=== PATIENT | female | born 1990 | race Caucasian/White ===

== ENCOUNTER 2017-02-24 14:05 | Emergency (ER) | payer OTHER, SELFPAY ==
[2017-02-24 14:11] VITALS: BP 141/84; PULSE 107; RESP 18; TEMP 36.6; O2SAT 98; BMI 33.3
--- NOTE | 2017-02-24 14:19 | HMH.EDBACK ---
ED Disposition Clinical Impression: Chronic thoracic back pain Disposition: Home, Self-Care Condition on Discharge: Good Instructions: DI for Chronic Pain -- Adult, DI for Thoracic Back Pain Additional Instructions: Start gabapentin. Prednisone as prescribed. Call your pain management doctor today and arrange follow-up, earliest available appointment. Additional instructions for BACK PAIN: See your physician as soon as possible for further evaluation. Return immediately if back pain becomes intolerable, or if fever, numbness or weakness of your legs, loss of control of your bowels or bladder. Prescriptions: predniSONE [Prednisone 10mg Tab Dose-Pack] 10 mg PO DAILY #42 tab - Critical Care Critical Care Time: No Attestation: On , the high probability of a clinically significant, sudden or life threatening deterioration of the following system(s) required my full and direct attention, intervention and personal management. The time I documented below is in addition to time spent performing reported procedures but includes the following listed in this critical care notation. Medical Decision Making Vital Signs: 02/24/17 14:11 Temperature 97.8 F Temperature Source Oral Pulse Rate [Right Brachial] 107 H Respiratory Rate 18 Blood Pressure [Right Arm] 141/84 Blood Pressure Mean [Right Arm] 103 Blood Pressure Source [Right Arm] Automatic Cuff Blood Pressure Position [Right Arm] Sitting 02 Sat by Pulse Oximetry 98 Oxygen Delivery Method Room Air Orders (Tests/Meds): ED MEDICATIONS Discontinued Medications Generic Name Dose Route Start Last Admin Trade Name Freq PRN Reason Stop Dose Admin Dexamethasone Sodium Phosphate 8 mg 02/24/17 14:35 Decadron 4mg/Ml 1ml Vial IM 02/24/17 14:36 ONCE ONE - Juan Inquiry Pt receiving controlled substance: No Juan was queried for this patient: Yes Reference #:: [id number] Comment: 20 rxs. last rx 120 percocet on 02/22/17. Medical Decision Making Narrative: The patient states she has not had imaging in a long time and she wonders whether she needs new imaging studies. Her records here indicate she had MRI of thoracic and lumbar spine March 03, 2016. Thoracic spine showed mild degenerative changes, no interval change, no neural impingement. Lumbar MRI was read as negative. I have advised her that I do not feel emergent imaging is necessary or would be helpful. MRI would need to be obtained as an outpatient. I do not feel x-rays or CT would be helpful. She has had no recent injury or trauma. [facility] History I have reviewed the patient's past medical history: Yes - *Social History Educational Level: Completed College Smoking Status: Unknown if ever smoked Tobacco Type: cigarettes Alcohol Intake: never - Psychiatric History Expresses thoughts of harming self/others: None Suicide Plan Description: No Plan ROS Obtained: Yes All systems reviewed & no additional complaints - Musculoskeletal Musculoskeletal: Reports back pain Physical Exam - General General appearance: alert, in no apparent distress - Head Head exam: atraumatic, normocephalic, normal inspection - Eye Eye exam: Present: normal appearance, PERRL, EOMI - ENT ENT exam: Present: normal exam, normal oropharynx, mucous membranes moist, TM's normal bilaterally, normal external ear exam - Neck Neck exam: Present: normal inspection, full ROM, trachea midline. Absent: meningismus, lymphadenopathy - Chest Chest inspection: Present: normal inspection, symmetric chest wall rise. Absent: tenderness - Respiratory Respiratory exam: Present: normal lung sounds bilaterally. Absent: respiratory distress - Cardiovascular Cardiovascular exam: Present: regular rate, normal rhythm. Absent: JVD - Abdominal Exam Abdominal exam: Present: soft, normal bowel sounds. Absent: distention, tenderness, guarding - Extremities Exam Extremities exam: Present: normal inspection, ful
[2017-02-24 14:52] VITALS: BP 136/75; PULSE 75; RESP 18; TEMP 36.8
== END 2017-02-24 15:10 | disposition home or self-care (01) ==
LOC: ER 15:04
PROVIDERS: Emergency Provider Emergency Medicine; Family Provider Nurse Practitioner Family; PCP Nurse Practitioner Family
DX: M54.6 Pain in thoracic spine (principal); F41.9 Anxiety disorder, unspecified; Z79.899 Other long term (current) drug therapy
CPT/HCPCS: 96372; 99282

== ENCOUNTER → 2017-03-10 13:54 | Outpatient (REF) | payer OTHER, SELFPAY ==
[2017-03-10 19:28] LABS: Amphetamine/Metha Screen,Urine Negative ng/mL (<1000); Barbiturates Screen,Urine Negative ng/mL (<200); Benzodiazepines Screen,Urine Negative ng/mL (200); Cannabinoid Screen,Urine Negative ng/mL (<50); Cocaine Screen,Urine Negative ng/g (<300); Methadone Screen,Urine Negative ng/mL (<300); Opiate Screen,Urine Negative ng/mL (<300); Phencyclidine Screen,Urine Negative ng/mL (<25)
== END ==
LOC: LAB 13:54
PROVIDERS: Visit Provider Emergency Medicine
DX: Z79.899 Other long term (current) drug therapy (principal)
CPT/HCPCS: 80305

== ENCOUNTER → 2017-04-19 13:42 | Outpatient (CLI) | payer OTHER, SELFPAY ==
--- NOTE | 2017-04-19 13:57 | XR_ITS ---
EXAM: XR thoracic spine 3V HISTORY: ITS.REASON: THORACIS DDD COMPARISON: None FINDINGS: Normal alignment. No fracture or dislocation. No lytic or blastic change.. There is mild mid thoracic scoliosis convex right. Small endplate osteophytes are present involving the mid and lower thoracic spine. IMPRESSION: Thoracic spondylosis with minimal scoliosis, no acute finding
== END ==
PROVIDERS: PCP Emergency Medicine; Visit Provider Physical Medicine & Rehabilitation
DX: M51.34 Other intervertebral disc degeneration, thoracic region (principal)
CPT/HCPCS: 72072

== ENCOUNTER → 2017-05-26 09:06 | Outpatient (CLI) | payer OTHER, SELFPAY ==
[2017-05-26 09:45] LABS: Hemoglobin A1C 5.3 % (0.0-7.0)
[2017-05-26 10:27] LABS: Alanine Aminotransferase 32 U/L (12-78); Albumin Level 3.6 gm/dL (3.4-5.0); Albumin/Globulin Ratio 1.2 (1.1-1.8); Alkaline Phosphatase 89 U/L (46-116); Anion Gap 14.6 mEq/L (5-15); Aspartate Amino Transferase 20 U/L (15-37); Bilirubin,Total 0.1 mg/dL (0.2-1.0); Blood Urea Nitrogen 10 mg/dL (7-18); Calcium 8.6 mg/dL (8.5-10.1); Carbon Dioxide 25 mmol/L (21.0-32.0); Chloride 108 mmol/L (98-107); Creatinine,Serum 1.03 mg/dL (0.55-1.02); Estimated Glomerular Filt Rate 64 ml/min (>60); Free T4 (Free Thyroxine) 1.19 ng/dl (0.76-1.46); GFR (African American) 78 ML/MIN (>60); Globulin 2.9 gm/dl (1.3-3.2); Glucose 104 mg/dL (74-106); Potassium 4.6 mmoL/L (3.5-5.1); Sodium 143 mmol/L (136-145); Thyroid Stimulating Hormone 4.39 uIU/ml (0.358-3.740); Total Protein,Serum 6.5 gm/dL (6.4-8.2)
[2017-05-30 06:14] LABS: Insulin Level Total 51.2 uIU/mL (2.6-24.9)
[2017-05-30 06:30] LABS: Thyroglobulin Level <1.0
== END ==
PROVIDERS: Visit Provider Internal Medicine Endocrinology, Diabetes & Metabolism
DX: C73 Malignant neoplasm of thyroid gland (principal); E89.0 Postprocedural hypothyroidism; R73.09 Other abnormal glucose
CPT/HCPCS: 36415; 80053; 83036; 83525; 84439; 84443; 86800

== ENCOUNTER → 2017-06-16 15:17 | Outpatient (CLI) | payer OTHER, SELFPAY ==
[2017-06-16 15:46] LABS: Hematocrit 39.6 % (37.0-47.0); Hemoglobin 13.3 g/dL (12.2-16.2)
== END ==
PROVIDERS: Visit Provider Obstetrics & Gynecology
DX: N93.8 Other specified abnormal uterine and vaginal bleeding (principal)
CPT/HCPCS: 85014; 85018

== ENCOUNTER → 2017-06-19 16:31 | Outpatient (CLI) | payer OTHER, SELFPAY ==
--- NOTE | 2017-06-19 16:32 | US_ITS ---
US transvaginal Ordering Physician: Tomas Marquis MD Patient Age: 27 years: Female HISTORY: ITS.REASON: PELVIC PAIN explanon . No cycle for the past 8 years pain started clotting last week . Recurrent or variant cyst TECHNIQUE: Transvaginal pelvic ultrasound. COMPARISON :09/27/[address] abdomen dec 2016 FINDINGS UTERUS: Retroverted retroflexed moderate size uterus.:. 7.5 cm in length x 4.2 cm x 4.5 cm wide Thin endometrial stripe. Normal thickness 3.2 mm. . borderline to mild enlarged Right ovary 4.5 x 3 x 3.1 cm Right ovarian cyst now measuring 3.4 x 2.7 cm Left ovary 1.7 x 1.3 x 1.3 cm. Scattered small follicles. No fluid in cul-de-sac IMPRESSION: ------ 1. Retroverted retroflexed uterus. Overall normal size with endometrial stripe 2. Borderline to mildly enlarged right ovary Contains dominant right ovarian cyst now measuring 3.4 x 2.7 cm. 3. No fluid in cul-de-sac
== END ==
PROVIDERS: PCP Emergency Medicine; Visit Provider Obstetrics & Gynecology
DX: R10.2 Pelvic and perineal pain (principal)
CPT/HCPCS: 76830

== ENCOUNTER → 2017-07-26 13:02 | Outpatient (CLI) | payer OTHER, SELFPAY ==
--- NOTE | 2017-07-26 13:16 | XR_ITS ---
XR hip LT 2-3V w/pelvis HISTORY: ITS.REASON: LEFT HIP PAIN ORDERING PHYSICIAN: Nichelle Nguyen PATIENT AGE: 27 years COMPARISON: None FINDINGS: No fracture or dislocation is evident. No significant degenerative change. No lytic or blastic change. Unremarkable soft tissues. There is an offset acetabulum along the lateral aspect of the hip joint has a normal variant. IMPRESSION: No acute finding, negative left hip
--- NOTE | 2017-07-26 13:16 | XR_ITS ---
XR hip RT 2-3V w/pelvis HISTORY: ITS.REASON: RT HIP PAIN ORDERING PHYSICIAN: Nichelle Nguyen PATIENT AGE: 27 years COMPARISON: None FINDINGS: No fracture or dislocation is evident. No significant degenerative change. No lytic or blastic change. Unremarkable soft tissues. There is an os acetabulum on the right as a normal variant IMPRESSION: Negative right hip
[2017-07-26 14:44] LABS: Uric Acid 4.6 mg/dL (2.6-7.2)
[2017-07-26 15:53] LABS: Erythrocyte Sedimentation Rate 16 mm/hr (0-20)
[2017-07-28 13:33] LABS: Antinuclear Antibodies, IFA Negative (.); RA Latex Turbid. <10.0 IU/mL (0.0-13.9)
== END ==
PROVIDERS: Physical Medicine & Rehabilitation; PCP Emergency Medicine; Visit Provider Nurse Practitioner Family
DX: M25.551 Pain in right hip (principal); M25.552 Pain in left hip; M25.50 Pain in unspecified joint
CPT/HCPCS: 36415; 73502; 84550; 85651; 86038; 86431

== ENCOUNTER → 2017-08-08 16:21 | Outpatient (REF) | payer OTHER, SELFPAY ==
[2017-08-08 21:56] LABS: Free T4 (Free Thyroxine) 1.06 ng/dl (0.76-1.46); Thyroid Stimulating Hormone 6.16 uIU/ml (0.358-3.740)
== END ==
LOC: LAB 16:21
PROVIDERS: Visit Provider Emergency Medicine
DX: F41.9 Anxiety disorder, unspecified (principal); E07.9 Disorder of thyroid, unspecified
CPT/HCPCS: 84439; 84443

== ENCOUNTER 2017-09-02 07:49 | Outpatient (CLI) | payer OTHER, SELFPAY | END 2017-09-02 08:05 | disposition hospice, home (50) | PROVIDERS: Visit Provider Emergency Medicine | DX: T78.40XA Allergy, unspecified, initial encounter (principal) | CPT/HCPCS: 96372 ==

== ENCOUNTER → 2017-09-11 14:50 | Outpatient (CLI) | payer OTHER, SELFPAY ==
--- NOTE | 2017-09-11 15:12 | CT_ITS ---
CT pelvis wo con INDICATION: Bilateral hip pain ITS.REASON: Bilateral Hip Pain ORDERING PHYSICIAN: Gabriela Miles PATIENT AGE: 27 years COMPARISON: None TECHNIQUE: Axial images are obtained without contrast. Sagittal, coronal, and 3-D reformatted images are generated of both hips. All CT scans at the facility use one or more dose reduction, viz: automated exposure control, ma/kV adjustment per patient size (including targeted exams where dose is matched to indication, i.e. head), or iterative reconstruction technique. FINDINGS: No fracture or dislocation. No lytic or blastic change. There is slight decrease in the joint space superiorly on both sides suggesting mild bilateral osteoarthritis. There are bilateral os acetabuli as a normal variant. No soft tissue mass or obvious joint effusion. Incidental note made of the left ovarian cyst at 18 mm. The uterus is somewhat bulky nonspecific. The SI joints have an unremarkable appearance. IMPRESSION: 1. There is slight decrease in the hip joint space superiorly on both sides consistent with mild osteoarthritis 2. Otherwise negative CT of the hips
== END ==
PROVIDERS: PCP Nurse Practitioner Family; Visit Provider Nurse Practitioner Family
DX: M25.551 Pain in right hip (principal); M25.552 Pain in left hip
CPT/HCPCS: 72192

== ENCOUNTER → 2017-10-10 10:44 | Outpatient (CLI) | payer OTHER, SELFPAY ==
[2017-10-11 14:54] LABS: HIV Screen 4th Generation wRfx Non Reactive (Non Reactive); Rapid Plasma Reagin Ab Titer Non Reactive (NonRea<1:1)
[2017-10-11 14:55] LABS: Hepatitis C Antibody <0.1 s/co ratio (0.0-0.9)
== END ==
PROVIDERS: Family Provider Nurse Practitioner Family; PCP Emergency Medicine; Visit Provider Obstetrics & Gynecology
DX: Z11.3 Encounter for screening for infections with a predominantly sexual mode of transmission (principal)
CPT/HCPCS: 36415; 86592; 86703; 87380; G0432

== ENCOUNTER → 2017-11-28 13:35 | Outpatient (CLI) | payer OTHER, SELFPAY ==
[2017-11-28 15:14] LABS: Free T4 (Free Thyroxine) 1.08 ng/dl (0.76-1.46)
[2017-11-30 07:00] LABS: Thyroglobulin IMA CHARGE YES; Thyroglobulin Level <1.0 IU/mL (0.0-0.9)
== END ==
PROVIDERS: PCP Emergency Medicine; Visit Provider Internal Medicine Endocrinology, Diabetes & Metabolism
DX: C73 Malignant neoplasm of thyroid gland (principal)
CPT/HCPCS: 84439; 84443; 86800

== ENCOUNTER → 2017-12-06 12:59 | Outpatient (CLI) | payer OTHER, SELFPAY ==
--- NOTE | 2017-12-06 13:01 | MR_ITS ---
MR lumbar spine wo con, MR 3-d myelogram/MRCP HISTORY: Low back pain X 4-5 years. Bilateral buttock and leg pain. RT leg numbness and tingling. ITS.REASON: CHRONIC PAIN SYNDROME ORDERING PHYSICIAN: Ranulfo Tinsley PATIENT AGE: 27 years Comparison: MRI 03/03/16 TECHNIQUE: Standard multiplanar multiecho sequences are performed without contrast. 3-D MIP and myelographic images are also rendered and reviewed FINDINGS: There is normal alignment. The spinal cord ends at the L1-L2 level. No canal stenosis,, disc herniation, foraminal narrowing, or lateral recess narrowing. There is some minimal generalized facet and ligamentum flavum hypertrophic change but no evidence of lateral recess or foraminal narrowing. IMPRESSION: Minimal facet and ligamentum flavum hypertrophy otherwise negative MRI of the lumbar spine
== END ==
PROVIDERS: PCP Emergency Medicine; Visit Provider Anesthesiology
DX: G89.21 Chronic pain due to trauma (principal)
CPT/HCPCS: 72148; 76376

== ENCOUNTER → 2018-01-10 19:33 | Outpatient (CLI) | payer OTHER, SELFPAY ==
[2018-01-10 21:50] LABS: Amphetamine/Metha Screen,Urine Negative ng/mL (<1000); Barbiturates Screen,Urine Negative ng/mL (<200); Benzodiazepines Screen,Urine Negative ng/mL (<200); Cannabinoid Screen,Urine Negative ng/mL (<50); Cocaine Screen,Urine Negative ng/mL (<300); Methadone Screen,Urine Negative ng/mL (<300); Opiate Screen,Urine Positive ng/mL (<300); Phencyclidine Screen,Urine Negative ng/mL (<25)
[2018-01-15 05:06] LABS: Alprazolam Negative (Cutoff=100); Benzodiazepines Positive ng/mL (Cutoff=100); Clonazepam Negative (Cutoff=100); Flurazepam Negative (Cutoff=100); Lorazepam Positive (.); Midazolam Negative (Cutoff=100); Temazepam Negative (Cutoff=100); Triazolam Negative (Cutoff=100)
== END ==
PROVIDERS: Visit Provider Emergency Medicine
DX: Z79.899 Other long term (current) drug therapy (principal)
CPT/HCPCS: 80305; 80346

== ENCOUNTER → 2018-01-20 12:48 | Outpatient (CLI) | payer OTHER, SELFPAY ==
[2018-01-20 17:00] LABS: Free T4 (Free Thyroxine) 1.34 ng/dl (0.76-1.46); Thyroid Stimulating Hormone 0.86 uIU/ml (0.358-3.740)
== END ==
PROVIDERS: Visit Provider Internal Medicine Endocrinology, Diabetes & Metabolism
DX: C73 Malignant neoplasm of thyroid gland (principal)
CPT/HCPCS: 36415; 84439; 84443

== ENCOUNTER → 2018-01-26 10:57 | Outpatient (CLI) | payer OTHER, SELFPAY ==
[2018-01-27 18:39] LABS: HIV Screen 4th Generation wRfx Non Reactive (Non Reactive); Rapid Plasma Reagin Ab Titer Non Reactive (NonRea<1:1)
[2018-01-27 18:40] LABS: Hepatitis C Antibody 0.1 s/co ratio (0.0-0.9)
== END ==
PROVIDERS: PCP Emergency Medicine; Visit Provider Obstetrics & Gynecology
DX: Z11.3 Encounter for screening for infections with a predominantly sexual mode of transmission (principal); N94.9 Unspecified condition associated with female genital organs and menstrual cycle; Z30.9 Encounter for contraceptive management, unspecified
CPT/HCPCS: 36415; 86316; 86592; 86703; 87380; G0432

== ENCOUNTER → 2018-02-02 12:38 | Outpatient (CLI) | payer OTHER, SELFPAY ==
--- NOTE | 2018-02-02 12:53 | US_ITS ---
US transvaginal HISTORY: ITS.REASON: PELVIC PAIN ORDERING PHYSICIAN: Tomas Marquis MD PATIENT AGE: 27 years Comparison: None FINDINGS: UTERUS: The uterus measures 6.5 x 4.4 x 5 cm. Combined endometrial thickness is 3 mm. The uterus is retroflexed. No uterine mass evident. RIGHT OVARY: 4.7 x 3.5 cm. There is a 4.3 x 3 cm cyst of the right ovary. There is some minimal septation noted posteriorly Blood flow is present to the right ovary LEFT OVARY: 1.8 x 1.2 cm. Unremarkable appearance CUL-DE-SAC FLUID: No cul-de-sac fluid apparent OTHER FINDINGS: None IMPRESSION: 4 cm right ovarian cyst with thin septation posteriorly. Retroflexed uterus Otherwise negative pelvic ultrasound
== END ==
PROVIDERS: PCP Emergency Medicine; Visit Provider Obstetrics & Gynecology
DX: R10.2 Pelvic and perineal pain (principal)
CPT/HCPCS: 76830

== ENCOUNTER 2018-03-27 14:03 | Outpatient (RCR) | payer OTHER, SELFPAY | END 2018-03-27 14:05 | disposition home or self-care (01) | LOC: OT 14:03 | PROVIDERS: Visit Provider Orthopaedic Surgery | DX: S52.614D Nondisplaced fracture of right ulna styloid process, subsequent encounter for closed fracture with routine healing (principal) | CPT/HCPCS: 97763 ==

== ENCOUNTER → 2018-04-03 11:21 | Outpatient (POV) | payer OTHER, SELFPAY | PROVIDERS: Visit Provider Dermatology | DX: Z00.00 Encounter for general adult medical examination without abnormal findings (principal) ==

== ENCOUNTER → 2018-05-15 12:16 | Outpatient (CLI) | payer OTHER, SELFPAY ==
--- NOTE | 2018-05-15 12:20 | XR_ITS ---
XR abdomen min 2V COMPARISON: CT scan abdomen pelvis without IV or oral contrast 01/21/2018 HISTORY: Clinical suspicion of constipation TECHNIQUE: KUB and upright abdomen FINDINGS: There is minimal scattered gas in ascending and transverse colon and splenic flexure. There is some gas in the lower descending and sigmoid colon. There is very little if any formed stool present. There is no significant small bowel gas. There are no abnormal soft tissue shadows and there is no free air. IMPRESSION: Nondiagnostic abdomen, no findings of constipation
--- NOTE | 2018-05-15 12:20 | XR_ITS ---
XR mandible min 4V COMPARISON: None HISTORY: Kicked in left hemimandible by patient's child TECHNIQUE: Panorex view and left lateral view FINDINGS: The mandible appears grossly intact with no evidence of recent or old fracture. The mandibular condyles appear normal bilaterally. There is poor dental hygiene with many missing mandibular teeth and all alveolar teeth IMPRESSION: Minimal negative for acute fracture
== END ==
PROVIDERS: PCP Emergency Medicine; Visit Provider Emergency Medicine
DX: R19.7 Diarrhea, unspecified (principal); R68.84 Jaw pain
CPT/HCPCS: 70110; 74019

== ENCOUNTER → 2018-07-20 17:20 | Outpatient (CLI) | payer OTHER, SELFPAY ==
[2018-07-20 18:41] LABS: Thyroid Stimulating Hormone 0.46 uIU/ml (0.358-3.740)
== END ==
PROVIDERS: Visit Provider Internal Medicine Endocrinology, Diabetes & Metabolism
DX: C73 Malignant neoplasm of thyroid gland (principal)
CPT/HCPCS: 36415; 84439; 84443

== ENCOUNTER 2018-07-26 18:13 | Emergency (ER) | payer OTHER, SELFPAY ==
[2018-07-26 18:27] VITALS: BP 125/80; PULSE 79; RESP 18; TEMP 36.1; O2SAT 99; BMI 33.9
[2018-07-26 18:37] LABS: Microscopic, Urine URINE MICROSCOPIC (MICROSCOPIC)
[2018-07-26 18:39] LABS: Appearance,Urine CLEAR (Clear); Bilirubin,Urine Negative (Negative); Blood, Urine Negative (Negative); Color,Urine YELLOW (Yellow); Glucose,Urine (UA) Negative (Negative); Ketones,Urine Negative (Negative); Leukocyte Esterase,Urine Negative (Negative); Nitrate,Urine Negative (Negative); PH,Urine 5.5 (5.0-8.5); Protein,Urine Negative (Negative); Urobilinogen,Urine 0.2 EU/dl (0.2)
--- NOTE | 2018-07-26 18:41 | CT_ITS ---
CT abdomen pelvis w con CLINICAL INDICATION: Generalized abdominal pain with nausea and vomiting ITS.REASON: abd pain ORDERING PHYSICIAN: Manuel Trinidad MD PATIENT AGE: 28 years COMPARISON: 01/07/2017 TECHNIQUE: Axial images obtained with sagittal and coronal reformats. All CT scans at the facility use one or more dose reduction, viz: automated exposure control, ma/kV adjustment per patient size (including targeted exams where dose is matched to indication, i.e. head), or iterative reconstruction technique. PROCEDURE: Oral Contrast: None IV Contrast: 75 mL's Optiray 350 . FINDINGS: Lower thorax: No acute finding There is a small isodensity in the central aspect of the right hepatic lobe at 4 mm nonspecific. Liver is otherwise unremarkable. The gallbladder, spleen, adrenal glands, pancreas, and kidneys have an unremarkable appearance. No intestinal obstruction or free air is evident. There is mild mucosal thickening of the jejunum raising the suspicion of enteritis. No evidence of appendicitis or diverticulitis. There is a left ovarian cyst at 3.7 cm. There is mild prominence of the pelvic vessels and left gonadal vein which could be seen with pelvic congestion syndrome No acute bony findings. IMPRESSION: 1. Possible enteritis of the jejunum 2. 3.7 cm left ovarian cyst 3. Mild prominence of the pelvic vessels and left gonadal vein nonspecific but could be seen with pelvic congestion syndrome
[2018-07-26 18:46] LABS: Basophils % 0.2 % (0.1-2.0); Eosinophils # 0.2 K/mm3 (0.0-0.4); Eosinophils % 1.3 % (0.1-12.0); Hemoglobin 13.7 g/dL (12.2-16.2); Lymphocytes # 1.9 K/mm3 (0.7-4.5); Lymphocytes % 12.1 % (10-50); Mean Corpuscular HGB Conc 32.6 g/dL (31.8-35.4); Mean Corpuscular Hemoglobin 29.4 pg (27.0-31.2); Mean Corpuscular Volume 90.2 fl (81-99); Mean Platelet Volume 6.8 fl (7.4-10.4); Monocytes # 0.8 K/mm3 (0.1-1.0); Monocytes % 5.3 % (1.7-9.3); Neutrophils # 12.5 K/mm3 (1.8-7.8); Neutrophils % 81.1 % (37.0-80.0); Platelet Count 400 K/mm3 (142-424); Red Blood Count 4.66 M/mm3 (4.20-5.40); Red Cell Distribution Width 12.4 % (11.5-17.5); White Blood Count 15.4 K/mm3 (4.8-10.8)
[2018-07-26 18:47] LABS: MANUAL DIFFERENTIAL MANUAL DIFFERENTIAL (MANUAL DIFF)
[2018-07-26 18:58] LABS: Alanine Aminotransferase 36 U/L (12-78); Albumin Level 3.5 gm/dL (3.4-5.0); Alkaline Phosphatase 96 U/L (46-116); Amylase 21 U/L (25-115); Anion Gap 11.9 mEq/L (5-15); Aspartate Amino Transferase 19 U/L (15-37); Bilirubin,Total 0.3 mg/dL (0.2-1.0); Blood Urea Nitrogen 11 mg/dL (7-18); Calcium 8.3 mg/dL (8.5-10.1); Carbon Dioxide 27 mmol/L (21.0-32.0); Chloride 105 mmol/L (98-107); Creatinine Clearance Estimated 172 mL/min (50-200); Creatinine,Serum 0.71 mg/dL (0.55-1.02); Estimated Glomerular Filt Rate 98 ml/min (>60); GFR (African American) 119 ML/MIN (>60); Globulin 3.5 gm/dl (1.3-3.2); Glucose 86 mg/dL (74-106); Lipase 101 u/L (73-393); Potassium 3.9 mmoL/L (3.5-5.1); Sodium 140 mmol/L (136-145)
--- NOTE | 2018-07-26 19:02 | HMH.EDABDPAI ---
ED Disposition Clinical Impression: Jejunitis Disposition: Home, Self-Care Condition on Discharge: Good Instructions: DI for Peptic Ulcer Prescriptions: Sucralfate [Carafate 1gm/10mL Susp] 10 ml PO QID 14 Days #550 ml Pantoprazole Sodium [Protonix 40mg tablet] 40 mg PO HS 30 Days #30 tab Referrals: Manuel Montilla MD [Primary Care Provider] - Time of Disposition: 21:07 - Critical Care Critical Care Time: No Attestation: On 07/26/18, the high probability of a clinically significant, sudden or life threatening deterioration of the following system(s) required my full and direct attention, intervention and personal management. The time I documented below is in addition to time spent performing reported procedures but includes the following listed in this critical care notation. Medical Decision Making - Medical Records Medical records reviewed: Yes: I reviewed the patient's medical records. - Juan Inquiry Pt receiving controlled substance: No Juan was queried for this patient: No Vital Signs: 07/26/18 18:27 07/26/18 20:12 07/26/18 21:00 Temperature 97.0 F L 98.3 F Temperature Source Oral Oral Pulse Rate [Right Brachial] 79 93 H 93 H Respiratory Rate 18 18 18 Blood Pressure [Right Arm] 125/80 110/68 109/65 L Blood Pressure Mean [Right Arm] 95 82 79 Blood Pressure Source [Right Arm] Automatic Cuff Automatic Cuff Automatic Cuff Blood Pressure Position [Right Arm] Sitting Supine Supine 02 Sat by Pulse Oximetry 99 99 99 Oxygen Delivery Method Room Air Room Air Room Air - Lab Data Lab results reviewed: Yes: I reviewed the patient's lab results. Lab Results 07/26/18 18:26: Urine Color Yellow, Urine Appearance Clear, Urine pH 5.5, Ur Specific [place] 1.010, Urine Protein Negative, Urine Glucose (UA) Negative, Urine Ketones Negative, Urine Blood Negative, Urine Nitrate Negative, Urine Bilirubin Negative, Urine Urobilinogen 0.2, Ur Leukocyte Esterase Negative, Urine WBC Occasional, Ur Squamous Epith Cells Occasional, Urine Bacteria Trace 07/26/18 18:35: WBC 15.4 H, RBC 4.66, Hgb 13.7, Hct 42.0, MCV 90.2, MCH 29.4, MCHC 32.6, RDW 12.4, Plt Count 400, MPV 6.8 L, Neut % (Auto) 81.1 H, Lymph % (Auto) 12.1, [place] % (Auto) 5.3, Eos % (Auto) 1.3, Baso % (Auto) 0.2, Neut # (Auto) 12.5 H, Lymph # (Auto) 1.9, [place] # (Auto) 0.8, Eos # (Auto) 0.2, Baso # (Auto) 0.0, Total Counted 100, Neutrophils % (Manual) 79 H, Band Neutrophils % 7.0, Lymphocytes % (Manual) 11, Monocytes % (Manual) 3, Platelet Estimate Slight increase, RBC Morphology Normal 07/26/18 18:35: Sodium 140, Potassium 3.9, Chloride 105, Carbon Dioxide 27, Anion Gap 11.9, BUN 11, Creatinine 0.71, Estimated Creat Clear 172, Estimated GFR 98, Est GFR ( Amer) 119, Glucose 86, Calcium 8.3 L, Total Bilirubin 0.3, AST 19, ALT 36, Alkaline Phosphatase 96, Total Protein 7.0, Albumin 3.5, Globulin 3.5 H, Albumin/Globulin Ratio 1.0 L, Amylase 21 L, Lipase 101 07/26/18 18:35: Serum HCG, Qual Negative 07/26/18 19:09: Lactate 1.0 Result diagrams: 07/26/18 18:35 07/26/18 18:35 Orders (Tests/Meds): ED MEDICATIONS Generic Name Dose Route Start Last Admin Trade Name Freq PRN Reason Stop Dose Admin Sodium Chloride 1,000 mls @ 999 mls/hr 07/26/18 18:45 07/26/18 18:44 Sod Chlor 0.9% 1000ml Bag IV 07/26/18 19:45 999 mls/hr .Q1H1M LUZMARIA Administration Sodium Chloride 1,000 mls @ 999 mls/hr 07/26/18 19:30 07/26/18 20:18 Sod Chlor 0.9% 1000ml Bag IV 07/26/18 20:30 999 mls/hr .Q1H1M LUZMARIA Administration Discontinued Medications Generic Name Dose Route Start Last Admin Trade Name Freq PRN Reason Stop Dose Admin Belladonna Alkaloids 60 ml 07/26/18 18:43 07/26/18 18:44 Gi Cocktail 60ml Udc PO 07/26/18 18:44 60 ml ONCE ONE Administration Ioversol 75 ml 07/26/18 19:43 07/26/18 19:45 Rad-Optiray 350 100ml Vial IV 07/26/18 19:44 75 ml ONCE ONE Administration Protocol Morphine Sulfate 2 mg 07/26/18 19:22 07/26/18
--- NOTE | 2018-07-26 19:06 | ED_ITS ---
ED Disposition Clinical Impression: Jejunitis Disposition: Home, Self-Care Condition on Discharge: Good Instructions: DI for Peptic Ulcer Prescriptions: Sucralfate [Carafate 1gm/10mL Susp] 10 ml PO QID 14 Days #550 ml Pantoprazole Sodium [Protonix 40mg tablet] 40 mg PO HS 30 Days #30 tab Referrals: Manuel Montilla MD [Primary Care Provider] - Time of Disposition: 21:07 - Critical Care Critical Care Time: No Attestation: On 07/26/18, the high probability of a clinically significant, sudden or life threatening deterioration of the following system(s) required my full and direct attention, intervention and personal management. The time I documented below is in addition to time spent performing reported procedures but includes the following listed in this critical care notation. Medical Decision Making - Medical Records Medical records reviewed: Yes: I reviewed the patient's medical records. - Juan Inquiry Pt receiving controlled substance: No Juan was queried for this patient: No Vital Signs: 07/26/18 18:27 07/26/18 20:12 07/26/18 21:00 Temperature 97.0 F L 98.3 F Temperature Source Oral Oral Pulse Rate [Right Brachial] 79 93 H 93 H Respiratory Rate 18 18 18 Blood Pressure [Right Arm] 125/80 110/68 109/65 L Blood Pressure Mean [Right Arm] 95 82 79 Blood Pressure Source [Right Arm] Automatic Cuff Automatic Cuff Automatic Cuff Blood Pressure Position [Right Arm] Sitting Supine Supine 02 Sat by Pulse Oximetry 99 99 99 Oxygen Delivery Method Room Air Room Air Room Air - Lab Data Lab results reviewed: Yes: I reviewed the patient's lab results. Lab Results 07/26/18 18:26: Urine Color Yellow, Urine Appearance Clear, Urine pH 5.5, Ur Specific [place] 1.010, Urine Protein Negative, Urine Glucose (UA) Negative, Urine Ketones Negative, Urine Blood Negative, Urine Nitrate Negative, Urine Bilirubin Negative, Urine Urobilinogen 0.2, Ur Leukocyte Esterase Negative, Urine WBC Occasional, Ur Squamous Epith Cells Occasional, Urine Bacteria Trace 07/26/18 18:35: WBC 15.4 H, RBC 4.66, Hgb 13.7, Hct 42.0, MCV 90.2, MCH 29.4, MCHC 32.6, RDW 12.4, Plt Count 400, MPV 6.8 L, Neut % (Auto) 81.1 H, Lymph % (Auto) 12.1, [place] % (Auto) 5.3, Eos % (Auto) 1.3, Baso % (Auto) 0.2, Neut # (Auto) 12.5 H, Lymph # (Auto) 1.9, [place] # (Auto) 0.8, Eos # (Auto) 0.2, Baso # (Auto) 0.0, Total Counted 100, Neutrophils % (Manual) 79 H, Band Neutrophils % 7.0, Lymphocytes % (Manual) 11, Monocytes % (Manual) 3, Platelet Estimate Slight increase, RBC Morphology Normal 07/26/18 18:35: Sodium 140, Potassium 3.9, Chloride 105, Carbon Dioxide 27, Anion Gap 11.9, BUN 11, Creatinine 0.71, Estimated Creat Clear 172, Estimated GFR 98, Est GFR ( Amer) 119, Glucose 86, Calcium 8.3 L, Total Bilirubin 0.3, AST 19, ALT 36, Alkaline Phosphatase 96, Total Protein 7.0, Albumin 3.5, Globulin 3.5 H, Albumin/Globulin Ratio 1.0 L, Amylase 21 L, Lipase 101 07/26/18 18:35: Serum HCG, Qual Negative 07/26/18 19:09: Lactate 1.0 Result diagrams: 07/26/18 18:35 07/26/18 18:35 Orders (Tests/Meds): ED MEDICATIONS Generic Name Dose Route Start Last Admin Trade Name Freq PRN Reason Stop Dose Admin Sodium Chloride 1,000 mls @ 999 mls/hr 07/26/18 18:45 07/26/18 18:44 Sod Chlor 0.9% 1000ml Bag IV 07/26/18 19:45 999 mls/hr
[2018-07-26 19:07] LABS: HCG Qualitative, Serum Negative (Negative)
[2018-07-26 19:13] LABS: Lymphocytes % 11 % (10-50); Monocytes % 3 % (2-9); Neutrophils % 79 % (42-76); Platelet Estimate Slight Increase; RBC Morphology Normal; Total Cells Counted 100
[2018-07-26 19:15] LABS: Bacteria,Urine Trace /lpf; Squamous Epithelial Cell,Urine Occasional #/hpf (0-5); WBC,Urine Occasional #/hpf (0-3)
[2018-07-26 20:12] VITALS: BP 110/68; PULSE 93; RESP 18; TEMP 36.8; O2SAT 99
[2018-07-26 21:00] VITALS: BP 109/65; PULSE 93; RESP 18; O2SAT 99
[2018-07-26 21:34] VITALS: BP 109/65; PULSE 93; RESP 14; TEMP 36.8; O2SAT 99
== END 2018-07-26 21:38 | disposition home or self-care (01) ==
PROVIDERS: Emergency Provider Emergency Medicine; PCP Emergency Medicine
DX: K52.9 Noninfective gastroenteritis and colitis, unspecified (principal); F41.8 Other specified anxiety disorders; E03.9 Hypothyroidism, unspecified; F17.210 Nicotine dependence, cigarettes, uncomplicated; Z88.2 Allergy status to sulfonamides
CPT/HCPCS: 74177; 80053; 81001; 82150; 83605; 83690; 84703; 85007; 85025; 87040; 96365; 96366; 96367; 96375; 99284; J2405; Q9967

== ENCOUNTER → 2018-10-16 15:39 | Outpatient (CLI) | payer OTHER, SELFPAY ==
--- NOTE | 2018-10-16 15:42 | US_ITS ---
PROCEDURE: US TRANSVAGINAL CLINICAL INDICATION: US T/V- llqp w/ low grade fever COMPARISON: TRANVAG US transvaginal from 02/02/2018 TECHNIQUE: FINDINGS: The uterus is retroverted and measures 6 x 4 x 4.4 cm with a combined endometrial thickness of 2 mm. No uterine mass evident. The left ovary is 2.6 x 2 cm. The right ovary is 4 x 4 cm and contains a 4 cm cyst. There is bilateral ovarian blood flow. No cul-de-sac fluid evident. IMPRESSION: Retroverted uterus. Four cm right ovarian cyst Dictated by: Woodrow Orozco MD 10/16/2018 16:59 Signed by: <Electronically signed by Woodrow Orozco MD in [place]> 10/16/2018 16:59
== END ==
PROVIDERS: PCP Emergency Medicine; Visit Provider Nurse Practitioner Obstetrics & Gynecology
DX: R10.32 Left lower quadrant pain (principal)
CPT/HCPCS: 76830

== ENCOUNTER → 2018-10-23 17:05 | Outpatient (CLI) | payer OTHER, SELFPAY ==
[2018-10-23 19:31] LABS: Amphetamine/Metha Screen,Urine Negative ng/mL (<1000); Barbiturates Screen,Urine Negative ng/mL (<200); Benzodiazepines Screen,Urine Negative ng/mL (<200); Cannabinoid Screen,Urine Negative ng/mL (<50); Cocaine Screen,Urine Negative ng/mL (<300); Methadone Screen,Urine Negative ng/mL (<300); Opiate Screen,Urine Positive ng/mL (<300); Phencyclidine Screen,Urine Negative ng/mL (<25)
== END ==
PROVIDERS: Visit Provider Emergency Medicine
DX: G89.29 Other chronic pain (principal); M54.6 Pain in thoracic spine
CPT/HCPCS: 80305

== ENCOUNTER → 2018-11-13 11:47 | Outpatient (POV) | payer OTHER, SELFPAY ==
--- NOTE | 2018-11-13 11:58 | HMH.PAINSOAP ---
[facility] Pain Management SOAP Note Subjective:: Patient is a pleasant 28-year-old white female who presents today for follow-up. Patient was seen back in 2016 in the office. Since then she has been seen by Dr. Kiera Tinsley where she received multiple trigger points along with thoracic facet joint injection/RFA. Patient has had some relief with this however she is now beginning to have the pain return. She is also got palpable trigger points thoracic paraspinous. Patient would like to transfer care here so that she can continue getting her injections because they do make her much more functional. She rates her pain today 3 out of 10 ROS General: no recent weight change, no fever, no sleep disturbances Respiratory: no cough, no shortness of air, no recurring pulmonary infections Cardiovascular/Peripheral Vascular: No chest pain, No palpitations, no edema, no shortness of breath. Gastrointestinal: no incontinence, normal bowel movements reported Genitourinary: no incontinence Musculoskeletal: Back pain, myofascial pain Psychiatric: normal mood/ affect Neurological: [denies weakness in extremities], [denies balance issues] Objective:: Physical Exam General: Alert and oriented x3, no acute distress, pleasant and cooperative, [on room air] Lungs: Resps E/U, Symmetrical chest expansion, Eyes: PERRL Musculoskeletal: Flexion and extension of thoracic spine somewhat guarded secondary to pain, deep tendon reflexes normal, strength in upper and lower extremities [5/5], normal gait noted, positive facet loading thoracic spine bilaterally Neurological: speech clear, delivery tech equal, no gross sensory deficits Assessment:: Degenerative disc disease thoracic spine, thoracic spondylosis, myofascial pain syndrome Plan:: We will start with doing some trigger point injections to the thoracic paraspinous bilaterally to see if this is beneficial. 2 weeks later we will follow-up with a bilateral medial branch block/facet joint injection at T5-T6 T6-T7 and T7-T8 bilaterally. I will follow-up with the patient after this reassess her symptoms at that time she is not on any anticoagulation therapy she is continuing a home stretching program. She is failed other therapies including medication management. I will follow-up with her after injection reassess her symptoms that that time she is been instructed to call the office if she has any issues prior to her next appointment. Dr. Alas has reviewed this note and agrees with this plan of care. This note was dictated using voice recognition software and may contain errors or omissions [facility] History I have reviewed the patient's past medical history: Yes Medical History: Reports:: Anxiety, Cancer, Congenital Heart Disease, Depression, MRSA, Valvular Heart Disease Denies:: Diabetes Mellitus Type 1, Diabetes Mellitus Type 2 *Have you ever received a pneumonia vaccine?: Yes *Have you received a flu vaccine this season?: Yes Other Medical History: Reports: Hypothyroidism, Other Laterality Cases: Other Surgeries: Yes: Cancer Surgery, Thyroidectomy, Other Amputation: No Fractures: No - *Social History Smoking Status: Current every day smoker Tobacco Type: cigarettes # Packs/Day (cigarettes): 1 Alcohol Intake: never Substance Use Type: denies use *Occupational Status:: employed Housing: house Household Members: family *Travel in the last 8 weeks: None - Psychiatric History Pschychiatric History:: Reports:: Anxiety, Depression Family Hx:: Coronary Artery Disease, Heart Attack, Cancer
--- NOTE | 2018-11-13 12:04 | P.CONS_ITS ---
[facility] Pain Management SOAP Note Subjective:: Patient is a pleasant 28-year-old white female who presents today for follow-up. Patient was seen back in 2016 in the office. Since then she has been seen by Dr. Kiera Tinsley where she received multiple trigger points along with thoracic facet joint injection/RFA. Patient has had some relief with this however she is now beginning to have the pain return. She is also got palpable trigger points thoracic paraspinous. Patient would like to transfer care here so that she can continue getting her injections because they do make her much more functional. She rates her pain today 3 out of 10 ROS General: no recent weight change, no fever, no sleep disturbances Respiratory: no cough, no shortness of air, no recurring pulmonary infections Cardiovascular/Peripheral Vascular: No chest pain, No palpitations, no edema, no shortness of breath. Gastrointestinal: no incontinence, normal bowel movements reported Genitourinary: no incontinence Musculoskeletal: Back pain, myofascial pain Psychiatric: normal mood/ affect Neurological: [denies weakness in extremities], [denies balance issues] Objective:: Physical Exam General: Alert and oriented x3, no acute distress, pleasant and cooperative, [on room air] Lungs: Resps E/U, Symmetrical chest expansion, Eyes: PERRL Musculoskeletal: Flexion and extension of thoracic spine somewhat guarded secondary to pain, deep tendon reflexes normal, strength in upper and lower extremities [5/5], normal gait noted, positive facet loading thoracic spine bilaterally Neurological: speech clear, service advocate contact equal, no gross sensory deficits Assessment:: Degenerative disc disease thoracic spine, thoracic spondylosis, myofascial pain syndrome Plan:: We will start with doing some trigger point injections to the thoracic paraspinous bilaterally to see if this is beneficial. 2 weeks later we will follow-up with a bilateral medial branch block/facet joint injection at T5-T6 T6-T7 and T7-T8 bilaterally. I will follow-up with the patient after this reassess her symptoms at that time she is not on any anticoagulation therapy she is continuing a home stretching program. She is failed other therapies including medication management. I will follow-up with her after injection reassess her symptoms that that time she is been instructed to call the office if she has any issues prior to her next appointment. Dr. Alas has reviewed this note and agrees with this plan of care. This note was dictated using voice recognition software and may contain errors or omissions [facility] History I have reviewed the patient's past medical history: Yes Medical History: Reports:: Anxiety, Cancer, Congenital Heart Disease, Depression, MRSA, Valvular Heart Disease Denies:: Diabetes Mellitus Type 1, Diabetes Mellitus Type 2 *Have you ever received a pneumonia vaccine?: Yes *Have you received a flu vaccine this season?: Yes Other Medical History: Reports: Hypothyroidism, Other Laterality Cases: Other Surgeries: Yes: Cancer Surgery, Thyroidectomy, Other Amputation: No Fractures: No - *Social History Smoking Status: Current every day smoker Tobacco Type: cigarettes # Packs/Day (cigarettes): 1 Alcohol Intake: never Substance Use Type: denies use *Occupational Status:: employed Housing: house Household Members: family *Travel in the last 8 weeks: None - Psychiatric History Pschychiatric History:: Reports:: Anxiety, Depression Family Hx:: Coronary Artery Disease, Heart Attack, Cancer
[2018-11-13 12:14] VITALS: BP 134/76; PULSE 83; RESP 18; O2SAT 98; BMI 33.9
== END ==
PROVIDERS: PCP Emergency Medicine; Visit Provider Clinical Nurse Specialist Family Health
DX: M51.34 Other intervertebral disc degeneration, thoracic region (principal); M47.814 Spondylosis without myelopathy or radiculopathy, thoracic region; M79.18 Myalgia, other site
CPT/HCPCS: 99212

== ENCOUNTER → 2018-12-18 16:21 | Outpatient (CLI) | payer OTHER, SELFPAY ==
--- NOTE | 2018-12-18 16:29 | MR_ITS ---
PROCEDURE: MR HEAD/BRAIN WO/W CON CLINICAL INDICATION: Dizziness Dizziness for 6 days, bilateral arm weakness COMPARISON: CT HEAD/BRAIN WO CON from 12/16/2018 TECHNIQUE: Routine multiplanar multi echo sequences are performed without and with gadolinium enhancement. FINDINGS: No midline shift, mass effect, intracranial hemorrhage, hydrocephalus, or acute infarction is evident. Cerebellopontine angles, cerebellum, and brainstem are unremarkable. There is normal carrera-white matter differentiation with no abnormal white matter signal intensity apparent. No enhancing lesions are evident. The pituitary, optic chiasm, corpus callosum, and craniocervical junction have an unremarkable appearance. No sinus air-fluid level. There is minimal amount of fluid in the right mastoid sinus. IMPRESSION: 1. No acute intracranial findings. Negative MRI of the brain without and with contrast. 2. Minimal amount of fluid in the right mastoid sinus. Dictated by: Woodrow Orozco MD 12/18/2018 17:55 Electronically signed by Woodrow Orozco MD in [place] 12/18/2018 17:55
[2018-12-18 17:24] LABS: MANUAL DIFFERENTIAL MANUAL DIFFERENTIAL (MANUAL DIFF)
[2018-12-18 18:02] LABS: Basophils # 0.1 K/mm3 (0-0.2); Basophils % 0.4 % (0.1-2.0); Eosinophils # 0.1 K/mm3 (0.0-0.4); Eosinophils % 0.6 % (0.1-12.0); Hematocrit 48.5 % (37.0-47.0); Hemoglobin 15.7 g/dL (12.2-16.2); Lymphocytes # 3.8 K/mm3 (0.7-4.5); Lymphocytes % 26.1 % (10-50); Mean Corpuscular HGB Conc 32.3 g/dL (31.8-35.4); Mean Corpuscular Hemoglobin 30.9 pg (27.0-31.2); Mean Corpuscular Volume 95.6 fl (81-99); Monocytes # 0.6 K/mm3 (0.1-1.0); Monocytes % 3.8 % (1.7-9.3); Neutrophils # 10.1 K/mm3 (1.8-7.8); Platelet Count 467 K/mm3 (142-424); Red Blood Count 5.07 M/mm3 (4.20-5.40); Red Cell Distribution Width 12.4 % (11.5-17.5); White Blood Count 14.6 K/mm3 (4.8-10.8)
[2018-12-18 18:41] LABS: Lymphocytes % 30 % (10-50); Monocytes % 1 % (2-9); Neutrophils % 68 % (42-76); Platelet Estimate Normal; RBC Morphology Normal; Total Cells Counted 100
[2018-12-18 19:23] LABS: Erythrocyte Sedimentation Rate 23 mm/hr (0-20)
[2018-12-18 19:33] LABS: Amphetamine/Metha Screen,Urine Negative ng/mL (<1000); Barbiturates Screen,Urine Negative ng/mL (<200); Benzodiazepines Screen,Urine Negative ng/mL (<200); Cannabinoid Screen,Urine Negative ng/mL (<50); Cocaine Screen,Urine Negative ng/mL (<300); Methadone Screen,Urine Negative ng/mL (<300); Opiate Screen,Urine Positive ng/mL (<300); Phencyclidine Screen,Urine Negative ng/mL (<25)
[2018-12-18 21:29] LABS: C-Reactive Protein < 0.2 mg/dL (0.0-0.9)
== END ==
PROVIDERS: PCP Emergency Medicine; Visit Provider Emergency Medicine
DX: R42 Dizziness and giddiness (principal); Z79.899 Other long term (current) drug therapy
CPT/HCPCS: 36415; 70553; 80305; 85007; 85014; 85018; 85048; 85049; 85651; 86140; A9576

== ENCOUNTER → 2019-01-25 12:03 | Outpatient (CLI) | payer OTHER, SELFPAY ==
[2019-01-25 12:48] LABS: Free T4 (Free Thyroxine) 1.21 ng/dl (0.76-1.46); Thyroid Stimulating Hormone 1.09 uIU/ml (0.358-3.740)
[2019-01-29 16:43] LABS: Thyroglobulin IMA CHARGE YES; Thyroglobulin Level <1.0 IU/mL (0.0-0.9)
== END ==
PROVIDERS: Visit Provider Internal Medicine Endocrinology, Diabetes & Metabolism
DX: E89.0 Postprocedural hypothyroidism (principal)
CPT/HCPCS: 36415; 84439; 84443; 86800

== ENCOUNTER → 2019-02-18 14:39 | Outpatient (CLI) | payer OTHER, SELFPAY ==
[2019-02-18 17:41] LABS: Amphetamine/Metha Screen,Urine Negative ng/mL (<1000); Barbiturates Screen,Urine Negative ng/mL (<200); Benzodiazepines Screen,Urine Negative ng/mL (<200); Cannabinoid Screen,Urine Negative ng/mL (<50); Cocaine Screen,Urine Negative ng/mL (<300); Methadone Screen,Urine Negative ng/mL (<300); Opiate Screen,Urine Positive ng/mL (<300); Phencyclidine Screen,Urine Negative ng/mL (<25)
== END ==
PROVIDERS: Visit Provider Emergency Medicine
DX: Z79.899 Other long term (current) drug therapy (principal)
CPT/HCPCS: 80305

== ENCOUNTER → 2019-02-25 13:31 | Outpatient (POV) | payer OTHER, SELFPAY ==
[2019-02-25 14:01] VITALS: BP 147/65; PULSE 82; RESP 18; O2SAT 98; BMI 34.1
--- NOTE | 2019-02-25 14:18 | P.CONS_ITS ---
[facility] Pain Management SOAP Note Subjective:: Patient is a pleasant 28-year-old white female who presents today for follow-up after her medial branch block. Patient has had thoracic medial branch blocks in the future. Patient gets up to 80% relief with it. Patient's relief lasted for several weeks. Patient is interested in repeating an RFA. I do believe that would be beneficial for her. Patient's left side of her thoracic spine is worse than her right we will start with this and then we will do the right side. Patient is continuing a home stretching program. Patient rates her pain today a 6 out of 10. Patient has tried and failed anti-inflammatories and medications. ROS General: no recent weight change, no fever, no sleep disturbances Respiratory: no cough, no shortness of air, no recurring pulmonary infections Cardiovascular/Peripheral Vascular: No chest pain, No palpitations, no edema, no shortness of breath. Gastrointestinal: no new onset incontinence, normal bowel movements reported Genitourinary: no new onset incontinence Musculoskeletal: Back pain Psychiatric: normal mood/ affect Neurological: [denies new onset weakness in extremities], [denies new onset balance issues] Objective:: Physical Exam General: Alert and oriented x3, no acute distress, pleasant and cooperative, [on room air] Lungs: Resps E/U, Symmetrical chest expansion, Eyes: PERRL Musculoskeletal: Flexion and extension of thoracic spine somewhat guarded secondary to pain, deep tendon reflexes normal, strength in upper and lower extremities [5/5], normal gait noted, positive Kemps test thoracic spine positive thoracic facet loading Neurological: speech clear, child welfare social worker equal, no gross sensory deficits Assessment:: Degenerative disc disease of the thoracic spine with thoracic facet arthropathy Plan:: We will schedule a T5-T6 T6-T7 T7-T8 RFA. We will start with the left side and then 2 weeks later do the right side. Patient is not on any anticoagulation therapy. I will follow-up with her after this reassess her symptoms at that time she is been instructed to call the office if she has any issues prior to her next appointment. Dr. Alas has reviewed this note and agrees with this plan of care. This note was dictated using voice recognition software and may contain errors or omissions [facility] History I have reviewed the patient's past medical history: Yes Medical History: Reports:: Anxiety, Cancer, Congenital Heart Disease, Depression, MRSA, Valvular Heart Disease Denies:: Diabetes Mellitus Type 1, Diabetes Mellitus Type 2, Seizures *Have you ever received a pneumonia vaccine?: Yes *Have you received a flu vaccine this season?: Yes Other Medical History: Reports: Hypothyroidism, Other Laterality Cases: Bilateral: Tonsillectomy Other Surgeries: Yes: Cancer Surgery, Thyroidectomy, Other Amputation: No Fractures: No - *Social History Smoking Status: Current every day smoker Tobacco Type: cigarettes # Packs/Day (cigarettes): 1 Alcohol Intake: never Substance Use Type: denies use *Occupational Status:: other Housing: house Household Members: family *Travel in the last 8 weeks: None - Psychiatric History Pschychiatric History:: Reports:: Anxiety, Depression Family Hx:: Coronary Artery Disease, Heart Attack, Cancer
== END ==
PROVIDERS: PCP Emergency Medicine; Visit Provider Clinical Nurse Specialist Family Health
DX: M51.34 Other intervertebral disc degeneration, thoracic region (principal); M54.04 Panniculitis affecting regions of neck and back, thoracic region; F41.9 Anxiety disorder, unspecified; C80.1 Malignant (primary) neoplasm, unspecified; F32.9 Major depressive disorder, single episode, unspecified; Q24.9 Congenital malformation of heart, unspecified; E03.9 Hypothyroidism, unspecified; Z86.14 Personal history of Methicillin resistant Staphylococcus aureus infection; Z72.0 Tobacco use
CPT/HCPCS: 99212

== ENCOUNTER → 2019-04-03 09:02 | Outpatient (CLI) | payer OTHER, SELFPAY ==
[2019-04-05 23:43] LABS: Neisseria gonorrhoeae, NAA Negative (Negative)
== END ==
PROVIDERS: Visit Provider Nurse Practitioner Obstetrics & Gynecology
DX: Z72.51 High risk heterosexual behavior (principal)
CPT/HCPCS: 87491; 87591

== ENCOUNTER → 2019-04-08 17:08 | Outpatient (CLI) | payer OTHER, SELFPAY ==
[2019-04-08 20:25] LABS: Amphetamine/Metha Screen,Urine Negative ng/ml (<1000)
[2019-04-08 20:26] LABS: Barbiturates Screen,Urine Negative ng/ml (<200)
[2019-04-08 20:27] LABS: Benzodiazepines Screen,Urine Negative ng/ml (<200)
[2019-04-08 20:28] LABS: Cocaine Screen,Urine Negative ng/ml (<300); Methadone Screen,Urine Negative ng/ml (<300)
[2019-04-08 20:29] LABS: Opiate Screen,Urine Positive ng/ml (<300)
[2019-04-08 20:30] LABS: Phencyclidine Screen,Urine Negative ng/ml (<25)
[2019-04-08 20:38] LABS: Cannabinoid Screen,Urine Negative ng/ml (<50)
== END ==
PROVIDERS: Visit Provider Emergency Medicine
DX: Z79.899 Other long term (current) drug therapy (principal)
CPT/HCPCS: 80305

== ENCOUNTER 2019-06-08 20:25 | Emergency (ER) | payer OTHER, SELFPAY ==
[2019-06-08 20:35] VITALS: BP 137/97; PULSE 104; RESP 18; TEMP 37.2; O2SAT 99; BMI 33.3
--- NOTE | 2019-06-08 20:42 | CT_ITS ---
PROCEDURE: CT ABDOMEN PELVIS W CON CLINICAL INDICATION: ruq abd Right upper quadrant pain with vomiting COMPARISON: CT ABDOMEN PELVIS W CON from 03/19/2019 TECHNIQUE: IV Contrast: 75ML OPTIRAY 350 Oral Contrast none Axial images obtained with sagittal and coronal reformats. All CT scans at the facility use one or more dose reduction, viz: automated exposure control, ma/kV adjustment per patient size (including targeted exams where dose is matched to indication, i.e. head), or iterative reconstruction technique. FINDINGS: LOWER THORAX: There is a small 5 mm hypodensity in the central aspect of right hepatic lobe nonspecific and not significantly changed. The liver is otherwise unremarkable. A small hypodensity projects off the anterior aspect of the spleen medially and may represent a small cyst at 9 mm. The adrenal glands, pancreas, and kidneys and gallbladder have an unremarkable appearance. No intestinal obstruction or free air. No evidence of appendicitis, diverticulitis, or abnormal fluid collection or focal inflammatory change. The uterus is retroflexed. Cystic areas present in the left ovary at 2 cm. No acute bony anomalies. There is a small umbilical hernia which contains fat IMPRESSION: No acute abdominal or pelvic findings. Nonacute findings as described above Dictated by: Woodrow Orozco MD 06/09/2019 09:03 Electronically signed by Woodrow Orozco MD in [place] 06/09/2019 09:03
[2019-06-08 20:53] LABS: Basophils % 0.4 % (0.1-2.0); Eosinophils # 0.2 K/mm3 (0.0-0.4); Eosinophils % 1.8 % (0.1-12.0); Hematocrit 34.3 % (37.0-47.0); Hemoglobin 11.5 g/dL (12.2-16.2); Lymphocytes % 42.2 % (10-50); Mean Corpuscular HGB Conc 33.5 g/dL (31.8-35.4); Mean Corpuscular Hemoglobin 31.7 pg (27.0-31.2); Mean Corpuscular Volume 94.6 fl (81-99); Monocytes # 0.4 K/mm3 (0.1-1.0); Monocytes % 4.3 % (1.7-9.3); Neutrophils # 4.8 K/mm3 (1.8-7.8); Neutrophils % 51.4 % (37.0-80.0); Platelet Count 293 K/mm3 (142-424); Red Blood Count 3.62 M/mm3 (4.20-5.40); Red Cell Distribution Width 12.4 % (11.5-17.5); White Blood Count 9.4 K/mm3 (4.8-10.8)
[2019-06-08 21:01] LABS: Chloride 102 mmol/L (98-107); Sodium 140 mmol/L (136-145)
[2019-06-08 21:04] LABS: Alanine Aminotransferase 20 U/L (12-78); Alkaline Phosphatase 69 U/L (38-126); Amylase 43 U/L (30-110); Aspartate Amino Transferase 25 U/L (14-36); Blood Urea Nitrogen 7 mg/dl (7-17); Calcium 9.6 mg/dl (8.4-10.2); Carbon Dioxide 29 mmol/L (22.0-30.0); Creatinine Clearance Estimated 198 mL/min (50-200); Estimated Glomerular Filt Rate 118 ml/min (>60); GFR (African American) 143 ML/MIN (>60); Glucose 85 mg/dl (74-100); Lipase 52 U/L (23-300)
[2019-06-08 21:05] LABS: Albumin Level 4.5 g/dl (3.5-5.0); Albumin/Globulin Ratio 1.6 (1.1-1.8); Bilirubin,Total 0.1 mg/dl (0.2-1.3); Globulin 2.8 g/dL (1.3-3.2); Total Protein,Serum 7.3 g/dl (6.3-8.2)
[2019-06-08 21:06] LABS: HCG Qualitative, Serum Negative (Negative)
[2019-06-08 21:57] LABS: Microscopic, Urine URINE MICROSCOPIC (MICROSCOPIC)
[2019-06-08 22:01] LABS: Appearance,Urine CLEAR (Clear); Bilirubin,Urine Negative (Negative); Blood, Urine Negative (Negative); Color,Urine YELLOW (Yellow); Glucose,Urine (UA) Negative (Negative); Ketones,Urine Negative (Negative); Leukocyte Esterase,Urine Negative (Negative); Nitrate,Urine Negative (Negative); PH,Urine 6.5 (5.0-8.5); Protein,Urine Negative (Negative); Specific Gravity, Urine <= 1.005 (1.005-1.030); Urobilinogen,Urine 0.2 EU/dl (0.2)
--- NOTE | 2019-06-08 22:12 | HMH.EDNVD ---
ED Disposition Clinical Impression: Abdominal pain Qualifiers: Abdominal location: right upper quadrant Qualified Code(s): R10.11 - Right upper quadrant pain Disposition: Home, Self-Care Condition on Discharge: Good Instructions: DI for Acute Abdomen Additional Instructions: use meds and see pcp on monday Referrals: Manuel Montilla MD [Primary Care Provider] - - Critical Care Critical Care Time: No Attestation: On 06/08/19, the high probability of a clinically significant, sudden or life threatening deterioration of the following system(s) required my full and direct attention, intervention and personal management. The time I documented below is in addition to time spent performing reported procedures but includes the following listed in this critical care notation. Medical Decision Making - Medical Records Medical records reviewed: Yes: I reviewed the patient's medical records. - Juan Inquiry Pt receiving controlled substance: No Vital Signs: 06/08/19 20:35 06/08/19 22:26 Temperature 99 F Temperature Source Oral Pulse Rate [Right Brachial] 104 H 91 H Respiratory Rate 18 Blood Pressure [Right Arm] 137/97 H 126/74 Blood Pressure Mean [Right Arm] 110 91 Blood Pressure Source [Right Arm] Automatic Cuff Blood Pressure Position [Right Arm] Sitting 02 Sat by Pulse Oximetry 99 100 Oxygen Delivery Method Room Air - Lab Data Lab results reviewed: Yes: I reviewed the patient's lab results. Lab Results 06/08/19 20:47: WBC 9.4, RBC 3.62 L, Hgb 11.5 L, Hct 34.3 L, MCV 94.6, MCH 31.7 H, MCHC 33.5, RDW 12.4, Plt Count 293, MPV 8.0, Neut % (Auto) 51.4, Lymph % (Auto) 42.2, [place] % (Auto) 4.3, Eos % (Auto) 1.8, Baso % (Auto) 0.4, Neut # (Auto) 4.8, Lymph # (Auto) 4.0, [place] # (Auto) 0.4, Eos # (Auto) 0.2, Baso # (Auto) 0.0 06/08/19 20:47: Sodium 140, Potassium 4.0, Chloride 102, Carbon Dioxide 29, Anion Gap 13.0, BUN 7, Creatinine 0.60, Estimated Creat Clear 198, Estimated GFR 118, Est GFR ( Amer) 143, Glucose 85, Calcium 9.6, Total Bilirubin 0.1 L, AST 25, ALT 20, Alkaline Phosphatase 69, Total Protein 7.3, Albumin 4.5, Globulin 2.8, Albumin/Globulin Ratio 1.6, Amylase 43, Lipase 52 06/08/19 20:47: Serum HCG, Qual Negative 06/08/19 20:47: ESR 16 06/08/19 20:47: C-Reactive Protein 2.9 06/08/19 21:53: Urine Color Yellow, Urine Appearance Clear, Urine pH 6.5, Ur Specific [place] <= 1.005, Urine Protein Negative, Urine Glucose (UA) Negative, Urine Ketones Negative, Urine Blood Negative, Urine Nitrate Negative, Urine Bilirubin Negative, Urine Urobilinogen 0.2, Ur Leukocyte Esterase Negative, Ur Squamous Epith Cells 10-20 Result diagrams: 06/08/19 20:47 06/08/19 20:47 Orders (Tests/Meds): ED MEDICATIONS Generic Name Dose Route Start Last Admin Trade Name Freq PRN Reason Stop Dose Admin Sodium Chloride 1,000 mls @ 999 mls/hr 06/08/19 20:45 06/08/19 20:45 Sod Chlor 0.9% 1000ml Bag IV 06/08/19 21:45 999 mls/hr .Q1H1M LUZMARIA Administration Lactated Ringer's 1,000 mls @ 999 mls/hr 06/08/19 22:15 06/08/19 22:05 Lactated Ringer's 1000 Ml Bag IV 06/08/19 23:15 999 mls/hr .Q1H1M LUZMARIA Administration Sodium Chloride 8 ml 06/08/19 22:03 Sodium Chloride 0.9% 10ml Vial IV 07/08/19 22:02 NEEDED PRN dilute pepcid Discontinued Medications Generic Name Dose Route Start Last Admin Trade Name Freq PRN Reason Stop Dose Admin Famotidine 20 mg 06/08/19 22:03 06/08/19 22:05 Pepcid 20mg/2ml Vial IV 06/08/19 22:04 20 mg ONCE ONE Administration Hydromorphone HCl 1 mg 06/08/19 22:03 06/08/19 22:05 Dilaudid 2mg/Ml Syringe IV 06/08/19 22:04 1 mg ONCE ONE Administration Ioversol 75 ml 06/08/19 22:10 Rad-Optiray 350 100ml Vial IV 06/08/19 22:11 ONCE ONE Protocol Metoclopramide HCl 10 mg 06/08/19 22:03 06/08/19 22:05 Reglan 10mg/2ml Vial IVP 06/08/19 22:04 10 mg ONCE ONE Administration Morphine Sulfate 2 mg 06/08/19 20:44
[2019-06-08 22:26] VITALS: BP 126/74; PULSE 91; O2SAT 100
[2019-06-08 22:42] LABS: C-Reactive Protein 2.9 mg/L (0-4)
[2019-06-08 22:49] LABS: Erythrocyte Sedimentation Rate 16 mm/hr (0-20)
[2019-06-08 23:05] VITALS: BP 120/68; PULSE 92; RESP 18; TEMP 36.7; O2SAT 100
== END 2019-06-08 23:11 | disposition home or self-care (01) ==
PROVIDERS: Emergency Provider Emergency Medicine; PCP Emergency Medicine
DX: R10.11 Right upper quadrant pain (principal); F41.8 Other specified anxiety disorders; E03.9 Hypothyroidism, unspecified; Z90.09 Acquired absence of other part of head and neck; F17.210 Nicotine dependence, cigarettes, uncomplicated
CPT/HCPCS: 74177; 80053; 81001; 82150; 83690; 84703; 85025; 85651; 86140; 96365; 96366; 96375; 99283; J2405

== ENCOUNTER → 2019-06-11 09:33 | Outpatient (CLI) | payer OTHER, SELFPAY ==
--- NOTE | 2019-06-11 09:49 | US_ITS ---
PROCEDURE: US GALLBLADDER CLINICAL INDICATION: ruq pain Right upper quadrant pain nausea and vomiting COMPARISON: CT ABDOMEN PELVIS W CON from 06/08/2019 FINDINGS: Pancreas: Pancreas is not well delineated. Liver: There is a small hypoechoic area in the mid aspect of the liver at 5 mm and could be due to small cyst. Liver is otherwise unremarkable.. There is appropriate direction of blood flow within a non dilated portal vein. Right kidney: Unremarkable appearing. No hydronephrosis. Gallbladder: No stones are evident. There is no gallbladder wall thickening. Common duct is normal in diameter. IMPRESSION: Negative gallbladder ultrasound. No stones evident. Possible small hepatic cyst Dictated by: Woodrow Orozco MD 06/11/2019 14:57 Electronically signed by Woodrow Orozco MD in [place] 06/11/2019 14:57
== END ==
PROVIDERS: PCP Emergency Medicine; Visit Provider Emergency Medicine
DX: R10.11 Right upper quadrant pain (principal); R10.9 Unspecified abdominal pain
CPT/HCPCS: 76705

== ENCOUNTER → 2019-06-25 10:08 | Outpatient (CLI) | payer OTHER, SELFPAY ==
--- NOTE | 2019-06-25 10:08 | NM_ITS ---
PROCEDURE: NM HEPATOBILIARY W PHARM CLINICAL INDICATION: abd pain Right upper quadrant pain with nausea and vomiting COMPARISON: US GALLBLADDER from 06/11/2019 TECHNIQUE: 8.25 mCi technetium Choletec and 1.8 mcg of CCK. The patient did complain of pain with CCK infusion FINDINGS: Homogeneous activity is present within the hepatic parenchyma. Gallbladder and small bowel activity are present by 5 minutes. Gallbladder ejection fraction is calculated to be 66 percent. There was pain reported with CCK infusion. IMPRESSION: No evidence of common or cystic duct obstruction. Normal ejection fraction of 66 percent. Pain was reported with CCK infusion Dictated by: Woodrow Orozco MD 06/25/2019 17:01 Electronically signed by Woodrow Orozco MD in [place] 06/25/2019 17:01
--- NOTE | 2019-06-25 10:33 | HMH.ITSHM ---
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 []SYNTHROID LORAZEPAM OXYCODONE
== END ==
PROVIDERS: PCP Emergency Medicine; Visit Provider Emergency Medicine
DX: R10.9 Unspecified abdominal pain (principal)
CPT/HCPCS: 78227; A9537; J2805

== ENCOUNTER → 2019-07-24 10:30 | Outpatient (CLI) | payer OTHER, SELFPAY ==
--- NOTE | 2019-07-24 10:30 | MR_ITS ---
PROCEDURE: MR KNEE LT WO CON CLINICAL INDICATION: knee pain Pain below the patella common the instability COMPARISON: No exams were available for comparison TECHNIQUE: Routine multiplanar multi echo sequences are performed without gadolinium enhancement. FINDINGS: The cruciate ligaments, collateral ligaments, patellar tendon, and quadriceps tendon appear intact. No evidence of meniscal tear. There is some minimal thinning of the patellar cartilage but no alteration of signal of the patella. There is a small amount of fluid in the knee joint. No bone bruise evident. No osteoarthritic change. No abnormal bone marrow signal intensity. Unremarkable adjacent soft tissues of the knee. IMPRESSION: 1. No evidence of internal derangement. 2. Trace knee joint effusion. 3. There is some minimal thinning of the patellar cartilage without signal alteration. This is of questionable clinical significance. Mild or early chondromalacia patella is a consideration and correlation with clinical findings are needed. Dictated by: Woodrow Orozco MD 07/25/2019 18:23 Electronically signed by Woodrow Orozco MD in [place] 07/25/2019 18:23
[2019-07-24 13:14] LABS: Coronavirus 19 IgG Antibody Negative (Negative); Coronavirus 19 IgM Antibody Negative (Negative)
== END ==
PROVIDERS: PCP Emergency Medicine; Visit Provider Emergency Medicine
DX: Z01.818 Encounter for other preprocedural examination (principal); M25.562 Pain in left knee
CPT/HCPCS: 36415; 73721; 86328

== ENCOUNTER 2019-07-26 08:16 | Day surgery (SDC) | payer OTHER, SELFPAY ==
[2019-07-23 14:12] VITALS: BMI 32.5
[2019-07-26] VITALS (7 sets, daily range): BP systolic 94–130; BP diastolic 67–95; PULSE 71–108; RESP 18; TEMP 36.4–37.1; O2SAT 96–99
[2019-07-26 09:04] LABS: Urine Pregnancy, HCG Qual. Negative (Negative)
--- NOTE | 2019-07-26 10:00 | HMH.PROC ---
[facility] Procedure Note Procedure Note:: Upper Endoscopy Procedure Report: Esophagogastroduodenoscopy with cold biopsies and TTS balloon dilation Endoscopost: Kailash Syed II, MD Referring Physician: Manuel Montilla MD/Keon Omalley MD Date of Procedure: July 26, 2019 Equipment: Olympus GIF 180 standard upper endoscope Sedation: MAC sedation Indications: Mrs. Brady is a 29-year-old female with dyspepsia. She reports 2 separate pains 1 in the mid epigastric region and the other in the right upper quadrant. The epigastric pain is often postprandially. She does have moderate bloating, belching, early satiety and persistent nausea. She reports more significant heartburn/pyrosis and reflux and globus sensation. She does have constipation for which she takes a stool softener. The patient did have a CT scan of the abdomen and pelvis on June 08, 2019 and had a small cyst in the right hepatic lobe, small cyst in the spleen and a 2 cm left ovarian cyst. The patient had an ultrasound of the gallbladder on June 11, 2019 and she had no gallstones, gallbladder wall thickening or pericholecystic fluid. There was the small hepatic cyst. A subsequent HIDA scan was normal. The patient did have blood work showing anemia (hemoglobin 11.5 and hematocrit 34.3). The patient reportedly has had an elevated alkaline phosphatase. She has taken pantoprazole, sucralfate and famotidine. The patient also reports a right upper quadrant abdominal pain. She does state this is associated with stress. She has lost 10 pounds in the last 2 months. Recently, she has had some hematemesis of red clots. Her mother has had digestive difficulties with H. pylori and IBS. This is her first upper endoscopy. She has seen Dr. Keon Omalley for possible cholecystectomy. Procedure: Prior to the procedure, a history and physical exam was performed, and patient's medications and allergies were reviewed. The risks, benefits and alternatives of the sedation and procedure were discussed with the patient. All questions were answered and informed consent was obtained. The patient was brought to the procedure room. Patient identification and proposed procedure were verified by the physician and the nurse. The patient was placed in a left lateral decubitus position and the scope was passed under direct vision. Throughout the procedure, the patient's blood pressure, pulse, and oxygen saturations were monitored continuously. The upper GI endoscopy was accomplished without difficulty. The patient tolerated the procedure well. Findings: The scope was passed directly into the upper esophagus and advanced to the third portion of the duodenum. The post bulbar duodenum and duodenal bulb were normal with normal mucosa and conniventes. Cold biopsies were taken from the post bulbar duodenum to rule out celiac disease. The scope was withdrawn through a normal duodenal bulb and pylorus into the stomach. There was bile reflux with moderate linear reactive gastropathy of the antrum and body of the stomach. The remainder of the antrum, body and fundus of the stomach were grossly normal. Upon retroflexion there was no hiatal hernia. 2 biopsies were taken in the antrum and along the lesser curvature for histology to rule out gastritis and/or H pylori. The scope was then withdrawn into the esophagus. There was a serrated Z line and evidence of nonerosive GERD. Biopsies were taken at the GE junction. There was no evidence of reflux esophagitis or Schatzki's ring. There were tertiary contractions and evidence of moderate esophageal dysmotility. The entire esophagus was dilated to 60 Khmer/20 mm with a TTS hydrostatic balloon. There was increased resistance at the cricopharyngeus/cricopharyngeal spasm. The remainder of the esophageal mucosa was normal. Impression: 1. Cricopharyngeal spasm status post dilation to 20 mm 2. Nonerosive GERD with moderate esophageal dysmotility 3. Bile reflux with linear robert
== END 2019-07-26 11:10 | disposition home or self-care (01) ==
LOC: OUTP 08:17
PROVIDERS: PCP Emergency Medicine; Visit Provider Internal Medicine Gastroenterology
PROC: 0DJ08ZZ Inspection of Upper Intestinal Tract, Via Natural or Artificial Opening Endoscopic (ICD-10-PCS; CPT 43235; principal; 2019-07-26 09:30)
DX: J39.2 Other diseases of pharynx (principal); K22.2 Esophageal obstruction; K31.9 Disease of stomach and duodenum, unspecified; Z83.79 Family history of other diseases of the digestive system; F41.9 Anxiety disorder, unspecified; F32.9 Major depressive disorder, single episode, unspecified; K21.9 Gastro-esophageal reflux disease without esophagitis; Z85.850 Personal history of malignant neoplasm of thyroid; Z83.3 Family history of diabetes mellitus; Z82.49 Family history of ischemic heart disease and other diseases of the circulatory system; Z88.1 Allergy status to other antibiotic agents; Z79.899 Other long term (current) drug therapy
CPT/HCPCS: 43239; 43249; 81025; C1726

== ENCOUNTER → 2019-08-09 08:43 | Outpatient (CLI) | payer OTHER, SELFPAY ==
--- NOTE | 2019-08-09 08:56 | XR_ITS ---
PROCEDURE: XR KNEE LT 4V CLINICAL INDICATION: left knee pain COMPARISON: [id number] XR knee RT 4V from 03/26/2018 FINDINGS: No fracture or dislocation. No lytic or blastic change. There is normal mineralization. The joint spaces are well-preserved. No significant degenerative/arthritic changes. No erosive changes evident. Other findings:None. IMPRESSION: No acute findings. Dictated by: Eric Barker 08/09/2019 09:22 Electronically signed by Eric Barker in [facility] 08/09/2019 09:22
--- NOTE | 2019-08-09 08:56 | XR_ITS ---
PROCEDURE: XR KNEE RT 4V CLINICAL INDICATION: knee pain COMPARISON: [id number] XR knee RT 4V from 03/26/2018 FINDINGS: No fracture or dislocation. There is a probable 9.5 millimeter bone island within the distal superior medial femoral condyle. There is normal mineralization. The joint spaces are well-preserved. No significant degenerative/arthritic changes. No erosive changes evident. Other findings:None. IMPRESSION: No acute findings. Dictated by: Eric Barker 08/09/2019 09:23 Electronically signed by Eric Barker in [facility] 08/09/2019 09:23
== END ==
PROVIDERS: PCP Emergency Medicine; Visit Provider Orthopaedic Surgery
DX: M25.562 Pain in left knee (principal); M25.561 Pain in right knee
CPT/HCPCS: 73564

== ENCOUNTER 2019-10-29 09:47 | Emergency (ER) | payer OTHER, SELFPAY ==
--- NOTE | 2019-10-29 09:57 | HMH.EDGENADL ---
ED Disposition Clinical Impression: Gastroenteritis Pneumonia Qualifiers: Pneumonia type: due to unspecified organism Laterality: left Lung location: lower lobe of lung Qualified Code(s): J18.9 - Pneumonia, unspecified organism Disposition: Home, Self-Care Condition on Discharge: Fair Instructions: DI for Pneumonia -- Adult, DI for Viral Gastroenteritis -- Adult Additional Instructions: Zofran or Phenergan for nausea and vomiting. Stop Zithromax and start Levaquin. See Dr. Montilla in the office tomorrow morning. Prescriptions: Promethazine HCl [Phenergan 25mg tab] 25 mg PO Q6HP PRN #10 tab PRN Reason: Nausea And Vomiting Transmission Status: Received by [facility] # [id number] levoFLOXacin [Levaquin 750mg tablet] 750 mg PO DAILY #4 tab Transmission Status: Received by [facility] # [id number] Referrals: Manuel Montilla MD [Primary Care Provider] - - Critical Care Critical Care Time: No Attestation: On 10/29/19, the high probability of a clinically significant, sudden or life threatening deterioration of the following system(s) required my full and direct attention, intervention and personal management. The time I documented below is in addition to time spent performing reported procedures but includes the following listed in this critical care notation. Medical Decision Making - Medical Records Medical records reviewed: Yes: I reviewed the patient's medical records. - Juan Inquiry Pt receiving controlled substance: Yes Juan was queried for this patient: Yes Reference #:: [id number] Risks and benefits of using a controlled substance: were not discussed with pt by me Comment: 23 rxs. last rx 120 percocet 10mg 10/08/19 Vital Signs: 10/29/19 10:12 10/29/19 13:41 Temperature 98.6 F 98.6 F Temperature Source Oral Oral Pulse Rate 85 Pulse Rate [Right Radial] 110 H Respiratory Rate 19 15 Blood Pressure 138/74 Blood Pressure [Right Arm] 149/76 H Blood Pressure Mean [Right Arm] 100 02 Sat by Pulse Oximetry 99 Oxygen Delivery Method Room Air Room Air - Lab Data Lab results reviewed: Yes: I reviewed the patient's lab results. Lab Results 10/29/19 10:00: WBC 11.6 H, RBC 4.78, Hgb 15.3, Hct 45.1, MCV 94.3, MCH 32.1 H, MCHC 34.0, RDW 12.6, Plt Count 429 H, MPV 7.0 L, Neut % (Auto) 72.0, Lymph % (Auto) 22.1, [place] % (Auto) 5.0, Eos % (Auto) 0.7, Baso % (Auto) 0.3, Neut # (Auto) 8.3 H, Lymph # (Auto) 2.6, [place] # (Auto) 0.6, Eos # (Auto) 0.1, Baso # (Auto) 0.0 10/29/19 10:00: PT 9.7, INR 0.97, APTT 24.7 10/29/19 10:00: Sodium 143, Potassium 3.9, Chloride 108 H, Carbon Dioxide 25, Anion Gap 13.9, BUN 6 L, Creatinine 0.60, Estimated Creat Clear 181, Estimated GFR 118, Est GFR ( Amer) 143, Glucose 116 H, Calcium 9.7, Total Bilirubin 0.5, AST 33, ALT 21, Alkaline Phosphatase 86, Total Protein 7.5, Albumin 4.5, Globulin 3.0, Albumin/Globulin Ratio 1.5, Lipase 86 10/29/19 10:00: SARS-CoV-2 IgG Ab (Rapid) Negative, SARS-CoV-2 IgM Ab (Rapid) Negative 10/29/19 10:00: Urine Color Yellow, Urine Appearance Clear, Urine pH 7.5, Ur Specific [place] 1.010, Urine Protein Negative, Urine Glucose (UA) Negative, Urine Ketones Negative, Urine Blood Negative, Urine Nitrate Negative, Urine Bilirubin Negative, Urine Urobilinogen 0.2, Ur Leukocyte Esterase Negative, Urine WBC 3-5, Ur Squamous Epith Cells 3-5 10/29/19 10:00: Urine HCG, Qual Negative 10/29/19 10:00: TSH < 0.02 L 10/29/19 11:08: Lactate 0.9 Result diagrams: 10/29/19 10:00 10/29/19 10:00 Orders (Tests/Meds): ED MEDICATIONS Discontinued Medications Generic Name Dose Route Start Last Admin Trade Name Freq PRN Reason Stop Dose Admin Ceftriaxone Sodium 1 gm/ 50 mls @ 100 mls/hr 10/29/19 12:00 10/29/19 12:06 Sodium Chloride IV 11/12/19 11:59 100 mls/hr Q24H LUZMARIA Administration Protocol Azithromycin 500 mg/ Sodium 250 mls @ 250 mls/hr 10/29/19 12:00 10/29/19 12:16 Chloride IV 11/12/19 11:59 Not Given Q24H LUZMARIA Protocol
[2019-10-29 10:12] VITALS: BP 149/76; PULSE 110; RESP 19; TEMP 37; O2SAT 99; BMI 30.4
[2019-10-29 10:14] LABS: Microscopic, Urine URINE MICROSCOPIC (MICROSCOPIC)
--- NOTE | 2019-10-29 10:14 | XR_ITS ---
PROCEDURE: XR CHEST 2V CLINICAL HISTORY: pneumonia COMPARISON: CR CXR CHEST(2 VIEWS-NOT PORTABLE) from 01/21/2013 CR CXR CHEST(2 VIEWS-NOT PORTABLE) from 08/07/2014 CR CXR2 XR chest AP from 03/26/2018 FINDINGS: The cardiomediastinal silhouette and pulmonary vascularity are within normal limits. There is patchy increased density in the retrocardiac region on the left suggesting an area of infiltrate. The remaining lungs are clear. No acute bony abnormalities. IMPRESSION: Patchy infiltrate in the left lung base. Dictated by: Woodrow Orozco MD 10/29/2019 10:46 Woodrow Orozco MD in [place] 10/29/2019 10:46
[2019-10-29 10:16] LABS: Appearance,Urine CLEAR (Clear); Bilirubin,Urine Negative (Negative); Blood, Urine Negative (Negative); Color,Urine YELLOW (Yellow); Glucose,Urine (UA) Negative (Negative); Ketones,Urine Negative (Negative); Leukocyte Esterase,Urine Negative (Negative); Nitrate,Urine Negative (Negative); PH,Urine 7.5 (5.0-8.5); Protein,Urine Negative (Negative); Urobilinogen,Urine 0.2 EU/dl (0.2)
[2019-10-29 10:23] LABS: Basophils % 0.3 % (0.1-2.0); Eosinophils # 0.1 K/mm3 (0.0-0.4); Eosinophils % 0.7 % (0.1-12.0); Hematocrit 45.1 % (37.0-47.0); Hemoglobin 15.3 g/dL (12.2-16.2); Lymphocytes # 2.6 K/mm3 (0.7-4.5); Lymphocytes % 22.1 % (10-50); Mean Corpuscular Hemoglobin 32.1 pg (27.0-31.2); Mean Corpuscular Volume 94.3 fl (81-99); Monocytes # 0.6 K/mm3 (0.1-1.0); Neutrophils # 8.3 K/mm3 (1.8-7.8); Platelet Count 429 K/mm3 (142-424); Red Blood Count 4.78 M/mm3 (4.20-5.40); Red Cell Distribution Width 12.6 % (11.5-17.5); White Blood Count 11.6 K/mm3 (4.8-10.8)
[2019-10-29 10:25] LABS: Chloride 108 mmol/L (98-107); Sodium 143 mmol/L (136-145)
--- NOTE | 2019-10-29 10:25 | PC.NURSE ---
pt to xray
[2019-10-29 10:26] LABS: Potassium 3.9 mmoL/L (3.5-5.1)
[2019-10-29 10:28] LABS: Alanine Aminotransferase 21 U/L (12-78); Albumin Level 4.5 g/dl (3.5-5.0); Albumin/Globulin Ratio 1.5 (1.1-1.8); Alkaline Phosphatase 86 U/L (38-126); Anion Gap 13.9 mEq/L (5-15); Aspartate Amino Transferase 33 U/L (14-36); Bilirubin,Total 0.5 mg/dl (0.2-1.3); Blood Urea Nitrogen 6 mg/dl (7-17); Calcium 9.7 mg/dl (8.4-10.2); Carbon Dioxide 25 mmol/L (22.0-30.0); Creatinine Clearance Estimated 181 mL/min (50-200); Estimated Glomerular Filt Rate 118 ml/min (>60); GFR (African American) 143 ML/MIN (>60); Glucose 116 mg/dl (74-100); Lipase 86 U/L (23-300); Total Protein,Serum 7.5 g/dl (6.3-8.2)
[2019-10-29 10:50] LABS: Coronavirus 19 IgG Antibody Negative (Negative); Coronavirus 19 IgM Antibody Negative (Negative)
[2019-10-29 11:32] LABS: Lactic Acid 0.9 mmol/L (0.7-2.1)
[2019-10-29 11:50] LABS: Thyroid Stimulating Hormone < 0.02 uIU/mL (0.465-4.68)
[2019-10-29 12:10] LABS: Urine Pregnancy, HCG Qual. Negative (Negative)
--- NOTE | 2019-10-29 12:11 | PC.NURSE ---
RAMÍREZ BRYANT speaking with Dr. Montilla
[2019-10-29 12:56] LABS: Activated Partial Thrombo Time 24.7 seconds (23.6-34.0); INR 0.97 (0.9-1.1); Prothrombin Time 9.7 seconds (9.4-11.8)
[2019-10-29 13:41] VITALS: BP 138/74; PULSE 85; RESP 15; TEMP 37; O2SAT 98
[2019-10-30 15:26] LABS: Covid-19 Nasal PCR Sendout Lex Not Detected
== END 2019-10-29 13:42 | disposition home or self-care (01) ==
PROVIDERS: Emergency Provider Emergency Medicine; PCP Emergency Medicine
DX: K52.9 Noninfective gastroenteritis and colitis, unspecified (principal); J18.9 Pneumonia, unspecified organism; K21.9 Gastro-esophageal reflux disease without esophagitis; F41.8 Other specified anxiety disorders; E03.9 Hypothyroidism, unspecified; Z20.828 Contact with and (suspected) exposure to other viral communicable diseases; F17.210 Nicotine dependence, cigarettes, uncomplicated; Z79.899 Other long term (current) drug therapy
CPT/HCPCS: 71046; 80053; 81001; 81025; 83605; 83690; 84443; 85025; 85610; 85730; 86328; 87040; 96365; 96367; 96375; 99284; J0456; J1956; J2405; U0004

== ENCOUNTER → 2019-11-01 15:39 | Outpatient (CLI) | payer OTHER, SELFPAY ==
[2019-11-04 17:37] LABS: Hemoglobin A1C 5.4 % (4.0-6.0)
== END ==
PROVIDERS: Visit Provider Emergency Medicine
DX: R73.9 Hyperglycemia, unspecified (principal)
CPT/HCPCS: 83036

== ENCOUNTER → 2019-12-05 08:54 | Outpatient (CLI) | payer OTHER, SELFPAY ==
--- NOTE | 2019-12-05 08:54 | MR_ITS ---
PROCEDURE: MR LUMBAR SPINE WO CON CLINICAL INDICATION: back pain Chronic low back pain with tingling and numbness down both legs right worse than left COMPARISON: MR SPLUMBWO MR lumbar spine wo con from 12/06/2017 MR MR KNEE LT WO CON from 07/24/2019 TECHNIQUE: Standard multiplanar multiecho sequences are performed without contrast. 3-D MIP and myelographic images are also rendered and reviewed FINDINGS: There is normal alignment. The spinal cord ends at the L2 level. T12-L1 L1-L2 L2-L3 and L3-L4 have an unremarkable appearance. L4-5: Mild facet hypertrophic change. L5-S1: Minimal bulging disc with mild facet hypertrophy. The disc is very slightly eccentric toward the left and abuts the anterior aspect of the left S1 nerve root without displacement. No canal stenosis or disc herniation. There is a small T2 hyperintensity in the right lobe of the liver measuring 7 mm. IMPRESSION: 1. Minimal bulging disc at L5-S1 slightly eccentric toward the left abutting the anterior aspect of the left S1 nerve root without displacement. 2. No disc herniation canal stenosis. 3. Nonspecific T2 hyperintensity right lobe of the liver at 7 mm. Dictated by: Woodrow Orozco MD 12/05/2019 13:17 Woodrow Orozco MD in [place] 12/05/2019 13:17
--- NOTE | 2019-12-05 08:54 | MR_ITS ---
PROCEDURE: MR THORACIC SPINE WO CON CLINICAL INDICATION: upper back pain Left-sided upper back pain at the T9 area, chronic back pain COMPARISON: MR TSW/O MRI-T-SPINE W/O from 11/06/2015 MR TSW/O MRI-T-SPINE W/O from 03/03/2016 TECHNIQUE: Routine multiplanar multi echo sequences are performed without gadolinium enhancement. FINDINGS: There is normal alignment. There is mild multilevel thoracic spondylosis with decrease in the disc space, disc desiccation, and some endplate irregularity with anterior osteophytes. There are small Schmorl's nodes at T7-T8 and along the inferior endplate of T9. No disc herniation or canal stenosis. No acute fracture or dislocation. No bony destructive process. There are some mild facet hypertrophic changes at T10-T11. The spinal cord has an unremarkable appearance. Incidental note is made of a small T2 hyperintensity at the T7 vertebral body on the left measuring approximately 5 mm. This is nonspecific and probably not significantly changed. IMPRESSION: Mild multilevel thoracic spondylosis as detailed above overall not significantly changed. Dictated by: Woodrow Orozco MD 12/05/2019 13:26 Woodrow Orozco MD in [place] 12/05/2019 13:26
== END ==
PROVIDERS: PCP Emergency Medicine; Visit Provider Emergency Medicine
DX: M54.9 Dorsalgia, unspecified (principal); M47.814 Spondylosis without myelopathy or radiculopathy, thoracic region
CPT/HCPCS: 72146; 72148; 76376

== ENCOUNTER 2020-01-31 16:51 | Emergency (ER) | payer OTHER, SELFPAY ==
[2020-01-31 16:57] VITALS: BP 125/73; PULSE 71; RESP 18; TEMP 36.7; O2SAT 97; BMI 31.9
[2020-01-31 17:09] VITALS: BP 137/85; PULSE 78; O2SAT 97
[2020-01-31 17:18] LABS: Appearance,Urine SL CLOUDY (Clear); Bilirubin,Urine Negative (Negative); Blood, Urine 2+ (Negative); Color,Urine YELLOW (Yellow); Glucose,Urine (UA) Negative (Negative); Ketones,Urine Negative (Negative); Leukocyte Esterase,Urine TRACE (Negative); Microscopic, Urine URINE MICROSCOPIC (MICROSCOPIC); Nitrate,Urine Negative (Negative); PH,Urine 6.5 (5.0-8.5); Protein,Urine Negative (Negative); Urobilinogen,Urine 0.2 EU/dl (0.2)
[2020-01-31 17:19] LABS: Basophils # 0.1 K/mm3 (0-0.2); Basophils % 0.6 % (0.1-2.0); Eosinophils # 0.1 K/mm3 (0.0-0.4); Hematocrit 43.6 % (37.0-47.0); Hemoglobin 14.7 g/dL (12.2-16.2); Lymphocytes # 3.3 K/mm3 (0.7-4.5); Lymphocytes % 30.9 % (10-50); Mean Corpuscular HGB Conc 33.7 g/dL (31.8-35.4); Mean Corpuscular Volume 94.9 fl (81-99); Mean Platelet Volume 7.5 fl (7.4-10.4); Monocytes # 0.4 K/mm3 (0.1-1.0); Neutrophils # 6.7 K/mm3 (1.8-7.8); Neutrophils % 63.4 % (37.0-80.0); Platelet Count 348 K/mm3 (142-424); White Blood Count 10.6 K/mm3 (4.8-10.8)
[2020-01-31 17:22] LABS: Chloride 103 mmol/L (98-107); Potassium 3.8 mmoL/L (3.5-5.1); Sodium 137 mmol/L (136-145)
[2020-01-31 17:23] LABS: Urine Pregnancy, HCG Qual. Negative (Negative)
[2020-01-31 17:24] LABS: Amylase 33 U/L (30-110)
[2020-01-31 17:25] LABS: Alanine Aminotransferase 15 U/L (12-78); Albumin Level 4.4 g/dl (3.5-5.0); Albumin/Globulin Ratio 1.6 (1.1-1.8); Alkaline Phosphatase 75 U/L (38-126); Anion Gap 8.8 mEq/L (5-15); Aspartate Amino Transferase 22 U/L (14-36); Bilirubin,Total 0.3 mg/dl (0.2-1.3); Blood Urea Nitrogen 9 mg/dl (7-17); Calcium 9.2 mg/dl (8.4-10.2); Carbon Dioxide 29 mmol/L (22.0-30.0); Creatinine Clearance Estimated 156 mL/min (50-200); Estimated Glomerular Filt Rate 85 ml/min (>60); GFR (African American) 103 ML/MIN (>60); Globulin 2.7 g/dL (1.3-3.2); Glucose 104 mg/dl (74-100); Lipase 47 U/L (23-300); Total Protein,Serum 7.1 g/dl (6.3-8.2)
[2020-01-31 17:26] LABS: Acetaminophen < 10 ug/ml (10-30)
[2020-01-31 17:26] LABS: Amorphous Sediment,Urine 2+ /lpf
--- NOTE | 2020-01-31 17:39 | PC.NURSE ---
Spoke with Mari with poison control she states patient should be fine and no further care would be needed.
[2020-01-31 17:46] VITALS: BP 122/84; PULSE 71; O2SAT 97
--- NOTE | 2020-01-31 17:59 | HMH.EDNVD ---
ED Disposition Clinical Impression: Accidental drug ingestion Qualifiers: Encounter type: initial encounter Qualified Code(s): T50.901A - Poisoning by unspecified drugs, medicaments and biological substances, accidental (unintentional), initial encounter Disposition: Home, Self-Care Condition on Discharge: Good Instructions: DI for Taking Pain Medication Additional Instructions: see pcp for follow up Prescriptions: ondansetron HCL [Zofran 4mg Tab] 4 mg PO TID #30 tab Transmission Status: Pending to [place] [id number] Referrals: Manuel Montilla MD [Primary Care Provider] - - Critical Care Critical Care Time: No Attestation: On 01/31/20, the high probability of a clinically significant, sudden or life threatening deterioration of the following system(s) required my full and direct attention, intervention and personal management. The time I documented below is in addition to time spent performing reported procedures but includes the following listed in this critical care notation. Medical Decision Making - Medical Records Medical records reviewed: Yes: I reviewed the patient's medical records. - Juan Inquiry Pt receiving controlled substance: No Vital Signs: 01/31/20 16:57 01/31/20 17:09 01/31/20 17:46 Temperature 98.1 F Temperature Source Oral Pulse Rate [Radial] 71 78 71 Respiratory Rate 18 Blood Pressure [Right Arm] 125/73 137/85 122/84 Blood Pressure Mean [Right Arm] 90 102 96 Blood Pressure Source [Right Arm] Automatic Cuff Automatic Cuff Blood Pressure Position [Right Arm] Sitting Sitting 02 Sat by Pulse Oximetry 97 97 97 Oxygen Delivery Method Room Air Room Air Room Air - Lab Data Lab results reviewed: Yes: I reviewed the patient's lab results. Lab Results 01/31/20 17:09: WBC 10.6, RBC 4.60, Hgb 14.7, Hct 43.6, MCV 94.9, MCH 32.0 H, MCHC 33.7, RDW 13.0, Plt Count 348, MPV 7.5, Neut % (Auto) 63.4, Lymph % (Auto) 30.9, [place] % (Auto) 4.0, Eos % (Auto) 1.0, Baso % (Auto) 0.6, Neut # (Auto) 6.7, Lymph # (Auto) 3.3, [place] # (Auto) 0.4, Eos # (Auto) 0.1, Baso # (Auto) 0.1 01/31/20 17:09: Sodium 137, Potassium 3.8, Chloride 103, Carbon Dioxide 29, Anion Gap 8.8, BUN 9, Creatinine 0.80, Estimated Creat Clear 156, Estimated GFR 85, Est GFR ( Amer) 103, Glucose 104 H, Calcium 9.2, Total Bilirubin 0.3, AST 22, ALT 15, Alkaline Phosphatase 75, Total Protein 7.1, Albumin 4.4, Globulin 2.7, Albumin/Globulin Ratio 1.6, Amylase 33, Lipase 47, Acetaminophen < 10 L 01/31/20 17:10: Urine Color Yellow, Urine Appearance Sl cloudy, Urine pH 6.5, Ur Specific [place] 1.020, Urine Protein Negative, Urine Glucose (UA) Negative, Urine Ketones Negative, Urine Blood 2+, Urine Nitrate Negative, Urine Bilirubin Negative, Urine Urobilinogen 0.2, Ur Leukocyte Esterase Trace, Urine RBC None, Urine WBC 3-5, Ur Squamous Epith Cells 10-20, Amorphous Sediment 2+, Urine Bacteria None 01/31/20 17:10: Urine HCG, Qual Negative Result diagrams: 01/31/20 17:09 01/31/20 17:09 Nausea/Vomiting/Diarrhea HPI - General Chief complaint: Overdose Stated complaint: vomiting, Time Seen by Provider: 01/31/20 17:00 Mode of Arrival: Ambulatory Source of Information: Patient, Medical Record Limitations: No Limitations Description of Symptoms (Recalled from ER Triage Doc. by RN): Patient states that she didn't realize the dosage on the Tylenol that she had been taking. When patient realized she was taking too much at one time. States that she has been taking approx 1300mg four times a day. has been vomiting for a couple days. - History of Present Illness HPI Narrative: pt with concern about possible tyenol poisioning - nausea MD complaint: nausea Onset (ago): hour(s) Associated Abdominal Pain: No Associated symptoms: denies other symptoms - Related Data Home Medications Medication Instructions Recorded Confirmed polyethylene glycoL 3350 17 g PO DAILY 12/11/18 01/28/20 [Polyethylene Glycol 3350] Fluticasone
[2020-01-31 18:02] VITALS: BP 143/91; PULSE 81; O2SAT 96
[2020-01-31 18:09] VITALS: BP 143/91; PULSE 79; RESP 18; TEMP 36.6; O2SAT 99
== END 2020-01-31 18:10 | disposition home or self-care (01) ==
PROVIDERS: Emergency Provider Emergency Medicine; PCP Emergency Medicine
DX: T39.1X1A Poisoning by 4-Aminophenol derivatives, accidental (unintentional), initial encounter (principal); R11.2 Nausea with vomiting, unspecified; F41.8 Other specified anxiety disorders; E03.9 Hypothyroidism, unspecified; F17.210 Nicotine dependence, cigarettes, uncomplicated; Z79.899 Other long term (current) drug therapy
CPT/HCPCS: 80053; 80329; 81001; 81025; 82150; 83690; 85025; 99283

== ENCOUNTER 2020-02-23 15:32 | Emergency (ER) | payer OTHER, SELFPAY ==
[2020-02-23 15:32] VITALS: BP 151/100; PULSE 100; RESP 20; TEMP 36.9; O2SAT 100; BMI 29.9
--- NOTE | 2020-02-23 16:14 | ECG_ITS ---
APPROVED REPORT Exam: Resting ECG HR:80 bpm ECG Measurements Heart Rate 80 AXES AR 114 P 46 QRSd 106 QRS 68 QT 348 T 62 QTc 401 Conclusion Normal sinus rhythm Incomplete right bundle branch block Late r wave progression - no changes from 2019 Abnormal ECG Electronically signed by : Zev Mcallister, 02/24/2020 06:36:54
[2020-02-23 16:18] VITALS: BP 132/90; PULSE 94; RESP 18; O2SAT 99
--- NOTE | 2020-02-23 16:19 | XR_ITS ---
PROCEDURE: XR CHEST 2V CLINICAL HISTORY: pain COMPARISON: CR CXR CHEST(2 VIEWS-NOT PORTABLE) from 08/07/2014 CR CXR2 XR chest AP from 03/26/2018 CR XR CHEST 2V from 10/29/2019 FINDINGS: The cardiomediastinal silhouette and pulmonary vascularity are within normal limits. The lungs are clear without infiltrates, suspicious nodules, or pleural effusions. There are slightly prominent bronchovascular markings in the right suprahilar region but this has been seen previously likely reflects postinflammatory scarring. No acute bony abnormalities. There are mild multilevel degenerate changes midthoracic spine. IMPRESSION: No acute findings. Dictated by: Dr. Henry Valentin MD 02/23/2020 18:48 Dr. Henry Valentin MD in [place] 02/23/2020 18:48
--- NOTE | 2020-02-23 16:20 | CT_ITS ---
PROCEDURE: CT ABDOMEN PELVIS W CON CLINICAL INDICATION: Right upper quadrant pain COMPARISON: US PTV US PELVIS-TRANSVAGINAL ONLY from 09/27/[address] ABDOMEN PELVIS W CON from 06/08/2019 TECHNIQUE: IV Contrast: 75ML OPTIRAY 350 Oral Contrast none given Axial images obtained with sagittal and coronal reformats. All CT scans at the facility use one or more dose reduction, viz: automated exposure control, ma/kV adjustment per patient size (including targeted exams where dose is matched to indication, i.e. head), or iterative reconstruction technique. FINDINGS: Lower thorax: No acute finding ABDOMEN: Liver: The liver is normal in size. Again noted is a small hypodense lesion with peripheral enhancement right lobe of the liver and this likely is a small hemangioma and stable and unchanged from the previous exam. Gallbladder: Nondistended. No radio opaque stones. Pancreas: No masses or peripancreatic fluid collections. Spleen: unremarkable Adrenals: unremarkable Kidneys/ureters: The kidneys are normal size and show symmetrical function both appearing normal. ABDOMEN & PELVIS: Stomach bowel: The stomach and duodenal sweep appear normal. There are mildly dilated proximal small bowel loops with mild bowel wall thickening. The distal small bowel is normal in caliber.. There are no findings to suggest appendicitis. The cecum is position lobe right side of the pelvis a normal variation. There is a moderate amount stool in the cecum and ascending colon with scattered stool and gas seen through the remainder of the colon. Peritoneum: There is a tiny umbilical hernia containing fat only. Lymph nodes: No enlarged lymph nodes apparent. Vasculature: No evidence of abdominal aortic aneurysm. No retroperitoneal hemorrhage evident. Bones: No acute fracture PELVIS: Reproductive: The uterus is normal in size and retroverted. Bladder: The urinary bladder is partially decompressed, there is no free fluid in the pelvis. There are couple of phleboliths in the pelvis. Appendix: The appendix is not definitely visualized but no pericecal inflammatory changes. IMPRESSION: Mildly dilated proximal small bowel loops mild bowel wall thickening and mild enteritis is a possibility, no other significant abdominal or pelvic pathology noted Dictated by: Dr. Henry Valentin MD 02/23/2020 18:59 Dr. Henry Valentin MD in [place] 02/23/2020 18:59
--- NOTE | 2020-02-23 16:21 | HMH.EDGENADL ---
ED Disposition Clinical Impression: Multifocal pneumonia, Tachycardia Chest pain Qualifiers: Chest pain type: unspecified Qualified Code(s): R07.9 - Chest pain, unspecified Vomiting Qualifiers: Vomiting type: unspecified Vomiting Intractability: non-intractable Nausea presence: with nausea Qualified Code(s): R11.2 - Nausea with vomiting, unspecified Abdominal pain Qualifiers: Abdominal location: unspecified location Qualified Code(s): R10.9 - Unspecified abdominal pain Disposition: Still a Patient Condition on Discharge: Good Additional Instructions: Call back to the emergency department in 3 hrs to obtain your COVID-19 test result. Quarantine yourself until you obtain your result. Return to the emergency department if worsening shortness of breath, chest pain, intractable vomiting, severe weakness. Dr. Montilla will follow up test results with you. Referrals: Manuel Montilla MD [Primary Care Provider] - - Critical Care Critical Care Time: No Attestation: On 02/23/20, the high probability of a clinically significant, sudden or life threatening deterioration of the following system(s) required my full and direct attention, intervention and personal management. The time I documented below is in addition to time spent performing reported procedures but includes the following listed in this critical care notation. Medical Decision Making - Medical Records Medical records reviewed: Yes: I reviewed the patient's medical records. MR Comment: Reviewed most recent abdominal imaging studies done over the past 12 months, see below. Holter monitor 01/21/2018 showed no arrhythmias to correlate with symptoms. Chest x-ray on 10/29/2019 showed left basilar infiltrate. Covid antibodies and PCR were both negative on that date. Additionally, Covid antibodies were negative on 07/24/2019. - Juan Inquiry Pt receiving controlled substance: No Vital Signs: 02/23/20 15:32 02/23/20 16:18 02/23/20 17:00 Temperature 98.4 F Temperature Source Oral Pulse Rate [Left Radial] 100 H 94 H 92 H Respiratory Rate 20 18 18 Blood Pressure [Right Arm] 151/100 H 132/90 135/94 H Blood Pressure Mean [Right Arm] 117 104 107 Blood Pressure Source [Right Arm] Automatic Cuff Blood Pressure Position [Right Arm] Sitting 02 Sat by Pulse Oximetry 100 99 97 Oxygen Delivery Method Room Air 02/23/20 18:22 Temperature Temperature Source Pulse Rate [Left Radial] 74 Respiratory Rate 18 Blood Pressure [Right Arm] 133/80 Blood Pressure Mean [Right Arm] 97 Blood Pressure Source [Right Arm] Blood Pressure Position [Right Arm] 02 Sat by Pulse Oximetry 100 Oxygen Delivery Method - Lab Data Lab results reviewed: Yes: I reviewed the patient's lab results. Lab Results 02/23/20 14:56: Urine Color Yellow, Urine Appearance Clear, Urine pH 6.5, Ur Specific [place] 1.010, Urine Protein Negative, Urine Glucose (UA) Negative, Urine Ketones Negative, Urine Blood Negative, Urine Nitrate Negative, Urine Bilirubin Negative, Urine Urobilinogen 0.2, Ur Leukocyte Esterase Negative, Urine RBC None, Urine WBC None, Ur Squamous Epith Cells 10-20, Amorphous Sediment 1+, Urine Bacteria None 02/23/20 14:56: Urine HCG, Qual Negative 02/23/20 15:40: WBC 13.4 H, RBC 4.43, Hgb 14.3, Hct 43.5, MCV 98.3, MCH 32.3 H, MCHC 32.9, RDW 12.8, Plt Count 373, MPV 7.8, Neut % (Auto) 67.2, Lymph % (Auto) 27.5, [place] % (Auto) 4.5, Eos % (Auto) 0.4, Baso % (Auto) 0.4, Neut # (Auto) 9.0 H, Lymph # (Auto) 3.7, [place] # (Auto) 0.6, Eos # (Auto) 0.1, Baso # (Auto) 0.1 02/23/20 15:40: Sodium 138, Potassium 4.1, Chloride 107, Carbon Dioxide 27, Anion Gap 8.1, BUN 7, Creatinine 0.70, Estimated Creat Clear 153, Estimated GFR 99, Est GFR ( Amer) 120, Glucose 88, Calcium 9.0, Total Bilirubin 0.4, AST 20, ALT 14, Alkaline Phosphatase 63, Troponin I < 0.01, Total Protein 6.6, Albumin 4.0, Globulin 2.6, Albumin/Globulin Ratio 1.5, Amylase < 30 L, Lipase 36 02/23/20 15:40: D-Dimer 0.58 H 0
[2020-02-23 16:28] LABS: Microscopic, Urine URINE MICROSCOPIC (MICROSCOPIC)
[2020-02-23 16:30] LABS: Appearance,Urine CLEAR (Clear); Bilirubin,Urine Negative (Negative); Blood, Urine Negative (Negative); Color,Urine YELLOW (Yellow); Glucose,Urine (UA) Negative (Negative); Ketones,Urine Negative (Negative); Leukocyte Esterase,Urine Negative (Negative); Nitrate,Urine Negative (Negative); PH,Urine 6.5 (5.0-8.5); Protein,Urine Negative (Negative); Urobilinogen,Urine 0.2 EU/dl (0.2)
[2020-02-23 16:30] LABS: Basophils # 0.1 K/mm3 (0-0.2); Basophils % 0.4 % (0.1-2.0); Eosinophils # 0.1 K/mm3 (0.0-0.4); Eosinophils % 0.4 % (0.1-12.0); Hematocrit 43.5 % (37.0-47.0); Hemoglobin 14.3 g/dL (12.2-16.2); Lymphocytes # 3.7 K/mm3 (0.7-4.5); Lymphocytes % 27.5 % (10-50); Mean Corpuscular HGB Conc 32.9 g/dL (31.8-35.4); Mean Corpuscular Hemoglobin 32.3 pg (27.0-31.2); Mean Corpuscular Volume 98.3 fl (81-99); Mean Platelet Volume 7.8 fl (7.4-10.4); Monocytes # 0.6 K/mm3 (0.1-1.0); Monocytes % 4.5 % (1.7-9.3); Neutrophils % 67.2 % (37.0-80.0); Platelet Count 373 K/mm3 (142-424); Red Blood Count 4.43 M/mm3 (4.20-5.40); Red Cell Distribution Width 12.8 % (11.5-17.5); White Blood Count 13.4 K/mm3 (4.8-10.8)
[2020-02-23 16:35] LABS: Alanine Aminotransferase 14 U/L (12-78); Albumin/Globulin Ratio 1.5 (1.1-1.8); Alkaline Phosphatase 63 U/L (38-126); Anion Gap 8.1 mEq/L (5-15); Aspartate Amino Transferase 20 U/L (14-36); Bilirubin,Total 0.4 mg/dl (0.2-1.3); Blood Urea Nitrogen 7 mg/dl (7-17); Carbon Dioxide 27 mmol/L (22.0-30.0); Chloride 107 mmol/L (98-107); Creatinine Clearance Estimated 153 mL/min (50-200); Estimated Glomerular Filt Rate 99 ml/min (>60); GFR (African American) 120 ML/MIN (>60); Globulin 2.6 g/dL (1.3-3.2); Glucose 88 mg/dl (74-100); Lipase 36 U/L (23-300); Potassium 4.1 mmoL/L (3.5-5.1); Sodium 138 mmol/L (136-145); Total Protein,Serum 6.6 g/dl (6.3-8.2)
[2020-02-23 16:37] LABS: Amylase < 30 U/L (30-110)
[2020-02-23 16:37] LABS: Amorphous Sediment,Urine 1+ /lpf
[2020-02-23 16:40] LABS: Urine Pregnancy, HCG Qual. Negative (Negative)
[2020-02-23 16:54] LABS: Troponin I < 0.01 ng/ml (0.00-0.034)
[2020-02-23 17:00] VITALS: BP 135/94; PULSE 92; RESP 18; O2SAT 97
[2020-02-23 17:10] LABS: D-Dimer 0.58 ug/mL (0.0-0.5)
--- NOTE | 2020-02-23 17:19 | CT_ITS ---
PROCEDURE: CT ANGIO CHEST CLINCIAL INDICATION: soa, high d-dimer COMPARISON: No exams were available for comparison TECHNIQUE: IV Contrast: 70ML Isovue 370 Axial images obtained with sagittal and coronal reformats. All CT scans at the facility use one or more dose reduction, viz: automated exposure control, ma/kV adjustment per patient size (including targeted exams where dose is matched to indication, i.e. head), or iterative reconstruction technique. FINDINGS: HEART AND MEDIASTINAL STRUCTURES: Unremarkable, there is no pericardial effusion. There is excellent vascular opacification and and there is no CT evidence of pulmonary emboli. There is no aortic dissection. Lungs there are diffuse ill-defined areas of ground-glass opacity involving both lungs most prominent in the left upper lobe and basilar segments of both lower lobes. There is no pleural fluid. There is no dense consolidation or air bronchograms identified. BONY STRUCTURES: Mild to moderate multilevel degenerate changes of the thoracic spine UPPER ABDOMEN: Unremarkable. ADDITIONAL FINDINGS: No other significant abnormalities. IMPRESSION: No evidence of pulmonary emboli, diffuse bilateral areas of ground-glass opacity worrisome for early pneumonia compatible with Covid19 Dictated by: Dr. Henry Valentin MD 02/23/2020 19:10 Dr. Henry Valentin MD in [facility] 02/23/2020 19:10
--- NOTE | 2020-02-23 17:35 | PC.NURSE ---
Pt returned from rad.
[2020-02-23 18:22] VITALS: BP 133/80; PULSE 74; RESP 18; O2SAT 100
[2020-02-23 19:01] LABS: Coronavirus 19 IgG Antibody Negative (Negative); Coronavirus 19 IgM Antibody Negative (Negative)
[2020-02-23 19:27] LABS: Procalcitonin 0.034 ng/mL (0.0-2.0)
[2020-02-23 20:00] LABS: Troponin I < 0.01 ng/ml (0.00-0.034)
[2020-02-23 20:12] VITALS: BP 135/94; PULSE 71; RESP 18; TEMP 36.7; O2SAT 100
== END 2020-02-23 20:15 | disposition home or self-care (01) ==
PROVIDERS: Emergency Provider Emergency Medicine; PCP Emergency Medicine
DX: J12.82 Pneumonia due to coronavirus disease 2019 (principal); Z01.84 Encounter for antibody response examination; F41.8 Other specified anxiety disorders; E03.9 Hypothyroidism, unspecified; F17.210 Nicotine dependence, cigarettes, uncomplicated; Z88.1 Allergy status to other antibiotic agents; Z88.2 Allergy status to sulfonamides; Z79.899 Other long term (current) drug therapy
CPT/HCPCS: 36415; 71046; 71275; 74177; 80053; 81001; 81025; 82150; 83690; 84145; 84484; 85025; 85378; 86328; 93005; 96365; 99284; Q9967; U0003

== ENCOUNTER → 2020-02-24 10:29 | Outpatient (CLI) | payer OTHER, SELFPAY | PROVIDERS: PCP Emergency Medicine; Visit Provider Emergency Medicine | DX: Z11.52 Encounter for screening for COVID-19 (principal) | CPT/HCPCS: U0003 ==

== ENCOUNTER 2020-04-07 01:51 | Emergency (ER) | payer OTHER, SELFPAY ==
[2020-04-07 01:52] VITALS: BP 131/85; PULSE 85; RESP 16; TEMP 36.8; O2SAT 98; BMI 29.9
--- NOTE | 2020-04-07 02:18 | XR_ITS ---
PROCEDURE: XR CHEST 2V CLINICAL HISTORY: covid Cough and dizziness and weakness COMPARISON: CR CXR2 XR chest AP from 03/26/2018 CR XR CHEST 2V from 10/29/[address] ANGIO CHEST from 02/23/2020 CR XR CHEST 2V from 02/23/2020 FINDINGS: The cardiomediastinal silhouette and pulmonary vascularity are within normal limits. The lungs are clear without infiltrates, suspicious nodules, or pleural effusions. There is hair artifact over the upper chest both sides. There are degenerative changes in the thoracic spine with multilevel degenerative disc disease and small osteophytes. IMPRESSION: No acute findings. Dictated by: Woodrow Orozco MD 04/07/2020 06:09 Woodrow Orozco MD in [facility] 04/07/2020 06:09
--- NOTE | 2020-04-07 02:18 | CT_ITS ---
PROCEDURE: CT HEAD/BRAIN WO CON CLINICAL INDICATION: dizzy COMPARISON: CT CT HEAD/BRAIN WO CON from 12/16/2018 TECHNIQUE: Axial images obtained. All CT scans at the facility use one or more dose reduction, viz: automated exposure control, ma/kV adjustment per patient size (including targeted exams where dose is matched to indication, i.e. head), or iterative reconstruction technique. FINDINGS: No midline shift, mass effect, intracranial hemorrhage, hydrocephalus, or extra-axial fluid collection is evident. The calvarium has an unremarkable appearance. No mastoid effusion. No sinus air-fluid level. IMPRESSION: No acute intracranial finding Dictated by: Woodrow Orozco MD 04/07/2020 06:06 Woodrow Orozco MD in [facility] 04/07/2020 06:06
[2020-04-07 02:24] LABS: Microscopic, Urine URINE MICROSCOPIC (MICROSCOPIC)
[2020-04-07 02:26] LABS: Appearance,Urine CLEAR (Clear); Bilirubin,Urine Negative (Negative); Blood, Urine Negative (Negative); Color,Urine YELLOW (Yellow); Glucose,Urine (UA) Negative (Negative); Ketones,Urine Negative (Negative); Leukocyte Esterase,Urine Negative (Negative); Nitrate,Urine Negative (Negative); Protein,Urine Negative (Negative); Specific Gravity, Urine 1.025 (1.005-1.030); Urobilinogen,Urine 0.2 EU/dl (0.2)
--- NOTE | 2020-04-07 02:26 | ECG_ITS ---
APPROVED REPORT Exam: Resting ECG HR:74 bpm ECG Measurements Heart Rate 74 AXES NM 116 P -1 QRSd 104 QRS 54 QT 352 T 51 QTc 390 Conclusion Normal sinus rhythm Normal ECG Electronically signed by : Zev Mcallister, 04/07/2020 08:46:05
[2020-04-07 02:28] LABS: Urine Pregnancy, HCG Qual. Negative (Negative)
[2020-04-07 02:55] LABS: Basophils # 0.1 K/mm3 (0-0.2); Basophils % 0.4 % (0.1-2.0); Eosinophils # 0.1 K/mm3 (0.0-0.4); Eosinophils % 1.2 % (0.1-12.0); Hemoglobin 13.4 g/dL (12.2-16.2); Lymphocytes # 2.9 K/mm3 (0.7-4.5); Lymphocytes % 25.2 % (10-50); Mean Corpuscular Hemoglobin 31.9 pg (27.0-31.2); Mean Corpuscular Volume 99.9 fl (81-99); Monocytes # 0.7 K/mm3 (0.1-1.0); Monocytes % 5.6 % (1.7-9.3); Neutrophils # 7.8 K/mm3 (1.8-7.8); Neutrophils % 67.6 % (37.0-80.0); Platelet Count 398 K/mm3 (142-424); Red Blood Count 4.21 M/mm3 (4.20-5.40); Red Cell Distribution Width 13.7 % (11.5-17.5); White Blood Count 11.6 K/mm3 (4.8-10.8)
[2020-04-07 02:55] LABS: Bacteria,Urine 1+ /lpf
[2020-04-07 02:57] LABS: Chloride 104 mmol/L (98-107); Potassium 3.9 mmoL/L (3.5-5.1); Sodium 139 mmol/L (136-145)
[2020-04-07 02:59] LABS: Blood Urea Nitrogen 7 mg/dl (7-17); Creatinine Clearance Estimated 153 mL/min (50-200); Estimated Glomerular Filt Rate 99 ml/min (>60); GFR (African American) 120 ML/MIN (>60)
[2020-04-07 03:00] LABS: Alanine Aminotransferase 14 U/L (12-78); Albumin Level 4.6 g/dl (3.5-5.0); Albumin/Globulin Ratio 1.4 (1.1-1.8); Alkaline Phosphatase 64 U/L (38-126); Anion Gap 8.9 mEq/L (5-15); Aspartate Amino Transferase 25 U/L (14-36); Bilirubin,Total 0.3 mg/dl (0.2-1.3); Calcium 9.6 mg/dl (8.4-10.2); Carbon Dioxide 30 mmol/L (22.0-30.0); Globulin 3.2 g/dL (1.3-3.2); Glucose 106 mg/dl (74-100); Total Protein,Serum 7.8 g/dl (6.3-8.2)
[2020-04-07 03:03] LABS: Amphetamine/Metha Screen,Urine Negative ng/ml (<1000)
[2020-04-07 03:04] LABS: Barbiturates Screen,Urine Negative ng/ml (<200)
[2020-04-07 03:05] LABS: Benzodiazepines Screen,Urine Negative ng/ml (<200); Cannabinoid Screen,Urine Negative ng/ml (<50)
[2020-04-07 03:06] LABS: Cocaine Screen,Urine Negative ng/ml (<300); Methadone Screen,Urine Negative ng/ml (<300)
[2020-04-07 03:07] LABS: Opiate Screen,Urine Positive ng/ml (<300)
[2020-04-07 03:08] LABS: Phencyclidine Screen,Urine Negative ng/ml (<25)
[2020-04-07 03:09] LABS: C-Reactive Protein 8.1 mg/L (0-4)
[2020-04-07 03:23] LABS: Procalcitonin 0.106 ng/mL (0.0-2.0)
[2020-04-07 03:38] LABS: Coronavirus 19 IgG Antibody Negative (Negative); Coronavirus 19 IgM Antibody Negative (Negative)
--- NOTE | 2020-04-07 03:38 | HMH.EDDIZZ ---
ED Disposition Clinical Impression: Confusion Disposition: Home, Self-Care Condition on Discharge: Good Instructions: Delirium Additional Instructions: see pcp and neuro for follow up Referrals: Sugey Stone [Primary Care Provider] - - Critical Care Critical Care Time: No Attestation: On 04/07/20, the high probability of a clinically significant, sudden or life threatening deterioration of the following system(s) required my full and direct attention, intervention and personal management. The time I documented below is in addition to time spent performing reported procedures but includes the following listed in this critical care notation. Medical Decision Making - Medical Records Medical records reviewed: Yes: I reviewed the patient's medical records. - Juan Inquiry Pt receiving controlled substance: No Vital Signs: 04/07/20 01:52 Temperature 98.3 F Temperature Source Oral Pulse Rate [Left Radial] 85 Respiratory Rate 16 Blood Pressure [Right Arm] 131/85 Blood Pressure Mean [Right Arm] 100 Blood Pressure Source [Right Arm] Automatic Cuff Blood Pressure Position [Right Arm] Sitting 02 Sat by Pulse Oximetry 98 Oxygen Delivery Method Room Air - Lab Data Lab results reviewed: Yes: I reviewed the patient's lab results. Lab Results 04/07/20 02:08: Urine Color Yellow, Urine Appearance Clear, Urine pH 6.0, Ur Specific [place] 1.025, Urine Protein Negative, Urine Glucose (UA) Negative, Urine Ketones Negative, Urine Blood Negative, Urine Nitrate Negative, Urine Bilirubin Negative, Urine Urobilinogen 0.2, Ur Leukocyte Esterase Negative, Urine WBC 3-5, Ur Squamous Epith Cells 3-5, Urine Bacteria 1+ 04/07/20 02:08: Urine HCG, Qual Negative 04/07/20 02:08: Urine Opiates Screen Positive H, Urine Methadone Screen Negative, Ur Barbituates Screen Negative, Ur Phencyclidine Scrn Negative, Ur Amphetamines Screen Negative, U Benzodiazepines Scrn Negative, Urine Cocaine Screen Negative, U Marijuana (THC) Screen Negative 04/07/20 02:35: WBC 11.6 H, RBC 4.21, Hgb 13.4, Hct 42.0, MCV 99.9 H, MCH 31.9 H, MCHC 32.0, RDW 13.7, Plt Count 398, MPV 7.0 L, Neut % (Auto) 67.6, Lymph % (Auto) 25.2, [place] % (Auto) 5.6, Eos % (Auto) 1.2, Baso % (Auto) 0.4, Neut # (Auto) 7.8, Lymph # (Auto) 2.9, [place] # (Auto) 0.7, Eos # (Auto) 0.1, Baso # (Auto) 0.1 04/07/20 02:35: Sodium 139, Potassium 3.9, Chloride 104, Carbon Dioxide 30, Anion Gap 8.9, BUN 7, Creatinine 0.70, Estimated Creat Clear 153, Estimated GFR 99, Est GFR ( Amer) 120, Glucose 106 H, Calcium 9.6, Total Bilirubin 0.3, AST 25, ALT 14, Alkaline Phosphatase 64, C-Reactive Protein 8.1 H, Total Protein 7.8, Albumin 4.6, Globulin 3.2, Albumin/Globulin Ratio 1.4 04/07/20 02:35: Procalcitonin 0.106 04/07/20 02:35: SARS-CoV-2 IgG Ab (Rapid) Negative, SARS-CoV-2 IgM Ab (Rapid) Negative Result diagrams: 04/07/20 02:35 04/07/20 02:35 Orders (Tests/Meds): ED MEDICATIONS Generic Name Dose Route Start Last Admin Trade Name Freq PRN Reason Stop Dose Admin Sodium Chloride 1,000 mls @ 999 mls/hr 04/07/20 02:30 04/07/20 02:40 Sod Chlor 0.9% 1000ml Bag IV 04/07/20 03:30 999 mls/hr .Q1H1M LUZMARIA Administration Discontinued Medications Generic Name Dose Route Start Last Admin Trade Name Freq PRN Reason Stop Dose Admin Meclizine HCl 25 mg 04/07/20 02:38 04/07/20 02:40 Meclizine 25mg Tablet PO 04/07/20 02:39 25 mg ONCE ONE Administration Ondansetron HCl 4 mg 04/07/20 02:20 04/07/20 02:39 Ondansetron 4mg/2ml Vial IV 04/07/20 02:21 4 mg ONCE ONE Administration ORDERS Category Date Time Status CT head/brain wo con Stat Cat Scan 04/07/20 02:18 Taken XR chest 2V Stat Exams 04/07/20 02:18 Taken Complete Blood Count Auto Diff Stat Lab 04/07/20 02:35 Results Covid-19 Nasal PCR ([facility]) Routine Lab 04/07/20 02:00 Received Erythrocyte Sedimentation Rate Stat Lab 04/07/20 02:35 Results - Radiology Data #1 Image(s): Chest
[2020-04-07 03:52] VITALS: BP 134/78; PULSE 72; RESP 14; TEMP 36.8; O2SAT 98
[2020-04-07 03:54] LABS: Erythrocyte Sedimentation Rate 60 mm/hr (0-20)
== END 2020-04-07 03:55 | disposition home or self-care (01) ==
PROVIDERS: Emergency Provider Emergency Medicine; PCP Family Medicine
DX: R41.0 Disorientation, unspecified (principal); F11.10 Opioid abuse, uncomplicated; F41.8 Other specified anxiety disorders; E03.9 Hypothyroidism, unspecified; Z88.1 Allergy status to other antibiotic agents; Z79.899 Other long term (current) drug therapy
CPT/HCPCS: 70450; 71046; 80053; 80305; 81001; 81025; 84145; 85025; 85651; 86140; 86328; 93005; 96365; 96375; 99283; J2405; U0003

== ENCOUNTER 2020-04-27 21:41 | Emergency (ER) | payer OTHER, SELFPAY ==
[2020-04-27 22:42] VITALS: BP 127/82; PULSE 90; RESP 20; TEMP 36.8; O2SAT 99; BMI 28.0
--- NOTE | 2020-04-27 23:40 | HMH.EDNVD ---
ED Disposition Clinical Impression: Elevated procalcitonin Abdominal pain Qualifiers: Abdominal location: epigastric Qualified Code(s): R10.13 - Epigastric pain Disposition: Home, Self-Care Condition on Discharge: Good Instructions: DI for Acute Abdominal Pain Additional Instructions: fluids and see pcp this week Prescriptions: Metoclopramide HCl [Reglan 10mg Tab] 10 mg PO TID #10 tab Prescription Printed Referrals: Sugey Stone [Primary Care Provider] - - Critical Care Critical Care Time: No Attestation: On 04/27/20, the high probability of a clinically significant, sudden or life threatening deterioration of the following system(s) required my full and direct attention, intervention and personal management. The time I documented below is in addition to time spent performing reported procedures but includes the following listed in this critical care notation. Medical Decision Making - Medical Records Medical records reviewed: Yes: I reviewed the patient's medical records. - Juan Inquiry Pt receiving controlled substance: No Vital Signs: 04/27/20 22:42 04/28/20 01:02 04/28/20 03:24 Temperature 98.3 F Temperature Source Oral Pulse Rate 82 Pulse Rate [Right Brachial] 90 Respiratory Rate 20 Blood Pressure 113/70 113/77 Blood Pressure [Right Arm] 127/82 Blood Pressure Mean 95 87 Blood Pressure Mean [Right Arm] 97 Blood Pressure Source [Right Arm] Automatic Cuff 02 Sat by Pulse Oximetry 99 97 100 Oxygen Delivery Method Room Air 04/28/20 03:30 04/28/20 03:45 04/28/20 04:00 Temperature Temperature Source Pulse Rate Pulse Rate [Right Brachial] Respiratory Rate Blood Pressure 119/77 115/71 Blood Pressure [Right Arm] Blood Pressure Mean 87 80 Blood Pressure Mean [Right Arm] Blood Pressure Source [Right Arm] 02 Sat by Pulse Oximetry 100 100 100 Oxygen Delivery Method 04/28/20 04:15 04/28/20 04:30 04/28/20 05:00 Temperature Temperature Source Pulse Rate 68 Pulse Rate [Right Brachial] Respiratory Rate Blood Pressure 111/69 113/71 Blood Pressure [Right Arm] Blood Pressure Mean 87 88 Blood Pressure Mean [Right Arm] Blood Pressure Source [Right Arm] 02 Sat by Pulse Oximetry 99 100 99 Oxygen Delivery Method 04/28/20 05:30 04/28/20 05:31 04/28/20 06:00 Temperature Temperature Source Pulse Rate Pulse Rate [Right Brachial] Respiratory Rate Blood Pressure 121/66 101/65 L Blood Pressure [Right Arm] Blood Pressure Mean 86 80 Blood Pressure Mean [Right Arm] Blood Pressure Source [Right Arm] 02 Sat by Pulse Oximetry 98 97 Oxygen Delivery Method 04/28/20 06:30 04/28/20 06:45 04/28/20 07:00 Temperature Temperature Source Pulse Rate Pulse Rate [Right Brachial] Respiratory Rate Blood Pressure 107/69 L 105/68 L Blood Pressure [Right Arm] Blood Pressure Mean 80 78 Blood Pressure Mean [Right Arm] Blood Pressure Source [Right Arm] 02 Sat by Pulse Oximetry 98 96 99 Oxygen Delivery Method - Lab Data Lab results reviewed: Yes: I reviewed the patient's lab results. Lab Results 04/27/20 23:10: WBC 10.7, RBC 4.41, Hgb 14.2, Hct 43.9, MCV 99.6 H, MCH 32.2 H, MCHC 32.4, RDW 13.4, Plt Count 367, MPV 7.5, Neut % (Auto) 56.1, Lymph % (Auto) 38.8, [place] % (Auto) 3.5, Eos % (Auto) 0.9, Baso % (Auto) 0.7, Neut # (Auto) 6.0, Lymph # (Auto) 4.1, [place] # (Auto) 0.4, Eos # (Auto) 0.1, Baso # (Auto) 0.1, ESR 17 04/27/20 23:10: Sodium 141, Potassium 3.9, Chloride 105, Carbon Dioxide 29, Anion Gap 10.9, BUN 8, Creatinine 0.70, Estimated Creat Clear 146, Estimated GFR 98, Est GFR ( Amer) 119, Glucose 92, Calcium 9.6, Total Bilirubin 0.4, Direct Bilirubin 0.1, Conjugated Bilirubin 0.0, Indirect Bilirubin 0.3, Unconjugated Bilirubin 0.3, AST 25, ALT 14, Alkaline Phosphatase 84, C-Reactive Protein 1.6, Total Protein 7.7, Albumin 4.7, Globulin 3.0, Albumin
[2020-04-27 23:49] LABS: Basophils # 0.1 K/mm3 (0-0.2); Basophils % 0.7 % (0.1-2.0); Eosinophils # 0.1 K/mm3 (0.0-0.4); Eosinophils % 0.9 % (0.1-12.0); Hematocrit 43.9 % (37.0-47.0); Hemoglobin 14.2 g/dL (12.2-16.2); Lymphocytes # 4.1 K/mm3 (0.7-4.5); Lymphocytes % 38.8 % (10-50); Mean Corpuscular HGB Conc 32.4 g/dL (31.8-35.4); Mean Corpuscular Hemoglobin 32.2 pg (27.0-31.2); Mean Corpuscular Volume 99.6 fl (81-99); Mean Platelet Volume 7.5 fl (7.4-10.4); Monocytes # 0.4 K/mm3 (0.1-1.0); Monocytes % 3.5 % (1.7-9.3); Neutrophils % 56.1 % (37.0-80.0); Platelet Count 367 K/mm3 (142-424); Red Blood Count 4.41 M/mm3 (4.20-5.40); Red Cell Distribution Width 13.4 % (11.5-17.5); White Blood Count 10.7 K/mm3 (4.8-10.8)
[2020-04-27 23:50] LABS: Chloride 105 mmol/L (98-107); Potassium 3.9 mmoL/L (3.5-5.1); Sodium 141 mmol/L (136-145)
[2020-04-27 23:53] LABS: Alanine Aminotransferase 14 U/L (12-78); Alkaline Phosphatase 84 U/L (38-126); Amylase 38 U/L (30-110); Anion Gap 10.9 mEq/L (5-15); Aspartate Amino Transferase 25 U/L (14-36); Bilirubin,Direct 0.1 mg/dl (0.0-0.4); Bilirubin,Indirect 0.3 mg/dL (0.0-0.9); Bilirubin,Total 0.4 mg/dl (0.2-1.3); Bilirubin,Unconjugated 0.3 mg/dL (0.0-1.1); Blood Urea Nitrogen 8 mg/dl (7-17); Calcium 9.6 mg/dl (8.4-10.2); Carbon Dioxide 29 mmol/L (22.0-30.0); Creatinine Clearance Estimated 146 mL/min (50-200); Estimated Glomerular Filt Rate 98 ml/min (>60); GFR (African American) 119 ML/MIN (>60); Glucose 92 mg/dl (74-100)
[2020-04-27 23:54] LABS: Albumin Level 4.7 g/dl (3.5-5.0); Albumin/Globulin Ratio 1.6 (1.1-1.8); Lipase 30 U/L (23-300); Total Protein,Serum 7.7 g/dl (6.3-8.2)
[2020-04-27 23:55] LABS: HCG Qualitative, Serum Negative (Negative)
[2020-04-27 23:59] LABS: C-Reactive Protein 1.6 mg/L (0-4)
[2020-04-28] VITALS (15 sets, daily range): BP systolic 101–121; BP diastolic 65–77; PULSE 68–82; RESP 16; TEMP 36.8; O2SAT 96–100
[2020-04-28 00:22] LABS: Erythrocyte Sedimentation Rate 17 mm/hr (0-20); Procalcitonin 10.8 ng/mL (0.0-2.0)
--- NOTE | 2020-04-28 00:39 | CT_ITS ---
PROCEDURE: CT ABDOMEN PELVIS W CON CLINICAL INDICATION: uPPER abd PAIN WITH n/v Epigastric pain with nausea and vomiting COMPARISON: CT CT ABDOMEN PELVIS W CON from 02/23/2020 TECHNIQUE: IV Contrast: 75ML Isovue 370 Oral Contrast None Axial images obtained with sagittal and coronal reformats. All CT scans at the facility use one or more dose reduction, viz: automated exposure control, ma/kV adjustment per patient size (including targeted exams where dose is matched to indication, i.e. head), or iterative reconstruction technique. FINDINGS: LOWER THORAX: Small nodular opacity noted in the right middle lobe may even be due to vessel overlap incompletely imaged. This area measures 4 mm. Patchy ground-glass densities in the lung bases on both sides. ABDOMEN & PELVIS: Hypodensity noted in the right hepatic lobe segment 8 with peripheral nodular enhancement measuring 1.8 cm suggestive of a hemangioma. Additional small density within the right hepatic lobe too small to categorize stable. Ill-defined decreased attenuation inferior aspect right hepatic lobe probably unchanged. The spleen, adrenal glands, pancreas, gallbladder, and kidneys have an unremarkable appearance. No renal or ureteral calculi. No evidence of appendicitis or diverticulitis. No intestinal obstruction or free air. Scattered hyperdensities noted within the small bowel in the right lower quadrant consistent with ingested material. There is a 2.4 cm left ovarian cyst and a 1 cm right ovarian cyst. Mildly prominent left ovarian vessels. Tiny umbilical hernia containing fat. Mild amount of retained colonic feces. Retroflexed uterus. IMPRESSION: 1. Ground-glass attenuation in the lung bases may be due to areas of atelectasis or patchy areas of infiltrate. 2. No acute abdominal or pelvic findings. Please see above detail for multiple incidental nonacute findings. Dictated by: Woodrow Orozco MD 04/28/2020 06:17 Woodrow Orozco MD in [facility] 04/28/2020 06:17
[2020-04-28 01:27] LABS: Microscopic, Urine URINE MICROSCOPIC (MICROSCOPIC)
[2020-04-28 01:30] LABS: Appearance,Urine SL CLOUDY (Clear); Bilirubin,Urine Negative (Negative); Blood, Urine Negative (Negative); Color,Urine DK YELLOW (Yellow); Glucose,Urine (UA) Negative (Negative); Ketones,Urine Negative (Negative); Leukocyte Esterase,Urine Negative (Negative); Nitrate,Urine Negative (Negative); PH,Urine 5.5 (5.0-8.5); Protein,Urine Negative (Negative); Specific Gravity, Urine >= 1.030 (1.005-1.030); Urobilinogen,Urine 0.2 EU/dl (0.2)
[2020-04-28 01:47] LABS: Bacteria,Urine 1+ /lpf; Mucus,Urine 1+ /lpf; WBC,Urine Occasional #/hpf (0-3)
[2020-04-28 04:07] LABS: Procalcitonin 8.03 ng/mL (0.0-2.0)
[2020-04-28 07:09] LABS: Procalcitonin 7.56 ng/mL (0.0-2.0)
--- NOTE | 2020-04-28 07:40 | PC.NURSE ---
MD at bedside discussing plan for discharge.
--- NOTE | 2020-04-28 08:35 | PC.NURSE ---
Pt asked about admission due to her unable to keep anything po down. Pt states that she has already told her dad that she is leaving and he is on his way so she can not stay. Pt states if she gets some reglan she will be fine. Pt educated that if she feels later that she has not improved she can return to the ER.
[2020-04-28 08:49] LABS: Lactic Acid 1.3 mmol/L (0.7-2.1)
[2020-05-01 12:59] LABS: Arsenic, Blood 4 ug/L (2-23); Lead, Blood <1 ug/dL (0-4); Mercury, Blood <1.0 ug/L (0.0-14.9)
== END 2020-04-28 08:57 | disposition home or self-care (01) ==
PROVIDERS: Emergency Provider Emergency Medicine; PCP Family Medicine
DX: R10.33 Periumbilical pain (principal); R79.89 Other specified abnormal findings of blood chemistry; F41.8 Other specified anxiety disorders; E03.9 Hypothyroidism, unspecified; F17.210 Nicotine dependence, cigarettes, uncomplicated; Z79.899 Other long term (current) drug therapy
CPT/HCPCS: 74177; 80053; 80076; 81001; 82150; 82175; 83605; 83655; 83690; 83825; 84120; 84145; 84703; 85025; 85651; 86140; 87086; 96365; 96375; 99283; J2405; Q9967

== ENCOUNTER 2020-09-14 13:37 | Emergency (ER) | payer OTHER, SELFPAY ==
[2020-09-14 13:38] VITALS: BP 135/82; PULSE 84; RESP 18; TEMP 37; O2SAT 97; BMI 27.9
--- NOTE | 2020-09-14 14:12 | HMH.EDGENADL ---
ED Disposition Clinical Impression: Nephrolithiasis Disposition: Home, Self-Care Condition on Discharge: Good Instructions: DI for Acute Abdominal Pain Additional Instructions: Please take medication as prescribed Please drink plenty of fluids Please take Tylenol as needed for pain relief If symptoms persist or worsen, return to the ED for further evaluation Prescriptions: Tamsulosin HCl 0.4 mg PO DAILY #3 cap Prescription Printed Referrals: Sugey Stone [Primary Care Provider] - - Critical Care Critical Care Time: No Attestation: On 09/14/20, the high probability of a clinically significant, sudden or life threatening deterioration of the following system(s) required my full and direct attention, intervention and personal management. The time I documented below is in addition to time spent performing reported procedures but includes the following listed in this critical care notation. Medical Decision Making - Medical Records Medical records reviewed: Yes: I reviewed the patient's medical records. - Juan Inquiry Pt receiving controlled substance: No Vital Signs: 09/14/20 13:38 Temperature 98.6 F Temperature Source Oral Pulse Rate [Right] 84 Respiratory Rate 18 Blood Pressure [Right Arm] 135/82 Blood Pressure Mean [Right Arm] 99 02 Sat by Pulse Oximetry 97 Oxygen Delivery Method Room Air - Lab Data Lab results reviewed: Yes: I reviewed the patient's lab results. Lab Results 09/14/20 13:55: WBC 9.7, RBC 4.62, Hgb 14.5, Hct 45.4, MCV 98.4, MCH 31.5 H, MCHC 32.0, RDW 13.8, Plt Count 376, MPV 7.4, Neut % (Auto) 68.3, Lymph % (Auto) 28.1, [place] % (Auto) 2.4, Eos % (Auto) 0.6, Baso % (Auto) 0.6, Neut # (Auto) 6.6, Lymph # (Auto) 2.7, [place] # (Auto) 0.2, Eos # (Auto) 0.1, Baso # (Auto) 0.1 09/14/20 13:55: Sodium 141, Potassium 4.0, Chloride 106, Carbon Dioxide 27, Anion Gap 12.0, BUN 7, Creatinine 0.60, Estimated Creat Clear 165, Estimated GFR 117, Est GFR ( Amer) 142, Glucose 95, Calcium 9.6, Total Bilirubin 0.4, AST 28, ALT 13, Alkaline Phosphatase 93, Total Protein 8.2, Albumin 5.0, Globulin 3.2, Albumin/Globulin Ratio 1.6, Lipase 56 09/14/20 13:55: Serum HCG, Qual Negative 09/14/20 14:00: Urine Color Yellow, Urine Appearance Clear, Urine pH 6.5, Ur Specific [place] 1.015, Urine Protein Negative, Urine Glucose (UA) Negative, Urine Ketones Negative, Urine Blood 2+, Urine Nitrate Negative, Urine Bilirubin Negative, Urine Urobilinogen 0.2, Ur Leukocyte Esterase Negative, Urine RBC 5-10, Urine WBC Occasional, Ur Squamous Epith Cells 3-5, Urine Bacteria Trace 09/14/20 14:41: Lactate 0.6 L Result diagrams: 09/14/20 13:55 09/14/20 13:55 Orders (Tests/Meds): ED MEDICATIONS Discontinued Medications Generic Name Dose Route Start Last Admin Trade Name Freq PRN Reason Stop Dose Admin Belladonna Alkaloids 60 ml 09/14/20 17:08 09/14/20 17:12 Gi Cocktail 60ml Udc PO 09/14/20 17:09 60 ml ONCE ONE Administration Sodium Chloride 1,000 mls @ 999 mls/hr 09/14/20 14:30 09/14/20 14:17 Sod Chlor 0.9% 1000ml Bag IV 09/14/20 15:30 999 mls/hr .Q1H1M LUZMARIA Administration Iopamidol 75 ml 09/14/20 15:42 09/14/20 15:47 Iopamidol-370 (76%);100ml Bottle IV 09/14/20 15:43 75 ml ONCE ONE Administration Ondansetron HCl 4 mg 09/14/20 14:16 09/14/20 14:17 Ondansetron 4mg/2ml Vial IV 09/14/20 14:17 4 mg ONCE ONE Administration Promethazine HCl 12.5 mg 09/14/20 14:52 09/14/20 14:57 Promethazine Hcl 25mg/Ml 1ml Vial IV 09/14/20 14:53 12.5 mg ONCE ONE Administration Sodium Chloride 25 ml 09/14/20 14:52 09/14/20 15:02 Sodium Chloride 0.9% 25ml Bag IV 09/14/20 14:53 25 ml ONCE ONE Administration Sodium Chloride 10 ml 09/14/20 15:42 09/14/20 15:47 Sodium Chloride 0.9% 10ml Syr (Rad Only) IV 09/14/20 15:43 10 ml ONCE ONE Administration Medical Decision Narrative: Upon presentation, patient is hemodynamically stable and nontoxic-a
--- NOTE | 2020-09-14 14:16 | CT_ITS ---
PROCEDURE: CT ABDOMEN PELVIS W CON CLINICAL INDICATION: epigastric pain, vomiting COMPARISON: CT CT ANGIO CHEST from 02/23/[address] ABDOMEN PELVIS W CON from 02/23/[address] ABDOMEN PELVIS W CON from 04/28/2020 TECHNIQUE: IV Contrast: 75ML Isovue 370 Oral Contrast None Axial images obtained with sagittal and coronal reformats. All CT scans at the facility use one or more dose reduction, viz: automated exposure control, ma/kV adjustment per patient size (including targeted exams where dose is matched to indication, i.e. head), or iterative reconstruction technique. FINDINGS: LOWER THORAX: No acute finding ABDOMEN & PELVIS: In hepatic dome there is a 15 mm peripherally enhancing lesion and may represent a hemangioma. In the right hepatic lobe there is a 5 mm hypodensity possibly due to a cyst. In the right hepatic lobe inferiorly there is a 8 mm hypodense nodule possibly due to cyst. Nonemergent MRI of the liver may further evaluate. The spleen, adrenal glands, pancreas, and kidneys have an unremarkable appearance. No radiopaque gallstones. There is mild thickening of the gastric fundus and antrum but may be related to nondistention. No evidence of appendicitis or diverticulitis. There is a 3.3 x 2.2 cm right ovarian cyst. No intestinal obstruction or free air. No acute bony anomalies. IMPRESSION: 1. No acute finding. 2. At least 3 hepatic lesions which could be due to hemangiomas and cysts. Nonemergent MRI may confirm without and with contrast 3. Other incidental findings as described above. Dictated by: Woodrow Orozco MD 09/14/2020 16:21 Woodrow Orozco MD in [facility] 09/14/2020 16:21
[2020-09-14 14:28] LABS: Basophils # 0.1 K/mm3 (0-0.2); Basophils % 0.6 % (0.1-2.0); Eosinophils # 0.1 K/mm3 (0.0-0.4); Eosinophils % 0.6 % (0.1-12.0); Hematocrit 45.4 % (37.0-47.0); Hemoglobin 14.5 g/dL (12.2-16.2); Lymphocytes # 2.7 K/mm3 (0.7-4.5); Lymphocytes % 28.1 % (10-50); Mean Corpuscular Hemoglobin 31.5 pg (27.0-31.2); Mean Corpuscular Volume 98.4 fl (81-99); Mean Platelet Volume 7.4 fl (7.4-10.4); Monocytes # 0.2 K/mm3 (0.1-1.0); Monocytes % 2.4 % (1.7-9.3); Neutrophils # 6.6 K/mm3 (1.8-7.8); Neutrophils % 68.3 % (37.0-80.0); Platelet Count 376 K/mm3 (142-424); Red Blood Count 4.62 M/mm3 (4.20-5.40); Red Cell Distribution Width 13.8 % (11.5-17.5); White Blood Count 9.7 K/mm3 (4.8-10.8)
[2020-09-14 14:29] LABS: Chloride 106 mmol/L (98-107); Sodium 141 mmol/L (136-145)
[2020-09-14 14:32] LABS: Alanine Aminotransferase 13 U/L (12-78); Albumin/Globulin Ratio 1.6 (1.1-1.8); Alkaline Phosphatase 93 U/L (38-126); Aspartate Amino Transferase 28 U/L (14-36); Bilirubin,Total 0.4 mg/dl (0.2-1.3); Blood Urea Nitrogen 7 mg/dl (7-17); Calcium 9.6 mg/dl (8.4-10.2); Carbon Dioxide 27 mmol/L (22.0-30.0); Creatinine Clearance Estimated 165 mL/min (50-200); Estimated Glomerular Filt Rate 117 ml/min (>60); GFR (African American) 142 ML/MIN (>60); Globulin 3.2 g/dL (1.3-3.2); Glucose 95 mg/dl (74-100); Lipase 56 U/L (23-300); Total Protein,Serum 8.2 g/dl (6.3-8.2)
[2020-09-14 14:33] LABS: HCG Qualitative, Serum Negative (Negative)
[2020-09-14 15:04] LABS: Lactic Acid 0.6 mmol/L (0.7-2.1)
[2020-09-14 15:48] LABS: Microscopic, Urine URINE MICROSCOPIC (MICROSCOPIC)
[2020-09-14 15:49] LABS: Appearance,Urine CLEAR (Clear); Bilirubin,Urine Negative (Negative); Blood, Urine 2+ (Negative); Color,Urine YELLOW (Yellow); Glucose,Urine (UA) Negative (Negative); Ketones,Urine Negative (Negative); Leukocyte Esterase,Urine Negative (Negative); Nitrate,Urine Negative (Negative); PH,Urine 6.5 (5.0-8.5); Protein,Urine Negative (Negative); Specific Gravity, Urine 1.015 (1.005-1.030); Urobilinogen,Urine 0.2 EU/dl (0.2)
[2020-09-14 16:11] LABS: Bacteria,Urine Trace /lpf; WBC,Urine Occasional #/hpf (0-3)
[2020-09-14 18:00] VITALS: BP 134/71; PULSE 65; RESP 17; TEMP 36.7; O2SAT 97
== END 2020-09-14 18:14 | disposition home or self-care (01) ==
PROVIDERS: Emergency Provider Emergency Medicine; PCP Family Medicine
DX: N20.0 Calculus of kidney (principal); E03.9 Hypothyroidism, unspecified; F41.8 Other specified anxiety disorders; F17.210 Nicotine dependence, cigarettes, uncomplicated
CPT/HCPCS: 74177; 80053; 81001; 83605; 83690; 84703; 85025; 96365; 99283; J2405; Q9967

== ENCOUNTER 2020-10-04 10:12 | Emergency (ER) | payer OTHER, SELFPAY ==
[2020-10-04 10:13] VITALS: BP 135/101; PULSE 129; RESP 18; TEMP 36.9; O2SAT 98; BMI 27.1
--- NOTE | 2020-10-04 10:30 | CT_ITS ---
PROCEDURE INFORMATION: Exam: CT Lumbar Spine Without Contrast Exam date and time: 10/04/2020 10:30 AM Age: 30 years old Clinical indication: Low back pain; Patient HX: Lower back pain after PT felt a pop while she turned over in bed , PT going into groins , worse on right side TECHNIQUE: Imaging protocol: Computed tomography images of the lumbar spine without contrast. Radiation optimization: All CT scans at this facility use at least one of these dose optimization techniques: automated exposure control; mA and/or kV adjustment per patient size (includes targeted exams where dose is matched to clinical indication); or iterative reconstruction. COMPARISON: MR LUMBAR SPINE WO CON 12/05/2019 8:59 AM FINDINGS: Vertebrae: No acute lumbar spine fracture or traumatic malalignment. Discs/Spinal canal/Neural foramina: No significant disc protrusion. No severe spinal canal stenosis. No significant neural foraminal narrowing. Soft tissues: Unremarkable. IMPRESSION: No acute lumbar spine fracture or traumatic malalignment. No advanced degenerative change.
[2020-10-04 10:37] VITALS: BP 134/89; PULSE 96; O2SAT 97
--- NOTE | 2020-10-04 10:57 | HMH.EDBACK ---
ED Disposition Clinical Impression: Strain of lumbar region Qualifiers: Encounter type: initial encounter Qualified Code(s): S39.012A - Strain of muscle, fascia and tendon of lower back, initial encounter Disposition: Home, Self-Care Condition on Discharge: Good Instructions: DI for Low Back Pain Referrals: Sugey Stone [Primary Care Provider] - - Critical Care Critical Care Time: No Attestation: On 10/04/20, the high probability of a clinically significant, sudden or life threatening deterioration of the following system(s) required my full and direct attention, intervention and personal management. The time I documented below is in addition to time spent performing reported procedures but includes the following listed in this critical care notation. Medical Decision Making - Medical Records Medical records reviewed: Yes: I reviewed the patient's medical records. - Juan Inquiry Pt receiving controlled substance: Yes Juan was queried for this patient: Yes Reference #:: [id number] Risks and benefits of using a controlled substance: were discussed with pt by me Vital Signs: 10/04/20 10:13 10/04/20 10:37 10/04/20 12:30 Temperature 98.5 F Temperature Source Oral Pulse Rate 96 H 103 H Pulse Rate [Left Radial] 129 H Respiratory Rate 18 Blood Pressure 134/89 133/83 Blood Pressure [Right Arm] 135/101 H Blood Pressure Mean [Right Arm] 112 Blood Pressure Source [Right Arm] Automatic Cuff Blood Pressure Position [Right Arm] Sitting 02 Sat by Pulse Oximetry 98 97 95 Oxygen Delivery Method Room Air - Lab Data Lab Results 10/04/20 11:05: Urine Color Yellow, Urine Appearance Clear, Urine pH 8.0, Ur Specific [place] 1.015, Urine Protein Negative, Urine Glucose (UA) Negative, Urine Ketones Negative, Urine Blood Negative, Urine Nitrate Negative, Urine Bilirubin Negative, Urine Urobilinogen 0.2, Ur Leukocyte Esterase Trace, Urine RBC None, Urine WBC 3-5, Ur Squamous Epith Cells 5-10, Urine Bacteria None 10/04/20 11:05: Urine HCG, Qual Negative Orders (Tests/Meds): ED MEDICATIONS Discontinued Medications Generic Name Dose Route Start Last Admin Trade Name Freq PRN Reason Stop Dose Admin Ketorolac Tromethamine 30 mg 10/04/20 10:29 10/04/20 10:53 Ketorolac 30mg/Ml Vial IM 10/04/20 10:30 30 mg ONCE ONE Administration Morphine Sulfate 4 mg 10/04/20 12:32 Morphine 2mg/Ml Syringe IM 10/04/20 12:33 ONCE ONE - CT Data CT Scan: L-Spine Time Received: 12:[address] Reviewed: Yes: I have reviewed the patient's CT results, I have viewed the radiologist's interpretation Findings Narrative: IMPRESSION: No acute lumbar spine fracture or traumatic malalignment. No advanced degenerative change. - Reevaluation(s) Time: 12:43 Reevaluation #1: On reevaluation, patient's pain is improved. CT scan is unremarkable. Repeat neurologic exam is normal. There is no saddle anesthesia. No evidence of abscess or spinal cord compression. Patient does receive Percocet 10 per Juan patient will continue this medication as well as her muscle relaxers. Patient was given strict return precautions. Needs a follow-up with PCP in 48 hours. Verbalized understanding. Medical Decision Narrative: 30-year-old female presenting with some lower lumbar back pain. Occurred after twisting injury. Concern for possible herniated disc versus lumbar strain. Patient provided analgesics. Work-up initiated. Normal neurologic exam. Back Pain HPI - General Chief Complaint: Back Pain/Injury Stated Complaint: back pain Time Seen by Provider: 10/04/20 10:15 Mode of Arrival: Ambulatory Limitations: No Limitations Description of Symptoms (Recalled from ER Triage Doc. by RN): c/o lower back pain after changing positions in bed and then hearing a pop sound - History of Present Illness HPI Narrative: 30-year-old female presented to the emergency department with some lower back
[2020-10-04 11:10] LABS: Microscopic, Urine URINE MICROSCOPIC (MICROSCOPIC)
[2020-10-04 11:13] LABS: Appearance,Urine CLEAR (Clear); Bilirubin,Urine Negative (Negative); Blood, Urine Negative (Negative); Color,Urine YELLOW (Yellow); Glucose,Urine (UA) Negative (Negative); Ketones,Urine Negative (Negative); Leukocyte Esterase,Urine TRACE (Negative); Nitrate,Urine Negative (Negative); Protein,Urine Negative (Negative); Specific Gravity, Urine 1.015 (1.005-1.030); Urobilinogen,Urine 0.2 EU/dl (0.2)
[2020-10-04 11:14] LABS: Urine Pregnancy, HCG Qual. Negative (Negative)
[2020-10-04 12:30] VITALS: BP 133/83; PULSE 103; O2SAT 95
[2020-10-04 13:11] VITALS: BP 125/73; PULSE 103; RESP 19; TEMP 36.9; O2SAT 98
[2020-10-04 13:39] LABS: Coronavirus 19, PCR Not Detected (NotDetected); Influenza A, PCR Not Detected (NotDetected); Influenza B, PCR Not Detected (NotDetected)
== END 2020-10-04 13:14 | disposition home or self-care (01) ==
PROVIDERS: Emergency Provider Emergency Medicine; PCP Family Medicine
DX: S39.012A Strain of muscle, fascia and tendon of lower back, initial encounter (principal); X50.0XXA Overexertion from strenuous movement or load, initial encounter; Y92.019 Unspecified place in single-family (private) house as the place of occurrence of the external cause; F41.8 Other specified anxiety disorders; E03.9 Hypothyroidism, unspecified; F17.210 Nicotine dependence, cigarettes, uncomplicated
CPT/HCPCS: 72131; 81001; 81025; 96372; 99282; U0003

== ENCOUNTER 2021-04-17 08:38 | Emergency (ER) | payer OTHER, SELFPAY ==
[2021-04-17 08:46] VITALS: BP 150/92; PULSE 78; RESP 16; TEMP 37.1; O2SAT 99; BMI 29.9
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
[2021-04-17 09:21] LABS: Urine Pregnancy, HCG Qual. Negative (Negative)
[2021-04-17 10:53] VITALS: BP 147/80; PULSE 74; RESP 17; TEMP 37.1; O2SAT 99
== END 2021-04-17 10:54 | disposition home or self-care (01) ==
PROVIDERS: Emergency Provider Emergency Medicine; PCP Family Medicine
DX: S06.0X0A Concussion without loss of consciousness, initial encounter (principal); S13.4XXA Sprain of ligaments of cervical spine, initial encounter; S43.402A Unspecified sprain of left shoulder joint, initial encounter; N39.0 Urinary tract infection, site not specified; A41.9 Sepsis, unspecified organism; I50.9 Heart failure, unspecified; I49.9 Cardiac arrhythmia, unspecified; E28.2 Polycystic ovarian syndrome; F32.A Depression, unspecified; F41.9 Anxiety disorder, unspecified; F17.210 Nicotine dependence, cigarettes, uncomplicated; Z85.850 Personal history of malignant neoplasm of thyroid; Z82.49 Family history of ischemic heart disease and other diseases of the circulatory system; Z80.9 Family history of malignant neoplasm, unspecified
CPT/HCPCS: 70450; 70486; 72125; 73030; 73610; 81025; 99285

== ENCOUNTER 2023-02-27 17:48 | Emergency (ER) | payer MEDICAID, SELFPAY ==
--- NOTE | 2023-02-27 17:58 | XR_ITS ---
PROCEDURE INFORMATION: Exam: XR Left Hand Exam date and time: 02/27/2023 6:12 PM Age: 32 years old Clinical indication: Pain; Hand; Left TECHNIQUE: Imaging protocol: Radiologic exam of the left hand. Views: 3 or more views. COMPARISON: No relevant prior studies available. FINDINGS: Bones/joints: Normal. Soft tissues: Normal. IMPRESSION: No acute findings.
[2023-02-27 18:00] VITALS: BP 142/80; PULSE 98; RESP 20; TEMP 36.8; O2SAT 96; BMI 37.4
--- NOTE | 2023-02-27 18:20 | ED_ITS ---
Discharge Plan Disposition Patient Disposition: Home, Self-Care Condition: Good Prescriptions Prescriptions: No Action levothyroxine 150 mcg tablet 150 mcg PO DAILY etonogestrel 68 mg implant 68 mg SUBDERMAL ONCE Qty: 1 0RF methocarbamol 750 mg tablet 750 mg PO TID PRN cetirizine [Zyrtec] 10 mg tablet 10 mg PO DAILY PRN fluticasone propionate 9.9 ML spray,suspension 2 spray NS DAILY Rx Instructions: administer into each nostril promethazine 25 MG tablet 25 mg PO Q6HP PRN (Reason: Nausea) albuterol sulfate 8.5 GM HFA aerosol inhaler See Rx Instructions .Route .COMPLEX Rx Instructions: TAKE TWO PUFFS THREE TIMES DAILY NEEDED ibuprofen 800 MG tablet 800 mg PO TIDP PRN (Reason: Moderate Pain) Qty: 20 0RF Referrals Follow up/Referrals: Sugey Giordano MD [Primary Care Provider] - See instructions Activity Restrictions/Add. Instructions Additional Instructions/Restrictions: Continue to apply Mupirocin to area as directed Follow up with your Family Doctor if pain continues for further evaluation Straight to ER if any life threatening symptoms Clinical Impressions Clinical Impression: Abrasion of finger Qualifiers: Encounter type: initial encounter Qualified Code(s): S60.419A - Abrasion of unspecified finger, initial encounter Instructions Patient Instructions: DI for Abrasion Discharge ED Provider: Rasheeda Pedersen [facility] General Stated complaint: left index finger pain Mode of Arrival: Ambulatory Source of Information: Patient Limitations: No Limitations Time Seen by Provider: 02/27/23 18:20 Description of Symptoms (Recalled from Triage Doc. by RN): PATIENT STATES SHE SCRATCHED HER LEFT INDEX FINGER APPROX 2 WEEKS AGO, AND 2-3 DAYS LATER SHE STARTED HAVING PAIN AND SWELLING THAT HAS GOTTEN WORSE HEENT Symptoms (Recalled from RN notes): No Resp Symptoms (Recalled from RN notes): No Skin Symptoms (Recalled from RN notes): No MS Symptoms (Recalled from RN notes): Yes Functional Status (Recalled from RN notes): WNL History of Present Illness Provider Complaint: Patient states that she scratched her knuckle on her left index finger about two weeks ago States that the scratch is healing but it has been having pain and swelling in her finger and feels like a grinding sensation when she bends it so today when she was still having pain with movement she came in Related Data Home Medications Medication Instructions Recorded Confirmed fluticasone propionate 50 2 spray intranasal DAILY Supplement 12/28/18 08/04/21 mcg/actuation nasal spray,suspension levothyroxine 150 mcg tablet 150 mcg PO DAILY thyroid 01/08/20 08/04/21 albuterol sulfate 90 mcg/actuation See Rx Instructions .Route 04/28/20 08/04/21 aerosol inhaler .COMPLEX Asthma promethazine 25 mg tablet 25 mg PO Q6HP PRN Nausea 04/28/20 08/04/21 cetirizine 10 mg tablet (Zyrtec) 10 mg PO DAILY PRN 08/04/21 08/04/21 methocarbamol 750 mg tablet 750 mg PO TID PRN 08/04/21 08/04/21 Previous Rx's Medication Instructions Recorded ibuprofen 800 mg tablet 800 mg PO TIDP PRN Moderate Pain 04/17/21 #20 tabs Allergies Allergy/AdvReac Type Severity Reaction Status Date / Time vancomycin [VANCOMYCIN] Allergy Intermediate I-HIVES Verified 08/04/21 14:55 sulfamethoxazole Allergy Mild angioedma Verified 08/04/21 14:55 [From Bactrim] trimethoprim [From Bactrim] Allergy Mild angioedma Verified 08/04/21 14:55 nickel [NICKEL] Allergy Unknown RASH/BLISTE Verified 08/04/21 14:55 RS droperidol Allergy Verified 02/27/23 18:20 Worker's Comp Is this a Worker's Comp case?: No [facility] Disclaimer: The information contained in this section may have been updated after the patient was seen, as this information can be updated by other users. 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 current occupational exposures/hazards: Yes caffeine: Yes ROS Obtained: Yes All systems reviewed & no additional complaints except as documented and Yes Systems reviewed as appropriate & no additional complaints except as documented Constitutional Constitutional: Reports system reviewed and no additional complaints, except as documented and Reports as per HPI ENT Ears, Nose, Mouth, and Throat: Reports system reviewed and no additional complaints, except as documented and Reports as per HPI Respiratory Respiratory: Reports system reviewed and no additional complaints, except as documented and Reports as per HPI Gastrointestinal Gastrointestingal: Reports system reviewed and no additional complaints, except as documented and as per HPI Musculoskeletal Musculoskeletal: Reports system reviewed and no additional complaints, except as documented, Reports as per HPI and Reports other Comments: Pain in left index finger after scratching it two weeks ago and feeling a grinding sensation when she moves it Physical Exam General General appearance: alert and in no apparent distress Respiratory Respiratory exam: Present normal lung sounds bilaterally; Absent respiratory distress or wheezes Cardiovascular Cardiovascular exam: Present regular rate, normal rhythm and normal heart sounds Expanded Upper Extremity Exam Left: Hand L/R back image: 1. small healing abrasion noted, no redness, no swelling no discoloration and no warmth reports grinding sensation with movement Neurological Exam Neurological exam: Present alert, oriented X3 and normal gait Medical Decision Making Juan Inquiry Pt receiving controlled substance: No Juan was queried for this patient: No Vital Signs: 02/27/23 18:00 Temperature 98.2 F Temperature Source Oral Pulse Rate [Right Brachial] 98 H Respiratory Rate 20 Blood Pressure [Right Arm] 142/80 H Blood Pressure Mean [Right Arm] 100 Blood Pressure Source [Right Arm] Automatic Cuff Blood Pressure Position [Right Arm] Sitting 02 Sat by Pulse Oximetry 96 Oxygen Delivery Method Room Air Orders (Tests/Meds): ORDERS Category Date Time Status Hand XR left minimum 3 views [XR hand LT min 3V] Stat Exams 02/27/23 17:58 Ordered Radiology Data #1: Image(s): Hand Image Reviewed: Yes I have reviewed radiologist's interpretation FINDINGS: Bones/joints: Normal. Soft tissues: Normal.
[2023-02-27 18:40] VITALS: BP 142/80; PULSE 98; RESP 20; TEMP 36.8; O2SAT 96
== END 2023-02-27 18:47 | disposition home or self-care (01) ==
PROVIDERS: Emergency Provider Nurse Practitioner; PCP Family Medicine
DX: S60.411A Abrasion of left index finger, initial encounter (principal); R22.32 Localized swelling, mass and lump, left upper limb; F17.210 Nicotine dependence, cigarettes, uncomplicated; W26.8XXA Contact with other sharp object(s), not elsewhere classified, initial encounter
CPT/HCPCS: 73130; 99203; 99212; G0463

== ENCOUNTER 2023-03-19 23:02 | Emergency (ER) | payer MEDICAID, SELFPAY ==
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
[2023-03-19 23:04] VITALS: BP 138/96; PULSE 124; RESP 16; TEMP 36.9; O2SAT 98
--- NOTE | 2023-03-19 23:04 | PC.NURSE ---
in room with patient at this time.
[2023-03-19 23:10] VITALS: BMI 36.3
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
[2023-03-19 23:11] VITALS: BP 144/89; PULSE 99; RESP 16; O2SAT 99
--- NOTE | 2023-03-19 23:19 | PC.NURSE ---
calling [facility] MDs at this time.
[2023-03-19] MEDS: ACETAMINOPHEN 500MG TAB 1000 MG PO (23:20)
[2023-03-19] MEDS: ONDANSETRON 4MG/2ML VIAL 4 MG IV (23:20)
[2023-03-19 23:22] LABS: Basophils # 0.1 K/mm3 (0-0.2); Basophils % 0.4 % (0.1-2.0); Eosinophils # 0.3 K/mm3 (0.0-0.4); Eosinophils % 1.7 % (0.1-12.0); Hematocrit 41.6 % (37.0-47.0); Hemoglobin 13.5 g/dL (12.2-16.2); Lymphocytes # 4.4 K/mm3 (0.7-4.5); Mean Corpuscular HGB Conc 32.5 g/dL (31.8-35.4); Mean Corpuscular Hemoglobin 30.2 pg (27.0-31.2); Mean Corpuscular Volume 92.8 fl (81-99); Mean Platelet Volume 7.4 fl (7.4-10.4); Monocytes # 0.6 K/mm3 (0.1-1.0); Monocytes % 3.6 % (1.7-9.3); Neutrophils # 12.1 K/mm3 (1.8-7.8); Neutrophils % 69.4 % (37.0-80.0); Platelet Count 374 K/mm3 (142-424); Red Blood Count 4.48 M/mm3 (4.20-5.40); Red Cell Distribution Width 13.2 % (11.5-17.5); White Blood Count 17.5 K/mm3 (4.8-10.8)
--- NOTE | 2023-03-19 23:22 | PC.NURSE ---
awaiting call back from [facility] at this time.
[2023-03-19 23:23] LABS: Chloride 104 mmol/L (98-107); MANUAL DIFFERENTIAL MANUAL DIFFERENTIAL (MANUAL DIFF)
[2023-03-19 23:24] LABS: Potassium 3.7 mmoL/L (3.5-5.1); Sodium 137 mmol/L (136-145)
[2023-03-19 23:26] LABS: Alanine Aminotransferase 31 U/L (12-78); Alkaline Phosphatase 93 U/L (38-126); Aspartate Amino Transferase 35 U/L (14-36); Bilirubin,Total 0.4 mg/dl (0.2-1.3); Blood Urea Nitrogen 10 mg/dl (7-17); Creatinine Clearance Estimated 186 mL/min (50-200); Estimated Glomerular Filt Rate 97 ml/min (>60); GFR (African American) 117 ML/MIN (>60)
[2023-03-19 23:27] LABS: Albumin Level 4.2 g/dl (3.5-5.0); Albumin/Globulin Ratio 1.4 (1.1-1.8); Anion Gap 8.7 mEq/L (5-15); Calcium 9.1 mg/dl (8.4-10.2); Carbon Dioxide 28 mmol/L (22.0-30.0); Globulin 2.9 g/dL (1.3-3.2); Glucose 80 mg/dl (74-100); Total Protein,Serum 7.1 g/dl (6.3-8.2)
[2023-03-19 23:28] LABS: HCG Qualitative, Serum Negative (Negative)
--- NOTE | 2023-03-19 23:29 | PC.NURSE ---
on phone with dr hernandez @ [facility]
[2023-03-19 23:31] VITALS: BP 141/90; PULSE 112; RESP 18; O2SAT 98
[2023-03-19 23:35] LABS: Lymphocytes % 25 % (10-50); Monocytes % 3 % (2-9); Neutrophils % 72 % (42-76); Platelet Estimate Normal; RBC Morphology Normal; Total Cells Counted 100
[2023-03-19 23:42] VITALS: BP 160/91; PULSE 117; RESP 20; O2SAT 99
--- NOTE | 2023-03-19 23:44 | HMH.EDGENADL ---
Discharge Plan Disposition Patient Disposition: Xfer Other Prescriptions Prescriptions: No Action levothyroxine 150 mcg tablet 150 mcg PO DAILY etonogestrel 68 mg implant 68 mg SUBDERMAL ONCE Qty: 1 0RF methocarbamol 750 mg tablet 750 mg PO TID PRN cetirizine [Zyrtec] 10 mg tablet 10 mg PO DAILY PRN fluticasone propionate 9.9 ML spray,suspension 2 spray NS DAILY Rx Instructions: administer into each nostril promethazine 25 MG tablet 25 mg PO Q6HP PRN (Reason: Nausea) albuterol sulfate 8.5 GM HFA aerosol inhaler See Rx Instructions .Route .COMPLEX Rx Instructions: TAKE TWO PUFFS THREE TIMES DAILY NEEDED ibuprofen 800 MG tablet 800 mg PO TIDP PRN (Reason: Moderate Pain) Qty: 20 0RF Referrals Follow up/Referrals: Provider,Referral, MD [Primary Care Provider] - See instructions Clinical Impressions Clinical Impression: Acute pain of right lower extremity Closed fracture of left distal radius Qualifiers: Encounter type: initial encounter Fracture morphology: other intra-articular Qualified Code(s): S52.572A - Other intraarticular fracture of lower end of left radius, initial encounter for closed fracture Injury of median nerve Qualifiers: Encounter type: initial encounter Location of peripheral nerve injury: wrist Laterality: left Qualified Code(s): S64.12XA - Injury of median nerve at wrist and hand level of left arm, initial encounter Abdominal wall hematoma Qualifiers: Encounter type: initial encounter Qualified Code(s): S30.1XXA - Contusion of abdominal wall, initial encounter Stand Alone Forms Stand Alone Forms: Transfer Record - ED Discharge ED Provider: Oneil Huang General Adult HPI General Stated complaint: trauma alert Time Seen by Provider: 03/19/23 23:10 Mode of Arrival: EMS Limitations: Physical Limitations Description of Symptoms (Recalled from ER Triage Doc. by RN): Pt fell 5-6 feet from ladder. Pt is A&O*4 and has complaints of L wrist and shoulder pain, R abd bruising, R knee pain that radiates to foot. Pt refused a C Collar however has complaints of neck pain. 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 She was on a ladder approximately 5 feet up when she felt the ladder go out from under her. She reports that her neck hurts but denies striking her head. She landed primarily on her right side and braced with her left wrist. She reports that she had sudden onset of left wrist pain and numbness in her first second and third left digits. She also reports severe pain in her right knee tib-fib. She has marked bruising to the right lower abdomen. She reports chronic back pain that is not significantly different than normal. Patient refused c-collar. Related Data Home Medications Medication Instructions Recorded Confirmed fluticasone propionate 50 2 spray intranasal DAILY Supplement 12/28/18 08/04/21 mcg/actuation nasal spray,suspension levothyroxine 150 mcg tablet 150 mcg PO DAILY thyroid 01/08/20 08/04/21 albuterol sulfate 90 mcg/actuation See Rx Instructions .Route 04/28/20 08/04/21 aerosol inhaler .COMPLEX Asthma promethazine 25 mg tablet 25 mg PO Q6HP PRN Nausea 04/28/20 08/04/21 cetirizine 10 mg tablet (Zyrtec) 10 mg PO DAILY PRN 08/04/21 08/04/21 methocarbamol 750 mg tablet 750 mg PO TID PRN 08/04/21 08/04/21 Previous Rx's Medication Instructions Recorded ibuprofen 800 mg tablet 800 mg PO TIDP PRN Moderate Pain 04/17/21 #20 tabs Allergies Allergy/AdvReac Type Severity Reaction Status Date / Time vancomycin [VANCOMYCIN] Allergy Intermediate I-HIVES Verified 08/04/21 14:55 sulfamethoxazole Allergy Mild angioedma Verified 08/04/21 14:55 [From Bactrim] trimethoprim [From Bactrim] Allergy Mild angioedma Verified 08/04/21 14:55 nickel [NICKEL] Allergy Unknown RASH/BLISTE Verified 08/04/21 14:55 RS droperidol Allergy Verified 02/27/23 18:20 [facility] Disclaimer: The information contained in this section may have been updated after the patient was seen, as this information can be updated by other users. 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 current occupational exposures/hazards: Yes caffeine: Yes ROS Obtained: Yes All systems reviewed & no additional complaints except as documented Physical Exam General General appearance: alert and anxious Head Head exam: atraumatic and normocephalic Eye Eye exam: Present normal appearance, PERRL and EOMI ENT ENT exam: Present normal oropharynx and normal external ear exam Neck Neck exam: Present normal inspection, full ROM and tenderness (midline) Chest Chest inspection: Present normal inspection and symmetric chest wall rise; Absent tenderness Respiratory Respiratory exam: Present normal lung sounds bilaterally; Absent respiratory distress Cardiovascular Cardiovascular exam: Present normal rhythm and tachycardia Abdominal Exam Abdominal exam: Present soft and tenderness (Right lower quadrant); Absent distention or guarding Comment: Bruising and developing abdominal wall hematoma in the right lower quadrant Extremities Exam Extremities exam: Present other (Deformity of the left wrist with severe pain on palpation. Closed injury. Patient has apparent median nerve injury with numbness over the palmar surface of the left first second third digits. Decreased motor function. Normal pulses and capillary refill. Right lower extremity is tender primarily) Back Exam Back exam: Present normal inspection and tenderness (Mild, diffuse) Neurological Exam Neurological exam: Present alert, oriented X3 and motor sensory deficit (Concern for left hand median nerve injury) Psychiatric Psychiatric exam: Present normal affect and anxious Skin Skin exam: Present warm, dry and normal color Lymphatic Lymphatic Findings: no adenopathy Medical Decision Making Medical Records Medical records reviewed: Yes I reviewed the patient's medical records. Juan Inquiry Pt receiving controlled substance: No Juan was queried for this patient: No Vital Signs: 03/19/23 23:04 03/19/23 23:11 03/19/23 23:31 Temperature 98.4 F Temperature Source Oral Pulse Rate 99 H 112 H Pulse Rate [Left] 124 H Respiratory Rate 16 16 18 Blood Pressure 144/89 H 141/90 H Blood Pressure [Right Arm] 138/96 H Blood Pressure Mean 98 107 Blood Pressure Mean [Right Arm] 110 Blood Pressure Source [Right Arm] Manual Cuff/ Auscultation Blood Pressure Position [Right Arm] Sitting 02 Sat by Pulse Oximetry 98 99 98 Oxygen Delivery Method Room Air Room Air Room Air 03/19/23 23:42 Temperature Temperature Source Pulse Rate 117 H Pulse Rate [Left] Respiratory Rate 20 Blood Pressure 160/91 H Blood Pressure [Right Arm] Blood Pressure Mean 114 Blood Pressure Mean [Right Arm] Blood Pressure Source [Right Arm] Blood Pressure Position [Right Arm] 02 Sat by Pulse Oximetry 99 Oxygen Delivery Method Room Air Lab Data Lab results reviewed: Yes I reviewed the patient's lab results. Lab Results 03/19/23 23:09: WBC 17.5 H, RBC 4.48, Hgb 13.5, Hct 41.6, MCV 92.8, MCH 30.2, MCHC 32.5, RDW 13.2, Plt Count 374, MPV 7.4, Neut % (Auto) 69.4, Lymph % (Auto) 25.0, [place] % (Auto) 3.6, Eos % (Auto) 1.7, Baso % (Auto) 0.4, Neut # (Auto) 12.1 H, Lymph # (Auto) 4.4, [place] # (Auto) 0.6, Eos # (Auto) 0.3, Baso # (Auto) 0.1, Total Counted 100, Neutrophils % (Manual) 72, Lymphocytes % (Manual) 25, Monocytes % (Manual) 3, Platelet Estimate Normal, RBC Morphology Normal, Sodium 137, Potassium 3.7, Chloride 104, Carbon Dioxide 28, Anion Gap 8.7, BUN 10, Creatinine 0.70, Estimated Creat Clear 186, Estimated GFR 97, Est GFR ( Amer) 117, Glucose 80, Calcium 9.1, Total Bilirubin 0.4, AST 35, ALT 31, Alkaline Phosphatase 93, Total Protein 7.1, Albumin 4.2, Globulin 2.9, Albumin/Globulin Ratio 1.4, Serum HCG, Qual Negative 03/19/23 23:45: Urine Color Yellow, Urine Appearance Clear, Urine pH 6.0, Ur Specific [place] >= 1.030, Urine Protein Negative, Urine Glucose (UA) Negative, Urine Ketones Trace, Urine Blood Negative, Urine Nitrate Negative, Urine Bilirubin 1+ A, Urine Urobilinogen 0.2, Ur Leukocyte Esterase Negative, Urine RBC None, Urine WBC None, Ur Squamous Epith Cells None, Urine Bacteria None 03/19/23 23:09 03/19/23 23:09 Orders (Tests/Meds): ED MEDICATIONS Discontinued Medications Generic Name Dose Route Start Last Admin Trade Name Freq PRN Reason Stop Dose Admin Acetaminophen 1,000 mg 03/19/23 23:12 03/19/23 23:20 Acetaminophen 500mg Tab PO 03/19/23 23:13 1,000 mg ONCE ONE Administration Ketamine HCl 30 mg 03/19/23 23:30 Ketamine 50mg/1ml Syringe IV 03/19/23 23:31 ONCE ONE Ketamine HCl 30 mg 03/19/23 23:19 03/19/23 23:21 Ketamine 500mg/10ml Vial IV 03/19/23 23:20 30 mg ONCE ONE Administration Ondansetron HCl 4 mg 03/19/23 23:12 03/19/23 23:20 Ondansetron 4mg/2ml Vial IV 03/19/23 23:13 4 mg ONCE ONE Administration ORDERS Category Date Time Status Ankle XR -Right minimum 3 Views [XR ankle RT min 3V] Exams 03/19/23 23:10 Completed Stat Foot XR right minimum 3 views [XR foot RT min 3V] Stat Exams 03/19/23 23:10 Completed Forearm XR left 2 views [XR forearm LT 2V] Stat Exams 03/19/23 23:10 Completed Hand XR left minimum 3 views [XR hand LT min 3V] Stat Exams 03/19/23 23:10 Completed Knee XR right 3 views [XR knee RT 3V] Stat Exams 03/19/23 23:10 Completed POCUS Point of Care (ER Only) Stat Exams 03/19/23 22:45 Completed Tibia/fibula XR right 2 views [XR tibia fibula RT 2V] Exams 03/19/23 23:10 Completed Stat XR chest portable Routine Exams 03/19/23 Completed XR pelvis 1-2V Routine Exams 03/19/23 Completed XR wrist LT min 3V Stat Exams 03/19/23 23:10 Completed CBC w/Auto Diff [Complete Blood Count Auto Diff] Stat Lab 03/19/23 23:09 Completed CMP [Comprehensive Metabolic Panel] Stat Lab 03/19/23 23:09 Completed HCG Qualitative, Serum Stat Lab 03/19/23 23:09 Completed UA [Urinalysis and Microscopic] Stat Lab 03/19/23 23:45 Completed Medical Decision Narrative: 32-year-old female with history of brain mass, lung disease, chronic Suboxone use presents with trauma, fell from 5 feet high off of the ladder.. History was obtained via conversation with patient, EMS. On arrival, patient is afebrile, tachycardic, normotensive, satting appropriately on room air, alert and oriented GCS 15, moving all extremities spontaneously. Full physical exam performed and significant for left wrist deformity and motor dysfunction concerning for median nerve injury, right lower quadrant bruising/abdominal wall hematoma, right lower extremity tenderness from the knee down. Patient was trauma alerted on arrival. Differential includes but is not limited to intracranial trauma intra-abdominal trauma intrathoracic trauma spine trauma extremity trauma. Patient was given p.o. Tylenol, IV Zofran for symptomatic management and correction of underlying abnormalities. Workup initiated including radiographs of the chest pelvis and affected extremities. Bedside ultrasound performed by me, my interpretation the FAST exam is negative. Aspect of labs ordered On re-evaluation, patient remains tachycardic and normotensive. Laboratory workup independently interpreted by me and significant for leukocytosis, normal chemistry, negative test.. Imaging independently interpreted by me and significant for intra-articular distal radius fracture on the left, no pneumothorax or pelvic fracture on chest and pelvis films, no obvious fracture of the right lower extremity. See radiology read for full review of final results. Patient was given 30 mg of ketamine, pain dose, for immobilization of left distal radius fracture. after procedure patient remains numb but reports that it feels improved. Full CT scans was considered, but deemed inappropriate as patient will be best served by emergent transfer to the [facility] for trauma evaluation. Given patient history, exam and workup, patient's presentation most likely represents fall with multisystem trauma including left distal radius fracture with median nerve injury, right abdominal wall bruising, right lower extremity pain. Interact discussion was had with the [facility] and Dr. Fajardo who accepted the patient on behalf of the trauma surgery team. Procedures Risk/Benefits of Procedure(s) Were Explained: Yes Orthopedic Splinting/Casting Injury #1: Side: left Upper Extremity Injury Location: forearm (distal radius) Upper Extremity Immobilizer: sugar tong splint, Antoni wrap and sling Additional Comments: Performed by me at bedside using pain dose ketamine. Post Cast/Splinting Neuro Status: no change Post Cast/Splinting Vasc Status: no change FAST Exam FAST Exam 1: Fluid in Morison's pouch: No Fluid in Splenorenal Junction: No Fluid around bladder, Transverse view: No Fluid in Pericardial Sac: No Gross Wall Motion Abnormality: No Study normal for this patient: Yes Images saved for further review: Yes Additional Comments: FAST exam was performed by me at bedside. Images were saved to the patient's permanent record. They were of diagnostic quality. Critical Care Critical Care Time Critical Care Time: Yes Attestation: On 03/19/23, the high probability of a clinically significant, sudden or life threatening deterioration of the following system(s) required my full and direct attention, intervention and personal management. The time I documented below is in addition to time spent performing reported procedures but includes the following listed in this critical care notation. Total Time Total Critical Care Time: 40
--- NOTE | 2023-03-19 23:45 | PC.NURSE ---
Accepted to [facility]ulkad[facility] ELMORE at this time.
[2023-03-19 23:51] LABS: Microscopic, Urine URINE MICROSCOPIC (MICROSCOPIC)
[2023-03-19 23:53] LABS: Appearance,Urine CLEAR (Clear); Blood, Urine Negative (Negative); Color,Urine YELLOW (Yellow); Glucose,Urine (UA) Negative (Negative); Ketones,Urine TRACE (Negative); Leukocyte Esterase,Urine Negative (Negative); Nitrate,Urine Negative (Negative); Protein,Urine Negative (Negative); Specific Gravity, Urine >= 1.030 (1.005-1.030); Urobilinogen,Urine 0.2 EU/dl (0.2)
[2023-03-19 23:54] LABS: Bilirubin,Urine 1+ (Negative)
--- NOTE | 2023-03-19 23:54 | PC.NURSE ---
notified [facility] that pt is ready for transport to er
[2023-03-20] MEDS: LACTATED RINGERS 1000ML 1,000 ML 999 ML IV (00:34)
[2023-03-20 00:44] VITALS: BP 126/85; PULSE 105; RESP 15; TEMP 36.8; O2SAT 97
--- NOTE | 2023-03-25 05:40 | PC.NURSE ---
chart accessed for ortho paperwork
== END 2023-03-20 00:47 | disposition other institution (70) ==
PROVIDERS: Emergency Provider Emergency Medicine
DX: S52.572A Other intraarticular fracture of lower end of left radius, initial encounter for closed fracture (principal); S64.12XA Injury of median nerve at wrist and hand level of left arm, initial encounter; S30.1XXA Contusion of abdominal wall, initial encounter; M79.661 Pain in right lower leg; F17.210 Nicotine dependence, cigarettes, uncomplicated; W11.XXXA Fall on and from ladder, initial encounter
CPT/HCPCS: 29125; 71045; 72170; 73090; 73110; 73130; 73562; 73590; 73610; 73630; 80053; 81001; 84703; 85007; 85025; 96361; 96374; 96375; 99285; J2405

== ENCOUNTER 2023-03-21 18:46 | Emergency (ER) | payer MEDICAID, SELFPAY ==
[2023-03-21 18:47] VITALS: BP 140/91; PULSE 109; RESP 18; TEMP 36.9; O2SAT 100; BMI 37.4
[2023-03-21 19:00] VITALS: BP 128/81; PULSE 104; RESP 20; O2SAT 99
--- NOTE | 2023-03-21 19:11 | CT_ITS ---
PROCEDURE INFORMATION: Exam: CTA Abdomen and Pelvis With Contrast Exam date and time: 03/21/2023 8:20 PM Age: 32 years old Clinical indication: Abdominal pain; Additional info: Lower abdominal pain TECHNIQUE: Imaging protocol: Computed tomographic angiography of the abdomen and pelvis with contrast. Exam focused on the arteries. 3D rendering (Not supervised by radiologist): MIP and/or 3D reconstructed images were created by the technologist. Radiation optimization: All CT scans at this facility use at least one of these dose optimization techniques: automated exposure control; mA and/or kV adjustment per patient size (includes targeted exams where dose is matched to clinical indication); or iterative reconstruction. Contrast material: ISOVUE; Contrast volume: 100 ml; Contrast route: INTRAVENOUS (IV); COMPARISON: CT ABDOMEN PELVIS W CON 09/14/2020 3:36 PM FINDINGS: Lungs: Dependent bilateral lung base opacities favor atelectasis. Diaphragm: A small sliding hiatal hernia is present. Aorta: No aortic aneurysm. No aortic dissection. Celiac trunk and mesenteric arteries: No occlusion or significant stenosis. Renal arteries: No occlusion or significant stenosis. Right iliac arteries: No occlusion or significant stenosis. Left iliac arteries: No occlusion or significant stenosis. Liver: No mass. Gallbladder and bile ducts: Hyperattenuating material dependently layering within the gallbladder fossa compatible with biliary sludge. Pancreas: Unremarkable. No mass. No ductal dilation. Spleen: Unremarkable. No splenomegaly. Adrenal glands: Unremarkable. No mass. Kidneys and ureters: Unremarkable. No solid mass. No hydronephrosis. Stomach and bowel: Unremarkable. No obstruction. No mucosal thickening. Appendix: No evidence of appendicitis. Intraperitoneal space: Unremarkable. No free air. No significant fluid collection. Lymph nodes: Unremarkable. No enlarged lymph nodes. Urinary bladder: Unremarkable. No mass. Reproductive: Right ovarian cystic mass measuring 4.7 x 3.9 x 3.8 cm, which could be related to lower abdominal pain. Bones/joints: No acute fracture. Soft tissues: Right ventral subcutaneous fat hyperattenuating collection measuring 10.7 x 2.4 x 5.0 cm without peripheral enhancement suggesting hematoma versus seroma. IMPRESSION: 1. Right ovarian cystic mass measuring 4.7 x 3.9 x 3.8 cm, which could be related to lower abdominal pain. Recommend further evaluation with pelvic ultrasound. 2. Right ventral subcutaneous fat hyperattenuating collection measuring 10.7 x 2.4 x 5.0 cm without peripheral enhancement suggesting hematoma versus seroma.
--- NOTE | 2023-03-21 19:12 | XR_ITS ---
PROCEDURE INFORMATION: Exam: XR Left Wrist Exam date and time: 03/21/2023 8:21 PM Age: 32 years old Clinical indication: Pain; Wrist; Left; Additional info: Fall, pain TECHNIQUE: Imaging protocol: Radiologic exam of the left wrist. Views: 3 or more views. COMPARISON: CR XR WRIST LT MIN 3V 03/19/2023 11:10 PM FINDINGS: Tubes, catheters and devices: As before, distal radius fracture with overlying immobilization material. Bones/joints: Distal radius fracture. Soft tissues: Normal. IMPRESSION: As before, distal radius fracture with overlying immobilization material.
--- NOTE | 2023-03-21 19:12 | XR_ITS ---
PROCEDURE INFORMATION: Exam: XR Right Knee Exam date and time: 03/21/2023 8:21 PM Age: 32 years old Clinical indication: Pain; Knee; Right; Additional info: Fall, pain TECHNIQUE: Imaging protocol: Radiologic exam of the right knee. Views: 3 views. COMPARISON: CR XR KNEE RT 3V 03/19/2023 11:14 PM FINDINGS: Bones/joints: Normal. Soft tissues: Normal. IMPRESSION: No acute findings.
--- NOTE | 2023-03-21 19:14 | HMH.EDGENADL ---
Discharge Plan Disposition Patient Disposition: Home, Self-Care Condition: Good Prescriptions Prescriptions: New oxycodone 10 mg tablet 10 mg PO Q8H PRN (Reason: pain) Qty: 12 0RF ketorolac 10 mg tablet 10 mg PO Q8H PRN (Reason: pain) Qty: 20 0RF ondansetron 4 mg tablet,disintegrating 4 mg PO Q8H PRN (Reason: nausea and vomiting) 4 Days Qty: 12 0RF No Action levothyroxine 150 mcg tablet 150 mcg PO DAILY etonogestrel 68 mg implant 68 mg SUBDERMAL ONCE Qty: 1 0RF methocarbamol 750 mg tablet 750 mg PO TID PRN cetirizine [Zyrtec] 10 mg tablet 10 mg PO DAILY PRN fluticasone propionate 9.9 ML spray,suspension 2 spray NS DAILY Rx Instructions: administer into each nostril promethazine 25 MG tablet 25 mg PO Q6HP PRN (Reason: Nausea) albuterol sulfate 8.5 GM HFA aerosol inhaler See Rx Instructions .Route .COMPLEX Rx Instructions: TAKE TWO PUFFS THREE TIMES DAILY NEEDED ibuprofen 800 MG tablet 800 mg PO TIDP PRN (Reason: Moderate Pain) Qty: 20 0RF Referrals Follow up/Referrals: Vladimir Dickens MD [Staff Physician] - See instructions Sugey Giordano MD [Primary Care Provider] - See instructions Activity Restrictions/Add. Instructions Additional Instructions/Restrictions: You were evaluated in the emergency department today. upholstery repairer your prescription for pain medications at the pharmacy and take as needed for severe pain. You may also take Tylenol. upholstery repairer your prescription for Zofran and take as needed for nausea and vomiting. Follow-up with YOKER MACHINE OPERATOR for evaluation of your ovarian cyst. Keep your splint on. Keep your arm elevated. Apply ice to help reduce swelling. Follow-up with orthopedics as scheduled. Return to the emergency department for new or worsening symptoms. Clinical Impressions Clinical Impression: Abdominal wall hematoma, Distal radius fracture, left, Cyst of right ovary Instructions Patient Instructions: DI for Ovarian Cyst, DI for Acute Abdominal Pain, How to Take Care of Your Splint Discharge ED Provider: Chanel More General Adult HPI General Chief complaint: Abdominal Pain Stated complaint: pain in stomach, dizzy, chills Time Seen by Provider: 03/21/23 18:49 Mode of Arrival: Wheelchair Source of Information: Patient Limitations: No Limitations Description of Symptoms (Recalled from ER Triage Doc. by RN): patient aleorted to ED via wheelchair. she reports that she fell off of ladder on monday, and small hematoma present to abdominal area at time of incident. At present, large hematoma present to lower right and left quadrants. c/o generalized abdominal pain, and dizziness. 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 Patient had a fall from a ladder on 03/19 and was evaluated here in the emergency department. She was transferred to [facility] with concerns for multisystem trauma given a very large abdominal wall bruise and a left distal radius fracture. Her fracture was reduced here, and then she was transferred to [facility] where it was again reduced and splint was applied. She underwent full trauma scans on medical record review from and was found to have a large abdominal wall hematoma with some subcutaneous air. She does have a wound to her right lower quadrant. She also was found to have an osseous island of her right knee without obvious acute fracture. She states that since going home, her left wrist pain has been more severe as it feels like the splint is pushing on her wrist. She also states that she had a median nerve issue but it had resolved after reduction, however now it seems to have returned. She complains that her abdominal pain is much worse as well and her bruising has expanded significantly. No other concerns noted at this time. She is taking Tylenol and ibuprofen at home without good improvement Related Data Home Medications Medication Instructions Recorded Confirmed fluticasone propionate 50 2 spray intranasal DAILY Supplement 12/28/18 08/04/21 mcg/actuation nasal spray,suspension levothyroxine 150 mcg tablet 150 mcg PO DAILY thyroid 01/08/20 08/04/21 albuterol sulfate 90 mcg/actuation See Rx Instructions .Route 04/28/20 08/04/21 aerosol inhaler .COMPLEX Asthma promethazine 25 mg tablet 25 mg PO Q6HP PRN Nausea 04/28/20 08/04/21 cetirizine 10 mg tablet (Zyrtec) 10 mg PO DAILY PRN 08/04/21 08/04/21 methocarbamol 750 mg tablet 750 mg PO TID PRN 08/04/21 08/04/21 Previous Rx's Medication Instructions Recorded ibuprofen 800 mg tablet 800 mg PO TIDP PRN Moderate Pain 04/17/21 #20 tabs ketorolac 10 mg tablet 10 mg PO Q8H PRN pain #20 tabs 03/21/23 ondansetron 4 mg disintegrating 4 mg PO Q8H PRN nausea and 03/21/23 tablet vomiting 4 days #12 tabs oxycodone 10 mg tablet 10 mg PO Q8H PRN pain #12 tabs 03/21/23 Allergies Allergy/AdvReac Type Severity Reaction Status Date / Time vancomycin [VANCOMYCIN] Allergy Intermediate I-HIVES Verified 08/04/21 14:55 sulfamethoxazole Allergy Mild angioedma Verified 08/04/21 14:55 [From Bactrim] trimethoprim [From Bactrim] Allergy Mild angioedma Verified 08/04/21 14:55 nickel [NICKEL] Allergy Unknown RASH/BLISTE Verified 08/04/21 14:55 RS droperidol Allergy Verified 02/27/23 18:20 PFSH PFSH Disclaimer: The information contained in this section may have been updated after the patient was seen, as this information can be updated by other users. 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 current occupational exposures/hazards: Yes caffeine: Yes ROS Obtained: Yes All systems reviewed & no additional complaints except as documented Physical Exam General General appearance: alert and in no apparent distress Head Head exam: atraumatic and normocephalic Eye Eye exam: Present normal appearance, PERRL and EOMI ENT ENT exam: Present normal exam, normal oropharynx, mucous membranes moist and normal external ear exam Neck Neck exam: Present normal inspection, full ROM and trachea midline; Absent tenderness Chest Chest inspection: Present normal inspection and symmetric chest wall rise; Absent tenderness Respiratory Respiratory exam: Present normal lung sounds bilaterally; Absent respiratory distress, wheezes, stridor or accessory muscle use Cardiovascular Cardiovascular exam: Present regular rate and normal rhythm Abdominal Exam Abdominal exam: Present soft, tenderness and other (Very large abdominal wall hematoma to the lower abdomen with significant tenderness to palpation. Wound to the right lower quadrant that is intact and hemostatic); Absent distention or guarding Extremities Exam Extremities exam: Present full ROM, tenderness (Tenderness to palpation of the right knee joint. ), normal capillary refill and other (Patient has a splint on the left upper extremity given her left distal radius fracture. She has good capillary refill distally. She complains that she is not able to move her thumb and index finger and has limited sensation there, which she did have initially after the injury. ); Absent edema Back Exam Back exam: Present normal inspection and full ROM; Absent tenderness Neurological Exam Neurological exam: Present alert, oriented X3, CN II-XII intact, normal gait and motor sensory deficit (sensory deficit L thumb/index finger) Psychiatric Psychiatric exam: Present normal affect and normal mood Skin Skin exam: Present warm and dry Medical Decision Making Medical Records Medical records reviewed: Yes I reviewed the patient's medical records. Juan Inquiry Pt receiving controlled substance: No Vital Signs: 03/21/23 18:47 03/21/23 19:00 03/21/23 19:40 Temperature 98.5 F Temperature Source Oral Pulse Rate 104 H 96 H Pulse Rate [Left] 109 H Respiratory Rate 18 20 18 Blood Pressure 128/81 132/93 H Blood Pressure [Right Arm] 140/91 H Blood Pressure Mean 100 103 Blood Pressure Mean [Right Arm] 107 Blood Pressure Source Blood Pressure Position 02 Sat by Pulse Oximetry 100 99 98 Oxygen Delivery Method Room Air Room Air Room Air 03/21/23 22:06 03/21/23 20:01 03/21/23 21:00 Temperature 98.1 F Temperature Source Oral Pulse Rate 94 H 100 H 102 H Pulse Rate [Left] Respiratory Rate 18 18 20 Blood Pressure 125/83 118/76 125/83 Blood Pressure [Right Arm] Blood Pressure Mean 90 97 Blood Pressure Mean [Right Arm] Blood Pressure Source Automatic Cuff Blood Pressure Position Sitting 02 Sat by Pulse Oximetry 97 100 Oxygen Delivery Method Room Air Room Air Room Air Lab Data Lab results reviewed: Yes I reviewed the patient's lab results. Lab Results 03/21/23 19:20: WBC 12.6 H D, RBC 4.19 L, Hgb 13.2, Hct 39.6, MCV 94.4, MCH 31.4 H, MCHC 33.3, RDW 13.3, Plt Count 384, MPV 7.5, Neut % (Auto) 71.9, Lymph % (Auto) 23.0, [place] % (Auto) 3.7, Eos % (Auto) 1.0, Baso % (Auto) 0.5, Neut # (Auto) 9.0 H, Lymph # (Auto) 2.9, [place] # (Auto) 0.5, Eos # (Auto) 0.1, Baso # (Auto) 0.1, Sodium 140, Potassium 4.0, Chloride 107, Carbon Dioxide 28, Anion Gap 9.0, BUN 8, Creatinine 0.60, Estimated Creat Clear 217, Estimated GFR 116, Est GFR ( Amer) 140, Glucose 87, Calcium 9.0, Total Bilirubin 0.4, AST 31, ALT 30, Alkaline Phosphatase 75, Total Protein 7.2, Albumin 4.3, Globulin 2.9, Albumin/Globulin Ratio 1.5, Lipase 43, Urine Color Yellow, Urine Appearance Clear, Urine pH 7.5, Ur Specific [place] 1.015, Urine Protein Negative, Urine Glucose (UA) Negative, Urine Ketones Negative, Urine Blood Negative, Urine Nitrate Negative, Urine Bilirubin Negative, Urine Urobilinogen 0.2, Ur Leukocyte Esterase Negative, Urine RBC None, Urine WBC Occasional, Ur Squamous Epith Cells Occasional, Urine Bacteria None 03/21/23 19:20 03/21/23 19:20 Orders (Tests/Meds): ED MEDICATIONS Discontinued Medications Generic Name Dose Route Start Last Admin Trade Name Kanuq PRN Reason Stop Dose Admin Gabapentin 300 mg 03/21/23 19:11 03/21/23 19:35 Gabapentin 300mg Capsule PO 03/21/23 19:12 Not Given ONCE ONE Iopamidol 100 ml 03/21/23 20:27 03/21/23 20:28 Iopamidol-370 (76%);100ml Bottle IV 03/21/23 20:28 100 ml ONCE ONE Administration Ketorolac Tromethamine 15 mg 03/21/23 19:11 03/21/23 19:33 Ketorolac 30mg/Ml Vial IV 03/21/23 19:12 15 mg ONCE ONE Administration Morphine Sulfate 4 mg 03/21/23 19:11 03/21/23 19:34 Morphine 4mg/Ml Syringe IV 03/21/23 19:12 4 mg ONCE ONE Administration Ondansetron HCl 4 mg 03/21/23 19:26 03/21/23 19:34 Ondansetron 4mg/2ml Vial IV 03/21/23 19:27 4 mg ONCE ONE Administration Oxycodone HCl 10 mg 03/21/23 21:34 03/21/23 21:43 Oxycodone 5mg Immediate Release Tablet PO 03/21/23 21:35 10 mg ONCE ONE Administration Sodium Chloride 10 ml 03/21/23 20:27 03/21/23 20:28 Sodium Chloride 0.9% 10ml Syr (Rad Only) IV 03/21/23 20:28 10 ml ONCE ONE Administration ORDERS Category Date Time Status CT angio abdomen pelvis Stat Cat Scan 03/21/23 19:11 Completed XR knee RT 3V Stat Exams 03/21/23 19:12 Completed XR wrist LT min 3V Stat Exams 03/21/23 19:12 Completed Complete Blood Count Auto Diff Stat Lab 03/21/23 19:20 Completed Comprehensive Metabolic Panel Stat Lab 03/21/23 19:20 Completed Lipase Stat Lab 03/21/23 19:20 Completed Urinalysis and Microscopic Stat Lab 03/21/23 19:20 Completed Medical Decision Narrative: In summary, this patient is a 32-year-old female presenting to the Emergency Department for evaluation of send left wrist pain, return of left thumb and index finger numbness and weakness, and worsened abdominal pain after a fall from a ladder. Differential diagnoses considered include but are not limited to abdominal wall extravasation, intra-abdominal injury, bowel injury, median nerve neuropraxia, compartment syndrome. Ruling out the most morbid conditions drove assessment. On exam, the patient is well-appearing. Her splint is not too tight, as her capillary fill is intact and she does not have any tight compartments. She does have worsened median nerve neuropraxia, which was initially present, had improved after splinting, and then has progressively gotten worse. Abdominal wall hematoma is larger than when she was evaluated previously. Workup included CBC, CMP, lipase, CTA abdomen and pelvis, x-rays of the left wrist, and x-rays of the right knee. She was given oral gabapentin, IV Toradol, and IV morphine for symptomatic improvement I independently interpreted CT scan and x-rays prior to the radiologist read and noted right ovarian cyst, which is unchanged from scan yesterday at [facility], and no acute fracture of the right knee. Patient's left wrist fracture appears to be stable.. Please see their read for final interpretation. Labs were obtained that demonstrated mild leukocytosis, nonspecific in the setting of trauma, and no other acute concerns.. Patient was given IV Toradol, morphine, and Zofran for symptomatic improvement On reassessment, patient had good improvement after administration of as above. We had her elevate her arm in her splint, and she noted that she did have improvement in her sensation and motor skills. She is able to move her thumb and index finger without issues at this time. I advised her that she should keep her arm elevated, keep her splint on, and keep her splint clean and dry. I advised her that very close follow-up with orthopedics is important. She does not have any significant pain intra-abdominally that would suggest that her cyst is causing an issue at this time, I do feel that close follow-up with YOKER MACHINE OPERATOR would be beneficial. I instructed her of this. She seems to be mostly tender over her abdominal wall hematoma, which does not show any active extravasation. Given reassuring workup and exam, I feel that she is appropriate for discharge with close outpatient follow-up as already scheduled. I gave her prescription for oxycodone, she states she was not given pain medicine at [facility] last night. She was given instructions for close YOKER MACHINE OPERATOR follow-up, strict return precautions, and she was discharged in stable condition after all questions were answered. Critical Care Critical Care Time Critical Care Time: No
[2023-03-21] MEDS: KETOROLAC 30MG/ML VIAL 15 MG IV (19:33)
[2023-03-21] MEDS: ONDANSETRON 4MG/2ML VIAL 4 MG IV (19:34)
[2023-03-21] MEDS: MORPHINE 4MG/ML SYRINGE 4 MG IV (19:34)
[2023-03-21 19:40] VITALS: BP 132/93; PULSE 96; RESP 18; O2SAT 98
[2023-03-21 19:43] LABS: Microscopic, Urine URINE MICROSCOPIC (MICROSCOPIC)
[2023-03-21 19:46] LABS: Basophils # 0.1 K/mm3 (0-0.2); Basophils % 0.5 % (0.1-2.0); Eosinophils # 0.1 K/mm3 (0.0-0.4); Hematocrit 39.6 % (37.0-47.0); Hemoglobin 13.2 g/dL (12.2-16.2); Lymphocytes # 2.9 K/mm3 (0.7-4.5); Mean Corpuscular HGB Conc 33.3 g/dL (31.8-35.4); Mean Corpuscular Hemoglobin 31.4 pg (27.0-31.2); Mean Corpuscular Volume 94.4 fl (81-99); Mean Platelet Volume 7.5 fl (7.4-10.4); Monocytes # 0.5 K/mm3 (0.1-1.0); Monocytes % 3.7 % (1.7-9.3); Neutrophils % 71.9 % (37.0-80.0); Platelet Count 384 K/mm3 (142-424); Red Blood Count 4.19 M/mm3 (4.20-5.40); Red Cell Distribution Width 13.3 % (11.5-17.5); White Blood Count 12.6 K/mm3 (4.8-10.8)
[2023-03-21 19:54] LABS: Chloride 107 mmol/L (98-107); Sodium 140 mmol/L (136-145)
[2023-03-21 19:57] LABS: Alanine Aminotransferase 30 U/L (12-78); Alkaline Phosphatase 75 U/L (38-126); Aspartate Amino Transferase 31 U/L (14-36); Bilirubin,Total 0.4 mg/dl (0.2-1.3); Blood Urea Nitrogen 8 mg/dl (7-17); Carbon Dioxide 28 mmol/L (22.0-30.0); Creatinine Clearance Estimated 217 mL/min (50-200); Estimated Glomerular Filt Rate 116 ml/min (>60); GFR (African American) 140 ML/MIN (>60); Glucose 87 mg/dl (74-100); Lipase 43 U/L (23-300)
[2023-03-21 19:58] LABS: Albumin Level 4.3 g/dl (3.5-5.0); Albumin/Globulin Ratio 1.5 (1.1-1.8); Globulin 2.9 g/dL (1.3-3.2); Total Protein,Serum 7.2 g/dl (6.3-8.2)
[2023-03-21 20:01] VITALS: BP 118/76; PULSE 100; RESP 18; O2SAT 97
[2023-03-21] MEDS: SODIUM CHLORIDE 0.9% 10ML SYR (RAD ONLY) 10 ML IV (20:28)
[2023-03-21] MEDS: IOPAMIDOL-370 (76%);100ML BOTTLE 100 ML IV (20:28)
[2023-03-21 20:36] LABS: Appearance,Urine CLEAR (Clear); Bilirubin,Urine Negative (Negative); Blood, Urine Negative (Negative); Color,Urine YELLOW (Yellow); Glucose,Urine (UA) Negative (Negative); Ketones,Urine Negative (Negative); Leukocyte Esterase,Urine Negative (Negative); Nitrate,Urine Negative (Negative); PH,Urine 7.5 (5.0-8.5); Protein,Urine Negative (Negative); Specific Gravity, Urine 1.015 (1.005-1.030); Urobilinogen,Urine 0.2 EU/dl (0.2)
[2023-03-21 20:43] LABS: Squamous Epithelial Cell,Urine Occasional #/hpf (0-5); WBC,Urine Occasional #/hpf (0-3)
[2023-03-21 21:00] VITALS: BP 125/83; PULSE 102; RESP 20; O2SAT 100
[2023-03-21] MEDS: OXYCODONE 5MG IMMEDIATE RELEASE TABLET 10 MG PO (21:43)
[2023-03-21 22:06] VITALS: BP 125/83; PULSE 94; RESP 18; TEMP 36.7; O2SAT 99
== END 2023-03-21 22:07 | disposition home or self-care (01) ==
PROVIDERS: Emergency Provider Emergency Medicine; PCP Family Medicine
DX: S52.502A Unspecified fracture of the lower end of left radius, initial encounter for closed fracture (principal); S30.1XXA Contusion of abdominal wall, initial encounter; N83.201 Unspecified ovarian cyst, right side; R42 Dizziness and giddiness; F17.210 Nicotine dependence, cigarettes, uncomplicated; W11.XXXA Fall on and from ladder, initial encounter; M25.561 Pain in right knee; S31.103A Unspecified open wound of abdominal wall, right lower quadrant without penetration into peritoneal cavity, initial encounter
CPT/HCPCS: 73110; 73562; 74174; 80053; 81001; 83690; 85025; 96374; 96375; 99285; J2405; Q9967

== ENCOUNTER 2023-09-01 13:00 | Outpatient (CLI) | payer MEDICAID, SELFPAY ==
--- NOTE | 2023-09-01 13:01 | CA_ITS ---
APPROVED REPORT Exam: Exercise Treadmill Technologist: Christine Tracy, Ht: 5 ft 6 in Wt: 239 lbs BSA: 2.16 m2 HR: 82 bpm BP: 145/84 mmHg Rhythm: NSR Medical History Medications: Levothyroxine,,,,, Albuterol,,,,, ZYRTEC,,,,, Famotidine,,,,, Ibuprofen,,,,, KETOROLAC,,,,, ONdansetron,,,,, Cardiac Risk Factors: Smoking Stress Test Details Test: Jewel HR Resting HR: 95 bpm Max Heart Rate (APMHR): 187 bpm Max HR Achieved: 163 bpm Target HR (85% APMHR): 159 bpm % of APMHR: 87 Recovery HR: 134 bpm HR response to stress: Normal HR response to stress BP Resting BP: 142.0/88.0 mmHg Max BP: 202.0/92.0 mmHg Recovery BP: 202.0/92.0 mmHg BP response to stress: Abnormal hypertensive response to stress. ECG Resting ECG: NSR Stress ECG: < 0.[address] depression Arrhythmia: None Recovery ECG: Return to baseline within 3 minutes of recovery Recovery Arrhythmia: None Clinical Exercise duration: 06:26 min Highest Stage Achieved: Exercise capacity: 7.0 METs Overall Exercise Capacity for Age: Fair Stress ECG Conclusion The patient was able to exercise for a total of 6 minutes, 26 seconds. She achieved a total of 7.0 METS. She has fair exercise capacity compared to age and sex matched peers. She has normal HR, but exaggerated hypertensive BP, response to exercise. No CP noted. No arrhythmias noted. Normal ST reponse to exercise. Conclusion: Fair exercise capacity. No evidence of ischemia on ECG at peak stress. Hypertensive response to exercise. GXT only (no imaging). In the setting of hypertensive BP response to exercise, BP control is recommended. Test Summary REST . . . . . . . Sitting REST . . . . . . . Standing REST 04:02 0.0 0.0 95 . 142/ 88 . . Stage 1 01:00 10.0 1.7 117 . . . . Stage 1 02:00 10.0 1.7 123 . . . . Stage 1 03:00 10.0 1.7 133 . 180/ 80 . . Stage 2 01:00 12.0 2.5 134 . . . . Stage 2 02:00 12.0 2.5 140 . . . . Stage 2 03:00 12.0 2.5 149 . . . . Stage 3 00:26 14.0 3.4 162 . . . Stop exercise at 06:26 RECOVERY 01:00 0.0 0.0 132 . . . . RECOVERY 02:00 0.0 0.0 106 . 202/ 92 . . RECOVERY 03:00 0.0 0.0 112 . 202/ 92 . . RECOVERY 04:00 0.0 0.0 104 . 158/ 94 . . RECOVERY 05:00 0.0 0.0 104 . 159/ 81 . . RECOVERY 05:27 0.0 0.0 94 . 159/ 81 . . Electronically signed by : Yumiko Otto MD 09/03/2023 22:45:59
--- NOTE | 2023-09-01 13:01 | CA_ITS ---
APPROVED REPORT EXAM: Comprehensive 2D, Doppler, and color-flow Echocardiogram District Court Administrator: Kathleen Montano RVT Ht: 5 ft 5 in Wt: 239lbs BSA: 2.13 BP: 162/78 mmHg Indications: CP,ABN EKG,DYPENA,SMOKER,EDEMA,HTN,HLD,HX SVT,HX MVP,ASTHMA 2D Dimensions LA Volume 56.60 mL LA Volume Index 26.45 mL/m2 (M/F) 16-34 M-Mode Dimensions RVDd 2.51 cm (0.9-2.6) LA Diam 3.58 cm (1.9-4.0) LVDd 4.68 cm (3.5-5.7) LVDs 3.19 cm (3.5-5.7) IVSd 0.61 cm (0.6-1.1) PWd 0.57 cm (0.6-1.1) EF (Teich) 59.90% FS 31.80% EDV (Teich) 101.30 mL TAPSE 1.86 (<1.7) ESV (Teich) 40.60 mL LV Diastology E Decel Time 150 (160-240 msec) E/A Ratio 2.5 Aortic Valve NEVA Index 1.94 cm2/m2 AoV Peak Héctor. 120.0 (50-130 cm/s) AO Peak GR. 5.70 mmHg AO Mean GR. 3.10 (<5 mmHg) AO VTI 23.7 (18-25 cm) NEVA (VTI) 4.24 (2.5-4.5 cm2) Mitral Valve MV E Max Héctor. 106.0 (40-130 cm/s) MV A Velocity 43.0 (40-130 cm/s) E/A Ratio 2.45 MV PHT 44.0 ms Pulmonary Valve PV Peak Velocity 82.0 (50-150 cm/s) Tricuspid Valve TR P. Velocity 198.00 cm/s RAP Estimate 10.00 mmHg RVSP 25.70 mmHg Left Ventricle The left ventricle is normal size. The left ventricular systolic function is normal. The left ventricular ejection fraction is within the normal range. There is normal left ventricular wall thickness. There is normal LV segmental wall motion. The left ventricular diastolic function is normal. LVEF is 55%. Right Ventricle The right ventricle is normal size. The right ventricular systolic function is normal. Atria The left atrium size is normal. The right atrium size is normal. There is no Doppler evidence of interatrial shunt. Aortic Valve The aortic valve opens well. There is no aortic valvular stenosis. No aortic regurgitation is present. Mitral Valve Borderline prolapse of the posterior mitral valve leaflet. No evidence of mitral annular disjunction. No evidence of mitral valve stenosis. Trace mitral regurgitation. Tricuspid Valve The tricuspid valve leaflets are thin and pliable. Trace tricuspid regurgitation. There is insufficient TR jet to estimate RVSP. Pulmonic Valve The pulmonary valve is normal in structure. Trace pulmonic regurgitation. Great Vessels The aortic root is normal in size. The ascending aorta is normal in size. IVC is normal in size and collapses >50% with inspiration. Pericardium There is no pericardial effusion. Other Information Study Quality: Fair Conclusion Normal biventricular systolic function. Borderline prolapse of the posterior MV leaflet. No evidence of mitral annular disjunction. Trace MR. Electronically signed by : Yumiko Otto MD 09/04/2023 14:35:30
== END 2023-09-01 23:59 | disposition home or self-care (01) ==
LOC: RT 13:01
PROVIDERS: PCP Nurse Practitioner; Visit Provider Physician Assistant
DX: R07.89 Other chest pain (principal); R06.09 Other forms of dyspnea; R60.1 Generalized edema; R94.31 Abnormal electrocardiogram [ECG] [EKG]; I10 Essential (primary) hypertension; J84.9 Interstitial pulmonary disease, unspecified; F17.210 Nicotine dependence, cigarettes, uncomplicated
CPT/HCPCS: 93017; 93018; 93306

== ENCOUNTER 2023-09-20 14:35 | Outpatient (CLI) | payer MEDICAID, SELFPAY ==
[2023-09-20 15:47] LABS: Alanine Aminotransferase 33 U/L (12-78); Albumin Level 3.8 g/dl (3.5-5.0); Alkaline Phosphatase 85 U/L (38-126); Anion Gap 9.2 mEq/L (5-15); Aspartate Amino Transferase 31 U/L (14-36); Bilirubin,Indirect 0.4 mg/dL (0.0-0.9); Bilirubin,Total 0.4 mg/dl (0.2-1.3); Bilirubin,Unconjugated 0.4 mg/dL (0.0-1.1); Blood Urea Nitrogen 13 mg/dl (7-17); Calcium 8.9 mg/dl (8.4-10.2); Carbon Dioxide 25 mmol/L (22.0-30.0); Chloride 108 mmol/L (98-107); Chol/HDL Ratio 6.3 (1-3.5); Cholesterol 239 mg/dl (140-200); Estimated Glomerular Filt Rate 96 ml/min (>60); GFR (African American) 117 ML/MIN (>60); Glucose 116 mg/dl (74-100); HDL Cholesterol 38 mg/dl (40-60); Potassium 4.2 mmoL/L (3.5-5.1); Sodium 138 mmol/L (136-145); Total Protein,Serum 6.5 g/dl (6.3-8.2); Triglycerides 284 mg/dl (30-150); VLDL Cholesterol 57 mg/dL (0-40)
== END 2023-09-20 23:59 | disposition home or self-care (01) ==
LOC: LAB 14:36
PROVIDERS: PCP Nurse Practitioner; Visit Provider Physician Assistant
DX: I11.9 Hypertensive heart disease without heart failure (principal); R07.89 Other chest pain; R06.09 Other forms of dyspnea; J84.9 Interstitial pulmonary disease, unspecified; R60.1 Generalized edema; R94.31 Abnormal electrocardiogram [ECG] [EKG]; F17.210 Nicotine dependence, cigarettes, uncomplicated
CPT/HCPCS: 36415; 80048; 80061; 80076

== ENCOUNTER 2023-10-31 03:27 | Emergency (ER) | payer MEDICAID, SELFPAY ==
[2023-10-31 03:42] VITALS: BP 139/91; PULSE 90; RESP 20; TEMP 36.9; O2SAT 97; BMI 35.5
--- NOTE | 2023-10-31 03:43 | ED_ITS ---
Discharge Plan Disposition Patient Disposition: Home, Self-Care Prescriptions Prescriptions: No Action levothyroxine 150 mcg tablet 150 mcg PO DAILY famotidine 20 mg tablet 20 mg PO DAILY spironolactone [Aldactone] 25 mg tablet 25 mg PO DAILY Qty: 30 2RF nicotine 21 mg/24 hr patch 24 hour 1 patch transdermal DAILY Qty: 14 2RF metoprolol succinate [Toprol XL] 25 mg tablet extended release 24 hr 25 mg PO DAILY Qty: 30 5RF etonogestrel 68 mg implant 68 mg SUBDERMAL ONCE Qty: 1 0RF cetirizine [Zyrtec] 10 mg tablet 10 mg PO DAILY PRN fluticasone propionate 9.9 ML spray,suspension 2 spray NS DAILY Rx Instructions: administer into each nostril ketorolac 10 mg tablet 10 mg PO Q8H PRN (Reason: pain) Qty: 20 0RF ondansetron 4 mg tablet,disintegrating 4 mg PO Q8H PRN (Reason: nausea and vomiting) 4 Days Qty: 12 0RF albuterol sulfate 8.5 GM HFA aerosol inhaler See Rx Instructions .Route .COMPLEX Rx Instructions: TAKE TWO PUFFS THREE TIMES DAILY NEEDED ibuprofen 800 MG tablet 800 mg PO TIDP PRN (Reason: Moderate Pain) Qty: 20 0RF Referrals Follow up/Referrals: Maye Rascon APRN [Primary Care Provider] - See instructions Activity Restrictions/Add. Instructions Additional Instructions/Restrictions: Recommend following up with your PCP for ultrasound of the abnormality noted on the CT scan. Clinical Impressions Clinical Impression: Abnormal CT scan, neck Print Language Print Language: Marshallese Discharge ED Provider: Oneil Huang General Adult HPI General Chief complaint: PAIN Stated complaint: trouble breathing, pressure on throat Time Seen by Provider: 10/31/23 03:43 History of Present Illness HPI narrative: 33-year-old female with recent esophageal dilation 1 week ago presents for persistent/worsening symptoms in her throat. She reports that she feels like there is some pressure on the right side of her throat pressing on her airway. She reports when she lays down she feels like her throat will close and she will jolt awake gasping. She reports that she has been having decreased oral intake since her surgery. She had a CT scan a few days ago as well as an esophagram which showed that the stricture remains. It did not show any esophageal perforation at that time, did show some edema in the larynx. She is status post thyroidectomy. Related Data Home Medications ?Medication ?Instructions ?Recorded ?Confirmed fluticasone propionate 50 2 spray intranasal DAILY Supplement 12/28/18 09/20/23 mcg/actuation nasal spray,suspension levothyroxine 150 mcg tablet 150 mcg PO DAILY thyroid 01/08/20 09/20/23 albuterol sulfate 90 mcg/actuation See Rx Instructions .Route 04/28/20 09/20/23 aerosol inhaler .COMPLEX Asthma cetirizine 10 mg tablet (Zyrtec) 10 mg PO DAILY PRN 08/04/21 09/20/23 famotidine 20 mg tablet 20 mg PO DAILY 08/16/23 09/20/23 Previous Rx's ?Medication ?Instructions ?Recorded ibuprofen 800 mg tablet 800 mg PO TIDP PRN Moderate Pain 04/17/21 #20 tabs ketorolac 10 mg tablet 10 mg PO Q8H PRN pain #20 tabs 03/21/23 ondansetron 4 mg disintegrating 4 mg PO Q8H PRN nausea and 03/21/23 tablet vomiting 4 days #12 tabs nicotine 21 mg/24 hr daily 1 patch transdermal DAILY #14 ea 08/16/23 transdermal patch spironolactone 25 mg tablet 25 mg PO DAILY #30 tabs 08/16/23 (Aldactone) metoprolol succinate 25 mg 25 mg PO DAILY #30 tabs 09/20/23 tablet,extended release 24 hr (Toprol XL) Allergies Allergy/AdvReac Type Severity Reaction Status Date / Time vancomycin [VANCOMYCIN] Allergy Intermediate I-HIVES Verified 09/20/23 13:42 sulfamethoxazole Allergy Mild angioedma Verified 09/20/23 13:42 [From Bactrim] trimethoprim [From Bactrim] Allergy Mild angioedma Verified 09/20/23 13:42 nickel [NICKEL] Allergy Unknown RASH/BLISTE Verified 09/20/23 13:42 RS droperidol Allergy Verified 09/20/23 13:42 [facility] Disclaimer: The information contained in this section may have been updated after the patient was seen, as this information can be updated by other users. 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 current occupational exposures/hazards: Yes caffeine: Yes ROS Obtained: Yes All systems reviewed & no additional complaints except as documented Physical Exam General General appearance: alert and in no apparent distress Head Head exam: atraumatic and normocephalic Eye Eye exam: Present normal appearance, PERRL and EOMI ENT ENT exam: Present normal oropharynx and normal external ear exam Neck Neck exam: Present normal inspection, full ROM, trachea midline and tenderness (Right anterior mid neck) Chest Chest inspection: Present normal inspection and symmetric chest wall rise; Absent tenderness Respiratory Respiratory exam: Present normal lung sounds bilaterally; Absent respiratory distress Cardiovascular Cardiovascular exam: Present regular rate and normal rhythm Abdominal Exam Abdominal exam: Present soft; Absent distention, tenderness or guarding Extremities Exam Extremities exam: Present normal inspection; Absent edema or joint swelling Back Exam Back exam: Present normal inspection; Absent tenderness Neurological Exam Neurological exam: Present alert and oriented X3; Absent motor sensory deficit Psychiatric Psychiatric exam: Present normal affect and normal mood Skin Skin exam: Present warm, dry and normal color Lymphatic Lymphatic Findings: no adenopathy Medical Decision Making Medical Records Medical records reviewed: Yes I reviewed the patient's medical records. Juan Inquiry Pt receiving controlled substance: No Juan was queried for this patient: No Vital Signs: 10/31/23 03:42 10/31/23 05:40 Temperature 98.4 F 98.4 F Temperature Source Oral Oral Pulse Rate 84 Pulse Rate [Left Radial] 90 Respiratory Rate 20 18 Blood Pressure 127/98 H Blood Pressure [Right Arm] 139/91 H Blood Pressure Mean [Right Arm] 107 Blood Pressure Source Automatic Cuff Blood Pressure Position Sitting 02 Sat by Pulse Oximetry 97 Oxygen Delivery Method Room Air Room Air Lab Data Lab results reviewed: Yes I reviewed the patient's lab results. Lab Results 10/31/23 04:00: WBC 13.7 H, RBC 4.52, Hgb 14.0, Hct 44.1, MCV 97.6, MCH 30.9, M CHC 31.7 L, RDW 13.5, Plt Count 401, MPV 7.6, Neut % (Auto) 69.0, Lymph % (Auto) 25.2, [place] % (Auto) 4.1, Eos % (Auto) 0.9, Baso % (Auto) 0.8, Neut # (Auto) 9.5 H, Lymph # (Auto) 3.5, [place] # (Auto) 0.6, Eos # (Auto) 0.1, Baso # (Auto) 0.1, Sodium 138, Potassium 3.8, Chloride 104, Carbon Dioxide 30, Anion Gap 7.8, BUN 11, Creatinine 0.80, Estimated Creat Clear 158, Estimated GFR 83, Est GFR ( Amer) 100, Glucose 96, Calcium 9.3, Total Bilirubin 0.5, AST 31, ALT 35, Alkaline Phosphatase 80, Total Protein 7.6, Albumin 4.6, Globulin 3.0, Albumin/Globulin Ratio 1.5 10/31/23 04:00 10/31/23 04:00 Orders (Tests/Meds): ED MEDICATIONS Discontinued Medications Generic Name Dose Route Start Last Admin Trade Name Freq PRN Reason Stop Dose Admin Iopamidol 75 ml 10/31/23 04:15 10/31/23 04:16 Iopamidol-370 (76%);100ml Bottle IV 10/31/23 04:16 75 ml ONCE ONE Administration Sodium Chloride 10 ml 10/31/23 04:15 10/31/23 04:16 Sodium Chloride 0.9% 10ml Syr (Rad Only) IV 11/30/23 04:14 10 ml NEEDED PRN Administration Maintain IV Site ORDERS Category Date Time Status CT soft tissue neck w con Stat Cat Scan 10/31/23 03:44 Completed CBC w/Auto Diff [Complete Blood Count Auto Diff] Stat Lab 10/31/23 04:00 Completed CMP [Comprehensive Metabolic Panel] Stat Lab 10/31/23 04:00 Completed Medical Decision Narrative: 33-year-old female with history of recent esophageal dilation presents for worsening right sided anterior neck pain and intermittent gasping for breath when she lays down to go to sleep. History was obtained via interactive discussion with patient, chart review. On arrival, patient is [afebrile, hemodynamically stable, satting appropriately, alert, oriented x4, GCS 15], moving all extremities spontaneously. Full physical exam performed and significant for no significant abnormalities of the oropharynx, no external swelling seen or palpated. Differential includes but is not limited to esophageal perforation, lymphadenopathy, laryngitis, pharyngitis, hematoma. Workup initiated including CBC CMP CT neck with IV contrast.. On re-evaluation, patient [remains afebrile, HD stable.] Laboratory workup independently interpreted by me and significant for minimal leukocytosis, no electrolyte derangement Imaging independently interpreted by me and significant for no emergent findings associated with the airway or to explain patient's symptoms. No evidence of esophageal perforation, hematoma etc. she does have a small approximately 8 mm focus of high attenuation anterior to the thyroid cartilage which is new or enlarged compared to prior.. See radiology read for full review of final results. Given patient history, exam and workup, patient's presentation most likely represents persistent inflammation from recent procedure. I believe that the small focus of high attenuation anterior thyroid cartilage is likely incidental. I communicated these findings with the patient and encouraged her to follow-up for ultrasound assessment of the abnormal finding. Patient was discharged in stable condition with return precautions. Procedures Risk/Benefits of Procedure(s) Were Explained: Yes Critical Care Critical Care Time Critical Care Time: No
--- NOTE | 2023-10-31 03:44 | CT_ITS ---
PROCEDURE INFORMATION: Exam: CT Neck With Contrast Exam date and time: 10/31/2023 4:13 AM Age: 33 years old Clinical indication: Neck pain and throat pain; Prior surgery; Surgery date: 3-7 days post-operative; Surgery type: Esophageal dilatation; Additional info: R anterior neck pain, recent esophageal dilation TECHNIQUE: Imaging protocol: Computed tomography of the neck with contrast. Radiation optimization: All CT scans at this facility use at least one of these dose optimization techniques: automated exposure control; mA and/or kV adjustment per patient size (includes targeted exams where dose is matched to clinical indication); or iterative reconstruction. Contrast material: ISOVUE; Contrast volume: 75 ml; Contrast route: IV; COMPARISON: CT CERVICAL SPINE WO CON 06/15/2021 09:41 FINDINGS: Salivary glands: Normal. Glands are normal in size. Pharynx: The lingual tonsils are mildly enlarged, of doubtful clinical significance. Prevertebral and retropharyngeal spaces: Unremarkable. Larynx: Unremarkable. Epiglottis is normal. Thyroid: The thyroid is surgically absent. Trachea: Visualized trachea is unremarkable. Lungs: Unremarkable as visualized. Lymph nodes: Unremarkable. No lymphadenopathy. Bones/joints: There is an 8 mm focus of high attenuation anterior to the thyroid cartilage midline on image 62 series 3. This is either new or increased in size compared to prior study. Soft tissues: Unremarkable. No significant soft tissue swelling. IMPRESSION: 1. No acute findings. 2. There is an 8 mm focus of high attenuation anterior to the thyroid cartilage midline on image 62 series 3. This is either new or increased in size compared to prior study. Ectopic thyroid is favored. Thyroglossal duct cyst with superimposed neoplasm is less likely. Outpatient ultrasound could be performed to establish stability. COMMENTS: Consistent with the [employer]'s Incidental Findings Committee white paper (J Am Asaf Radiol 2015): In patients under 35 years old with an incidental thyroid nodule equal to or greater than [address], MRI or extrathyroidal US, further evaluation with dedicated thyroid US is recommended for patients with normal life expectancy and without comorbidities. For smaller nodules without suspicious features, no further evaluation or follow up is recommended.
[2023-10-31 04:07] LABS: Basophils # 0.1 K/mm3 (0-0.2); Basophils % 0.8 % (0.1-2.0); Eosinophils # 0.1 K/mm3 (0.0-0.4); Eosinophils % 0.9 % (0.1-12.0); Hematocrit 44.1 % (37.0-47.0); Lymphocytes # 3.5 K/mm3 (0.7-4.5); Lymphocytes % 25.2 % (10-50); Mean Corpuscular HGB Conc 31.7 g/dL (31.8-35.4); Mean Corpuscular Hemoglobin 30.9 pg (27.0-31.2); Mean Corpuscular Volume 97.6 fl (81-99); Mean Platelet Volume 7.6 fl (7.4-10.4); Monocytes # 0.6 K/mm3 (0.1-1.0); Monocytes % 4.1 % (1.7-9.3); Neutrophils # 9.5 K/mm3 (1.8-7.8); Platelet Count 401 K/mm3 (142-424); Red Blood Count 4.52 M/mm3 (4.20-5.40); Red Cell Distribution Width 13.5 % (11.5-17.5); White Blood Count 13.7 K/mm3 (4.8-10.8)
[2023-10-31] MEDS: IOPAMIDOL-370 (76%);100ML BOTTLE 75 ML IV (04:16)
[2023-10-31] MEDS: SODIUM CHLORIDE 0.9% 10ML SYR (RAD ONLY) 10 ML IV (04:16)
[2023-10-31 04:18] LABS: Alanine Aminotransferase 35 U/L (12-78); Albumin Level 4.6 g/dl (3.5-5.0); Albumin/Globulin Ratio 1.5 (1.1-1.8); Alkaline Phosphatase 80 U/L (38-126); Anion Gap 7.8 mEq/L (5-15); Aspartate Amino Transferase 31 U/L (14-36); Bilirubin,Total 0.5 mg/dl (0.2-1.3); Blood Urea Nitrogen 11 mg/dl (7-17); Calcium 9.3 mg/dl (8.4-10.2); Carbon Dioxide 30 mmol/L (22.0-30.0); Chloride 104 mmol/L (98-107); Creatinine Clearance Estimated 158 mL/min (50-200); Estimated Glomerular Filt Rate 83 ml/min (>60); GFR (African American) 100 ML/MIN (>60); Glucose 96 mg/dl (74-100); Potassium 3.8 mmoL/L (3.5-5.1); Sodium 138 mmol/L (136-145); Total Protein,Serum 7.6 g/dl (6.3-8.2)
--- NOTE | 2023-10-31 05:12 | PC.NURSE ---
per radiology 152 minutes on read time, they will send a message to see if they can get it read any faster
[2023-10-31 05:40] VITALS: BP 127/98; PULSE 84; RESP 18; TEMP 36.9; O2SAT 96
== END 2023-10-31 05:42 | disposition home or self-care (01) ==
PROVIDERS: Emergency Provider Emergency Medicine; PCP Nurse Practitioner
DX: R06.02 Shortness of breath (principal); R93.89 Abnormal findings on diagnostic imaging of other specified body structures
CPT/HCPCS: 70491; 80053; 85025; 99284; Q9967

== ENCOUNTER 2023-12-25 10:40 | Outpatient (CLI) | payer SELFPAY ==
--- NOTE | 2023-12-25 10:41 | CT_ITS ---
APPROVED REPORT Ship'S Officer: CLINICAL INDICATION Risk stratification TECHNIQUE Image Acquisition: A 128 slice MDCT scanner ([employer]The[employer] View) was used for data acquisition. A noncontrast coronary calcium scan was performed. A CT attenuation threshold of 130 Hounsfield units (HU) was used for the detection of calcium in contiguous voxels of 1 sq mm in area to be counted as individual lesions. A tube voltage of 120 KVp was used. The patient received no medications prior to the coronary calcium CT. Image Reconstruction Transaxial images were reconstructed at 0.67 mm slide thickness. Data was reviewed interactively on an advanced workstation capable of 2 and 3-dimensional displays in all conventional reconstruction formats, including multiplanar reformations, maximum intensity projections, curved multiplanar reformations, and volume rendered reconstructions. When applicable, selected routine images describing the relevant coronary anatomy and pathology were saved and sent to PACS. Complications None Technical Quality Overall image quality was good. Total DLP (Dose-Length Product) is 161.9 mGy-cm. The reported value represents the total of one or more individual components during the CT acquisition of this date and at this time, and as such, the same value may appear in more than one CT report depending on the interpreting/reporting physicians. COMPARISON None FINDINGS CT Coronary Calcium Scoring LMA (Left Main Artery) = 0 LAD (Left Anterior Descending) = 12 LCX (Left Coronary Circumflex) = 0 RCA (Right Coronary Artery) = 0 Total Calcium Score = 12 using the AJ-130 method. There is no identifiable calcification in the aortic valve, mitral annulus or mitral valve, pericardium, or myocardium. IMPRESSION -Coronary artery calcification is present. -Total Calcium Score (Agatston Score) = 12 using the AJ-130 method. -The observed calcium score of 12 is at 97th percentile for subjects of the same age, sex, and race/ethnicity. The interpretation of the calcium heart score is based on the following continuum*: 0 = no calcified plaque detected (risk of coronary artery disease is very low ??? less than 5%) 1-10 = calcium detected in extremely minimal levels (risk of coronary diseases is still low ??? less than 10%) 11-100 = mild levels of plaque detected with certainty (mild or minimal narrowing of heart arteries is likely) 101-400 = definite,at least moderate levels of plaque detected (relatively high risk of a heart attack within 3-5 years) >401-999 = extensive levels of plaque detected (high risk of heart attack, high levels of vascular disease are present, high likelihood of at least one significant coronary narrowing) *The calcium heart score quantifies the burden of coronary calcification/plaque in the coronary arteries. The calcium heart score does not evaluate the presence or the burden of non-calcified (i.e. soft) plaque. The coronary and cardiac findings of this Coronary Calcium CT were reviewed, reported, and signed by Micha Otto MD (Brand Attendant). Conclusion Electronically signed by : Yumiko Otto MD 12/25/2023 13:20:51
== END 2023-12-25 23:59 | disposition home or self-care (01) ==
LOC: RAD 10:41
PROVIDERS: PCP Nurse Practitioner; Visit Provider Physician Assistant
DX: R07.89 Other chest pain (principal); R06.09 Other forms of dyspnea; J84.9 Interstitial pulmonary disease, unspecified
CPT/HCPCS: 75571

== ENCOUNTER 2024-03-21 10:34 | Day surgery (SDC) | payer MEDICAID, SELFPAY ==
[2024-03-19 14:07] VITALS: BMI 30.9
[2024-03-21 10:51] LABS: Urine Pregnancy, HCG Qual. Negative (Negative)
[2024-03-21 10:55] VITALS: BP 124/75; PULSE 88; RESP 18; TEMP 36.3; O2SAT 97
[2024-03-21] MEDS: LACTATED RINGERS 1000ML 1,000 ML 50 ML IV (11:03)
--- NOTE | 2024-03-21 11:23 | P.PNANES_ITS ---
[facility] Disclaimer: The information contained in this section may have been updated after the patient was seen, as this information can be updated by other users. Medical History HLD (hyperlipidemia) CAD (coronary artery disease) Urinary retention Surgical History Hx of thyroidectomy Hx of cholecystectomy Family History (Updated 03/21/24 @ 11:01 by Sugey Scott RN) Other Cardiac disease Diabetes History of IBS Social History (Updated 03/21/24 @ 11:01 by Sugey Scott RN) Smoking Status: Current every day smoker tobacco type: cigarettes packs per day: 1 second hand exposure: Yes alcohol intake: never substance use type: denies use current occupational status: unemployed Travel in the last 8 weeks: None household members: family housing: house number of children: 1 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 current occupational exposures/hazards: Yes caffeine: Yes Have you lived/traveled outside [place] in past 30 days?: No Contact w/someone who lives/traveled outside US past 30 days?: No Exposure to someone with infectious disease in past 14 days?: No Do you have a fever (greater than 100.4 F or 38 C)?: No Have you tested positive for COVID-19: Yes Exposed to someone with COVID-19 in past 14 days?: No Do you have a sore throat?: No Do you have a cough?: No Do you have any weakness?: No Are you experiencing any nausea/vomitting?: No Do you have any diarrhea?: No Are you experiencing any unusual bleeding?: No Do you have any muscle aches/pain?: No Do you have any abdominal pain?: No Are you experiencing loss of taste or smell?: No [facility] Anesthesia Checklist Patient Identification Patient Identification: Arm Band Structural Data Admitted From: Home Planned Operative Procedure/s: EGD Consent for Planned Operative Procedure(s) Verified: Yes Verified Documents: Surgical Consent and History and Physical Additional verifications Anesthesia Reactions: No Hx Blood Transfusions: No Blood Transfusion Reaction: No Airway Assessment Mallampati Score:: Class II C-Spine Mobility Assessed: Yes TMJ Mobility Assessed: Yes Dentition: Dentures-good fit (upper dentures removed) Neurological Assessment Level of Consciousness: Awake, Alert and Appropriate Anesthesia Plan Anesthesia Risk discussed: Yes Anesthesia Plan: Verified ASA Class: II Anesthesia Type: MAC
--- NOTE | 2024-03-21 12:09 | P.HP_ITS ---
History of Present Illness *Admission Date: 03/21/24 *Reason for visit:: Dysphagia/globus sensation *History of present illness: Mrs. Brady is a 33-year-old female with dysphagia and globus sensation. This is severe. She has frequent clearance of the throat, lump in her throat and swallowing difficulty. She can swallow most liquids and mashed potatoes but has dysphagia to solids. After she drinks, she will often get belching each time. She reports no significant bloating but does have some early satiety. She reports no heartburn or reflux. She is on pantoprazole 40 mg daily and Pepcid twice daily. She states that this is not helping. She has had several evaluations and does see a supervisor central supply in [facility] [place]. She has had 2 or 3 endoscopies. She did not have any dilation the last time and was told that she does not need esophageal dilation. She has had esophageal manometry which was essentially normal. Her GI specialist wants to do Endoflip to measure the pressure and dimensions and movement of the esophagus. The patient does get some retrosternal discomfort. She does have some discomfort under the right subcostal margin and had laparoscopic cholecystectomy 6 weeks ago without improvement. She does report some constipation/obstipation and has a bowel movement every 5 to 7 days. Her bowel movements are often soft. She reports no excessive gassiness. The patient did have a prior EGD with Keon Omalley M.D. that showed bile reflux. [facility] Disclaimer: The information contained in this section may have been updated after the patient was seen, as this information can be updated by other users. Medical History HLD (hyperlipidemia) CAD (coronary artery disease) Urinary retention Surgical History Hx of thyroidectomy Hx of cholecystectomy Family History (Updated 03/21/24 @ 11:01 by Sugey Scott RN) Other Cardiac disease Diabetes History of IBS Social History (Updated 03/21/24 @ 11:01 by Sugey Scott RN) Smoking Status: Current every day smoker tobacco type: cigarettes packs per day: 1 second hand exposure: Yes alcohol intake: never substance use type: denies use current occupational status: unemployed Travel in the last 8 weeks: None household members: family housing: house number of children: 1 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 current occupational exposures/hazards: Yes caffeine: Yes Have you lived/traveled outside [place] in past 30 days?: No Contact w/someone who lives/traveled outside US past 30 days?: No Exposure to someone with infectious disease in past 14 days?: No Do you have a fever (greater than 100.4 F or 38 C)?: No Have you tested positive for COVID-19: Yes Exposed to someone with COVID-19 in past 14 days?: No Do you have a sore throat?: No Do you have a cough?: No Do you have any weakness?: No Are you experiencing any nausea/vomitting?: No Do you have any diarrhea?: No Are you experiencing any unusual bleeding?: No Do you have any muscle aches/pain?: No Do you have any abdominal pain?: No Are you experiencing loss of taste or smell?: No Other Medical History Have you received the Flu Vaccine for this season: Yes Have you received the Pneumonia Vaccine: No Review of Systems Review of Systems Review of systems (narrative): Negative *Cardiovascular Comments: Negative *Gastrointestinal Comments: Negative *Genitourinary Comments: Negative *Musculoskeletal Comments: Negative *Neurologic Comments: Negative Meds Home Medications and Allergies Home Medications ?Medication ?Instructions ?Recorded ?Confirmed ?Type fluticasone propionate 50 2 spray intranasal DAILY Supplement 12/28/18 03/21/24 History mcg/actuation nasal spray,suspension albuterol sulfate 90 mcg/actuation See Rx Instructions .Route 04/28/20 03/21/24 History aerosol inhaler .COMPLEX Asthma cetirizine 10 mg tablet (Zyrtec) 10 mg PO DAILY PRN . 08/04/21 03/21/24 History ondansetron 4 mg disintegrating 4 mg PO Q8H PRN nausea and 03/21/23 03/21/24 Rx tablet vomiting 4 days #12 tabs buprenorphine 8 mg-naloxone 2 mg 1 tab sublingual DAILY 12/11/23 03/21/24 History sublingual tablet famotidine 40 mg tablet 40 mg PO BID 12/11/23 03/21/24 History ipratropium bromide 21 mcg (0.03 1 spray intranasal BID 12/11/23 03/21/24 History %) nasal spray levothyroxine 200 mcg tablet 175 mcg PO DAILY 12/11/23 03/21/24 History mupirocin 2 % topical ointment 1 ea topical QID 12/11/23 03/21/24 History pantoprazole 40 mg tablet,delayed 40 mg PO BID 12/11/23 03/21/24 History release atorvastatin 40 mg tablet 40 mg PO DAILY #30 tabs 12/27/23 03/21/24 Rx montelukast 10 mg tablet 0 mg PO DAILY 03/21/24 03/21/24 History New Prescriptions to Start Prescriptions: Allergies Allergy/AdvReac Type Severity Reaction Status Date / Time vancomycin (VANCOMYCIN) Allergy Intermediate I-HIVES Verified 03/21/24 10:49 sulfamethoxazole (From Allergy Mild angioedma Verified 03/21/24 10:49 Bactrim) trimethoprim (From Bactrim) Allergy Mild angioedma Verified 03/21/24 10:49 nickel (NICKEL) Allergy Unknown RASH/BLISTE Verified 03/21/24 10:49 RS droperidol Allergy Other Verified 03/21/24 10:49 Exam Data for Last 24 hours Vital signs and Labs for Last 24 Hours: Temp Pulse Resp BP Pulse Ox O2 Del Method 97.4 F L 88 18 124/75 97 Room Air 03/21/24 10:55 03/21/24 10:55 03/21/24 10:55 03/21/24 10:55 03/21/24 10:55 03/21/24 10:55 Laboratory Results - last 24 hr 03/21/24 10:40: Urine HCG, Qual Negative I & O for Last 24 hours: Intake & Output 03/18/24 03/19/24 03/20/24 03/21/24 23:59 23:59 23:59 23:59 Weight 192 lb *Routine HEENT Exam Head: Present normocephalic Eye: Present EOMI and PERRL ENT: Present mucous membranes moist *Routine Neck Exam Neck: Present supple *Routine Respiratory Exam Respiratory: Present CTA bilaterally *Routine Cardiovascular Exam Cardiovascular: Present RRR *Routine Abdominal Exam Abdominal: Present soft and normoactive bowel sounds; Absent tenderness *Routine Rectal Exam Rectal:: deferred *Routine Genitalia Exam Genitalia:: deferred *Routine Extremities Exam Extremities: Absent cyanosis, clubbing or edema *Routine Skin Exam Skin: Present warm; Absent rash *Routine Neurological Exam Neurological: Present alert and oriented X3 Assessment and Plan *Assessment and plan (1) Globus sensation: Status: Acute Category: Medical Code(s): R09.A2 - Foreign body sensation, throat (2) Dysphagia: Status: Acute Category: Medical Code(s): R13.10 - Dysphagia, unspecified Plan A/P: 1. Dysphagia/globus sensation is the preprocedural diagnosis. The patient will be anesthetized/sedated using MAC sedation. The patient has been seen and examined. Cardiac and lung assessment prior to the examination is stable. Proceed with planned diagnostic EGD
--- NOTE | 2024-03-21 12:11 | P.PCN_ITS ---
[facility] Procedure Note Date: 03/21/24 Time: 12:26 Procedure Note:: Upper Endoscopy Procedure Report: Esophagogastroduodenoscopy with cold biopsies and TTS balloon dilation Endoscopost: Kailash Syed II, MD Referring Physician: VIJI Marmolejo Date of Procedure: March 21, 2024 Equipment: Olympus GIF 190 standard upper endoscope Sedation: MAC sedation Indications: Mrs. Brady is a 33-year-old female here for diagnostic/therapeutic upper endoscopy. She has had dysphagia and globus sensation. This is severe. She has frequent clearance of the throat, lump in her throat and swallowing difficulty. She can swallow most liquids and mashed potatoes but has dysphagia to solids. After she drinks, she will often get belching each time. She reports no significant bloating but does have some early satiety. She reports no heartburn or reflux. She is on pantoprazole 40 mg daily and Pepcid twice daily. She states that this is not helping. She has had several evaluations and does see a clinical nursing director in [facility] [place]. She has had 2 or 3 endoscopies. She did not have any dilation the last time and was told that she does not need esophageal dilation. She has had esophageal manometry which was essentially normal. Her GI specialist wants to do Endoflip to measure the pressure and dimensions and movement of the esophagus. The patient does get some retrosternal discomfort. She does have some discomfort under the right subcostal margin and had laparoscopic cholecystectomy 6 weeks ago without improvement. She does report some constipation/obstipation and has a bowel movement every 5 to 7 days. Her bowel movements are often soft. She reports no excessive gassiness. The patient did have a prior EGD with Keon Omalley M.D. that showed bile reflux. Procedure: Prior to the procedure, a history and physical exam was performed, and patient's medications and allergies were reviewed. The risks, benefits and alternatives of the sedation and procedure were discussed with the patient. All questions were answered and informed consent was obtained. The patient was brought to the procedure room. Patient identification and proposed procedure were verified by the physician and the nurse. The patient was placed in a left lateral decubitus position and the scope was passed under direct vision. Throughout the procedure, the patient's blood pressure, pulse, and oxygen saturations were monitored continuously. The upper GI endoscopy was accomplished without difficulty. The patient tolerated the procedure well. Findings: The scope was passed directly into the upper esophagus and advanced to the third portion of the duodenum. The post bulbar duodenum and duodenal bulb were normal with normal mucosa and conniventes. The scope was withdrawn through a normal duodenal bulb and pylorus into the stomach. There was moderate bile r eflux with moderate linear reactive gastropathy of the antrum and body of the stomach. The fundus of the stomach was normal. Upon retroflexion there was no hiatal hernia. The scope was then withdrawn into the esophagus. There was no evidence of reflux or Holbrook's. There was no corrugation or furrowing. There was no proximal esophageal inlet patch. There were tertiary contractions and evidence of moderate esophageal dysmotility. The entire esophagus was dilated to 60 [place]/20 mm with a TTS hydrostatic balloon. There was some mild resistance at the cricopharyngeus/cricopharyngeal spasm. The remainder of the esophageal mucosa was normal. Impression: 1. Cricopharyngeal spasm 2. Nonerosive GERD with moderate esophageal dysmotility 3. Bile reflux with moderate linear reactive gastropathy Plan: The patient's globus sensation is related to cricopharyngeal spasm. Most of symptoms of globus and findings of bile reflux are related to and driven by lower intestinal gas pressure gradients/high gas pressure buildup resulting in backflow of bile and peptic fluid from the duodenum into the stomach (duodenal reflux). This gas production (carbon dioxide, hydrogen, methane, etc.) from the lower intestinal tract is the byproduct of colonic bacterial fermentation. This colonic fermentation occurs when there is more carbohydrate (dietary starches, sugars and high residue plant fiber) substrate that does not get digested (in the middle or small intestine) or occurs when there is colonic fecal buildup and colonic bacterial overgrowth. This indeed leads to bloating and the gas pressure buildup with gas pressure gradients that do drive backflow bile reflux. I will follow-up the biopsies. I would recommend continued Iberogast twice daily. I do feel that she would be best served by a fiber bowel regimen or prucalopride.
[2024-03-21 12:15] VITALS: O2SAT 96
[2024-03-21 12:31] VITALS: BP 108/73; PULSE 72; RESP 18; TEMP 36.3; O2SAT 100
[2024-03-21 12:41] VITALS: BP 101/62; PULSE 67; O2SAT 99
[2024-03-21 12:57] VITALS: BP 106/66; PULSE 63; O2SAT 98
[2024-03-21 13:35] VITALS: BP 111/64; PULSE 59; RESP 18; O2SAT 98
== END 2024-03-21 13:35 | disposition home or self-care (01) ==
PROVIDERS: PCP Nurse Practitioner; Visit Provider Internal Medicine Gastroenterology
PROC: 0DJ08ZZ Inspection of Upper Intestinal Tract, Via Natural or Artificial Opening Endoscopic (ICD-10-PCS; CPT 43239; principal; 2024-03-21 12:00)
DX: R09.A2 Foreign body sensation, throat (principal); R13.10 Dysphagia, unspecified; K59.04 Chronic idiopathic constipation; K31.9 Disease of stomach and duodenum, unspecified; K22.4 Dyskinesia of esophagus; K21.9 Gastro-esophageal reflux disease without esophagitis; J39.2 Other diseases of pharynx; Z72.0 Tobacco use
CPT/HCPCS: 43239; 43249; 81025; C1726; J7120

== ENCOUNTER 2024-08-19 04:50 | Emergency (ER) | payer MEDICAID, SELFPAY ==
--- OUTSIDE RECORDS SUMMARY | 2001-04-24 01:00 | XMS_ITS | Encounter Summary ---
Author Organization [facility] Address [address] [place] [id number] Care Team Providers Care Delimer Name Role Phone Unavailable Primary Care Provider Unavailabl e Encounter Details Date Type Department Care Team (Late st Contact Info) Description 04/24/2001 Hospital Encounter [facility] Division of Endocrinology [address] [place] [phone] Social History Tobacco Use Types Packs/Day Years Used Date Smoking Tobacco: Never Assessed Comments Unknown Sex and Gender Information Value Date Recorded Sex Assigned at Not on file Legal Sex Female 5:13 AM EST Gender Identity Not on file Sexual Orientation Not on file documented as of this encounter Plan of Treatment Not on file documented as of this encounter Visit Diagnoses Not on filedocumented in this encounter
--- OUTSIDE RECORDS SUMMARY | 2001-05-08 01:00 | XMS_ITS | Encounter Summary ---
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
--- OUTSIDE RECORDS SUMMARY | 2001-10-09 | XMS_ITS | Encounter Summary ---
Author Organization [facility] Address [address] [place] [address] Care Team Providers Care Learning Disabled Teacher Name Role Phone Unavailable Primary Care Provider Unavailabl e Encounter Details Date Type Department Care Team (Late st Contact Info) Description 10/09/2001 Hospital Encounter [facility] Division of Endocrinology [address] [place] [phone] Social History Tobacco Use Types Packs/Day [...]
--- OUTSIDE RECORDS SUMMARY | 2023-10-10 09:15 | XMS_ITS | Continuity of Care Document ---
Author Organization [facility] Address [address] [place] [id number] Phone Care Team Providers Care Wastewater Project Engineer Name Role Phone ELVIRA SHOEMAKER MD Unavailable Unavailable Allergies, Adverse Reactions, Alerts Substance Reaction Status Criticality Sulfa (Sulfonamide Antibiotics) Hives, Swelling, Other Active No Information erythromycin base HivesHives Active No Informa tion vancomycin Active No Information Medications Medication Instructions Dosage Effective Dates (start - stop) Status Comments doxycycline monohydrate 100 mg capsule take 1 capsule by oral route 2 times every day for 10 days. - Active Procedures Procedure Date EYE EXAM, NEW PATIENT Ocusoft Mask Ocusoft Lidscrubs Plus Advance Directives Directive Yes / No Effective Date File Name No Information Encounters Encounter Description Practice Location Reason(s) For Visit Diagnoses Date Provider Providers Copied on Encounter [facility], [facility], [address] [place] [address], [id number], tel:[phone] [place] [facility] possible infection OD>OS (chief complaint) Blepharitis of right eyelidBlephar itis of left eyelid SAHARA FELIX. [address] [place] [address], [id number], . tel:[phone] Family History Family Member Type Diagnosis Age At Onset No Information Payers Payer name Insurance type Covered alliance party ID Authoriza tion(s) No Information Social History Type Description Quantity Date Captured Comments Alcohol Use Details No Caffeine Use Details Unknown Tobacco Use Status Smoking Status Current every day smoker Smoking Tobacco Use Details Cigarette: Age Started: 15 Cigarette: No Details Available Non-Smoking Tobacco Use Details : No Details Available Smokeless: No Details Available : No Details Available : No Details Available Smokeless: No Details Available : No Details Available Sex Female Chief Complaint And Reason For Visit From encounter dated '10/10/2023 13:15'. possible infection OD>OS (chief complaint). Description: The 33 year old client presents for evaluation of possible infection OD>OS. Patient states a few months ago she had some crustiest in the corner of her right eye. Patient has been doing Ofloxacin drops and ointment. Patient states last Monday she noticed her RLL was swollen and sore to touch, then switched to her RUL. Patient states the swelling will go down and then flare up again. Patient was told by the ER that it could possibly be shingles. Patient does have hx of mrsa. Reason For Referral Reason For Referral No Information History Of Present Illness Encounter Date Complaint History Of Prese nt Illness possible infection OD>OS The 33 year old client presents for evaluation of possible infection OD>OS. Patient states a few months ago she had some crustiest in the corner of her right eye. Patient has been doing Ofloxacin drops and ointment. Patient states last Monday she noticed her RLL was swollen and sore to touch, then switched to her RUL. Patient states the swelling will go down and then flare up again. Patient was told by the ER that it could possibly be shingles. Patient does have hx of mrsa. Functional Status Date Functional Assessmen t No Information Instructions Date Instruction Additional Infor maynor Return in 3-4 months with Elvira Shoemaker M.D. for Follow up. Related to Blepharitis of right eyelid Impression/Plan Related to Bleph aritis of right eyelid Assessments Type Assessment Date assessment Blepharitis of right eyelid assessment Blepharitis of left eyelid impression Blepharitis of right eyelid: H01 .003 Patient Care Teams Name Effective Dates (start - stop) Status Members No Information
--- OUTSIDE RECORDS SUMMARY | 2024-01-10 09:40 | XMS_ITS ---
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 [place] [address] 01/10/2024 Josh Jara Plan Of Treatment No Information Progress Notes * Cindy GUIDRYOB:[birth year] (34 yo F)Acc No.[id number]:01/10/2024 Patient: Tamika CHRISTOPHER Provider: Cy Jara MD :1990 A ge:33 Y S ex:Female Date:01/10/2024 Address: [address] [place], [id number] Pcp:Pcp No Subjective: * Chief Complaints: * 1 . 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 * HPI: I ntroduction: -. D epression Screening: PHQ-2 (2015 Edition) L ittle interest or pleasure in doing things? D eclined to specify, F eeling down, depressed, or hopeless? D eclined to specify, T otal Score 0 . * Medical History: Objective: * Vitals: Assessment: Plan: * Treatment: * * Electronic signature of Karla Jara MD on 08/19/2024 at 05:00 AM EDT Sign off status: Pending * Provider: Cy Jara MD Date: 03/11/2023 Generated for Spenser pineda/Amanda/eTransmitting on: 0 08/19/2024 05:00 AM EDT History and Physical Notes * HPI (History of Present Illness) Category Sub-Category Detail Notes Category Not es Introduction - Depression Screening PHQ-2 (2015 Edition) Little interest or pleasure in doing things?: Declined to specify Feeling down, depressed, or hopeless?: D eclined to specify Total Score: 0
--- NOTE | 2024-08-19 04:46 | ECG_ITS ---
APPROVED REPORT Exam: Resting ECG HR:108 bpm ECG Measurements Heart Rate 108 AXES ND 131 P 35 QRSd 117 QRS 64 QT 305 T 66 QTc 369 Conclusion SINUS TACHYCARDIA INCOMPLETE RIGHT BUNDLE BRANCH BLOCK [90+ ms QRS DURATION, TERMINAL R IN V1/V2, 40+ ms S IN I/aVL/V4/V5/V6] NONSPECIFIC ST ELEVATION [0.05+ mV ST ELEVATION] ABNORMAL RHYTHM ECG Electronically signed by : ZAHEER BENNETT, 08/20/2024 08:39:24
--- NOTE | 2024-08-19 04:49 | XR_ITS ---
PROCEDURE INFORMATION: Exam: XR Chest Exam date and time: 08/19/2024 5:18 AM Age: 34 years old Clinical indication: Shortness of breath; Additional info: SOA TECHNIQUE: Imaging protocol: Radiologic exam of the chest. Views: 2 views. COMPARISON: CR XR CHEST PORTABLE 03/19/2023 10:56 PM FINDINGS: Limitations: Radiographic technique - mild. Rotation - mild. Lungs: No definite consolidation. Pleural spaces: No significant pleural effusion. No pneumothorax. Heart/Mediastinum: No cardiomegaly. Bones/joints: No displaced fracture. Soft tissues: Unremarkable. IMPRESSION: No definite acute cardiopulmonary disease.
--- NOTE | 2024-08-19 04:50 | HMH.EDGENADL ---
Discharge Plan Disposition Patient Disposition: [facility]fer [facility] Prescriptions Prescriptions: No Action etonogestrel 68 mg implant 68 mg SUBDERMAL ONCE Qty: 1 0RF cetirizine [Zyrtec] 10 mg tablet 10 mg PO DAILY PRN (Reason: .) famotidine 40 mg tablet 40 mg PO BID Patient Comments: TAKE 1 TABLET BY MOUTH TWICE A DAY pantoprazole 40 mg tablet,delayed release (DR/EC) 40 mg PO BID Patient Comments: TAKE 1 TABLET BY MOUTH EVERY DAY levothyroxine 200 mcg tablet 175 mcg PO DAILY Patient Comments: TAKE 1 TABLET BY MOUTH EVERY DAY mupirocin 2 % ointment 1 ea topical QID Patient Comments: APPLY TO AFFECTED AREA 3 TIMES A DAY ipratropium bromide 21 mcg (0.03 %) spray,non-aerosol 1 spray intranasal BID Patient Comments: 2 SPRAYS BY NASAL ROUTE 3 TIMES DAILY buprenorphine-naloxone 8-2 mg tablet, sublingual 1 tab sublingual DAILY Patient Comments: PLACE 1 1/4 TABLET UNDER TONGUE ONCE A DAY DIRECTED atorvastatin 40 mg tablet 40 mg PO DAILY Qty: 30 5RF buspirone 5 mg tablet 5 mg PO BID Qty: 180 3RF Rx Instructions: Please take 1 tablet p.o. nightly x 5 to 7 days and then 1 tablet p.o. twice daily thereafter fluticasone propionate 9.9 ML spray,suspension 2 spray NS DAILY Rx Instructions: administer into each nostril ondansetron 4 mg tablet,disintegrating 4 mg PO Q8H PRN (Reason: nausea and vomiting) 4 Days Qty: 12 0RF albuterol sulfate 8.5 GM HFA aerosol inhaler See Rx Instructions .Route .COMPLEX Rx Instructions: TAKE TWO PUFFS THREE TIMES DAILY NEEDED montelukast 10 mg tablet 0 mg PO DAILY prucalopride [Motegrity] 2 mg tablet 2 mg PO DAILY Qty: 30 12RF Rx Instructions: Please take 1 tablet p.o. daily Referrals Follow up/Referrals: Maye Rascon APRN [Primary Care Provider, Medical] - See instructions Clinical Impressions Clinical Impression: Suicidal ideations, Acute dyspnea Stand Alone Forms Stand Alone Forms: Transfer Record - ED Print Language Print Language: Amharic Discharge ED Provider: Oneil Huang General Adult HPI General Chief complaint: Shortness of Breath/Dyspnea Stated complaint: Shortness of Breath Time Seen by Provider: 08/19/24 04:50 History of Present Illness HPI narrative: 34-year-old female with reported history of chronic lung disease, anxiety, hypothyroidism presents for multiple complaints. She initially presented for shortness of breath. She reports that she has been feeling more short of breath at home. She is worried that it could be related to mold in her house. It gets worse when she is at her house and better when she is away from her house. She went to another hospital yesterday for similar symptoms and reports that they did nothing and sent her home with steroids. Today she reports symptoms are similar. EMS reports her vital signs are totally normal and route. Clear lungs bilaterally. Upon discussion, she reports that she is suicidal. She reports for the last 2 to 3 weeks she has been more acutely suicidal, considering buying a gun and shooting herself in the head. She went so far as to go to a gun store but did not purchase a gun. She reports that she does not want to kill herself but is scared that she is going to. She denies any prior suicidal attempts. Her stressors include her chronic medical conditions and the lack of diagnoses, as well as her family, specifically her mother. Related Data Home Medications ?Medication ?Instructions ?Recorded ?Confirmed fluticasone propionate 50 2 spray intranasal DAILY Supplement 12/28/18 03/21/24 mcg/actuation nasal spray,suspension albuterol sulfate 90 mcg/actuation See Rx Instructions .Route 04/28/20 03/21/24 aerosol inhaler .COMPLEX Asthma cetirizine 10 mg tablet (Zyrtec) 10 mg PO DAILY PRN . 08/04/21 03/21/24 buprenorphine 8 mg-naloxone 2 mg 1 tab sublingual DAILY 12/11/23 03/21/24 sublingual tablet famotidine 40 mg tablet 40 mg PO BID 12/11/23 03/21/24 ipratropium bromide 21 mcg (0.03 1 spray intranasal BID 12/11/23 03/21/24 %) nasal spray levothyroxine 200 mcg tablet 175 mcg PO DAILY 12/11/23 03/21/24 mupirocin 2 % topical ointment 1 ea topical QID 12/11/23 03/21/24 pantoprazole 40 mg tablet,delayed 40 mg PO BID 12/11/23 03/21/24 release montelukast 10 mg tablet 0 mg PO DAILY 03/21/24 03/21/24 Previous Rx's ?Medication ?Instructions ?Recorded ondansetron 4 mg disintegrating 4 mg PO Q8H PRN nausea and 03/21/23 tablet vomiting 4 days #12 tabs prucalopride 2 mg tablet 2 mg PO DAILY #30 tabs 03/21/24 (Motegrity) atorvastatin 40 mg tablet 40 mg PO DAILY #30 tabs 03/25/24 buspirone 5 mg tablet 5 mg PO BID #180 tabs 04/23/24 Allergies Allergy/AdvReac Type Severity Reaction Status Date / Time vancomycin (VANCOMYCIN) Allergy Intermediate I-HIVES Verified 03/21/24 10:49 sulfamethoxazole (From Allergy Mild angioedma Verified 03/21/24 10:49 Bactrim) trimethoprim (From Bactrim) Allergy Mild angioedma Verified 03/21/24 10:49 nickel (NICKEL) Allergy Unknown RASH/BLISTE Verified 03/21/24 10:49 RS droperidol Allergy Other Verified 03/21/24 10:49 PFS PFSH Disclaimer: The information contained in this section may have been updated after the patient was seen, as this information can be updated by other users. Medical History HLD (hyperlipidemia) CAD (coronary artery disease) Urinary retention Surgical History Hx of thyroidectomy Hx of cholecystectomy Family History (Updated 03/21/24 @ 11:01 by Sugey Scott RN) Other Cardiac disease Diabetes History of IBS Social History (Updated 03/21/24 @ 11:01 by Sugey Scott RN) Smoking Status: Current every day smoker tobacco type: cigarettes packs per day: 1 second hand exposure: Yes alcohol intake: never substance use type: denies use current occupational status: unemployed Travel in the last 8 weeks?: None household members: family housing: house number of children: 1 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 current occupational exposures/hazards: Yes caffeine: Yes Have you lived/traveled outside US in past 30 days?: No Contact w/someone who lives/traveled outside US past 30 days?: No Exposure to someone with infectious disease in past 14 days?: No Do you have a fever (greater than 100.4 F or 38 C)?: No Have you tested positive for COVID-19?: No Exposed to someone with COVID-19 in past 14 days?: No Do you have a sore throat?: No Do you have a cough?: No Do you have any weakness?: No Do you have any diarrhea?: No Are you experiencing any unusual bleeding?: No Do you have any muscle aches/pain?: No Do you have any abdominal pain?: No Are you experiencing loss of taste or smell?: No Other Medical History Have you received the Flu Vaccine for this season: Yes Have you received the Pneumonia Vaccine: No ROS Obtained: Yes All systems reviewed & no additional complaints except as documented Physical Exam General General appearance: alert and anxious Head Head exam: atraumatic and normocephalic Eye Eye exam: Present normal appearance, PERRL and EOMI ENT ENT exam: Present normal oropharynx and normal external ear exam Neck Neck exam: Present normal inspection and full ROM Chest Chest inspection: Present normal inspection and symmetric chest wall rise; Absent tenderness Respiratory Respiratory exam: Present normal lung sounds bilaterally; Absent respiratory distress Cardiovascular Cardiovascular exam: Present regular rate and normal rhythm Abdominal Exam Abdominal exam: Present soft; Absent distention, tenderness or guarding Extremities Exam Extremities exam: Present normal inspection; Absent edema or joint swelling Back Exam Back exam: Present normal inspection; Absent tenderness Neurological Exam Neurological exam: Present alert and oriented X3; Absent motor sensory deficit Psychiatric Psychiatric exam: Present anxious and suicidal ideation Skin Skin exam: Present warm, dry and normal color Lymphatic Lymphatic Findings: no adenopathy Medical Decision Making Medical Records Medical records reviewed: Yes I reviewed the patient's medical records. Screening: Per USPSTF and CDC recommendations, given the prevalence of disease in our region, it is our hospital?s policy to screen for HIV and viral Hepatitis for all patients aged 18 and over and those with ongoing risk factors. Juan Inquiry Pt receiving controlled substance: No Juan was queried for this patient: No Vital Signs: 08/19/24 04:58 Temperature 97.5 F L Temperature Source Tympanic Pulse Rate [Left Radial] 101 H Respiratory Rate 20 Blood Pressure [Right Arm] 130/93 H Blood Pressure Mean [Right Arm] 105 Blood Pressure Source [Right Arm] Automatic Cuff Blood Pressure Position [Right Arm] Sitting 02 Sat by Pulse Oximetry 100 Oxygen Delivery Method Room Air Lab Data Lab results reviewed: Yes I reviewed the patient's lab results. Lab Results 08/19/24 04:50: WBC 15.7 H, RBC 4.12 L, Hgb 12.8, Hct 36.7 L, MCV 89.1, MCH 31.1, MCHC 34.9, RDW 12.8, Plt Count 409, MPV 9.6, Neut % (Auto) 65.4, Lymph % (Auto) 28.8, Mason % (Auto) 4.9, Eos % (Auto) 0.2, Baso % (Auto) 0.4, Neut # (Auto) 10.3 H, Lymph # (Auto) 4.5, Mason # (Auto) 0.8, Eos # (Auto) 0.0, Baso # (Auto) 0.1, Sodium 137, Potassium 3.0 L, Chloride 98, Carbon Dioxide 29, Anion Gap 13.0, BUN 17, Creatinine 0.60, Estimated Creat Clear 158, Estimated GFR 114, Est GFR ( Amer) 138, Glucose 99, Calcium 9.1, Total Bilirubin 0.4, AST 26, ALT 17, Alkaline Phosphatase 106, Total Protein 7.4, Albumin 4.7, Globulin 2.7, Albumin/Globulin Ratio 1.7, Salicylates < 1.0 L, Acetaminophen < 10 L, HCV Ab FERNANDA w/Rflx PCR Qn Negative, HIV Ag/Ab Combo Qual Negative 08/19/24 06:13: Urine Opiates Screen Negative, Urine Methadone Screen Negative, Ur Barbituates Screen Negative, Ur Phencyclidine Scrn Negative, Ur Amphetamines Screen Negative, U Benzodiazepines Scrn Negative, Urine Cocaine Screen Negative, U Marijuana (THC) Screen Negative 08/19/24 04:50 08/19/24 04:50 Orders (Tests/Meds): ED MEDICATIONS Discontinued Medications Generic Name Dose Route Start Last Admin Trade Name Freq PRN Reason Stop Dose Admin Albuterol/Ipratropium 3 ml 08/19/24 04:49 08/19/24 05:00 Ipratropium/Albuterol 3 Ml Neb IH 08/19/24 04:50 3 ml ONCE ONE Administration Buspirone HCl 5 mg 08/19/24 05:38 08/19/24 05:51 Buspirone Hcl 5 Mg Tablet PO 08/19/24 05:39 5 mg ONCE ONE Administration Potassium Chloride 40 meq 08/19/24 05:42 08/19/24 05:55 Potassium Chloride 20meq Tab PO 08/19/24 05:43 Not Given ONCE ONE Potassium Chloride 40 meq 08/19/24 05:54 08/19/24 05:58 Potassium Chloride 20meq/15ml Udc PO 08/19/24 05:55 40 meq ONCE ONE Administration ORDERS Category Date Time Status Consult to Behavioral Health [CONS] Stat Cons 08/19/24 05:26 Active CXR 2 view (NOT portable) [XR chest 2V] Stat Exams 08/19/24 04:49 Completed Acetaminophen Stat Lab 08/19/24 04:50 Completed CBC w/Auto Diff [Complete Blood Count Auto Diff] Stat Lab 08/19/24 04:50 Completed CMP [Comprehensive Metabolic Panel] Stat Lab 08/19/24 04:50 Completed HIV Combo Stat Lab 08/19/24 04:50 Completed Hepatitis C Ab Qual. W/ RFX Stat Lab 08/19/24 04:50 Completed Salicylate Stat Lab 08/19/24 04:50 Completed Serum [HCG Qualitative, Serum] Stat Lab 08/19/24 06:14 Ordered UDS [Drug Screen,Urine] Stat Lab 08/19/24 06:13 Completed ECG Data Tracing #1: I reviewed this ECG and interpreted as documented below: Sinus tachycardia with rate of 108, no concerning ischemic changes, no evidence of arrhythmia. ECG initial impression date: 08/19/24 ECG initial impression time: 04:46 Medical Decision Narrative: 34-year-old female with reported history of chronic lung disease, hypothyroidism, presents for shortness of breath and suicidal ideation. History was obtained via interactive discussion with patient, EMS. On arrival, patient is [afebrile, hemodynamically stable, satting appropriately, alert, oriented x4, GCS 15], moving all extremities spontaneously. Full physical exam performed and significant for clear lungs bilaterally, clear oropharynx. Differential includes but is not limited to exacerbation of underlying lung disease, pneumonia, pneumothorax, suicidal ideation, homicidal ideation. Patient was given 1 DuoNeb and BuSpar for symptomatic management and correction of underlying abnormalities. Workup initiated including CBC CMP Tylenol salicylate test EKG chest x-ray. On re-evaluation, patient [remains afebrile, HD stable.] Laboratory workup independently interpreted by me and significant for mild leukocytosis, mild hypokalemia repleted orally. Negative Tylenol and salicylate. Imaging independently interpreted by me and significant for clear lungs bilaterally without focal opacity. See radiology read for full review of final results. Given patient history, exam and workup, patient's presentation most likely represents acutely elevated suicide risk. From a shortness of breath perspective, no concerning abnormalities noted on chest x-ray, she is satting 100 percent on room air with clear lungs. I think patient is medically cleared at this point. We called and spoke to the transfer center empath unit who accepted the patient in transfer for further evaluation of her suicidal ideation. Patient was transferred via EMS. Procedures Risk/Benefits of Procedure(s) Were Explained: Yes Critical Care Critical Care Time Critical Care Time: No
[2024-08-19 04:58] VITALS: BP 130/93; PULSE 101; RESP 20; TEMP 36.4; O2SAT 100; BMI 26.9
[2024-08-19 05:00] VITALS: BP 130/93; PULSE 105; RESP 16; O2SAT 99
[2024-08-19] MEDS: IPRATROPIUM/ALBUTEROL 3 ML NEB IH (05:00)
--- OUTSIDE RECORDS SUMMARY | 2024-08-19 05:01 | XMS_ITS | Clinical Summary ---
Author Organization [facility] Address [address] [place] [id number] Care Team Providers Care Hospice Educator Name Role Phone Sugey Kurtz MD Primary Care Provi alexa Unavailable Source Comments This information has been disclosed to you from confidential records protectedfrom disclosure by state law. You shall make no further disclosure of thisinformation without the specific, written, and informed release of theindividual to whom it pertains, or as otherwise permitted by law. A generalauthorization for the release of medical or other information is not sufficientfor the purposes of therelease of HIV test results or diagnoses. [id number] Health Allergies Active Allergy Reactions Criticality Noted Date Comments Sulfamethoxazole-Trimethoprim Anaphylaxis High 01/29 Vancomycin Analogues Hives 12/19/2012 Medications etonogestreL (NEXPLANON) 68 mg Impl implant 68 mg by Implant route once. Active levothyroxine (SYNTHROID) 150 MCG tablet Take 150 mcg by mouth every morning before breakfast. Active oxyCODONE-acetamino phen (PERCOCET) 10-325 mg per tablet Take 1 tablet by mouth every 6 hours as needed for Pain. Active LORazepam (ATIVAN) 0.5 MG tablet Take 0.5 mg by mouth 3 times a day as needed for Anxiety. Active polyethylene glycol (MIRALAX) 17 gram packet Take 17 g by mouth daily. Active albuterol sulfate (VENTOLIN INHL) Inhale into the lungs. Active ondansetron (ZOFRAN-ODT) 4 MG disintegrating tablet Take 4 mg by mouth every 8 hours as needed for Nausea. Active proMETHazine (PHENERGAN) 25 MG tablet Take 25 mg by mouth every 6 hours as needed for Nausea. Active Active Problems Problem Noted Date Diagnosed Date Urticaria Varicella FH: allergy Encounters Date Type Department Care Team Description 07/05/2024 Telephone [facility] ENT at [facility] [address] [place] [address] Unknown, Attending Provider Appointment from Last 3 Months Family History Medical History Relation Comments Melanoma Neg Hx Social History Tobacco Use Types Packs/Day Years Used Date Smoking Tobacco: Every Day Cigarettes 0.5 15 Smokeless Tobacco: Never Alcohol Use Standard Drinks/Week Comments No 0 (1 standard drink = 0.6 oz pur e alcohol) Comments No Sex and Gender Information Value Date Recorded Sex Assigned at Female 04/29/2020 4:31 AM EDT Legal Sex Female 7:25 PM EST Gender Identity Female 04/29/2020 4:31 AM EDT Sexual Orientation Not on file Last Filed Vital Signs Vital Sign Reading Time Taken Comments Blood Pressure 140/93 03/30/2022 5:54 PM EST Pulse 103 03/30/2022 5:54 PM EST Temperature 37.2 C (98.9 F) 03/30/2022 5:54 PM EST Respiratory Rate 15 03/30/2022 5:54 PM EST Oxygen Saturation 98% 03/30/2022 5:54 PM EST Inhaled Oxygen Concentration 98% 03/30/2022 5 :54 PM EST Weight 78.9 kg (174 lb) 04/29/2020 4:14 AM EDT Height 167.6 cm (5' 6 ) 04/29/2020 4:14 AM EDT Body Mass Index 28.08 04/29/2020 4:14 AM EDT Plan of Treatment Health Maintenance Due Date Last Done Comments Hepatitis C Screening (MyChart) 1990 Alcohol Misuse Screening 2008 Depression Screening 2008 Immunization: Pneumococcal ( 1 of 2 - PCV) 2009 Cervical Cancer Screening/Pa p Smear (MyChart) 2020 Immunization: COVID-19 (2 - season) 2023 11/04/2021 Immunization: Influenza (MyC lal) (#1) 2024 11/30/2021, 11/25/2020, 10/28/2014 Immunization: DTaP/Tdap/Td ( 5 - Td or Tdap) 01/02/2025 01/02/2015, 10/26/2009, 01/12/2004, Additional history exists Immunization: Hepatitis B Completed 2002, 10/02/2001, 08/29/2001 HIV Screening Completed 03/30/2022 Procedures Procedure Name Priority Date/Time Associated Diagnosis Comments ED HIV 1+2 ANTIBODY/ANTIGEN WITH REFLEX STAT 03/30/2022 6:27 PM EST from Last 3 Months or Most Recently Relevant to Health Maintenance Results * ED HIV 1+2 Antibody/Antigen with Reflex (03/30/2022 6:27 PM EST) HIV 1+2 AB/AGN Nonreactive Nonreactive 03/30/2022 7:20 PM EST [facility] Serum 03/30/2022 6:27 PM EST 03/30/2022 6:29 PM EST Narrative [facility] - 03/30/2022 7:20 PM EST HIV-1 p24 Antigen and HIV-1/HIV-2 Antibody not detected. us Carissa Ferrari TELEPHONE COIN BOX COLLECTOR LAB BLOOD ORDERABLES Final Result [facility] [address] [id number], [facility] from Last 3 Months or Most Recently Relevant to Health Maintenance Care Teams Hospice Educator Relationship Specialty Start Date End Date Sugey Kurtz MD PCP - General Family Medicine 03/30/22
--- OUTSIDE RECORDS SUMMARY | 2024-08-19 05:01 | XMS_ITS | Encounter Summary ---
Author Organization [facility] Address [address] [place] [id number] Care Team Providers Care Blood Bank Coordinator Name Role Phone Sugey Kurtz MD Primary Care Provi alexa Unavailable Source Comments This information has been disclosed to you from confidential records protectfrom disclosure by state law. You shall make no further disclosure of thisinformation without the specific, written, and informed release of theindividual to whom it pertains, or as otherwise permitted by law. A generalauthorization for the release of medical or other information is not sufficientfor the purposes of the release of HIV test results or diagnoses. [id number] Reason for Visit * Reason Comments Appointment Encounter Details Date Type Department Care Team (Late st Contact Info) Description 07/05/2024 Telephone [facility] ENT at [address] [address] Unknown, Attending Provider Appointment Social History Tobacco Use Types Packs/Day Years [...] AM EDT Sexual Orientation Not on file documented as of this encounter Miscellaneous Notes * Telephone Encounter - Carissa Cabezas - 07/09/2024 1:00 PM EDT Pt returned call, informed of new appts and pt confirmed that that worked for her. * Telephone Encounter - Shelley Estrada - 07/09/2024 10:02 AM EDT Lvm for pt to return call- scheduled appt on 08/26- need to confirm with pt * Telephone Encounter - Jo Nguyen - 07/05/2024 11:25 AM EDT Pt calling in wanting to get scheduled with ENT. She has multiple things going on though and I wasn't sure who would be best to see her for these. She's had these issues going on for years and her ENT's at [facility] haven't helped much. 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 Please call Pt back to get her on schedule. PH: [phone] documented in this encounter Plan of Treatment Not on file documented as of this encounter Visit Diagnoses Not on filedocumented in this encounter Care Teams Blood Bank Coordinator Relationship Specialty Start Date End Date Sugey Kurtz MD PCP - General Family Medicine 03/30/22 documented as of this encounter
--- OUTSIDE RECORDS SUMMARY | 2024-08-19 05:01 | XMS_ITS | Referral Summary ---
Author Organization [email or web address] ([place], [place], [place], [place]) Address [address] [place] [address] Care Team Providers Care Hoof And Shoe Inspector Name Role Phone Unavailable Primary Care Provider Unavailabl e Social History Tobacco Use Types Packs/Day Years Used Date Smoking Tobacco: Never Assessed Comments Unknown Sex and Gender Information Value Date Recorded Sex Assigned at Female 08/10/2021 8:01 PM CDT Legal Sex Female 8:01 PM CDT Gender Identity Female 08/10/2021 8:01 PM CDT Sexual Orientation Not on file Plan of Treatment Not on file
--- OUTSIDE RECORDS SUMMARY | 2024-08-19 05:01 | XMS_ITS | Clinical Summary ---
Author Organization [facility] Address [address] [place] [address] Care Team Providers Care Classification Case Manager Name Role Phone Unavailable Primary Care Provider Unavailabl e Source Comments [facility] is fully rolled out with thefollowing exceptions:General Clinical Research [facility] Social History Tobacco Use Types Packs/Day Years Used Date Smoking Tobacco: Never Assessed Comments Unknown Sex and Gender Information Value Date Recorded Sex Assigned at Not on file Legal Sex Female 5:13 AM EST Gender Identity Not on file Sexual Orientation Not on file Plan of Treatment Health Maintenance Due Date Last Done Comments MMR IMMUNIZATION (1 of 1 - S tandard series) 04/28/1991 DTAP/Tdap/Td IMMUNIZATION (1 - Tdap) 1997 VARICELLA IMMUNIZATION (1 of 2 - 13+ 2-dose series) 04/28/2003 HEPATITIS B IMMUNIZATION (1 of 3 - 19+ 3-dose series) 2009 COVID-19 Vaccine (2023-2 5 season) 2023 AMB SEASONAL FLU VACCINE (Se ason Ended) 2024 HIB IMMUNIZATION Aged Out No longer e ligible based on patient's age to complete this topic HPV IMMUNIZATION Aged Out No longer e ligible based on patient's age to complete this topic IPV IMMUNIZATION Aged Out No longer e ligible based on patient's age to complete this topic MCV4 IMMUNIZATION Aged Out No longer eligible based on patient's age to complete this topic MENINGOCOCCAL B VACCINE Aged Out No l onger eligible based on patient's age to complete this topic PNEUMOCOCCAL IMMUNIZATION Aged Out No longer eligible based on patient's age to complete this topic Respiratory Syncytial Virus (RSV) <20mo Aged Out No longer eligible b ased on patient's age to complete this topic
--- OUTSIDE RECORDS SUMMARY | 2024-08-19 05:01 | XMS_ITS | Clinical Summary ---
Author Organization [facility] Address [address] [place] [address] Care Team Providers Care Beef Breaker Name Role Phone Manuel Montilla MD Primary Care Provider + [phone] Allergies Active Allergy Reactions Criticality Noted Date Comments Droperidol Hives Medium 05/12/2020 Drowsy Sulfamethoxazole-Trimethoprim Anaphylaxis High 01/29 Vancomycin Hives,Itching,Rash Medium 12/19/2012 Social History Tobacco Use Types Packs/Day Years Used Date Smoking Tobacco: Unknown Tobacco Cessation:Counseling Given: Not Answered Comments Unknown Sex and Gender Information Value Date Recorded Sex Assigned at Not on file Legal Sex Female 6:07 PM EDT Gender Identity Not on file Sexual Orientation Not on file Last Filed Vital Signs Vital Sign Reading Time Taken Comments Blood Pressure 121/82 03/20/2023 8:13 AM EST Pulse 107 03/20/2023 8:13 AM EST Temperature 36.9 C (98.5 F) 03/20/2023 8:13 AM EST Respiratory Rate 16 03/20/2023 8:13 AM EST Oxygen Saturation 95% 03/20/2023 8:13 AM EST Inhaled Oxygen Concentration - - Weight 102 kg (225 lb) 03/20/2023 1:54 AM EST Height 167.6 cm (5' 6 ) 03/20/2023 1:54 AM EST Body Mass Index 36.32 03/20/2023 1:54 AM EST Plan of Treatment Health Maintenance Due Date Last Done Comments [facility]-Depression Screening 1990 [facility]-Infant/Child/Adol SDOH Screenings 1990 [facility]-IPV Vaccines (2 of 3 - 4-dose series) 08/22/1995 07/25/1995 [facility]-Obesity Intervention 1996 [facility]-Varicella Vaccines (1 of 2 - 13+ 2-dose series) 04/28/2003 [facility]- SDOH Screenings 2008 [facility]-Adult SDOH Screenings 2008 [facility]-Pap Smear 04/28/2011 HPV Vaccines (2 - 3-dose series) 11/25/2014 10/28/2014 [facility]-Cervical Cancer Screening 2020 [facility]-HPV/Cotest 2020 [id number] Vaccine (2 - 2023- season) 2023 11/04/2021 [facility]-Influenza Vaccine (#1) 10/14/202411/30, 11/25/2020, 01/07/2020, Additional history exists [facility]-DTaP,Tdap,and Td Vaccines (5 - Td or Tdap) 01/02/2025 01/02/2015, 10/26/2009, 01/12/2004, Additional history exists [facility]-Zoster Vaccines (1 of 2) 2040 [facility]-Hepatitis B Vaccines Completed 003, 10/02/2001, 08/29/2001 [facility]-HIV Screening Completed 03/20/2023 [facility]-Hepatitis C Screening Completed 03/20/2023 [facility]-HIB Vaccines Aged Out No longer e ligible based on patient's age to complete this topic [facility]-Hepatitis A Vaccines Aged Out No longer eligible based on patient's age to complete this topic [facility]-Pneumococcal Vaccine: Pediatrics (0 to 5 Years) and At-Risk Patients (6 to 49 Years) Aged Out No longer eligible based on patient's age to complete this topic [facility]-Rotavirus Vaccines Aged Out No lo nger eligible based on patient's age to complete this topic Procedures Procedure Name Priority Date/Time Associated Diagnosis Comments HEPATITIS C ANTIBODY - ED W/REFLEX TO HCV QUANT PCR STAT 03/20/2023 3:04 AM EST ED HIV 1/2 ANTIBODY/ANTIGEN SCREEN WITH REFLEX TO HIV I/II DIFFERENTIATION STAT 03/20/2023 3:04 AM EST from Last 3 Months or Most Recently Relevant to Health Maintenance Results * ED HIV 1/2 Antibody/Antigen Screen w/Reflex to HIV 1/2 Differentiation (03/20/2023 3:04 AM EST) HIV 1 & 2 Antibody/Antigen Screen Non Reactive Non Reactive 03/20/2023 3:58 AM EST [facility] Comment:Screening for HIV 1 & 2 antibodies, and P24 antigen is NONREACTIVE. No confirmatory testing is required. Blood Venous blood specimen / Unknown Venipuncture / Unknown 03/20/2023 3:04 AM EST 03/20/2023 3:20 AM EST Elton Manning MD LAB BLOOD ORDERABLES Final Re sult Performing Organization Address City/[facility]/ZIP Co de Phone Number [facility] [address] [place] [address] * Hepatitis C Antibody - ED (03/20/2023 3:04 AM EST) Pathologist [facility] Hepatitis C Antibody Negative Negative 03/20/2023 3:58 AM EST [facility] Blood Venous blood specimen / Unknown Venipuncture / Unknown 03/20/2023 3:04 AM EST 03/20/2023 3:20 AM EST Elton Manning MD LAB BLOOD ORDERABLES Final Re sult Performing Organization Address City/[facility]/[place] Co de Phone Number [facility] [address] [place] [address] from Last 3 Months or Most Recently Relevant to Health Maintenance Insurance [facility] [employer] [facility] MEDICAID Care Teams Beef Breaker Relationship Specialty Start Date End Date Manuel Montilla MD [address] [phone] PCP - General 06/26/20
--- OUTSIDE RECORDS SUMMARY | 2024-08-19 05:01 | XMS_ITS | Patient Health Record ---
Author Organization [facility] Address [address] [place] [address] Care Team Providers Care Conveyor Feeder Offbearer Name Role Phone No, Pcp Primary Care Provider Unavailabl e Josh Jara Unavailable [phone] No, Referring Physician Unavailable Unavaila ble Reason For Referral No Information Encounters Encounter Location Date Provider Diagnosis [id number] [place] [address] 01/04/2024 Josh Jara Plan Of Treatment No Information Insurance Providers Payer Name Payer Address Payer Phone Subscriber Number Group Number Insured Name Patient Relationship to Insured Coverage Start Date Coverage End Date [employer] [facility] MEDICAID [address] [address] [place] [address] [phone] [id number] Tamika Brady Self - patient is the insured
--- OUTSIDE RECORDS SUMMARY | 2024-08-19 05:01 | XMS_ITS | Clinical Summary ---
Author Organization [facility] ([place], [place], [place], [place]) Address [address] [place] [address] Care Team Providers Care Nurse Staff Name Role Phone Unavailable Primary Care Provider [...]
--- OUTSIDE RECORDS SUMMARY | 2024-08-19 05:01 | XMS_ITS | Clinical Summary ---
Author Organization [facility] Address [address] [place] [address] Care Team Providers Care Video Presentation Operator Name Role Phone Manuel Craft MD Primary Care Provider [phone] Social History Tobacco Use Types Packs/Day Years Used Date Smoking Tobacco: Never Assessed Comments Unknown Sex and Gender Information Value Date Recorded Sex Assigned at Not on file Legal Sex Female 3:26 PM EDT Gender Identity Not on file Sexual Orientation Not on file Plan of Treatment Health Maintenance Due Date Last Done Comments Tetanus Vaccination (Every 1 0 Years) 2008 Lipid Screening 2010 Cervical Cancer Screening 04/28/2011 COVID-19 Vaccine (2023-2 5 season) 2023 Depression Screening 02/14/2024 Influenza Vaccination (#1) 2024 HPV Vaccine Aged Out No longer eligi ble based on patient's age to complete this topic Insurance MEDICAID [employer] Member Subscriber Plan / Payer (Ef fective for All Dates) Name:Tamika Brady Member ID:Not on file Relation to Subscriber:Self Name:Tamika Brady Subscriber ID:Not on file Payer ID:[id number] Group ID:Not on file Type:HMO Address: [place] [id number] Care Teams Video Presentation Operator Relationship Specialty Start Date End Date Manuel Craft MD [address] [place], [place] [address] PCP - General Family Medicine 07/14/14
[2024-08-19 05:26] LABS: Alanine Aminotransferase 17 U/L (12-78); Albumin Level 4.7 g/dl (3.5-5.0); Albumin/Globulin Ratio 1.7 (1.1-1.8); Alkaline Phosphatase 106 U/L (38-126); Anion Gap 13.0 mEq/L (5-15); Aspartate Amino Transferase 26 U/L (14-36); Bilirubin,Total 0.4 mg/dl (0.2-1.3); Blood Urea Nitrogen 17 mg/dl (7-17); Calcium 9.1 mg/dl (8.4-10.2); Carbon Dioxide 29 mmol/L (22.0-30.0); Chloride 98 mmol/L (98-107); Creatinine Clearance Estimated 158 mL/min (50-200); Creatinine,Serum 0.60 mg/dl (0.52-1.04); Estimated Glomerular Filt Rate 114 ml/min (>60); GFR (African American) 138 ML/MIN (>60); Globulin 2.7 g/dL (1.3-3.2); Glucose 99 mg/dl (74-100); Sodium 137 mmol/L (136-145); Total Protein,Serum 7.4 g/dl (6.3-8.2)
[2024-08-19 05:32] LABS: Hematocrit 36.7 % (37.0-47.0); Hemoglobin 12.8 g/dL (12.2-16.2); Immature Granulocytes % 0.3 %; Mean Corpuscular HGB Conc 34.9 g/dL (31.8-35.4); Mean Corpuscular Hemoglobin 31.1 pg (27.0-31.2); Mean Corpuscular Volume 89.1 fl (81-99); Nucleated Red Blood Cells % 0 %; Platelet Count 409 K/mm3 (142-424); Red Blood Count 4.12 M/mm3 (4.20-5.40); Red Cell Distribution Width-SD 42.3 fL; White Blood Count 15.7 K/mm3 (4.8-10.8)
[2024-08-19 05:40] LABS: Potassium 3.0 mmoL/L (3.5-5.1)
[2024-08-19] MEDS: BUSPIRONE HCL 5 MG TABLET PO (05:51)
[2024-08-19] MEDS: POTASSIUM CHLORIDE 20MEQ/15ML UDC 40 MEQ PO (05:58)
--- NOTE | 2024-08-19 06:23 | PC.NURSE ---
Report called to EMPATH nurse at this time.
--- NOTE | 2024-08-19 06:23 | PC.NURSE ---
Called EMS for transport
[2024-08-19 06:35] LABS: Amphetamine/Metha Screen,Urine Negative ng/ml (<1000); Benzodiazepines Screen,Urine Negative ng/ml (<200)
[2024-08-19 06:36] LABS: Barbiturates Screen,Urine Negative ng/ml (<200)
[2024-08-19 06:38] LABS: Methadone Screen,Urine Negative ng/ml (<300)
[2024-08-19 06:39] LABS: Acetaminophen < 10 ug/ml (10-30); Salicylate < 1.0 mg/dL (2.0-20.0)
[2024-08-19 06:39] LABS: Opiate Screen,Urine Negative ng/ml (<300); Phencyclidine Screen,Urine Negative ng/ml (<25)
[2024-08-19 06:48] LABS: Hepatitis C Ab Qual. W/ RFX NEGATIVE (Negative)
[2024-08-19 07:23] VITALS: BP 105/74; PULSE 69; O2SAT 98
[2024-08-19 07:24] LABS: HCG Qualitative, Serum Negative (Negative)
--- NOTE | 2024-08-19 07:27 | PC.NURSE ---
gave report to [facility] EMT with [facility]
[2024-08-19 07:29] VITALS: BP 105/74; PULSE 106; RESP 20; TEMP 36.8; O2SAT 99
== END 2024-08-19 07:31 ==
PROVIDERS: Emergency Provider Emergency Medicine; PCP Nurse Practitioner
DX: R06.02 Shortness of breath (principal); R45.851 Suicidal ideations; R00.0 Tachycardia, unspecified; E87.6 Hypokalemia; F17.210 Nicotine dependence, cigarettes, uncomplicated; Z11.59 Encounter for screening for other viral diseases; Z11.4 Encounter for screening for human immunodeficiency virus [HIV]
CPT/HCPCS: 71046; 80053; 80307; 80329; 84703; 85025; 86803; 87389; 93005; 99285

== ENCOUNTER 2024-11-11 08:37 | Emergency (ER) | payer MEDICAID, SELFPAY ==
--- OUTSIDE RECORDS SUMMARY | 2001-04-24 01:00 | XMS_ITS | Encounter Summary ---
Author Organization [facility] Address [address] [place] [address] Care Team Providers Care Database Support Name Role Phone Unavailable Primary Care Provider Unavailabl e Encounter Details Date Type Department Care Team (Late st Contact Info) Description 04/24/2001 Hospital Encounter [facility] Division of Diabetes and Endocrinology [address] [place] [phone] Social History Tobacco Use Types Packs/Day [...]
--- OUTSIDE RECORDS SUMMARY | 2001-05-08 01:00 | XMS_ITS | Encounter Summary ---
Author Organization [facility] Address [address] [place] [address] Care Team Providers Care Oil Deliverer Name Role Phone Unavailable Primary Care Provider Unavailabl e Encounter Details Date Type Department Care Team (Late st Contact Info) Description 05/08/2001 Hospital Encounter [facility] Division of Diabetes and Endocrinology [address] [place] [phone] Social History Tobacco Use Types Packs/Day [...]
--- OUTSIDE RECORDS SUMMARY | 2001-10-09 | XMS_ITS | Encounter Summary ---
Author Organization [facility] Address [address] [place] [address] Care Team Providers Care Band Splicer Name Role Phone Unavailable Primary Care Provider Unavailabl e Encounter Details Date Type Department Care Team (Late st Contact Info) Description 10/09/2001 Hospital Encounter [facility] Division of Diabetes and Endocrinology [address] [place] [phone] Social History Tobacco Use Types Packs/Day [...]
--- OUTSIDE RECORDS SUMMARY | 2023-10-10 09:15 | XMS_ITS | Continuity of Care Document ---
Author Organization [facility] Address [address] [place] [phone] Phone Care Team Providers Care Advertising Designer Name Role Phone ELVIRA SHOEMAKER MD Unavailable [...] Diagnoses Date Provider Providers Copied on Encounter [facility], [facility], [address] [place] [address], [id number], tel:[phone] [place] [facility] possible infection OD>OS (chief complaint) Blepharitis of right eyelidBlephar itis of left eyelid SAHARA FELIX. [address] [place] [address], [id number], . tel:[phone] Family History Family Member Type Diagnosis Age At Onset No Information Payers Payer name Insurance type Covered democrat ID Authoriza tion(s) No Information Social History [...]
--- OUTSIDE RECORDS SUMMARY | 2024-01-10 09:40 | XMS_ITS ---
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 [place] [address] 01/10/2024 Josh Jara Plan Of Treatment No Information History and Physical Notes * HPI (History of Present Illness) Category Sub-Category Detail Notes Category Not es Introduction - Depression Screening PHQ-2 (2014 Edition) Little interest or pleasure in doing things?: Declined to specify Feeling down, depressed, or hopeless?: D eclined to specify Total Score: 0 Progress Notes * Cindy GUIDRYOB:[birth year] (34 yo F)Acc No.[id number]:01/10/2024 Patient: Tamika Lopez Provider: Cy Jara MD :1990 A ge:33 Y S ex:Female Date:01/10/2024 Address:[address] [id number] Pcp:Pcp No Subjective: * Chief Complaints: * N P: difficulty swallowing * HPI: I ntroduction: -. D epression Screening: PHQ-2 (2014 Edition) L ittle interest or pleasure in doing things? D eclined to specify, F eeling down, depressed, or hopeless? D eclined to specify, T otal Score 0 . * Electronic signature of Karla Jara MD on 11/11/2024 at 08:51 AM EDT Sign off status: Pending * Provider: Cy Jara MD Date: 1 03/11/2023 Generated for Spenser pineda/Amanda/Ailyn on: 0 11/11/2024 08:51 AM EDT
--- OUTSIDE RECORDS SUMMARY | 2024-09-11 17:27 | XMS_ITS | Encounter Summary ---
Author Organization [facility] Address [address] [place] [address] Care Team Providers Care Electric Motor Tester Name Role Phone Sugey Kurtz MD Primary [...] release of HIV test results or diagnoses. [id number] Encounter Details Date Type Department Care Team (Latest Contact Info) Description 09/11/2024 5:27 PM EDT - 09/11/2024 11:59 PM EDT Hospital Encounter [facility] Radiology [address] [place] [address] System, Provider Not In Discharge Disposition: Home or Self Care WITHOUT Home Care Services Social History Tobacco Use Types Packs/Day Years Used Date Smoking Tobacco: Every Day Cigarettes 0.5 15 Smokeless Tobacco: Never Alcohol Use Standard Drinks/Week Comments No 0 (1 standard drink = 0.6 oz pur e alcohol) PHQ-2 Answer Date Recorded PHQ-2 Total Score 0 08/26/2024 Yearly Questionnaire Answer Date Record ed Do you need any assistance w ith obtaining housing, meals, medication, transportation or medical equipment? No 08/26 Assistance needed for: Not on file Yearly Questionnaire Answer Date Record ed Do you need any assistance w ith obtaining housing, meals, medication, transportation or medical equipment? No 07/14 /2025 Assistance needed for: Not on file 5 Yearly Questionnaire Answer Date Record ed Do you need any assistance w ith obtaining housing, meals, medication, transportation or medical equipment? No 08/26 Assistance needed for: Not on file 5 Comments No Sex and Gender Information Value Date Recorded Sex Assigned at Female 04/29/2020 4:31 AM EDT Legal Sex Female 7:25 PM EST Gender Identity Female 04/29/2020 4:31 AM EDT Sexual Orientation Not on file documented as of this encounter Medications at Time of Discharge albuterol sulfate (VENTOLIN INHL) Inhale into the lungs. cetirizine (ZYRTEC) 10 MG tablet Take 1 tablet (10 mg total) by mouth daily. etonogestreL (NEXPLANON) 68 mg Impl implant 68 mg by Implant route once. levothyroxine (SYNTHROID) 150 MCG tablet Take 1 tablet (150 mcg total) by mouth every morning before breakfast. LORazepam (ATIVAN) 0.5 MG tablet Take 1 tablet (0.5 mg total) by mouth 3 times a day as needed for Anxiety. ondansetron (ZOFRAN-ODT) 4 MG disintegrating tablet Take 1 tablet (4 mg total) by mouth every 8 hours as needed for Nausea. oxyCODONE-acetaminop hen (PERCOCET) 10-325 mg per tablet Take 1 tablet by mouth every 6 hours as needed for Pain. polyethylene glycol (MIRALAX) 17 gram packet Take 17 g by mouth daily. proMETHazine (PHENERGAN) 25 MG tablet Take 1 tablet (25 mg total) by mouth every 6 hours as needed for Nausea. documented as of this encounter Plan of Treatment Not on file documented as of this encounter Procedures Procedure Name Priority Date/Time Associated Diagnosis Comments XR COMPARISON IMAGES Routine 09/11/2024 5:27 PM EDT documented in this encounter Results * X-ray Comparison Images (09/11/2024 5:27 PM EDT) Narrative EXTERNAL - 09/11/2024 5:27 PM EDT Images associated with this accession number were presented to us for comparison to an examination performed here. us Provider Not In System IMG DIAGNOSTIC IMAGING OR DERABLES Final Result EXTERNAL documented in this encounter Visit Diagnoses Not on filedocumented in this encounter Care Teams Electric Motor Tester Relationship Specialty Start Date End Date Sugey Kurtz MD PCP - General Family Medicine 03/30/22 10/09/24 documented as of this encounter
--- OUTSIDE RECORDS SUMMARY | 2024-09-11 17:27 | XMS_ITS | Encounter Summary ---
Author Organization [facility] Address [address] [place] [address] Care Team Providers Care Auto Radiator Mechanic Name Role Phone Sugey Kurtz MD Primary [...] release of HIV test results or diagnoses. [id number] Encounter Details Date Type Department Care Team (Latest Contact Info) Description 09/11/2024 5:27 PM EDT - 09/11/2024 11:59 PM EDT Hospital Encounter [facility] Radiology [address] [place] [address] System, Provider Not In Discharge Disposition: Home [...] on filedocumented in this encounter Care Teams Auto Radiator Mechanic Relationship Specialty Start Date End Date Sugey Kurtz MD PCP - General Family Medicine 03/30/22 10/09/24 documented as of this encounter
--- OUTSIDE RECORDS SUMMARY | 2024-09-11 17:27 | XMS_ITS | Encounter Summary ---
Author Organization [facility] Address [address] [place] [address] Care Team Providers Care Community Product Specialist Name Role Phone Sugey Kurtz MD Primary [...] release of HIV test results or diagnoses. [id number] Encounter Details Date Type Department Care Team (Latest Contact Info) Description 09/11/2024 5:27 PM EDT - 09/11/2024 11:59 PM EDT Hospital Encounter [facility] Radiology [address] [place] [address] System, Provider Not In Discharge Disposition: Home [...] on filedocumented in this encounter Care Teams Community Product Specialist Relationship Specialty Start Date End Date Sugey Kurtz MD PCP - General Family Medicine 03/30/22 10/09/24 documented as of this encounter
--- OUTSIDE RECORDS SUMMARY | 2024-09-11 17:27 | XMS_ITS | Encounter Summary ---
Author Organization [facility] Address [address] [place] [address] Care Team Providers Care Paver Operator Name Role Phone Sugey Kurtz MD Primary [...] release of HIV test results or diagnoses. [id number] Encounter Details Date Type Department Care Team (Latest Contact Info) Description 09/11/2024 5:27 PM EDT - 09/11/2024 11:59 PM EDT Hospital Encounter [facility] Radiology [address] [place] [address] System, Provider Not In Discharge Disposition: Home [...] on filedocumented in this encounter Care Teams Paver Operator Relationship Specialty Start Date End Date Sugey Kurtz MD PCP - General Family Medicine 03/30/22 10/09/24 documented as of this encounter
--- OUTSIDE RECORDS SUMMARY | 2024-09-11 17:27 | XMS_ITS | Encounter Summary ---
Author Organization [facility] Address [address] [place] [address] Care Team Providers Care Impression Printer Name Role Phone Sugey Kurtz MD Primary Care Provi aleax Unavailable Source Comments This information has been [...] release of HIV test results or diagnoses. [id number] Encounter Details Date Type Department Care Team (Latest Contact Info) Description 09/11/2024 5:27 PM EDT - 09/11/2024 11:59 PM EDT Hospital Encounter [facility] Radiology [address] [place] [address] System, Provider Not In Discharge Disposition: Home [...] on filedocumented in this encounter Care Teams Impression Printer Relationship Specialty Start Date End Date Sugey Kurtz MD PCP - General Family Medicine 03/30/22 10/09/24 documented as of this encounter
--- OUTSIDE RECORDS SUMMARY | 2024-09-11 17:27 | XMS_ITS | Encounter Summary ---
Author Organization [facility] Address [address] [place] [address] Care Team Providers Care Senior Vice President Name Role Phone Sugey Kurtz MD Primary [...] release of HIV test results or diagnoses. [id number] Encounter Details Date Type Department Care Team (Latest Contact Info) Description 09/11/2024 5:27 PM EDT - 09/11/2024 11:59 PM EDT Hospital Encounter [facility] Radiology [address] [place] [address] System, Provider Not In Discharge Disposition: Home [...] on filedocumented in this encounter Care Teams Senior Vice President Relationship Specialty Start Date End Date Sugey Kurtz MD PCP - General Family Medicine 03/30/22 10/09/24 documented as of this encounter
--- OUTSIDE RECORDS SUMMARY | 2024-09-11 17:27 | XMS_ITS | Encounter Summary ---
Author Organization [facility] Address [address] [place] [address] Care Team Providers Care Tie Mill Operator Name Role Phone Sugey Kurtz MD [...] release of HIV test results or diagnoses. [id number] Encounter Details Date Type Department Care Team (Latest Contact Info) Description 09/11/2024 5:27 PM EDT - 09/11/2024 11:59 PM EDT Hospital Encounter [facility] Radiology [address] [place] [address] System, Provider Not In Discharge Disposition: Home [...] on filedocumented in this encounter Care Teams Tie Mill Operator Relationship Specialty Start Date End Date Sugey Kurtz MD PCP - General Family Medicine 03/30/22 10/09/24 documented as of this encounter
--- OUTSIDE RECORDS SUMMARY | 2024-09-11 17:27 | XMS_ITS | Encounter Summary ---
Author Organization [facility] Address [address] [place] [address] Care Team Providers Care Floor Runner Name Role Phone Sugey Kurtz MD Primary [...] release of HIV test results or diagnoses. [id number] Encounter Details Date Type Department Care Team (Latest Contact Info) Description 09/11/2024 5:27 PM EDT - 09/11/2024 11:59 PM EDT Hospital Encounter [facility] Radiology [address] [place] [address] System, Provider Not In Discharge Disposition: Home [...] on filedocumented in this encounter Care Teams Floor Runner Relationship Specialty Start Date End Date Sugey Kurtz MD PCP - General Family Medicine 03/30/22 10/09/24 documented as of this encounter
--- OUTSIDE RECORDS SUMMARY | 2024-09-11 17:27 | XMS_ITS | Encounter Summary ---
Author Organization [facility] Address [address] [place] [address] Care Team Providers Care Insurance Administrator Name Role Phone Sugey Kurtz MD Primary [...] release of HIV test results or diagnoses. [id number] Encounter Details Date Type Department Care Team (Latest Contact Info) Description 09/11/2024 5:27 PM EDT - 09/11/2024 11:59 PM EDT Hospital Encounter [facility] Radiology [address] [place] [address] System, Provider Not In Discharge Disposition: Home [...] on filedocumented in this encounter Care Teams Insurance Administrator Relationship Specialty Start Date End Date Sugey Kurtz MD PCP - General Family Medicine 03/30/22 10/09/24 documented as of this encounter
--- OUTSIDE RECORDS SUMMARY | 2024-09-18 16:15 | XMS_ITS | Encounter Summary ---
Author Organization [address] [place] [address] Care Team Providers Care Thumb Sewer Name Role Phone Maye Rascon APRN Primary Care Provider [phone] Frankie Huitron MD Unavailable [phone] Reason for Visit * Reason Comments Sore Throat Fever, drainage Other Has sex last week an d is concerned that her throat may be STI, having some pelvic discomfort Encounter Details Date Type Department Care Team (Late st Contact Info) Description 09/18/2024 4:15 PM EDT Office Visit [facility] [address] [place] [address] Cydney Sorto AUTOMATION CONSULTANT [address] [place] [address] Pharyngitis, unspecified etiology (Primary Dx); Possible exposure to STI Social History Tobacco Use Types Packs/Day Years Used Date Smoking Tobacco: Every Day Cigarettes 1 17.5 Started: 05/22/2007 Smokeless Tobacco: Never Alcohol Use Standard Drinks/Week Comments Never 0 (1 standard drink = 0.6 oz pur e alcohol) [facility] Utilities Answer Date Recorded In the past 12 months has th e electric, gas, oil, or water company threatened to shut off services in your home? No 11/13/2023 Overall Financial Resource Strain (CARDIA) Answe r Date Recorded How hard is it for you to pa y for the very basics like food, housing, medical care, and heating? Not hard at all 11/13/2023 PHQ-2 Answer Date Recorded PHQ-2 Total Score 0 09/18/2024 [facility] of Occupat ional Health - Occupational Stress Questionnaire Answer Date Recorded Do you feel stress - tense, restless, nervous, or anxious, or unable to sleep at night because your mind is troubled all the time - these days? Not at all 11/13/2023 Exercise Vital Sign Answer Date Recorde d On average, how many days pe r week do you engage in moderate to strenuous exercise (like a brisk walk)? 5 days 11/13/2023 On average, how many minutes do you engage in exercise at this level? 120 min 11/13/2023 Hunger Vital Sign Answer Date Recorded Within the past 12 months, y ou worried that your food would run out before you got the money to buy more. Never true 11/13/19 24 Within the past 12 months, t he food you bought just didn't last and you didn't have money to get more. Never true 11/13/2023 PRAPARE - Transportation Answer Date Re corded In the past 12 months, has l ack of transportation kept you from medical appointments or from getting medications? No 03/2020 In the past 12 months, has l ack of transportation kept you from meetings, work, or from getting things needed for daily living? No 01/14/2021 Housing Stability Vital Sign Answer Arsenio e Recorded In the last 12 months, was t here a time when you were not able to pay the mortgage or rent on time? No 01/14/2021 Number of Places Lived in the Last Year Not on f ile 01/14/2021 In the last 12 months, was t here a time when you did not have a steady place to sleep or slept in a senior living (including now)? No 01/14/2021 [facility] IP Transportation Answer D ate Recorded In the past 12 months, has l ack of reliable transportation kept you from medical appointments, meetings, work or from getting things needed for daily living? No 11/13/2023 Sexually Active Control Partners Comments Not Currently Abstinence, Implant Male Comments No Sex and Gender Information Value Date Recorded Sex Assigned at Not on file Legal Sex Female 4:40 AM EDT Gender Identity Not on file Sexual Orientation Not on file documented as of this encounter Last Filed Vital Signs Vital Sign Reading Time Taken Comments Blood Pressure 115/80 09/18/2024 4:23 PM EDT Pulse 96 09/18/2024 4:23 PM EDT Temperature 36.8 C (98.2 F) 09/18/2024 4:23 PM EDT Respiratory Rate 20 09/18/2024 4:23 PM EDT Oxygen Saturation 98% 09/18/2024 4:23 PM EDT Inhaled Oxygen Concentration - - Weight 74.1 kg (163 lb 6.4 oz) 09/18/2024 4:23 P M EDT Height 165.1 cm (5' 5 ) 09/18/2024 4:23 PM EDT Body Mass Index 27.19 09/18/2024 4:23 PM EDT documented in this encounter Functional Status * Is the person deaf or does he/she have serious difficulty hearing? Answer Date of Assessment Author No 11/21/2023 3:48 PM EDT Magdi More RN * Is the person blind or does he/she have serious difficulty seeing even when wearing glasses? Answer Date of Assessment Author No 11/21/2023 3:48 PM EDT Magdi More RN * Does this person have serious difficulty walking or climbing stairs? Answer Date of Assessment Author No 11/21/2023 3:48 PM EDT Magdi More RN * Does this person have difficulty dressing or bathing? Answer Date of Assessment Author No 11/21/2023 3:48 PM EDT Magdi More RN * Because of a physical, mental or emotional condition, does this person have difficulty doing errands alone such as visiting a doctor's office or shopping? Answer Date of Assessment Author No 11/21/2023 3:48 PM EDT Magdi More RN * PHQ-2 Total Score Answer Date of Assessment Author 0 09/18/2024 4:00 PM EDT Deja Spencer RMA * PHQ-9 Total Score Answer Date of Assessment Author 0 09/18/2024 4:00 PM EDT Deja Spencer RMA * Question Answer Date of Assessment Author Little interest or pleasure in doing things 0 09/18/2024 4:00 PM EDT Deja Rosa RMA Feeling down, depressed, or hopeless 0 09/18/2024 4:00 PM EDT Deja Rosa RMA Trouble falling or staying asleep, or sleeping too much 0 09/18/2024 4:00 PM EDT Deja Faria RMA Feeling tired or having trino le energy 0 09/18/2024 4:00 PM EDT Deja Rosa RMA Poor appetite or overeating 0 09/18/2024 4: 00 PM EDT Deja Rosa RMA Feeling bad about yourself - or that you are a failure or have let yourself or your family down 0 09/18/2024 4:00 PM EDT Deja Rosa RMA Trouble concentrating on things, such as reading the newspaper or watching television 0 09/18/2024 4:00 PM EDT Deja Rosa RMA Moving or speaking so slowly that other people could have noticed. Or the opposite - being so fidgety or restless that you have been moving around a lot more than usual 0 09/18/2024 4:00 PM EDT Deja Faria RMA Thoughts that you would be better off , or of hurting yourself in some way 0 09/18/2024 4:00 PM EDT Lemuel Rosa RMA * PHQ-2 Total Score Answer Date of Assessment Author 0 09/18/2024 4:00 PM EDT Deja Spencer RMA documented as of this encounter Mental Status * Because of a physical, mental or emotional condition, does this person have serious difficulty concentrating, remembering or making decisions? Answer Entry Date Author No 11/21/2023 3:48 PM EDT Magdi More RN documented in this encounter Ordered Prescriptions Prescription Sig Dispense Quantity Refills Last Filled Start Date End Date amoxicillin (AMOXIL) 400 mg/5 mL Oral Suspension for ReconstitutionIndic ations:Pharyngitis, unspecified etiology Take 15 mL by mouth 3 times daily for 7 days. 315 mL 09/18/2024 documented in this encounter Progress Notes * Cydney Sorto, AUTOMATION CONSULTANT - 09/18/2024 4:15 PM EDT Assessment & Plan 1. Sore throat. - Symptoms suggest a possible streptococcal infection. - Physical exam reveals white waxy appearance at the back of the throat. - A strep culture will be conducted to confirm the diagnosis. - Liquid penicillin will be prescribed for immediate treatment. If the culture results necessitate a change in medication, adjustments will be made accordingly. 2. Pelvic pain. - Patient reports pelvic pain possibly related to recent sexual activity after a long period of abstinence. - No vaginal discharge or change in vaginal odor reported. - A vaginal swab will be performed to rule out vaginitis, yeast infection, bacterial vaginosis, trichomoniasis, gonorrhea, and chlamydia. - Swab for GC chlamydia and strep culture will be conducted. Dx/Orders: Diagnoses and all orders for this visit: Pharyngitis, unspecified etiology - CHLAMYDIA/GC; Future - UPPER RESPIRATORY CULTURE (NO STAIN); Future - amoxicillin (AMOXIL) 400 mg/5 mL Oral Suspension for Reconstitution; Take 15 mL by mouth 3 times daily for 7 days. Dispense: 315 mL; Refill: 0 Possible exposure to STI - VAGINITIS PANEL NAAT; Future No follow-ups on file. Subjective Tamika Brady is a 34 y.o. female Chief Complaint Patient presents with Sore Throat Fever, drainage Other Has sex last week and is concerned that her throat may be STI, having some pelvic discomfort History of Present Illness The patient is a 34-year-old female who presents today for an acute visit with complaints of a sorethroat. She began experiencing symptoms of strep throat yesterday, which she describes as sudden and severe. She reports a white coating on the back of her throat and has been managing her symptoms with Tylenol, taking it twice daily. She has a history of strep throat, which typically presents without any preceding symptoms. She recently completed a course of doxycycline. She did seek urgent care at outside network yesterday and was told the rapid strep test was negative. Additionally, she reports pelvic pain, which she attributes to recent sexual activity after a two-year period of abstinence. She reports no changes in vaginal discharge or odor. Review of Systems Constitutional: Positive for appetite change, fatigue and fever. HENT: Positive for sore throat. Negative for congestion, ear pain, mouth sores and sinus pain. Eyes: Negative for discharge. Respiratory: Negative. Cardiovascular: Negative. Gastrointestinal: Negative for diarrhea, nausea and vomiting. Genitourinary: Positive for pelvic pain. Negative for dysuria, flank pain, vaginal discharge and vaginal pain. Skin: Negative. Neurological: Negative for headaches. Psychiatric/Behavioral: Negative for suicidal ideas. Objective Blood pressure 115/80, pulse 96, temperature 98.2 ??F (36.8 ??C), temperature source Temporal, resp. rate 20, height 5' 5 (1.651 m), weight 163 lb 6.4 oz (74.1 kg), SpO2 98%, not currently . Body mass index is 27.19 kg/m??. Physical Exam Vitals reviewed. Constitutional: General: She is not in acute distress. HENT: Right Ear: Tympanic membrane, ear canal and external ear normal. Left Ear: Tympanic membrane, ear canal and external ear normal. Nose: Nose normal. Mouth/Throat: Lips: Nitro. Mouth: Mucous membranes are moist. Pharynx: Oropharyngeal exudate and posterior oropharyngeal erythema present. Eyes: Conjunctiva/sclera: Conjunctivae normal. Cardiovascular: Rate and Rhythm: Normal rate and regular rhythm. Pulmonary: Effort: Pulmonary effort is normal. Breath sounds: Normal breath sounds. Abdominal: General: Bowel sounds are normal. Palpations: Abdomen is soft. Tenderness: There is no abdominal tenderness. Musculoskeletal: Cervical back: Neck supple. Right lower leg: No edema. Left lower leg: No edema. Lymphadenopathy: Cervical: Cervical adenopathy present. Right cervical: Superficial cervical adenopathy: +1. Skin: General: Skin is warm. Coloration: Skin is not jaundiced. Findings: No rash. Neurological: Mental Status: She is alert and oriented to person, place, and time. Psychiatric: Mood and Affect: Mood normal. Thought Content: Thought content normal. Results Results for orders placed or performed in visit on 09/18/24 CHLAMYDIA/GC Specimen: Throat; Swab Narrative The following orders were created for panel order CHLAMYDIA/GC. Procedure Abnormality Status --------- ------ CHLAMYDIA/GC BY [facility][[id number]] In process Please view results for these tests on the individual orders. The provider educated the patient (or legal hvac sales representative) on the use of the ambient listening artificial intelligence tool, Tagrule. They were informed that this AI tool processes the conversation to generate a clinical note with the expected benefit of improved accuracy while achieving an improved encounter experience for the patient and provider.?The provider explained that the medical information captured by the AI tool including, but not limited to, diagnoses and treatment plan would be protected in accordance with applicable privacy laws and that all diagnoses and treatment decisions would be made by the provider. The provider explained that the note generated will be reviewed bythe provider for accuracy to minimize potential errors.? The patient was given an opportunity to ask questions and opt out of proceeding with the use of the AI tool. After being informed of such information, the patient (or legal hvac sales representative), and each individual in attendance with the patient, verbally consented to the use of the AI tool. documented in this encounter Plan of Treatment Upcoming Encounters Date Type Department Care Team (Late st Contact Info) Description 01/07/2025 11:00 AM EST Telemedicine [facility] [address] [facility] [address] [place] [phone] Kirit Bailey MD [address] [facility] [address] [place] [phone] 02/21/2025 8:30 AM EST Office Visit [facility] [address] [place] [address] Anyi Juarez APRN [address] [place], [place] [id number] documented as of this encounter Goals Goal Patient Goal Type Associated Problems Recent Progress Patient-Stated? Author Blood Pressure < 140/90 Blood Pressure 115/80(2024 4:23 PM EDT) No Maye Rascon APRN Maintain a healthy diet, exercise regularly and maintain an ideal body weight General No Ramo, Cydney Shweta, CCMA Stay Tobacco Free Lifestyle No Cydney Ralph, MELCHOR documented as of this encounter Procedures Procedure Name Priority Date/Time Associated Diagnosis Comments VAGINITIS PANEL NAAT Routine 09/18/2024 4:49 PM EDT Possible exposure to STI UPPER RESPIRATORY CULTURE (NO STAIN) Routine 09/18/2024 4:49 PM EDT Pharyngitis, unspecified etiology CHLAMYDIA/GC Routine 09/18/2024 4:38 PM EDT Pharyngitis, unspecified etiology CHLAMYDIA/GC BY TMA Routine 09/18/2024 4 :38 PM EDT Pharyngitis, unspecified etiology documented in this encounter Results * UPPER RESPIRATORY CULTURE (NO STAIN) (09/18/2024 4:49 PM EDT) Culture No growth of beta hemolytic Streptococcus pyogenes, beta hemolytic Streptococcus dysgalactiae (Group C or Group G) or Arcanobacterium haemolyticum. 09/21/2024 11:21 AM EDT [facility] Swab STRUCTURE OF ANTERIOR REGION OF NECK / Unknown 09/18/2024 4:49 PM EDT 09/18/2024 4:49 PM EDT Cydney Sorto AUTOMATION CONSULTANT MICROBIOLOGY - GENERAL OR DERABLES Final Result [facility] [address] [place] [address] , [place] [address] * (ABNORMAL) VAGINITIS PANEL NAAT (09/18/2024 4:49 PM EDT) Bacterial Vaginosis NAAT Detected(A) Not Detected 09/19/2024 10:30 PM EDT [facility] Nakaseomyces (Adelina) glabrata NAAT Detected(A) Not Detected 09/19/2024 10:30 PM EDT [facility] Adelina Species NAAT Not Detected Not Detected 09/19/2024 10:30 PM EDT [facility] Trichomonas vaginalis NAAT Not Detected Not Detected 09/19/2024 10:30 PM EDT [facility] Swab VAGINAL STRUCTURE / Unknown 09/18/2024 4:49 PM EDT 09/18/2024 4:49 PM EDT Cydney Sorto APRN MICROBIOLOGY - GENERAL OR DERABLES Final Result [facility] [address] [place] [address] * CHLAMYDIA/GC BY TMA (09/18/2024 4:38 PM EDT) Chlamydia trachomatis Not Detected Not Detected 09/19/2024 7:06 PM EDT [facility] Neisseria gonorrhoeae Not Detected Not Detected 09/19/2024 7:06 PM EDT [facility] Swab STRUCTURE OF ANTERIOR REGION OF NECK / Unknown 09/18/2024 4:38 PM EDT 09/18/2024 4:38 PM EDT Narrative [facility]REF[facility] - 09/19/2024 7:06 PM EDT Testing methodology is manufactured buildings supervisor mediated amplification (TMA) using the Aptima Combo 2 assay from [employer]. A negative result does not completely rule out a Chlamydia trachomatis or Neisseria gonorrhoeae infection due to potential inhibitors or levels present below the limit of detection by this assay. Results are dependent on proper collection and transport of specimen. This test is indicated for medical purposes only and should not be used for legal or forensic purposes. The performance characteristics of this assay were validated by the testing laboratory. This assay is FDA cleared to test the following specimens: clinician-collected endocervical, vaginal, male urethral swab specimens, rectal swabs, and throat/pharyngeal swabs; patient collected vaginal specimens within a clinic setting; Thin Prep Specimens in PreservCyt Solution; and first-stream, unpreserved male and female urine specimens. Detailed methodology is available upon request. Cydney Sorto APRN MICROBIOLOGY - GENERAL OR DERABLES Final Result [facility] [address] [place] [address] documented in this encounter Visit Diagnoses Diagnosis Pharyngitis, unspecified etiology- Primary Possible exposure to STI documented in this encounter Discontinued Medications Medication Sig Discontinue Reason Start Date End Da te linaCLOtide (LINZESS) 72 mcg Oral CapsuleIndications:Cons tipation, unspecified constipation type Take 1 Capsule by mouth daily. Patient Reported not taking medication 04/11/2024 09/19/2024 fluticasone propion-salmeteroL (ADVAIR DISKUS) 500-50 mcg/dose Inhl Disk with DeviceIndications:Moder ate persistent asthma without complication INHALE 1 PUFF BY MOUTH TWICE A DAY Patient Reported not taking medication 03/18/2024 09/19/2024 documented as of this encounter Care Teams Thumb Sewer Relationship Specialty Start Date End Date Maye Rascon APRN [address] [place], [place] [id number] PCP - General Nurse Practitioner-Family 06/08/23 Frankie Huitron MD [address] [place] [address] Otolaryngology 10/02/23 documented as of this encounter
--- OUTSIDE RECORDS SUMMARY | 2024-09-19 15:00 | XMS_ITS | Encounter Summary ---
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 [id number] Reason for Visit * Physician/BURTON (Routine) - Closed Specialty Diagnoses / Procedures Referred By gAata mayes Referred To Contact Pulmonary Disease / Pulmonology Diagnoses Respiratory tract congestion with cough Abiodun, GENEVA Villavicencio [address] [place] [address] Phone: tel: fax: Referral ID Status Reason Start Date Expiration Date Visits Re quested Visits Authorized [id number] Closed 09/06/2024 03/05/2025 1 1 Encounter Details Date Type Department Care Team (Late st Contact Info) Description 09/19/2024 3:00 PM EDT Office Visit [facility] at [facility] [address] [facility] [address] [place] [address] Lon Sullivan MD [address] [facility] [place] [address] Dyspnea on exertion (Primary Dx); Environmental and seasonal allergies; Severe persistent asthma without complication Social History Tobacco Use Types Packs/Day Years Used Date Smoking Tobacco: Every Day Cigarettes 0.5 15 Smokeless Tobacco: Never Tobacco Cessation:Ready to Q uit: Not Asked; Counseling Given: Not Answered Alcohol Use Standard Drinks/Week Comments No 0 [...] Sign Reading Time Taken Comments Blood Pressure 122/78 09/19/2024 3:20 PM EDT Pulse 105 09/19/2024 3:20 PM EDT Temperature - - Respiratory Rate 16 09/19/2024 3:20 PM EDT Oxygen Saturation 98% 09/19/2024 3:20 PM EDT Inhaled Oxygen Concentration 98% 09/19/2024 3 :20 PM EDT Weight 73.5 kg (162 lb) 09/19/2024 3:20 PM EDT Height 167.6 cm (5' 6 ) 09/19/2024 3:20 PM EDT Body Mass Index 26.15 09/19/2024 3:20 PM EDT documented in this encounter Patient Instructions * Patient Instructions* Lon Sullivan MD - 09/19/2024 3:00 PM EDT Pleasure meeting you today. Please brain picker the new inhaler from your pharmacy and stop by the lab to get blood tests done. documented in this encounter Progress Notes * Lon Sullivan MD - 09/19/2024 3:00 PM EDT PULMONARY CLINIC NOTE Chief Complaint: Shortness of breath History of Present Illness: Tamika Brady is a 34 y.o. female with history of thyroid cancer s/p thyroidectomy, post-surgical hypothyroidism, and endometriosis, here today for evaluation of dyspnea and cough. Referred to pulmonary by primary care. Has previously followed with pulmonary at [facility]. Reports recurrent issues with sinus and lower respiratory tract infections or bronchitis. Has had respiratory issues since 2019. Symptoms include dyspnea with mild exertion, cough productive of thick, brown phlegm, and wheezing. Symptoms of wheezing and coughing also occurring on nightly basis. She notes having water damage issues in her house. Recently had these issues fixed. As part of process had air checked for mold and was found to have multiple molds including aspergillus. Notes constant sinus drainage as well. Using azelastine, flonase, and saline sinus rinses. Previously saw ENT at [facility] but she is moving all her care to so recently established with ENT and is planning on allergy testing. Has tried multiple inhalers. Currently advair (high dose) and previously dulera. Feels that the advair causes her to cough immediately on trying to inhale and results in coughing out the powder. Feels that albuterol helps with her wheezing, particularly if she uses a nebulizer. Denies childhood asthma. Also didn't have allergy issues until 2019 Her son has asthma, eczema, and seasonal allergies. She is a current smoker. About 1 PPD for the last 20 years. Also daily vaping with nicotine. Denies recreational drugs. Objective: Wt Readings from Last 3 Encounters: 09/19/24 162 lb (73.5 kg) 08/26/24 167 lb 3.2 oz (75.8 kg) 04/29/20 174 lb (78.9 kg) BP 122/78 (BP Location: Left upper arm, Patient Position: Sitting, BP Cuff Size: Regular) Pulse 105 Resp 16 Ht 5' 6 (1.676 m) Wt 162 lb (73.5 kg) SpO2 98% BMI 26.15 kg/m?? General: sitting in a chair, resting comfortably Eyes: no scleral icterus, conjunctiva clear CV: RRR, no edema Pulm: normal WOB, CTAB Skin: warm, no rashes Neuro: CN grossly intact, stable gait Labs/Diagnostic Data: CTPA 11/21/23 from [facility] images reviewed. Normal lung parenchyma and normal airways. PFTs 2020 from [facility]. Normal spirometry, lung volumes, and diffusion. Assessment/Plan: Tamika Brady is a 34 y.o. female with history of thyroid cancer s/p thyroidectomy, post-surgical hypothyroidism, and endometriosis, here today for evaluation of dyspnea and cough. Dyspnea on exertion Chronic cough with sputum production Environmental allergies Based on history, highly suspect asthma. Has also had elevated IgE in the past so with aspergillus exposure, may be consistent with ABPA. Would have expected her to have some symptomatic improvement with high dose Advair, so if there is uncertainty we may do a methacholine challenge test. But she was having trouble with drug deliver due to dry powder so an alternative inhaler may work better for her. No abnormalities on her last CT imaging. Plan: - Stop Advair. Start high dose Symbicort and use with spacer (has also failed Dulera in past) - Send serum allergen panel (including aspergillus specific IgE), aspergillus IgG, repeat IgE and CBC with differential - May be good candidate for future biologic pending above - Will prescribe nebulizer with albuterol and also continue MDI albuterol as needed Return in about 2 months (around 11/19/2024). Number and Complexity of Problems Addressed 2 or more stable chronic illnesses Amount and/or Complexity of Data to be Reviewed and Analyzed 3+ unique tests ordered Risk of Complications and/or Morbidity or Mortality of Patient Management Moderate Lon Sullivan MD Pulmonary & Critical Care documented in this encounter Plan of Treatment Not on file documented as of this encounter Results * Aspergillus antibodies (09/19/2024 4:40 PM EDT) Aspergillus Fumigatus Antibodies Negative Neg:<1:1 09/25/2024 3:16 PM EDT [facility] Aspergillus Flavus Antibodies Negative Neg:<1:1 09/25/2024 3:16 PM EDT [facility] Aspergillus Niger Antibodies Negative Neg:<1:1 09/25/2024 3:16 PM EDT [facility] Serum 09/19/2024 4:40 PM EDT 09/25/2024 4:08 PM EDT [facility] - 09/25/2024 4:08 PM EDT PERFORMED AT: [facility] [id number] MATERIALS TECH: Arpit Ortega MD PHONE: [phone] Lon Sullivan MD LAB BLOOD ORDERABLES Final Resul t Performing Organization Address [facility] Co de Phone Number [facility] [address] [place] [address]. [address] * IgE (09/19/2024 4:40 PM EDT) IgE 355 6 - 495 IU/mL 09/25/2024 8:21 PM EDT [facility] Serum 09/19/2024 4:40 PM EDT 09/25/2024 10:24 PM EDT [facility] - 09/25/2024 10:24 PM EDT PERFORMED AT: [facility] [id number] MATERIALS TECH: Arpit Ortega MD PHONE: [phone] Lon Sullivan MD LAB BLOOD ORDERABLES Final Resul t Performing Organization Address [facility] Co de Phone Number [facility] [address] [facility] [address] * Allergen, [place] (09/19/2024 4:40 PM EDT) Allergen [place] <0.10 Class 0 kU/L 09/25/2024 10:34 AM EDT [facility] Serum 09/19/2024 4:40 PM EDT 09/25/2024 11:08 AM EDT [facility] - 09/25/2024 11:08 AM EDT PERFORMED AT: [address] [id number] MATERIALS TECH: Arpit Ortega MD PHONE: [phone] Lon Sullivan MD LAB BLOOD ORDERABLES Final Resul t Performing Organization Address [facility] de Phone Number [facility] [address] * Allergen, Ragweed Giant (09/19/2024 4:40 PM EDT) Allergen Ragweed, Giant <0.10 Class 0 kU/L 09/25/2024 10:34 AM EDT [facility] Serum 09/19/2024 4:40 PM EDT 09/25/2024 11:08 AM EDT [facility] - 09/25/2024 11:08 AM EDT PERFORMED AT: [address] [id number] MATERIALS TECH: Arpit Ortega MD PHONE: [phone] Lon Sullivan MD LAB BLOOD ORDERABLES Final Resul t Performing Organization Address [facility] de Phone Number [facility] [address] [facility] [address] * Allergen, [place] White (09/19/2024 4:40 PM EDT) Allergen, [place] White <0.10 Class 0 kU/L 09/25/2024 10:34 AM EDT [facility] Comment: Levels of Specific IgE Class Description of Class ----- < 0.10 0 Negative 0.10 - 0.31 0/I Equivocal/Low 0.32 - 0.55 I Low 0.56 - 1.40 II Moderate 1.41 - 3.90 III High 3.91 - 19.00 IV Very High 19.01 - 100.00 V Very High >100.00 Very High Serum 09/19/2024 4:40 PM EDT 09/25/2024 11:08 AM EDT [facility] - 09/25/2024 11:08 AM EDT PERFORMED AT: [facility] [id number] MATERIALS TECH: Arpit Ortega MD PHONE: [phone] Lon Sullivan MD LAB BLOOD ORDERABLES Final Resul t Performing Organization Address [facility] Co de Phone Number [facility] [address] [facility] [address] * Allergen, [place] (09/19/2024 4:40 PM EDT) Allergen Birch, Silver <0.10 Class 0 kU/L 09/24/2024 4:48 PM EDT [facility] Serum 09/19/2024 4:40 PM EDT 09/30/2024 11:07 AM EDT [facility] - 09/30/2024 11:07 AM EDT PERFORMED AT: [address] [id number] MATERIALS TECH: Arpit Ortega MD PHONE: [phone] Lon Sullivan MD LAB BLOOD ORDERABLES Final Resul t Performing Organization Address [facility] Co de Phone Number [facility] [address] [facility] [address] * Allergen Leandro, White (09/19/2024 4:40 PM EDT) Allergen Leandro, White <0.10 Class 0 kU/L 09/24/2024 4:48 PM EDT [facility] Serum 09/19/2024 4:40 PM EDT 09/30/2024 11:07 AM EDT [facility] - 09/30/2024 11:07 AM EDT PERFORMED AT: [address] [id number] MATERIALS TECH: Arpit Ortega MD PHONE: [phone] Lon Sullivan MD LAB BLOOD ORDERABLES Final Resul t Performing Organization Address [facility] de Phone Number [facility] [address] [facility] [address] * Allergen, Aureobasidium pullul (09/19/2024 4:40 PM EDT) Allergen Aureobasidium pullulans <0.10 Class 0 kU/L 09/24/2024 4:48 PM EDT [facility] Serum 09/19/2024 4:40 PM EDT 09/30/2024 11:07 AM EDT [facility] - 09/30/2024 11:07 AM EDT PERFORMED AT: [address] [id number] MATERIALS TECH: Arpit Ortega MD PHONE: [phone] Lon Sullivan MD LAB BLOOD ORDERABLES Final Resul t Performing Organization Address [facility] de Phone Number [facility] [address] [facility] [address] * Allergen, Goose Feathers (09/19/2024 4:40 PM EDT) Allergen, Goose Feathers <0.10 Class 0 kU/L 09/24/2024 4:48 PM EDT [facility] Serum 09/19/2024 4:40 PM EDT 09/30/2024 11:07 AM EDT [facility] - 09/30/2024 11:07 AM EDT [facility] [id number] MATERIALS TECH: Arpit Ortega MD PHONE: [phone] Lon Sullivan MD LAB BLOOD ORDERABLES Final Resul t Performing Organization Address City/[facility] Co de Phone Number [facility] [address] * Allergen, Duck Feathers (09/19/2024 4:40 PM EDT) Allergen, Duck Feathers <0.10 Class 0 kU/L 09/24/2024 4:48 PM EDT [facility] Serum 09/19/2024 4:40 PM EDT 09/30/2024 11:07 AM EDT [facility] - 09/30/2024 11:07 AM EDT PERFORMED AT: [address] [id number] MATERIALS TECH: Arpit Ortega MD PHONE: [phone] Lon Sullivan MD LAB BLOOD ORDERABLES Final Resul t Performing Organization Address [facility] Co de Phone Number [facility] [address] [facility]. [address] * Allergen, Chicken Feathers (09/19/2024 4:40 PM EDT) Allergen Chicken Feathers <0.10 Class 0 kU/L 09/24/2024 4:48 PM EDT [facility] Serum 09/19/2024 4:40 PM EDT 09/30/2024 11:07 AM EDT [facility] - 09/30/2024 11:07 AM EDT PERFORMED AT: [address] [id number] MATERIALS TECH: Arpit Ortega MD PHONE: [phone] Lon Sullivan MD LAB BLOOD ORDERABLES Final Resul t Performing Organization Address City/[facility] Co de Phone Number [facility] [address]. [address] * Allergen, Sheep [place] (09/19/2024 4:40 PM EDT) Allergen Sheep [place] <0.10 Class 0 kU/L 09/24/2024 4:48 PM EDT [facility] Serum 09/19/2024 4:40 PM EDT 09/30/2024 11:07 AM EDT [facility] - 09/30/2024 11:07 AM EDT PERFORMED AT: [facility] [id number] MATERIALS TECH: Arpit Ortega MD PHONE: [phone] Lon Sullivan MD LAB BLOOD ORDERABLES Final Resul t Performing Organization Address City/[facility] Co de Phone Number [facility] [address] * Allergen, Bahia Grass (09/19/2024 4:40 PM EDT) Allergen Grass, Bahia <0.10 Class 0 kU/L 09/24/2024 4:48 PM EDT [facility] Serum 09/19/2024 4:40 PM EDT 09/30/2024 11:07 AM EDT [facility] - 09/30/2024 11:07 AM EDT PERFORMED AT: [facility] [address] [id number] MATERIALS TECH: Arpit Ortega MD PHONE: [phone] Lon Sullivan MD LAB BLOOD ORDERABLES Final Resul t Performing Organization Address City/[facility] Co de Phone Number [facility] [address] * Allergen, Fallon (09/19/2024 4:40 PM EDT) Allergen Fallon <0.10 Class 0 kU/L 09/24/2024 4:48 PM EDT [facility] Serum 09/19/2024 4:40 PM EDT 09/30/2024 11:07 AM EDT [facility] - 09/30/2024 11:07 AM EDT PERFORMED AT: [address] [id number] MATERIALS TECH: Arpit Ortega MD PHONE: [phone] Lon Sullivan MD LAB BLOOD ORDERABLES Final Resul t Performing Organization Address [facility] Co de Phone Number [facility] [address] [facility] [address] * Allergen, Eugene Grass (09/19/2024 4:40 PM EDT) Allergen Grass, Eugene <0.10 Class 0 kU/L 09/24/2024 4:48 PM EDT [facility] Serum 09/19/2024 4:40 PM EDT 09/30/2024 11:07 AM EDT [facility] - 09/30/2024 11:07 AM EDT PERFORMED AT: [address] [id number] MATERIALS TECH: Arpit Ortega MD PHONE: [phone] Lon Sullivan MD LAB BLOOD ORDERABLES Final Resul t Performing Organization Address [facility] Co de Phone Number [facility] [address] [facility] [address] * Allergen, [place], Mountain (09/19/2024 4:40 PM EDT) Allergen [place], [place] <0.10 Class 0 kU/L 09/24/2024 4:48 PM EDT [facility] Serum 09/19/2024 4:40 PM EDT 09/30/2024 11:07 AM EDT [facility] - 09/30/2024 11:07 AM EDT PERFORMED AT: [address] [id number] MATERIALS TECH: Arpit Ortega MD PHONE: [phone] Lon Sullivan MD LAB BLOOD ORDERABLES Final Resul t Performing Organization Address [facility] Co de Phone Number [facility] [address] * Allergen, Maple/[place] (09/19/2024 4:40 PM EDT) Allergen Maple/[place] <0.10 Class 0 kU/L 09/24/2024 4:48 PM EDT [facility] Serum 09/19/2024 4:40 PM EDT 09/30/2024 11:07 AM EDT [facility] - 09/30/2024 11:07 AM EDT PERFORMED AT: [address] [id number] MATERIALS TECH: Arpit Ortega MD PHONE: [phone] Lon Sullivan MD LAB BLOOD ORDERABLES Final Resul t Performing Organization Address [facility] de Phone Number [facility] [address] [facility] [address] * Allergen, [place], White (09/19/2024 4:40 PM EDT) Allergen [place], White <0.10 Class 0 kU/L 09/24/2024 4:48 PM EDT [facility] Serum 09/19/2024 4:40 PM EDT 09/30/2024 11:07 AM EDT [facility] - 09/30/2024 11:07 AM EDT PERFORMED AT: [address] [id number] MATERIALS TECH: Arpit Ortega MD PHONE: [phone] Lon Sullivan MD LAB BLOOD ORDERABLES Final Resul t [facility] [address] * Allergen, [place] Grass (09/19/2024 4:40 PM EDT) Allergen Grass, [place] <0.10 Class 0 kU/L 09/24/2024 4:48 PM EDT [facility] Serum 09/19/2024 4:40 PM EDT 09/30/2024 11:07 AM EDT [facility]arrative [facility] - 09/30/2024 11:07 AM EDT PERFORMED AT: [facility] [id number] MATERIALS TECH: Arpit Ortega MD PHONE: [phone] Lon Sullivan MD LAB BLOOD ORDERABLES Final Resul t Performing Organization Address [facility] Co de Phone Number [facility] [address] [facility] [address] * Allergen, Ragweed, Short (09/19/2024 4:40 PM EDT) Allergen Ragweed, Common <0.10 Class 0 kU/L 09/24/2024 4:48 PM EDT [facility] Serum 09/19/2024 4:40 PM EDT 09/30/2024 11:07 AM EDT [facility]arrative [facility] - 09/30/2024 11:07 AM EDT PERFORMED AT: [facility] [id number] MATERIALS TECH: Arpit Ortega MD PHONE: [phone] Lon Sullivan MD LAB BLOOD ORDERABLES Final Resul t Performing Organization Address City/State/[facility] Co de Phone Number [facility] [address] [facility]. [address] * Allergen, Cladosporium herbarum (09/19/2024 4:40 PM EDT) Allergen Cladosporium herbarum <0.10 Class 0 kU/L 09/24/2024 4:48 PM EDT [facility] Serum 09/19/2024 4:40 PM EDT 09/30/2024 11:07 AM EDT [facility] - 09/30/2024 11:07 AM EDT PERFORMED AT: [address] [id number] MATERIALS TECH: Arpit Ortega MD PHONE: [phone] Lon Sullivan MD LAB BLOOD ORDERABLES Final Resul t Performing Organization Address [facility] de Phone Number [facility] [address] [facility] [address] * Allergen, Alternaria alternata (09/19/2024 4:40 PM EDT) Allergen Alternaria alternata <0.10 Class 0 kU/L 09/24/2024 4:48 PM EDT [facility] Serum 09/19/2024 4:40 PM EDT 09/30/2024 11:07 AM EDT [facility]arrative [facility] - 09/30/2024 11:07 AM EDT PERFORMED AT: [address] [id number] MATERIALS TECH: Arpit Ortega MD PHONE: [phone] Lon Sullivan MD LAB BLOOD ORDERABLES Final Resul t Performing Organization Address [facility] Co de Phone Number [facility] [address] [facility] [address] * Allergen, Cat Hair/Dander (09/19/2024 4:40 PM EDT) Allergen Cat Dander <0.10 Class 0 kU/L 09/24/2024 4:48 PM EDT [facility] Comment: Levels of Specific IgE Class Description of Class ----- < 0.10 0 Negative 0.10 - 0.31 0/I Equivocal/Low 0.32 - 0.55 I Low 0.56 - 1.40 II Moderate 1.41 - 3.90 III High 3.91 - 19.00 IV Very High 19.01 - 100.00 V Very High >100.00 Very High Serum 09/19/2024 4:40 PM EDT 09/30/2024 11:07 AM EDT [facility] - 09/30/2024 11:07 AM EDT PERFORMED AT: [address] [id number] MATERIALS TECH: Arpit Ortega MD PHONE: [phone] Lon Sullivan MD LAB BLOOD ORDERABLES Final Resul t Performing Organization Address [facility] de Phone Number [facility] [address] [place] [address] * Allergen, Grass, Yoandy (09/19/2024 4:40 PM EDT) Allergen Grass, [place] <0.10 Class 0 kU/L 09/24/2024 4:48 PM EDT [facility] Serum 09/19/2024 4:40 PM EDT 09/30/2024 11:07 AM EDT [facility] - 09/30/2024 11:07 AM EDT PERFORMED AT: [address] [id number] MATERIALS TECH: Arpit Ortega MD PHONE: [phone] Lon Sullivan MD LAB BLOOD ORDERABLES Final Resul t Performing Organization Address [facility] de Phone Number [facility] [address] [place] [address] * Allergen, Trichoderma viride (09/19/2024 4:40 PM EDT) Allergen, Trichoderma viridae <0.10 Class 0 kU/L 09/30/2024 10:46 AM EDT [facility] Serum 09/19/2024 4:40 PM EDT 09/30/2024 11:07 AM EDT [facility] - 09/30/2024 11:07 AM EDT PERFORMED AT: [address] [id number] MATERIALS TECH: Arpit Ortega MD PHONE: [phone] Lon Sullivan MD LAB BLOOD ORDERABLES Final Resul t Performing Organization Address City/[facility] Co de Phone Number [facility] [address] [facility] [address] * Allergen, Mucor racemosus (09/19/2024 4:40 PM EDT) Allergen Mucor racemosus <0.10 Class 0 kU/L 09/24/2024 4:48 PM EDT [facility] Serum 09/19/2024 4:40 PM EDT 09/30/2024 11:07 AM EDT [facility] - 09/30/2024 11:07 AM EDT PERFORMED AT: [address] [id number] MATERIALS TECH: Arpit Ortega MD PHONE: [phone] Lon Sullivan MD LAB BLOOD ORDERABLES Final Resul t [facility] [address] [facility] [address] * Allergen, Setomelanomma Rostrat (09/19/2024 4:40 PM EDT) Allergen Setomelanomma rostrat <0.10 Class 0 kU/L 09/24/2024 4:48 PM EDT [facility] Serum 09/19/2024 4:40 PM EDT 09/30/2024 11:07 AM EDT Narrative [facility] - 09/30/2024 11:07 AM EDT PERFORMED AT: [address] [id number] MATERIALS TECH: Arpit Ortega MD PHONE: [phone] Lon Sullivan MD LAB BLOOD ORDERABLES Final Resul t Performing Organization Address [facility] de Phone Number [facility] [address] [facility] [address] * Allergen, Fusarium Proliferatum (09/19/2024 4:40 PM EDT) Allergen Fusarium proliferatum <0.10 Class 0 kU/L 09/24/2024 4:48 PM EDT [facility] Serum 09/19/2024 4:40 PM EDT 09/30/2024 11:07 AM EDT [facility] - 09/30/2024 11:07 AM EDT PERFORMED AT: [address] [id number] MATERIALS TECH: Arpit Ortega MD PHONE: [phone] Lon Sullivan MD LAB BLOOD ORDERABLES Final Resul t Performing Organization Address [facility] de Phone Number [facility] [address] [facility] [address] * Allergen, Epicoccum purpurasce (09/19/2024 4:40 PM EDT) Allergen Epicoccum purpurasce <0.10 Class 0 kU/L 09/24/2024 4:48 PM EDT [facility] Serum 09/19/2024 4:40 PM EDT 09/30/2024 11:07 AM EDT Narrative [facility] - 09/30/2024 11:07 AM EDT PERFORMED AT: [address] [id number] MATERIALS TECH: Arpit Ortega MD PHONE: [phone] Lon Sullivan MD LAB BLOOD ORDERABLES Final Resul t Performing Organization Address City/[facility]/ZIP Co de Phone Number [facility] [address] [facility]. [address] * Allergen, Rhizopus nigricans (09/19/2024 4:40 PM EDT) Allergen Rhizopus nigricans <0.10 Class 0 kU/L 09/24/2024 4:48 PM EDT [facility] Serum 09/19/2024 4:40 PM EDT 09/30/2024 11:07 AM EDT Narrative [facility] - 09/30/2024 11:07 AM EDT PERFORMED AT: [address] [id number] MATERIALS TECH: Arpit Ortega MD PHONE: [phone] Lon Sullivan MD LAB BLOOD ORDERABLES Final Resul t Performing Organization Address [facility] Co de Phone Number [facility] [address] [facility]. [address] * Allergen, Phoma betae (09/19/2024 4:40 PM EDT) Allergen, Phoma betae <0.10 Class 0 kU/L 09/24/2024 4:48 PM EDT [facility] Serum 09/19/2024 4:40 PM EDT 09/30/2024 11:07 AM EDT Narrative [facility] - 09/30/2024 11:07 AM EDT [facility] [id number] MATERIALS TECH: Arpit Ortega MD PHONE: [phone] Lon Sullivan MD LAB BLOOD ORDERABLES Final Resul t Performing Organization Address City/[facility]/ZIP Co de Phone Number [facility] [address]. [address] * Allergen, Adelina albicans (09/19/2024 4:40 PM EDT) Allergen Adelina albicans <0.10 Class 0 kU/L 09/24/2024 4:48 PM EDT [facility] Serum 09/19/2024 4:40 PM EDT 09/30/2024 11:07 AM EDT [facility] LAB - 09/30/2024 11:07 AM EDT PERFORMED AT: [facility] [id number] MATERIALS TECH: Arpit Ortega MD PHONE: [phone] Lon Sullivan MD LAB BLOOD ORDERABLES Final Resul t Performing Organization Address [facility] Co de Phone Number [facility] [address] [place] [address]. [address] * Allergen, Lostine Feathers (09/19/2024 4:40 PM EDT) ALLERGEN, TURKEY FEATHERS <0.10 Class 0 kU/L 09/26/2024 6:02 AM EDT [facility] Serum 09/19/2024 4:40 PM EDT 09/30/2024 11:07 AM EDT [facility] - 09/30/2024 11:07 AM EDT [facility]FORMED [facility] [id number] MATERIALS TECH: Arpit Ortega MD PHONE: [phone] Lon Sullivan MD LAB BLOOD ORDERABLES Final Resul t Performing Organization Address City/[facility]/ZIP Co de Phone Number [facility] [address] [facility] [address] * Allergen, Siegel's Quarter (09/19/2024 4:40 PM EDT) Allergen Siegel's Quarters <0.10 Class 0 kU/L 09/24/2024 4:48 PM EDT [facility] Serum 09/19/2024 4:40 PM EDT 09/30/2024 11:07 AM EDT Narrative HEALTH LAB - 09/30/2024 11:07 AM EDT PERFORMED AT: [address] [id number] MATERIALS TECH: Arpit Ortega MD PHONE: [phone] Lon Sullivan MD LAB BLOOD ORDERABLES Final Resul t Performing Organization Address [facility] de Phone Number [facility] [address] [facility] [address] * Allergen Plantain, Urdu (09/19/2024 4:40 PM EDT) Allergen Plantain, Urdu <0.10 Class 0 kU/L 09/24/2024 4:48 PM EDT [facility] Serum 09/19/2024 4:40 PM EDT 09/30/2024 11:07 AM EDT Narrative [facility] - 09/30/2024 11:07 AM EDT PERFORMED AT: [address] [id number] MATERIALS TECH: Arpit Ortega MD PHONE: [phone] Lon Sullivan MD LAB BLOOD ORDERABLES Final Resul t Performing Organization Address [facility] de Phone Number [facility] [address] [facility] [address] * Allergen, Pecan, [place] (09/19/2024 4:40 PM EDT) Allergen Pecan, [place] <0.10 Class 0 kU/L 09/24/2024 4:48 PM EDT [facility] Serum 09/19/2024 4:40 PM EDT 09/30/2024 11:07 AM EDT Narrative HEALTH LAB - 09/30/2024 11:07 AM EDT PERFORMED AT: [address] [place] [id number] MATERIALS TECH: Arpit Ortega MD PHONE: [phone] Lon Sullivan MD LAB BLOOD ORDERABLES Final Resul t Performing Organization Address [facility] de Phone Number [facility] [address] [place] [address]. [address] * Allergen, Penicillium Chrysogen (09/19/2024 4:40 PM EDT) Allergen Penicillium chrysogen <0.10 Class 0 kU/L 09/24/2024 4:48 PM EDT [facility] Serum 09/19/2024 4:40 PM EDT 09/30/2024 11:07 AM EDT Narrative [facility]ALTH [facility] - 09/30/2024 11:07 AM EDT PERFORMED AT: [address] [id number] MATERIALS TECH: Arpit Ortega MD PHONE: [phone] Lon Sullivan MD LAB BLOOD ORDERABLES Final Resul t Performing Organization Address [facility] de Phone Number [facility] [address] [place] [address]. [address] * Allergen, Bluegrass, [place] (09/19/2024 4:40 PM EDT) Allergen Grass, [place] Blue <0.10 Class 0 kU/L 09/24/2024 4:48 PM EDT [facility] Serum 09/19/2024 4:40 PM EDT 09/30/2024 11:07 AM EDT Narrative [facility]ALTH [facility] - 09/30/2024 11:07 AM EDT PERFORMED AT: [address] [id number] MATERIALS TECH: Arpit Ortega MD PHONE: [phone] Lon Sullivan MD LAB BLOOD ORDERABLES Final Resul t [facility] [address] * Allergen, Pigweed, Rough (09/19/2024 4:40 PM EDT) Allergen Pigweed, Rough <0.10 Class 0 kU/L 09/24/2024 4:48 PM EDT [facility] Serum 09/19/2024 4:40 PM EDT 09/30/2024 11:07 AM EDT Narrative [facility] - 09/30/2024 11:07 AM EDT PERFORMED AT: [facility] [id number] MATERIALS TECH: Arpit Ortega MD PHONE: [phone] Lon Sullivan MD LAB BLOOD ORDERABLES Final Resul t Performing Organization Address City/[facility] Co de Phone Number [facility] [address] [facility]. [address] * Allergen, Cockroach,Swiss (09/19/2024 4:40 PM EDT) Allergen Cockroach, Swiss <0.10 Class 0 kU/L 09/24/2024 4:48 PM EDT [facility] Serum 09/19/2024 4:40 PM EDT 09/30/2024 11:07 AM EDT Narrative [facility] - 09/30/2024 11:07 AM EDT PERFORMED AT: [facility] [id number] MATERIALS TECH: Arpit Ortega MD PHONE: [phone] Lon Sullivan MD LAB BLOOD ORDERABLES Final Resul t [facility] [address] [facility]. [address] * Allergen, Elm Swiss (09/19/2024 4:40 PM EDT) Allergen Elm, Swiss <0.10 Class 0 kU/L 09/24/2024 4:48 PM EDT [facility] Serum 09/19/2024 4:40 PM EDT 09/30/2024 11:07 AM EDT [facility]ALTH LAB - 09/30/2024 11:07 AM EDT PERFORMED AT: [address] [id number] MATERIALS TECH: Arpit Ortega MD PHONE: [phone] Lon Sullivan MD LAB BLOOD ORDERABLES Final Resul t Performing Organization Address [facility] de Phone Number [facility] [address] [facility] [address] * (ABNORMAL) Allergen, D Farinae Mite (09/19/2024 4:40 PM EDT) Allergen D Fainae Mite 0.13(A) Class 0/I kU/L 09/24/2024 4:48 PM EDT [facility] Serum 09/19/2024 4:40 PM EDT 09/30/2024 11:07 AM EDT [facility] - 09/30/2024 11:07 AM EDT PERFORMED AT: [address] [id number] MATERIALS TECH: Arpit Ortega MD PHONE: [phone] Lon Sullivan MD LAB BLOOD ORDERABLES Final Resul t Performing Organization Address City/[facility] Co de Phone Number [facility] [address] [facility] [address] * Allergen, Aspergillus fumigatus (09/19/2024 4:40 PM EDT) Allergen Aspergillus fumigatus <0.10 Class 0 kU/L 09/24/2024 4:48 PM EDT [facility] Serum 09/19/2024 4:40 PM EDT 09/30/2024 11:07 AM EDT Narrative HEALTH LAB - 09/30/2024 11:07 AM EDT PERFORMED AT: [facility] [address] [id number] MATERIALS TECH: Arpit Ortega MD PHONE: [phone] Lon Sullivan MD LAB BLOOD ORDERABLES Final Resul t Performing Organization Address [facility] de Phone Number [facility] [address] [facility] [address] * (ABNORMAL) Allergen, D pteronyssinus (09/19/2024 4:40 PM EDT) Allergen D pteronyssinus 0.14(A) Class 0/I kU/L 09/24/2024 4:48 PM EDT [facility] Serum 09/19/2024 4:40 PM EDT 09/30/2024 11:07 AM EDT Narrative [facility] - 09/30/2024 11:07 AM EDT PERFORMED AT: [facility] [id number] MATERIALS TECH: Arpit Ortega MD PHONE: [phone] Lon Sullivan MD LAB BLOOD ORDERABLES Final Resul t Performing Organization Address [facility] Co de Phone Number [facility] [address] [facility] [address] * Allergen, Dog Hair/Dander (09/19/2024 4:40 PM EDT) Allergen Dog Hair/Dander <0.10 Class 0 kU/L 09/24/2024 4:48 PM EDT [facility] Serum 09/19/2024 4:40 PM EDT 09/30/2024 11:07 AM EDT Narrative HEALTH LAB - 09/30/2024 11:07 AM EDT PERFORMED AT: [facility] [id number] MATERIALS TECH: Arpit Ortega MD PHONE: [phone] Lon Sullivan MD LAB BLOOD ORDERABLES Final Resul t [facility] [address] [facility] [place] [address], [facility] * Differential (09/19/2024 4:26 PM EDT) Neutrophils Relative 66.9 40.0 - 80.0 % 09/19/2024 8:09 PM EDT [facility] Lymphocytes Relative 27.9 15.0 - 45.0 % 09/19/2024 8:09 PM EDT [facility] Monocytes Relative 3.6 0.0 - 12.0 % 09/19/2024 8:09 PM EDT [facility] Eosinophils Relative 1.2 0.0 - 8.0 % 09/19/2024 8:09 PM EDT [facility] Basophils Relative 0.4 0.0 - 1.0 % 09/19/2024 8:09 PM EDT [facility] nRBC 0 0 - 0 /100 WBC 09/19/2024 8:09 PM EDT [facility] Neutrophils Absolute 7,694 1,520 - 8,640 /uL 09/19/2024 8:09 PM EDT [facility] Lymphocytes Absolute 3,209 570 - 4,860 /uL 09/19/2024 8:09 PM EDT [facility] Monocytes Absolute 414 0 - 1,296 /uL 09/19/2024 8:09 PM EDT [facility] Eosinophils Absolute 138 0 - 864 /uL 09/19/2024 8:09 PM EDT [facility] Basophils Absolute 46 0 - 108 /uL 09/19/2024 8:09 PM EDT [facility] Whole Blood 09/19/2024 4:26 PM EDT 09/19/2024 8:00 PM EDT Lon Sullivan MD LAB BLOOD ORDERABLES Final Resul t [facility] [address] [facility] [place] [address], [facility] * (ABNORMAL) CBC (09/19/2024 4:26 PM EDT) WBC 11.5(H) 3.8 - 10.8 10E3/uL 09/19/2024 8:09 PM EDT [facility] RBC 4.78 3.80 - 5.10 10E6/uL 09/19/2024 8:09 PM EDT [facility] Hemoglobin 14.8 11.7 - 15.5 g/dL 09/19/2024 8:09 PM EDT [facility] Hematocrit 43.8 35.0 - 45.0 % 09/19/2024 8:09 PM EDT [facility] MCV 91.7 80.0 - 100.0 fL 09/19/2024 8:09 PM EDT [facility] MCH 31.0 27.0 - 33.0 pg 09/19/2024 8:09 PM EDT [facility] MCHC 33.8 32.0 - 36.0 g/dL 09/19/2024 8:09 PM EDT [facility] RDW 13.0 11.0 - 15.0 % 09/19/2024 8:09 PM EDT [facility] Platelets 370 140 - 400 10E3/uL 09/19/2024 8:09 PM EDT [facility] MPV 7.8 7.5 - 11.5 fL 09/19/2024 8:09 PM EDT [facility] Whole Blood 09/19/2024 4:26 PM EDT 09/19/2024 8:00 PM EDT us Lon Sullivan MD LAB BLOOD ORDERABLES Final Resul t [facility] [address] documented in this encounter Visit Diagnoses Diagnosis Dyspnea on exertion- Primary Other dyspnea and respiratory abnormality Environmental and seasonal allergies Severe persistent asthma without complication (CMS-HCC) documented in this encounter Care Teams Turbine Blade Assembler Relationship Specialty Start Date End Date Sugey Kurtz MD PCP - General Family Medicine 03/30/22 10/09/24 documented as of this encounter
--- OUTSIDE RECORDS SUMMARY | 2024-10-03 13:20 | XMS_ITS | Encounter Summary ---
Author Organization [place] [address] Care Team Providers Care Paper Twister Tender Name Role Phone Abiodun Maye BEAN Primary Care Provider [phone] Frankie Huitron MD Unavailable [phone] Reason for Visit * Reason Comments Labs Only Encounter Details Date Type Department Care Team (Latest Contact Info) Description 10/03/2024 1:20 PM EDT Clinical Support [facility] [place] [address] [place] [address] Ar Angulo MA Post-surgical hypothyroidism Social History Tobacco Use Types Packs/Day Years Used Date Smoking Tobacco: Every Day Cigarettes 1 17.5 Started: 05/22/2007 Smokeless Tobacco: Never Alcohol Use Standard Drinks/Week Comments Never 0 (1 standard drink = 0.6 oz pur e alcohol) [facility] Utilities Answer Date Recorded In the past 12 months has [employer], gas, oil, or water Plurality threatened to shut off services in your home? No 11/13/2023 Overall Financial Resource Strain (CARDIA) Answe r Date Recorded How hard is it for you to pa y for the very basics like food, housing, medical care, and heating? Not hard at all 11/13/2023 PHQ-2 Answer Date Recorded PHQ-2 Total Score 0 09/18/2024 [facility] [place] of Occupat ional Health - Occupational Stress [...] place to sleep or slept in a usp (including now)? No 01/14/2021 [facility] IP Transportation Answer D ate Recorded In [...] on file documented as of this encounter Functional Status * Is the [...] 3:48 PM EDT Magdi More RN documented as of this encounter Mental Status * Because of a physical, mental or emotional condition, does this person have serious difficulty concentrating, remembering or making decisions? Answer Entry Date Author No 11/21/2023 3:48 PM EDT Magdi More RN documented in this encounter Plan of Treatment Upcoming Encounters Date Type Department Care Team (Late st Contact Info) Description 01/07/2025 11:00 AM EST Telemedicine [facility] [address] [facility] [address] [place] [id number] Kirit Bailey MD [address] [facility] [address] [place] [phone] 02/21/2025 8:30 AM EST Office Visit [facility] [address] [place] [address] Anyi Juarez APRN [address] [place] [address] documented as of this encounter Goals Goal Patient Goal Type Associated Problems Recent Progress Patient-Stated? Author Blood Pressure < 140/90 Blood Pressure 115/80(2024 4:23 PM EDT) No Maye Rascon APRN Maintain a healthy diet, exercise regularly and maintain an ideal body weight General No Cydney Ralph CCMA Stay Tobacco Free Lifestyle No Cydney Ralph CCMA documented as of this encounter Procedures Procedure Name Priority Date/Time Associated Diagnosis Comments TSH REFLEX TO FT4 Routine 10/03/2024 1:3 5 PM EDT Post-surgical hypothyroidism T4, FREE (THYROXINE) Routine 10/03/2024 1:35 PM EDT Post-surgical hypothyroidism documented in this encounter Results * T4, FREE (THYROXINE) (10/03/2024 1:35 PM EDT) Free T4 1.47 0.80 - 1.80 ng/dL 10/04/2024 12:02 AM EDT [facility] Blood VENOUS BLOOD / Unknown Venipuncture / Unknown 10/03/2024 1:35 PM EDT 10/03/2024 1:35 PM EDT Narrative [facility] [facility] - 10/04/2024 12:02 AM EDT Ingestion of catrina doses of biotin (>5 mg/day) taken within 8 hours of drawing blood sample can interfere with this immunoassay test. Kirit Bailey MD CHEMISTRY ORDERABLES [facility] al Result [facility] [address] [facility] , [place] [address] * (ABNORMAL) TSH REFLEX TO FT4 (10/03/2024 1:35 PM EDT) TSH Reflex 8.200(H) 0.270 - 4.200 mcIU/mL 10/03/2024 11:20 PM EDT [employer] [facility] Blood VENOUS BLOOD / Unknown Venipuncture / Unknown 10/03/2024 1:35 PM EDT 10/03/2024 1:35 PM EDT Narrative [employer] [facility] - 10/03/2024 11:20 PM EDT Ingestion of catrina doses of biotin (>5 mg/day) taken within 8 hours of drawing blood sample can interfere with this immunoassay test. Kirit Bailey MD CHEMISTRY ORDERABLES Fin al Result [facility] [address] [facility] [address] , [place] [address] documented in this encounter Visit Diagnoses Diagnosis Post-surgical hypothyroidism Postsurgical hypothyroidism documented in this encounter Care Teams Paper Twister Tender Relationship Specialty Start Date End Date Maye Rascon APRN [address] [address] PCP - General Nurse Practitioner-Family 06/08/23 Frankie Huitron MD [address] [facility] [address] [place] [address] Otolaryngology 10/02/23 documented as of this encounter
--- OUTSIDE RECORDS SUMMARY | 2024-10-10 09:00 | XMS_ITS | Encounter Summary ---
Author Organization [facility] Address [address] [place] [address] Care Team Providers Care Examination Scorer Name Role Phone Maye Rascon GENEVA Primary Care Provider [phone] Source Comments This information has been disclosed [...] release of HIV test results or diagnoses. [id number] Health Encounter Details Date Type Department Care Team (Latest Contact Info) Description 10/10/2024 9:00 AM EDT Clinical Support [facility] ENT at [facility] [address] [facility] [address] [place], [place] [id number] Bianca Pleitez MD [address] [facility] [place] [address] Jessica Richards, YARD STOCKER Environmental and seasonal allergies (Primary Dx) Social History Tobacco Use Types Packs/Day Years [...] on file documented as of this encounter Progress Notes * Jessica Richards, DAREK - 10/10/2024 9:00 AM EDT Patient:Tamika Brady : 1990 Physician: MARIBELL ORANTES The purpose of this allergy and asthma questionnaire is to help your doctor and allergy nurse obtain a thorough allergy history. It is extremely importnt to have an accurate and complete history, so we can compare your daily exposures to symptoms you are having; with this information we can customize your treatment based on your history, symptoms and testing results. Please have this questionnaire filled out and bring it with you for your allergy testing. Do you suffer from any skin disorders i.e., Eczema or angioedema?___ANGIOEDEMA Have you ever been told that you have asthma?__YES__ Have you ever had an anaphylactic reaction? YES FROM SULFA Have you had your tonsils and adenoids removed, or PE tubes placed in your ears? __T&A____ Are you taking any over the counter medications that have antihistamines in them? ____ZYRTEC What is your working/living environment like? i.e., tobacco smoke, moldy, poor filtration etc NOT WORKING/HOME MOLD ISSUE What is your exposure to animals? ____2 DOGS____ What are your occupation/hobbies? __NOT WORKING/CRAFTS How old is your home/apartment? __HOUSE BUILT 2015 Does your home have hardwood floors or carpeting, if carpeting how long has it been there? ___BOTH/CARPET 9 YEARS OLD Do you have mulch in your yard? _YES_ Do you use a live or artificial [place] tree? __ARTIFICIAL____ Do you have a basement? __NO___ is it finished or unfinished? ____N/A_ Have you ever been tested for allergies before? __YES__ Are your symptoms all the time or at certain times of the year and if so when? _ALL YEAR WORSE WINTER AND SPRING____ Do you wake up in the AM with nasal congestion or headaches? ___CONGESTION Do you snore at night? _NO_ Do you wake up during the night coughing? _YES___ Does any family members have allergies, asthma or sinus issues? ___MOM AND SON ALLERGIES AND ASTHMA Do you have any known food ALLERGIES SHRIMP Do you take any medication called a beta harleen (commonly used for high blood pressure, migraine headaches or glaucoma)? ___NO____ What symptoms are you having: Sinus headaches_YES__ Sinus pressure and facial pain_YES___chronic sinus infections__YES__ Sneezing_NO__Coughing_YES___Post nasal discharge_YES__ Dry itchy eyes NO___ Watery itchy eyes__NO_ Watery itchy nose__YES__ Ear fullness (ears are plugged, need to pop your ears or feel like you???re under water___YES___ Throat clearing_YES__ Reflux (acid reflex) _YES_ the sensation of something caught in your throat___YES_ Wheezing_YES___ Short of breath__YES__ Dry itchy skin_NO___ Rashes_YES_ QUESTIONS FOR PATIENTS WITH ASTHMA Do you take a rescue inhaler more than twice a week YES Are you woken up at night with asthma symptoms more than three times a year YES Do you refill your rescue inhaler more than three times a year YES____ Is your asthma worse at certain times of the year NO What are your asthma triggers STRONG ODORS Do you require any oral or injection steroid medication for your asthma____YES Patient: Tamika Brady : 1990 Provider: Maribell ORANTES Date: 10/10/24 ANTIGEN PRICK #5 #4 #3 #2 END POINT DUST MITES 1) D. Farinae 2 - - - 5 - 2) D. Pteronyssinus 2 - - - 5 - 3) Cockroach, Beninese 0 - - - 5 - 4) Cat, standardized 0 - - - 5 - 5) Dog Hair 0 - - - 5 - MOLDS 6) Alternaria 0 - - - 5 - 7) Aspergillus fumigatus 0 - - - 5 - 8) Helminthosporium 0 - - - 5 - 9) Cladsporium 0 - - - 5 - 10) Adelina Albicans 0 - - - 9 3 11) Penicillium notatum 0 - - - 5 - 12) Fusarium oxysporium 0 - - - 7 3 13) Epiccocum 0 - - - 5 - 14) Pullularia 0 - - - 5 - 15) Rhizopus 0 - - - 7 3 TREES (Mar-June) 16) Harper, Red 0 - - - 5 - 17) Birch, Red (River) 0 - - - 5 - 18) Leandro, White 0 - - - 5 - 19) Pecan/Bicknell 0 - - - 5 - 20) Box elder/Maple 0 - - - 5 - 21) [place], Northern Red 0 - - - 5 - 22) [place], Eastern 0 - - - 5 - WEEDS (August-Oct) 23) Cymro Plantain 0 - - - 5 - 24) Ragweed Short/Giant 0 - - - 5 - 25) Lambs quarter 0 - - - 5 - 26) Pigweed 0 - - - 5 - 27)Romeo 0 - - - 5 - 28)Wormwood 0 - - - 5 - GRASSES () 29) Eugene grass 0 - - - 5 - 30) Yoandy grass 0 - - - 5 - 31) Bermuda Grass 0 - - - 5 - Miscl. 32) Mouse epithelia 0 - - - 5 - + control HISTAMINE 9 - - - 9 - - control GLYCERIN 0 - - - 5 - Informed consent obtained prior to testing. Pt has history of asthma. Is not taking a Beta-Harleen.Denies being . Pt tolerates testing without difficulty. Discuss care for prick sites post test. Benadryl extra -strength gel applied to test sites. Patient was given educational materials covering the following: Mite and mold avoidance and concomitant food information. Pt taken to for post vist with Matias ORANTES regarding test results. documented in this encounter Plan of Treatment Not on file documented as of this encounter Visit Diagnoses Diagnosis Environmental and seasonal allergies- Primary documented in this encounter Administered Medications Inactive Administered Medications - up to 3 most recent administrations Medication Order MAR Action Action Date Dose Rate Site diphenhydrAMINE HCL (BENADRYL EXTRA STRENGTH) 2 % topical gel Topical, Once, On Lisa 10/10/24 at 1130, For 1 dose, Apply to: Arm, left, Arm, rightIndications:Environmental and seasonal allergies Given 10/10/2024 11:27 AM EDT documented in this encounter Care Teams Examination Scorer Relationship Specialty Start Date End Date Maye Rascon APRN [address] [place], [place] [id number] PCP - General Vegetable Picker 10/10/24 documented as of this encounter
--- OUTSIDE RECORDS SUMMARY | 2024-10-10 11:40 | XMS_ITS | Encounter Summary ---
Author Organization [facility] Address [address] [place] [address] Care Team Providers Care Minister Of Religion Name Role Phone BellechesterMaye abdullahi GENEVA Primary Care Provider [phone] Source Comments This information has been disclosed [...] release of HIV test results or diagnoses. [id number] Reason for Visit * Reason Comments Allergies Allergy testing foll ow up Encounter Details Date Type Department Care Team (Late st Contact Info) Description 10/10/2024 11:40 AM EDT Office Visit [facility] ENT at [facility] [address] [facility] [address] [place] [id number] Bret Souza PA [address] [place] [address] Environmental and seasonal allergies (Primary Dx) Social [...] Sign Reading Time Taken Comments Blood Pressure 122/80 10/10/2024 11:31 AM EDT Pulse 84 10/10/2024 11:31 AM EDT Temperature - - Respiratory Rate 16 10/10/2024 11:31 AM EDT Oxygen Saturation 98% 10/10/2024 11:31 AM EDT Inhaled Oxygen Concentration 98% 10/10/2024 1 1:31 AM EDT Weight 73.1 kg (161 lb 1.6 oz) 10/10/2024 11:31 AM EDT Height 165.1 cm (5' 5 ) 10/10/2024 11:31 AM EDT Body Mass Index 26.81 10/10/2024 11:31 AM EDT documented in this encounter Progress Notes * ROLANDA Laboy - 10/10/2024 11:40 AM EDT Vitals: 10/10/24 1131 BP: 122/80 BP Location: Right upper arm Patient Position: Sitting BP Cuff Size: Regular Pulse: 84 Resp: 16 SpO2: 98% Weight: 161 lb 1.6 oz (73.1 kg) Height: 5' 5 (1.651 m) Chief Complaint Patient presents with Allergies Allergy testing follow up Cancer Staging: Cancer Staging No matching staging information was found for the patient. Subjective History of Present Illness: Patient ID: Tamika Brady is a 34 y.o. female presents to the clinic for several medical related concerns including confusion, fatigue and feeling sick for the last 3 to 4 years . Again the patient is with a rather extensive past medical history and with a significant medical workup prior to today's office visit. There was initial confusion as to why the patient was seeing me today. The patient reports that shewas under the impression that she was meeting a neurologist today. I discussed with the patient that we are the ears nose and throat department. She stated understanding. She does still have other ENT related concerns and would still like to continue with today's office visit. Patient reports that a significant workup has already been obtained through [facility] however she has not been satisfied with their care and would like to transfer to . She was last seen by an ENT with [facility] on 07/24/2024. This visit was primarily for concerns of dysphagia. Patient reports that she has had troubles with swallowing since October 2023. Specifically difficulty with swallowing solids. She reports that she has already had extensive GI workup and was told that they cannot identify any significant abnormalities. She feels that she has a chronic feeling ofmucus production that stays trapped in her throat. 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 Patient has had EGD and laryngoscopy and prior evaluations. She has a previously pending manometry with GI. She had a prior modified barium swallow. 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 Imaging previously showed phlegm in the pharynx around the epiglottis. Again laryngoscopy remains normal. Previous documentation of discussing an upcoming endoflip procedure with GI. She has also been evaluated by ENT for sinus related complaints. She has also been seen and evaluated by allergy and immunology who referred the patient to the [facility]. Previous CT imaging was reported to show no evidence of sinusitis. In regards to seasonal and environmental allergies she feels that she does suffer from them. She notes that she will experience hives along her skin, wheezing, shortness of breath, dizziness, nasal obstruction, postnasal drip and diminished sense of smell. She feels that allergy symptoms are year-round however they can get worse during the winter and spring months. Patient reports that she is currently living in a house that was built approximately 9 years ago. She states that she has been dealing with mold concerns in the house. 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 She reports that she is currently at a point where she cannot sleep in her own home and has been sleeping in her car due to the concerns of mold exposure. She reports that she has had previous allergy testing. I am able to see blood test results from 09/21/2023 and 08/12/2024. 09/21/2023 testing did not reveal any obvious abnormalities. She reports that shehad plans for upcoming skin testing this past Monday with [facility] but it was recommended to hold as there was some hesitancy and causing further symptoms. Patient did have a recent emergency room visit on 08/18/2024 due to concerns of an allergic reaction.Patient had complaints of a rash and feeling as if her throat was closing. She was given Benadryl, Zofran and Solu-Medrol at the time. She denies exposure to new soaps, detergents or clothing. There is documented concerns for illness anxiety disorder. She also reports concerns of ear fullness in both ears. She denies any significant ear pain or ear drainage. She feels that she is frequently getting sinus infections multiple times a year and is currently elle oral antibiotic prescribed by her PCP. Medications at this time include a variety of treatments including Loyal pot, Pepcid, Benadryl, azelastine, Flonase, Singulair and inhalers. She states that she has upcoming plans to meet with a rn integrity for further evaluation. Again with plans to meet with neurology due to brain fog, memory loss and confusion with overall body aches and fatigue. Interval History 10/10/24: Patient returns for follow up on recent allergy testing. Since last office visit, she has been told of an asthma diagnosis and have been using both albuterol and Symbicort which she reports has been beneficial for her. She notes that since having to stop her allergy regimen these past 72 hours prior to allergy testing, she has noticed a return in allergy like symptoms. Normal regimen includes zyrtec, pepcid, flonase, azelastine and singulair. She reports she is trying to look at news places to live given her concern of chronic mold in her house/apartment. There has also been concern of autoimmune disease and [facility] She states her PCP wants rheumatology evaluation first and then possible neurology evaluation given concerns of memory loss, confusion, body aches and fatigue. Objective Past Medical History: She has a past medical history of Depression, FH: allergy, Urticaria, and Varicella. Social History: She reports that she has been smoking cigarettes. She has a 7.5 pack-year smoking history. She has never used smokeless tobacco. She reports that she does not drink alcohol and does not use drugs. Physical Exam: General: Well-developed, well-nourished female in no acute distress. I was able to converse well with the patient. The patient is able to answer questions adequately and appropriately. Psychiatric: NL mood and affect. A+O x 4. Neck: Overall appearance NL. No masses. Neck symmetric with NL tracheal position. No crepitus. No masses, tenderness Salivary glands NL size. Lymphatic: No lymphadenopathy on neck palpation. Head and Face: AT-NC. Eye: Ocular motility NL. No erythema or infection. Nose: External nose without infection or abnormality. Anterior rhinoscopy performed. Mucosa intact.Bilateral inferior turbinate hypertrophy. No masses, polyps, or pus. No septal perforation. OC/OP: Lips are in good condition. Teeth and gums are in good condition. Mucosa: No leukoplakia or masses. Hard/soft palates and tongue of NL symmetry. Pharyngeal winters and tonsillar fossae without abnormalities. Skin: Visual examination of the scalp, neck, and head reveals no acute significant rashes, ulcerations, nodules, or lesions. Ears: External ears have a normal appearance with no masses, lesions, or scars. Otoscopy: - Right: EAC normal; TM flat, mobile, and light reflex is present in anterior inferior quadrant; middle ear clear - Left: EAC normal; TM flat, mobile, and light reflex is present in anterior inferior quadrant; middle ear clear Cardiovascular: Warm and well perfused. Respiratory: normal effort, no acute distress. Neurologic: Facial nerve function grade I. Other cranial nerves grossly WNL. Procedure Note: None. Testing: - 08/26/2024 audiogram: AU: Hearing is within normal limits. Type a tympanograms. Excellent word recognition at 10 dB 100%. 10/10/24 Allergy Testing: Patient with only mild sensitivity to molds. Adelina Albicans, Fusarium oxysporium and Rhizopus. *Patient with multiple testing and imaging -Barium Swallow 11/13/23 -Esophageal manometry 12/12/23 -EGD 08/13/24 -CT Sinus 12/22/23: IMPRESSION: Essentially clear paranasal sinuses with preserved aeration of the sinus drainage pathways. Assessment and Plan: Patient returns to office today for evaluation of seasonal and environmental allergies and here to review most recent allergy testing. Patient with original complaints being confused, fatigued and always sick . Has since been treated for asthma with albuterol and symbicort. Plans to meet Rheumatology next month with for concern of possible autoimmune conditions. Allergy testing reviewed today and patient with only 3 mild sensitivities to molds. Patient to continue current allergy regimen at this time now that allergy testing has been complete. Zyrtec, pepcid, flonase and azelastine. Will add nasal crom. Continue asthma inhalers. Can consider allergy immunotherapy, but would like to wait until further Rheumatology evaluation. Patient to send me a message via [employer] after her appointment. Concerns of throglossal duct cyst? Will talk with head and neck team. 34 y.o. White or female No diagnosis found. Activation code not generated Current [facility] Status: Active LOS: No LOS data to display documented in this encounter Plan of Treatment Not on file documented as of this encounter Visit Diagnoses Diagnosis Environmental and seasonal allergies- Primary documented in this encounter Care Teams Minister Of Religion Relationship Specialty Start Date End Date Maye Rascon APRN [employer] [place] [id number] PCP - General Photo Checker 10/10/24 documented as of this encounter
[2024-11-11 08:39] VITALS: BP 141/90; PULSE 86; RESP 18; TEMP 36.9; O2SAT 99; BMI 25.0
[2024-11-11 08:47] LABS: Coronavirus 19, PCR Not Detected (NotDetected); Influenza A, PCR Not Detected (NotDetected); Influenza B, PCR Not Detected (NotDetected)
--- OUTSIDE RECORDS SUMMARY | 2024-11-11 08:47 | XMS_ITS | Clinical Summary ---
Author Organization [facility] Address [address] [place] [address] Care Team Providers Care Teller Manager Name Role Phone Unavailable Primary Care Provider Unavailabl e Source Comments [facility] is fully rolled out with thefollowing exceptions:General Clinical Research [facility] Social History Tobacco Use Types Packs/Day [...] of 3 - 19+ 3-dose series) 2009 HPV IMMUNIZATION (1 - 3-dose SCDM series) 2017 AMB SEASONAL FLU VACCINE (#1) 10/14/2024 COVID-19 Vaccine ( - 2023-2 5 season) 2024 HIB IMMUNIZATION Aged Out No longer [...]
--- OUTSIDE RECORDS SUMMARY | 2024-11-11 08:47 | XMS_ITS | Patient Health Record ---
[facility] Organization [facility] [address] [facility] [address] [facility] [address] [place] [id number] Care Team Providers Care Acute Care Nurse Practitioner Name Role Phone Antonia Blackman Primary Care Provider Allergies Allergen (clinical drug ingredient) Drug/Non Drug Allergy documented on EMR Reaction Allergy Type Onset Date Status vancomycin Vancomycin hives Drug Allergy Activ e Reason For Referral No Information Medications Medication SIG (Take, Route, Fr equency, Duration) Notes Start Date End Date Status Promethazine-DM 6.25-15 MG/5ML 5 mL orally every 6 hours 05/22/2014 Ac tive Zithromax Z-Isaias 250 MG 2 pills first day then one daily for 4 days orally as directed; Duration: 5 days 05/22/2014 Activ e Synthroid 50 MCG orally 1 daily Active Nexplanon 68 MG 1 ea subcutaneously once; Duration: 1 dose(s) Active Ibuprofen 800 MG 1 tab(s) orally 3 ti mes a day; Duration: 30 day(s) 03/25/2014 Active Problems Problem Type SNOMED Code ICD Code Onset Dates Problem Status W/U Status Risk Notes Problem Anxiety disorder (810824399) Anxiety disorder NOS (300.00) Active confirmed Problem Gastroesophageal reflux disease (disorder) (176114271) GERD [Gastroesoph ageal reflux disease] (530.81) Active confirmed Plan Of Treatment No Information Insurance Providers Payer Name Payer Address Payer Phone Subscriber Number Group Number Insured Name Patient Relationship to Insured Coverage Start Date Coverage End Date Psychiatric [address] [place] [address] [id number] [employer] Self - patient is the insured Medical (General) History Medical History History ICD Code bilateral broken forearm Surgical History Surgery Date(Month/Year) tonsillectomy 1997 laparoscopy 2012 Hospitalization History Reason Date(Month/Year) [facility] ER, upper respiratory infection June 2007 childbirth 10/15/2009 [facility] for infection 04/17/2011 uti 01/08/13
--- OUTSIDE RECORDS SUMMARY | 2024-11-11 08:47 | XMS_ITS | Patient Health Record ---
Author Organization [facility] Address [address] [place] [address] Care Team Providers Care Roll Edge Stitcher Hand Name Role Phone Bianca Garcia [phone] Allergies Allergen (clinical drug ingredient) Drug/Non Drug Allergy documented on EMR Reaction Allergy Type Onset Date Status sulfamethoxazole / trimethoprim Bactrim DS anaphylaxis Drug Allergy Active droperidol DroPERidol hives Drug Allergy Activ e vancomycin Vancomycin rash Drug Allergy Activ e Reason For Referral No Information Medications Medication SIG (Take, Route, Frequency, Duration) Notes Start Date End Date Status Suboxone 8-2 MG 1 film under the tongue and allow to dissolve Sublingual Once a day Active Advair Diskus 100-50 MCG/ACT 1 puff Inhalation Twice a day Active Ventolin HFA 108 (90 Base) MCG/ACT 1 puff as needed Inhalation every 4 hrs Active Protonix 40 MG 1 tablet 1/2 to 1 hour before morning meal Orally Once a day Active Singulair 10 MG 1 tablet Orally Once a day Active ZyrTEC Allergy 10 MG 1 tablet Orally Once a day Active Doxycycline Monohydrate 25 MG/5ML 20ml Orally Twice a day; Duration: 7 days unable to swallow tablets 09/04/2024 Active Nexplanon *Please review and pick correct strength-formulat ion from Fi[employer]ullyspan options. If intended option is not shown, discontinue and re-order from Quick Search* Active Levothyroxine Sodium 150 MCG 1 tablet in the morning on an empty stomach daily *Please review and pick correct strength-formulat ion from [employer]ullyspan options. If intended option is not shown, discontinue and re-order from Quick Search* Active Percocet q6 prn *Please review and pick correct strength-formulat ion from [employer]ullyspan options. If intended option is not shown, discontinue and re-order from Quick Search* Not-Taking LORazepam tid prn *Please review and pick correct strength-formulat ion from Medispan options. If intended option is not shown, discontinue and re-order from Quick Search* Not-Taking Promethazine HCl 25 MG 1 tab(s) orally every 6 hours; Duration: 7 day(s) 02/02/2020 Not-Taking oxyCODONE HCl *Please review and pick correct strength-formulat ion from [employer]ullyspan options. If intended option is not shown, discontinue and re-order from Quick Search* Not-Taking Social History Tobacco Use: Social History Observation Description Date Details (start date - stop date) Current Smoker NA - NA Tobacco Control (Standard) Question Answer Notes Tobacco use: Current smoker How many cigarettes a day do you smoke? 01-02 Vital Signs Temperature 99.0 degrees Fahrenheit 09/04/2024 Respiratory Rate 18 /min 09/04/2024 Blood pressure diastolic 68 mm Hg 09/04/2024 Height 65 in 09/04/2024 Blood pressure systolic 118 mm Hg 09/04/2024 Weight 160 lbs 09/04/2024 BMI 26.62 kg/m2 09/04/2024 Encounters Encounter Location Date Provider Diagnosis [facility] [address] [facility] [address] [place] [address] 09/04/2024 Bianca Garcia Acute sinusitis with symptoms greater than 10 days J01.90 ; Negative depression screening Z13.31 and Tobacco abuse Z72.0 [facility] [address] [facility] [address] [place] [address] 09/05/2024 Bianca Garcia Assessments Encounter Date Diagnosis (ICD Code) Assessment Notes Treatment Notes Treatment Clinical Notes Section Notes 09/04/2024 Acute sinusitis with symptoms greater than 10 days (ICD-10 - J01.90) Acute Sinusitis: Care Instructions material was published 09/04/2024 Negative depression screening (ICD-10 - Z13.31) 09/04/2024 Tobacco abuse (ICD-10 - Z72.0) Learning About Benefits of Quitting Smoking material was published Plan Of Treatment No Information Insurance Providers Payer Name Payer Address Payer Phone Subscriber Number Group Number Insured Name Patient Relationship to Insured Coverage Start Date Coverage End Date [employer] [address] [address] [place] [address] [id number] [employer] Self - patient is the insured Medical (General) History Medical History History ICD Code ovarian cysts stomach ulcers bile reflux thyroid CA with removal Surgical History Surgery Date(Month/Year) thyroidectomy ovarian cyst back procedure (ablation) tonsils and adenoids Hospitalization History Reason Date(Month/Year) urosepsis 2013 adn 2014
--- OUTSIDE RECORDS SUMMARY | 2024-11-11 08:47 | XMS_ITS | Encounter Summary ---
Author Organization [place] [address] Care Team Providers Care Policy Specialist Name Role Phone Maye Rascon APRN Primary Care Provider [phone] Frankie Huitron MD Unavailable [phone] Reason for Referral * Consultation (Routine) - Denied Specialty Diagnoses / Procedures Referred By Contac t Referred To Contact Rheumatology Diagnoses High serum total hemolytic complement CH50 Procedures [place] OFFICE/OUTPATIENT NEW MODERATE MDM 45 MINUTES Maye Rascon APRN [address] [place] [address] Phone: tel: fax: [place] [address] [place] [phone] Phone: tel: fax: Referral ID Status Reason Start Date Expiration Date Visits Re quested Visits Authorized [id number] Denied 08/20/2024 08/20/2025 99 0 Question Answer Reason for referral: high CH50, recurrent inflammation, infections, r/o autoimmune disease. Encounter Details Date Type Department Care Team (Latest Contact Info) Description 08/20/2024 Results Follow-Up [facility] Sariah [address] [place] [address] Maye Rascon APRN [address] [place] [address] CBC WITH DIFF, COMPREHENSIVE METABOLIC PANEL, VITAMIN B12/ FOLIC ACID, Additional followed-up results: 14 Social History Tobacco Use Types Packs/Day Years Used Date Smoking Tobacco: Every Day Cigarettes 1 17.5 Started: 05/22/2007 Smokeless Tobacco: Never Alcohol Use Standard Drinks/Week Comments Never 0 (1 standard drink = 0.6 oz pur e alcohol) [facility] Utilities Answer Date Recorded In the past [...] Date Recorded PHQ-2 Total Score 0 09/18/2024 [facility] - Occupational Stress Questionnaire Answer Date Recorded [...] place to sleep or slept in a custodial (including now)? No [facility]20[facility] Answer D ate Recorded [...] of Assessment Author No 11/21/2023 3:48 PM Magdi Rose RN * Is the person blind or does he/she have serious difficulty seeing even when wearing glasses? Answer Date of Assessment Author No 11/21/2023 3:48 PM Magdi Rose RN * Does this person have serious difficulty walking or climbing stairs? Answer Date of Assessment Author No 11/21/2023 3:48 PM Magdi Rose RN * Does this person have difficulty dressing or bathing? Answer Date of Assessment Author No 11/21/2023 3:48 PM Magdi Rose RN * Because of a physical, mental or emotional condition, does this person have difficulty doing errands alone such as visiting a doctor's office or shopping? Answer Date of Assessment Author No 11/21/2023 3:48 PM Magdi Rose RN * PHQ-2 Total Score Answer Date of Assessment Author 0 09/18/2024 4:00 PM Deja Boateng RMA * PHQ-9 Total Score Answer Date of Assessment Author 0 09/18/2024 4:00 PM Deja Boateng RMA * Question Answer Date of Assessment [...] Info) Description 01/07/2025 11:00 AM EST Telemedicine [facility] [address] [place] [address] Kirit Bailey MD [address] [facility] [address] [place] [address] 02/21/2025 8:30 AM EST Office Visit [facility] [address] [place] [address] Anyi Juarez APRN [address] [place], [place] [id number] Scheduled Referrals Name Type Priority Associated Diagnoses Order Schedule AMB REFERRAL TO RHEUMATOLOGY Outpatient Referral Routine High serum total hemolytic complement CH50 Ordered: 08/20/2024 documented as of this encounter Goals Goal Patient Goal Type Associated Problems Recent Progress Patient-Stated? Author Blood Pressure < 140/90 Blood Pressure 115/80(2024 4:23 PM EDT) No Maye Rascon APRN Maintain a healthy diet, exercise regularly and maintain an ideal body weight General No Cydney Ralph CCMA Stay Tobacco Free Lifestyle No Cydney Ralph CCMA documented as of this encounter Visit Diagnoses Diagnosis High serum total hemolytic complement CH50- Primary documented in this encounter Care Teams Policy Specialist Relationship Specialty Start Date End Date Maye Rascon APRN [address] [place] [address] PCP - General Nurse Practitioner-Family 06/08/23 Frankie Huitron MD [address] [place] [address] Otolaryngology 10/02/23 documented as of this encounter
--- OUTSIDE RECORDS SUMMARY | 2024-11-11 08:47 | XMS_ITS | Encounter Summary ---
Author Organization Healthcare Address [address] [place] [address] Care Team Providers Care Speed Runner Name Role Phone Manuel Montilla MD Primary Care Provider + [phone] Encounter Details Date Type Department Care Team (Late st Contact Info) Description 09/23/2024 Telephone [facility] [address] [place] [address] None, None [address] [place] [address] Social History Tobacco Use Types Packs/Day Years Used Date Smoking Tobacco: Every Day Cigarettes Alcohol Use Standard Drinks/Week Comments Not Currently 0 (1 standard drink = 0.6 oz pur e alcohol) Comments Unknown Sex and Gender Information Value Date Recorded Sex Assigned at Not on file Legal Sex Female 6:07 PM EDT Gender Identity Not on file Sexual Orientation Not on file documented as of this encounter Miscellaneous Notes * Telephone Encounter - Helena Baez - 09/23/2024 3:45 PM EDT Clinical Concern/Question Reason for Call: pt calling to check on status of referral. Referring office submitted it via the website. Pt states records are in Care Everywhere. Please call Best contact number: [phone] (mobile) Optimal time of day to reach caller: ANYTIME Additional comments/information from caller: None Note: Please do not reply to this message. Follow-up communication and further actions as a result of this message need to be communicated with the patient directly, if the patient is not active onMyChart. If the patient is active on MyChart, they will receive notification of the communication/outcome via MyChart. documented in this encounter Plan of Treatment Upcoming Encounters Date Type Department Care Team (Late st Contact Info) Description 11/13/2024 3:30 PM EDT Consult [facility] Medicine Specialties [address] [place] [id number] Angeles Paul MD [address] [place] [address] documented as of this encounter Visit Diagnoses Not on filedocumented in this encounter Care Teams Speed Runner Relationship Specialty Start Date End Date Manuel Montilla MD [address] [place] [address] PCP - General 06/26/20 documented as of this encounter
--- OUTSIDE RECORDS SUMMARY | 2024-11-11 08:48 | XMS_ITS | Clinical Summary ---
Author Organization [employer] [facility] Dental Address [address] [place] [address] Phone Care Team Providers Care Emergency Department Aide Name Role Phone Van Loader Unavailable Unavailable Conditions or Problems No information available. Medications No information available. Medications Administered No information available. Allergies, Adverse Reactions, Alerts No information available. Results No information available. Plan of Care No information available. Procedures No information available. Vital Signs No information available. Immunizations No information available. Advance Directives No information available.
--- OUTSIDE RECORDS SUMMARY | 2024-11-11 08:48 | XMS_ITS | Patient Health Record ---
Author Organization [facility] Address [address] [place] [address] Care Team Providers Care Grinder Chipper Name Role Phone No, Pcp Primary Care Provider Unavailabl e Josh Jara Unavailable [phone] No, Referring Physician Unavailable Unavaila ble Reason For Referral No Information Encounters Encounter Location Date Provider Diagnosis [id number] [place] [address] [place] [address] 01/04/2024 Josh Jara Plan Of Treatment No Information Insurance Providers Payer Name Payer Address Payer Phone Subscriber Number Group Number Insured Name Patient Relationship to Insured Coverage Start Date Coverage End Date [employer] [facility] MEDICAID [address] [address] [place] [address] [phone] [id number] Tamika Brady Self - patient is the insured
--- OUTSIDE RECORDS SUMMARY | 2024-11-11 08:48 | XMS_ITS | Clinical Summary ---
Author Organization [facility] Address [address] [facility] [address] [place] [address] Care Team Providers Care Physical Design Engineer Name Role Phone Unavailable Primary Care Provider Unavailabl e Social History Tobacco Use Types Packs/Day Years Used Date Smoking Tobacco: Never Assessed Comments Unknown Sex and Gender Information Value Date Recorded Sex Assigned at Not on file Legal Sex Female 2:13 PM EDT Gender Identity Not on file Sexual Orientation Not on file Plan of Treatment Health Maintenance Due Date Last Done Comments HIV Screening 1990 Hepatitis C Screening 1990 Lipid Panel 1990 MMR Vaccines (1 of 1 - Stand cruzito series) 04/28/1991 Varicella Vaccines (1 of 2 - 13+ 2-dose series) 04/28/2003 Hepatitis B Screening 2008 DTaP/Tdap/Td Vaccines (1 - Tdap) 2009 Hepatitis B Vaccines (1 of 3 - 19+ 3-dose series) 2009 Pneumococcal Vaccine (1 of 2 - PCV) 2009 Pap Smear 04/28/2011 Cervical Cancer Screening 2020 HPV/Cotest 2020 Depression Risk Screening 02/14/2024 SDOH Screening 02/14/2024 COVID-19 Vaccine (1 - 2023-2 5 season) 2024 Influenza Vaccine (#1) 2024 Zoster Vaccines (1 of 2) 2040 HIB Vaccines Aged Out No longer eligi ble based on patient's age to complete this topic HPV Vaccines Aged Out No longer eligi ble based on patient's age to complete this topic Hepatitis A Vaccines Aged Out No long er eligible based on patient's age to complete this topic IPV Vaccines Aged Out No longer eligi ble based on patient's age to complete this topic Meningococcal B Vaccine Aged Out No l onger eligible based on patient's age to complete this topic Meningococcal Vaccine Aged Out No jeanette arjun eligible based on patient's age to complete this topic Rotavirus Vaccines Aged Out No longer eligible based on patient's age to complete this topic Procedures Procedure Name Priority Date/Time Associated Diagnosis Comments CT HEAD WO CONTRAST 08/29/2024 7 :42 PM EDT TSH STAT 08/29/2024 4:56 PM EDT ALCOHOL LEVEL STAT 08/29/2024 4:56 PM EDT CMP COMPREHENSIVE METABOLIC PANEL STAT 08/29/2024 4:56 PM EDT TROPONIN I, HIGH SENSITIVE Timed 08/29/2024 4:56 PM EDT URINE DRUGS OF ABUSE STAT 08/29/2024 4:56 PM EDT URINALYSIS COMP W CULTURE IF INDICATED STAT 08/29/2024 4:56 PM EDT HCG, URINE, QUALITATIVE STAT 08/29/2024 4:56 PM EDT PT/INR PROTHROMBIN TIME PTT STAT 08/29/2024 4:56 PM EDT D-DIMER, QUANTITATIVE STAT 08/29/2024 4:56 PM EDT AUTODIFF STAT 08/29/2024 4:56 PM EDT CBC AND DIFFERENTIAL STAT 08/29/2024 4:56 PM EDT from Last 3 Months Results * CT HEAD WO (08/29/2024 7:42 PM EDT) Anatomical Region Laterality Modality Head, Neck Computed Tomogra phy 08/29/2024 7:42 PM EDT Narrative 08/29/2024 7:53 PM EDT EXAMINATION: CT BRAIN WITHOUT CONTRAST ACCESSION NUMBER: [id number] DATE: 08/29/2024 19:42 PROVIDED INDICATION AND HISTORY: Intermittent blurry vision, states she has hx of pituitary adenoma. COMPARISON: None TECHNIQUE: Helical computed tomographic images of the head without intravenous contrast administration. Reformatted images include axial 1 mm and axial 5 mm. FINDINGS: Major Findings: There are no intra or extra-axial hemorrhages, masses, midline shift or recent infarcts. There is a normal appearance of the sella turcica with no evidence of a lesion on this examination. Incidental and Normal Findings: Deep islas, Cortex and White Matter: Islas matter-white matter differentiation is within normal limits. Sulci and Ventricles: The ventricles and sulci are normal in size. Soft Tissues, Cranium and Orbits: Orbits and globes are normal in appearance. The bony calvarium is intact. Superficial soft tissues are normal. Paranasal sinuses and Mastoid cells: Paranasal sinuses are clear. Mastoid sinuses are clear. Vessels: The carotid siphons and vertebral arteries are noncalcified. IMPRESSION: No acute intracranial abnormalities including no intra or extra-axial hemorrhages, acute or subacute infarcts, mass effect, midline shift or hydrocephalus. I, the attending/teaching physician, have personally reviewed, discussed, and supervised this radiological examination with the resident and this report reflects my agreement. Dictated by: Mindi Aleman Signed by Unruly Mejia M.D. on 08/29/2024 20:08 ##### Final ##### Dictated by: MINDI ALEMAN, -RAD Dictated DT/TM: 08/29/2024 8:08 pm Interpreted and electronically signed by: UNRULY MEJIA MD-RAD Signed DT/TM: 08/29/2024 8:08 pm Procedure Note Unruly Mejia MD - 08/29/2024 EXAMINATION: CT BRAIN WITHOUT CONTRAST ACCESSION NUMBER: [id number] DATE: 08/29/2024 19:42 PROVIDED INDICATION AND HISTORY: Intermittent blurry vision, states shehas hx of pituitary adenoma. COMPARISON: None TECHNIQUE: Helical computed tomographic images of the head withoutintravenous contrast administration. Reformatted images include axial 1 mmand axial 5 mm. FINDINGS: Major Findings: There are no intra or extra-axial hemorrhages, masses,midline shift or recent infarcts. There is a normal appearance of thesella turcica with no evidence of a lesion on this examination. Incidental and Normal Findings: Deep islas, Cortex and White Matter: Islas matter-white matterdifferentiation is within normal limits. Sulci and Ventricles: The ventricles and sulci are normal in size. Soft Tissues, Cranium and Orbits: Orbits and globes are normal inappearance. The bony calvarium is intact. Superficial soft tissues arenormal. Paranasal sinuses and Mastoid cells: Paranasal sinuses are clear.Mastoid sinuses are clear. Vessels: The carotid siphons and vertebral arteries arenoncalcified. IMPRESSION: No acute intracranial abnormalities including no intra or extra- axialhemorrhages, acute or subacute infarcts, mass effect, midline shift orhydrocephalus. I, the attending/teaching physician, have personally reviewed, discussed,and supervised this radiological examination with the resident and thisreport reflects my agreement. Dictated by: Mindi Aleman Signed by Unruly Mejia M.D. on 0:08 ##### Final ##### Dictated by: MINDI ALEMAN, -RAD Dictated DT/TM: 08/29/2024 8:08 pm Interpreted and electronically signed by: UNRULY MEJIA MD-RAD Signed DT/TM: 08/29/2024 8:08 pm Gasper Black MD IM CT PROCEDURES Final Resul t * ALCOHOL LEVEL (08/29/2024 4:56 PM EDT) Alcohol Scrn 10 <=10 mg/dL 08/29/2024 5:44 PM EDT [facility] Remisol 2.0 SS Comment: Toxic > 150 mg/dL. Test performed on serum or plasma. Results for medical use only. %ALCOHOL 0.010 % 08/29/2024 5:44 PM EDT [facility] Remisol 2.0 SS Blood 08/29/2024 4:56 PM EDT 08/29/2024 5:15 PM EDT [facility] - 08/29/2024 5:44 PM EDT ecg done Performed by [facility], [address] [place] [address] us Adrienne ORANTES LAB BLOOD ORDERABLES Fi nal Result [facility] [address] [place] [address], [facility] Remisol 2.0 SS Pathology Department [address] [place] [address] * (ABNORMAL) URINALYSIS COMP W CULTURE IF INDICATED (08/29/2024 4:56 PM EDT) URINE TYPE. U CleanCatch 08/29/2024 5:16 PM EDT [facility] URINE COLOR LIGHT YELLOW 08/29/2024 5:34 PM EDT [facility] URINE APPEARANCE CLEAR 08/29/2024 5:34 PM EDT [facility] URINE SPECIFIC GRAVITY 1.015 1.001 - 1.030 08/29/2024 5:34 PM EDT [facility] URINE PH DIPSTICK 7.0(A) 08/29/2024 5:34 PM EDT [facility] URINE LEUKOCYTE ESTERASE NEGATIVE Negative Bharati/ul 08/29/2024 5:34 PM EDT [facility] URINE NITRITE NEGATIVE Negative 08/29/2024 5:34 PM EDT [facility] URINE PROTEIN DIPSTICK NEGATIVE Negative mg/dL 08/29/2024 5:34 PM EDT [facility] URINE GLUCOSE DIPSTICK NEGATIVE Negative mg/dL 08/29/2024 5:34 PM EDT [facility] URINE KETONES DIPSTICK NEGATIVE Negative mg/dL 08/29/2024 5:34 PM EDT [facility] URINE UROBILINOGEN DIPSTICK NORMAL Normal mg/dL 08/29/2024 5:34 PM EDT [facility] URINE BILIRUBIN DIPSTICK NEGATIVE Negative mg/dL 08/29/2024 5:34 PM EDT [facility] URINE BLOOD DIPSTICK NEGATIVE Negative mg/dL 08/29/2024 5:34 PM EDT [facility] CORRELATE UA Correlated Correlated 08/29/2024 5:35 PM EDT [facility] UR RBC 0-4 None /HPF 08/29/2024 5:34 PM EDT [facility] UR WBC 0-4 None /HPF 08/29/2024 5:34 PM EDT [facility] UR BACTERIA Negative 08/29/2024 5:34 PM EDT [facility] UR SQUAMOUS EPITHELIAL CELLS 0-4 None /HPF 08/29/2024 5:34 PM EDT [facility] SS Urine 08/29/2024 4:56 PM EDT 08/29/2024 5:15 PM EDT [facility] - 08/29/2024 5:35 PM EDT ecg done Performed by [facility], [address] [place] [address] Adrienne ORANTES LAB URINE ORDERABLES Fi nal Result Performing Organization Address City/[facility]/ZIP Co de Phone Number [facility] [address] [place] [address], [facility] Pathology Department [address] [place] [address] * hCG, urine, qualitative (08/29/2024 4:56 PM EDT) Preg Test, Ur Neg Negative 08/29/2024 5:32 PM EDT [facility] SS Urine 08/29/2024 4:56 PM EDT 08/29/2024 5:16 PM EDT [facility] - 08/29/2024 5:32 PM EDT ecg done Performed by [facility], [address] [place] [address] Adrienne ORANTES LAB URINE ORDERABLES Fi nal Result [facility] [address] [place] [address], [facility] Pathology Department [address] [place] [address] * TROPONIN I, HIGH SENSITIVE (08/29/2024 4:56 PM EDT) Pathologist [facility] TROPONIN I, HIGH SENSITIVE 3 <=14 ng/Liter 08/29/2024 5:43 PM EDT [facility] Remisol 2.0 SS Blood 08/29/2024 4:56 PM EDT 08/29/2024 5:15 PM EDT [facility] - 08/29/2024 5:43 PM EDT ecg done Performed by [facility], [address] [place] [address] Adrienne ORANTES LAB BLOOD ORDERABLES Fi nal Result [facility] [address] [place] [address], [facility] Remisol 2.0 SS Pathology Department [address] [place] [address] * (ABNORMAL) AUTODIFF (08/29/2024 4:56 PM EDT) NEUT % 74.0 34.0 - 75.0 % 08/29/2024 5:24 PM EDT [facility] Remisol 2.0 SS LYMPH % 20.5 17.0 - 53.0 % 08/29/2024 5:24 PM EDT [facility] Remisol 2.0 SS MONO % 4.4 2.0 - 12.0 % 08/29/2024 5:24 PM EDT [facility] Remisol 2.0 SS EOS % 0.8 0.0 - 7.0 % 08/29/2024 5:24 PM EDT [facility] Remisol 2.0 SS BASO % 0.3 0.0 - 3.0 % 08/29/2024 5:24 PM EDT [facility] Remisol 2.0 SS NEUT # 10.5(H) 1.5 - 7.1 x10(3)/ul 08/29/2024 5:24 PM EDT [facility] Remisol 2.0 SS LYMPH # 2.9 1.0 - 3.5 x10(3)/ul 08/29/2024 5:24 PM EDT [facility] Remisol 2.0 SS MONO # 0.6 0.0 - 1.0 x10(3)/ul 08/29/2024 5:24 PM EDT [facility] Remisol 2.0 SS EOS # 0.1 0.0 - 0.7 x10(3)/ul 08/29/2024 5:24 PM EDT [facility] Remisol 2.0 SS BASO # 0.0 0.0 - 0.3 x10(3)/ul 08/29/2024 5:24 PM EDT [facility] Remisol 2.0 SS Blood 08/29/2024 4:56 PM EDT 08/29/2024 5:15 PM EDT [facility] - 08/29/2024 5:24 PM EDT ecg done Ordered by Discern Expert. Performed by [facility], [address] [place] [address] Adrienne ORANTES LAB BLOOD ORDERABLES Fi nal Result [facility] [address] [place] [address], [facility] Remisol 2.0 SS Pathology Department [address] [place] [address] * PT/INR PROTHROMBIN TIME PTT (08/29/2024 4:56 PM EDT) PT 10.7 10.2 - 12.9 Second 08/29/2024 5:32 PM EDT [facility] SS INR 0.9 08/29/2024 5:32 PM EDT [facility] SS Comment: INTERNATIONAL NORMALIZED RATIO CONDITION RECOMMENDED INR ----- Prophylaxis/treatment of Venous Thrombosis, Pulmonary Embolism 2.0 - 3.0 Prevention of systemic embolism from: Atrial Fibrillation 2.0 - 3.0 Myocardial Infarction 2.0 - 3.0 Mechanical Prosthetic Heart Valves 2.5 - 3.5 Recurrent Systemic Embolism 2.5 - 3.5 PTT 34.0 25.1 - 36.5 Second 08/29/2024 5:32 PM EDT [facility] Hemohub SS Comment: The PTT Unfractionated heparin therapeutic range for the HEPARIN protocol is 55.0 to 95.0 seconds and is equivalent to 0.3 - 0.7 units/ml anti-Factor Xa activity. The PTT is not recommended for use in therapeutic monitoring of patients on Low Molecular Weight Heparins. Blood 08/29/2024 4:56 PM EDT 08/29/2024 5:15 PM EDT [facility] - 08/29/2024 5:32 PM EDT ecg done Performed by [facility], [address] [place] [address] Adrienne ORANTES LAB BLOOD ORDERABLES nal Result [facility] [address] [place] [address], [employer] [facility] Pathology Department [address] [place] [address] * (ABNORMAL) URINE DRUGS OF ABUSE (08/29/2024 4:56 PM EDT) UDS AMP NEGATIVE Negative 08/29/2024 5:39 PM EDT [facility] Remisol 2.0 SS Comment: [facility] DRUG SCREEN TESTING *SCREEN+ Indicates Presumptive Positive* Presumptive Positive results are not confirmed by Mass Spectrometry. The submitted urine sample was tested for the presence of the following substances at the indicated cut-off. Amphetamines 1000 ng/mL Barbiturates 200 ng/mL Benzodiazepine 200 ng/mL Buprenorphine 5 ng/mL Cocaine 150 ng/mL Methadone 300 ng/mL Opiates 300 ng/mL Oxycodone 300 ng/mL THC 50 ng/mL Fentanyl 5 ng/mL Heroin (6-AM) 10 ng/mL Results are for clinical use only. UDS IDALMIS NEGATIVE Negative 08/29/2024 5:39 PM EDT [facility] Remisol 2.0 SS UDS BENZO NEGATIVE Negative 08/29/2024 5:39 PM EDT [facility] Remisol 2.0 SS BUPRENORPHINE SCREEN, URINE SCREEN POSITIVE(A) Negative 08/29/2024 5:39 PM EDT [facility] Remisol 2.0 SS UDS MATT NEGATIVE Negative 08/29/2024 5:39 PM EDT [facility] Remisol 2.0 SS UDS METH NEGATIVE Negative 08/29/2024 5:39 PM EDT [facility] Remisol 2.0 SS UDS OPI NEGATIVE Negative 08/29/2024 5:39 PM EDT [facility] Remisol 2.0 SS UDS OXY NEGATIVE Negative 08/29/2024 5:39 PM EDT [facility] Remisol 2.0 SS UDS THC NEGATIVE Negative 08/29/2024 5:39 PM EDT [facility] Remisol 2.0 SS UDS FENTANYL NEGATIVE Negative 08/29/2024 5:39 PM EDT [facility] Remisol 2.0 SS UDS HEROIN NEGATIVE Negative 08/29/2024 5:39 PM EDT [facility] Remisol 2.0 SS Urine 08/29/2024 4:56 PM EDT 08/29/2024 5:15 PM EDT [facility] - 08/29/2024 5:39 PM EDT ecg done Performed by [facility], [address] [place] [address] Adrienne ORANTES LAB URINE ORDERABLES Fi nal Result [facility] [address] [place] [address], [facility] Remisol 2.0 SS Pathology Department [address] [place] [address] * D-dimer, quantitative (08/29/2024 4:56 PM EDT) D-Dimer, Quant (FEU) 252 0 - 500 ng/mL 08/29/2024 5:30 PM EDT [facility] SS Comment: If this test is being used to diagnose DVT or PE, it has a negative predictive value of 97.4%-100.0% (95% confidence interval) at the established clinical cut-off of 500 ng/mL. D-Dimer results are reported in ng/mL. These units correspond to ng/mL of Fibrinogen Equivalent Units (FEU). Blood 08/29/2024 4:56 PM EDT 08/29/2024 5:15 PM EDT [facility] - 08/29/2024 5:30 PM EDT ecg done Performed by [facility], [address] [place] [address] Adrienne ORANTES LAB BLOOD ORDERABLES Fi nal Result [facility] [address] [place] [address], [facility] SS Pathology Department [address] [place] [address] * (ABNORMAL) CBC With Differential (08/29/2024 4:56 PM EDT) WBC 14.3(H) 4.0 - 10.8 x10(3)/ul 08/29/2024 5:24 PM EDT [facility] Remisol 2.0 SS RBC 4.36 3.77 - 5.16 x10(6)/ul 08/29/2024 5:24 PM EDT [facility] Remisol 2.0 SS HGB 13.5 12.0 - 16.0 Gram/dL 08/29/2024 5:24 PM EDT [facility] Remisol 2.0 SS Hematocrit 40.3 35.0 - 45.0 % 08/29/2024 5:24 PM EDT [facility] Remisol 2.0 SS MCV 92.3 79.4 - 94.8 fL 08/29/2024 5:24 PM EDT [facility] Remisol 2.0 SS MCH 30.9 25.6 - 32.2 pg 08/29/2024 5:24 PM EDT [facility] Remisol 2.0 SS MCHC 33.5 32.3 - 36.5 Gram/dL 08/29/2024 5:24 PM EDT [facility] Remisol 2.0 SS RDW 13.3 11.0 - 15.5 % 08/29/2024 5:24 PM EDT [facility] Remisol 2.0 SS Platelets 372 140 - 420 x10(3)/ul 08/29/2024 5:24 PM EDT [facility] Remisol 2.0 SS MPV 7.3(L) 8.7 - 12.0 fL 08/29/2024 5:24 PM EDT [facility] Remisol 2.0 SS SLIDE REVIEW NONE 08/29/2024 5:24 PM EDT [facility] Remisol 2.0 SS Blood 08/29/2024 4:56 PM EDT 08/29/2024 5:15 PM EDT [facility] - 08/29/2024 5:24 PM EDT ecg done Performed by [facility], [address] [place] [address] Adrienne ORANTES LAB BLOOD ORDERABLES Fi nal Result Performing Organization Address [facility] [place] [address], [facility] Remisol 2.0 Pathology Department [address] [place] [address] * (ABNORMAL) TSH (08/29/2024 4:56 PM EDT) TSH 27.54(H) 0.50 - 5.70 uIU/mL 08/29/2024 5:53 PM EDT [facility] Remisol 2.0 SS Blood 08/29/2024 4:56 PM EDT 08/29/2024 5:15 PM EDT [facility] - 08/29/2024 5:53 PM EDT need weight Performed by [facility], [address] [place] [address] Adrienne ORANTES LAB BLOOD ORDERABLES Fi nal Result Performing Organization Address City/[facility]/ZIP Co de Phone Number [facility] [address] [place] [address], [facility] Remisol 2.0 Pathology Department [address] [place] [address] * (ABNORMAL) Comprehensive metabolic panel (08/29/2024 4:56 PM EDT) Sodium 138 136 - 145 mmol/L 08/29/2024 5:44 PM EDT [facility] Remisol 2.0 SS Potassium 3.7 3.5 - 5.1 mmol/L 08/29/2024 5:44 PM EDT [facility] Remisol 2.0 SS Chloride 102 98 - 110 mmol/L 08/29/2024 5:44 PM EDT [facility] Remisol 2.0 SS CO2 30 21 - 31 mmol/L 08/29/2024 5:44 PM EDT [facility] Remisol 2.0 SS Anion Gap 6.0 2.0 - 11.0 08/29/2024 5:44 PM EDT [facility] Remisol 2.0 SS Calcium 9.1 8.6 - 10.2 mg/dL 08/29/2024 5:44 PM EDT [facility] Remisol 2.0 SS Glucose 87 74 - 109 mg/dL 08/29/2024 5:44 PM EDT [facility] Remisol 2.0 SS BUN 14 7 - 25 mg/dL 08/29/2024 5:44 PM EDT [facility] Remisol 2.0 SS Creatinine 0.63 0.60 - 1.20 mg/dL 08/29/2024 5:44 PM EDT [facility] Remisol 2.0 SS BUN/Creatinine Ratio 22.2(H) 6.0 - 22.0 08/29/2024 5:44 PM EDT [facility] Remisol 2.0 SS Albumin 4.5 3.5 - 5.2 Gram/dL 08/29/2024 5:44 PM EDT [facility] Remisol 2.0 SS Total Protein 7.1 6.4 - 8.9 Gram/dL 08/29/2024 5:44 PM EDT [facility] Remisol 2.0 SS A/G Ratio 1.7 1.0 - 2.5 08/29/2024 5:44 PM EDT [facility] Remisol 2.0 SS Alkaline Phosphatase 97 34 - 104 Units/Lite r 08/29/2024 5:44 PM EDT [facility] Remisol 2.0 SS ALT (SGPT) 23 <=24 Units/Lite r 08/29/2024 5:44 PM EDT [facility] Remisol 2.0 SS AST 16 13 - 39 Units/Lite r 08/29/2024 5:44 PM EDT [facility] Remisol 2.0 SS Total Bilirubin 0.3 0.3 - 1.0 mg/dL 08/29/2024 5:44 PM EDT [facility] Remisol 2.0 SS Globulin, Total 2.6 2.0 - 3.5 Gram/dL 08/29/2024 5:44 PM EDT [facility] Remisol 2.0 SS EGFR 119 >=60 mL/min/1.7 3m2 08/29/2024 5:44 PM EDT [facility] Remisol 2.0 SS Comment:eGFR calculation per formed using the CKD-EPI 2020 equation (race variable excluded) Blood 08/29/2024 4:56 PM EDT 08/29/2024 5:15 PM EDT [facility] - 08/29/2024 5:44 PM EDT ecg done Performed by [facility], [address] [place] [address] Adrienne ORANTES LAB BLOOD ORDERABLES nal Result [facility] [address] [place] [address], [facility] Remisol 2.0 SS Pathology Department [address] [place] [address] from Last [address] [place] [address] [place] [address]
--- OUTSIDE RECORDS SUMMARY | 2024-11-11 08:48 | XMS_ITS | Clinical Summary ---
Author Organization [facility] Address [facility] [place] [address] Care Team Providers Care Dietitian Consultant Name Role Phone Unavailable Primary Care Provider Unavailabl e Allergies Active Allergy Reactions Criticality Noted Date Comments Droperidol 10/09/2023 Sulfa Antibiotics 10/09/2023 Vancomycin 10/09/2023 Medications famotidine (PEPCID) 40 MG tablet Take 40 mg by mouth daily. Active levothyroxine (SYNTHROID) 200 MCG tablet Take 200 mcg by mouth daily 400mg Sundays. Active Cetirizine HCl (ZYRTEC ALLERGY) 10 MG CAPS Take by mouth. Active pantoprazole (PROTONIX) 40 MG tablet Take 40 mg by mouth daily. Active Metoprolol Succinate 25 MG CAP ER24 SPK Take by mouth. Active clindamycin (CLEOCIN) 300 MG capsule Take 450 mg by mouth 3 (three) times daily. Active spironolactone (ALDACTONE) 25 MG tablet Take 25 mg by mouth daily. Active montelukast (SINGULAIR) 10 MG tablet Take 10 mg by mouth nightly. Active albuterol HFA 108 (90 Base) MCG/ACT inhaler Inhale 2 puffs into the lungs every 6 (six) hours as needed for Wheezing. Active fluticasone-salm eterol (ADVAIR HFA) 115-21 MCG/ACT inhaler Inhale 2 puffs into the lungs 2 (two) times daily. Active Social History Tobacco Use Types Packs/Day Years Used Date Smoking Tobacco: Every Day Cigarettes Smokeless Tobacco: Never Tobacco Cessation:Ready to Q uit: Not Asked; Counseling Given: Not Answered Alcohol Use Standard Drinks/Week Comments Never 0 (1 standard drink = 0.6 oz pur e alcohol) Comments No Sex and Gender Information Value Date Recorded Sex Assigned at Not on file Legal Sex Female 12:01 AM EDT Gender Identity Not on file Sexual Orientation Not on file Last Filed Vital Signs Vital Sign Reading Time Taken Comments Blood Pressure 147/95 10/30/2023 1:47 AM EDT Pulse 86 10/30/2023 1:47 AM EDT Temperature 37.2 C (98.9 F) 10/30/2023 1:47 AM EDT Respiratory Rate 18 10/30/2023 1:47 AM EDT Oxygen Saturation 98% 10/30/2023 1:47 AM EDT Inhaled Oxygen Concentration - - Weight 106.4 kg (234 lb 9.1 oz) 10/30/2023 1:47 AM EDT Height 165.1 cm (5' 5 ) 10/30/2023 1:47 AM EDT Body Mass Index 39.03 10/30/2023 1:47 AM EDT Plan of Treatment Health Maintenance Due Date Last Done Comments Polio (IPV) (2 of 3 - 4-dose series) 08/22/1995 07/25/1995 Cervical Cancer Screening 04/28/2011 HPV Vaccine (2 - 3-dose series) 11/25/2014 10/28/2014 Annual SDOH Screening 02/14/2024 Influenza Vaccine (#1) 2024 , 01/07/2020, 10/28/2014, Additional history exists Tdap/Td Vaccine >11 yo (5 - Td or Tdap) 01/02/2025 01/02/2015, 10/26/2009, 01/12/2004, Additional history exists Hepatitis B (HepB) Vaccine Completed 03/05, 10/02/2001, 08/29/2001 Haemophilus Influenzae Type B (Hib) Vaccine Aged Out No longer eligible based on patient's age to complete this topic Hepatitis A (HepA) Vaccine Aged Out N o longer eligible based on patient's age to complete this topic Meningococcal ACWY Aged Out No longer eligible based on patient's age to complete this topic Pneumococcal Vaccines 6-49 yo Risk Aged Out No longer eligible based on patient's age to complete this topic Rotavirus (RV) Vaccine Aged Out No lo nger eligible based on patient's age to complete this topic [place] [address] [place] [address] MEDICAID
--- OUTSIDE RECORDS SUMMARY | 2024-11-11 08:49 | XMS_ITS | Clinical Summary ---
Author Organization [facility] Address [address] [place] [address] Care Team Providers Care Icing Mixer Name Role Phone Maye Rascon APRN Primary Care Provider [phone] Source Comments This information has been disclosed [...] therelease of HIV test results or diagnoses. [id number] Allergies Active Allergy Reactions Criticality Noted Date Comments Sulfamethoxazole-Trimethoprim Anaphylaxis High 01/29 Vancomycin Analogues Hives 12/19/2012 Medications etonogestreL (NEXPLANON) 68 mg Impl implant 68 mg by Implant route once. Active levothyroxine (SYNTHROID) 150 MCG tablet Take 1 tablet (150 mcg total) by mouth every morning before breakfast. Active oxyCODONE-acetamin ophen (PERCOCET) 10-325 mg per tablet Take 1 tablet by mouth every 6 hours as needed for Pain. Active LORazepam (ATIVAN) 0.5 MG tablet Take 1 [...] Active proMETHazine (PHENERGAN) 25 MG tablet Take 1 tablet (25 mg total) by mouth every 6 hours as needed for Nausea. Active cetirizine (ZYRTEC) 10 MG tablet Take 1 tablet (10 mg total) by mouth daily. Active budesonide-formote roL (SYMBICORT) 160-4.5 mcg/actuation inhalerIndications :Severe persistent asthma without complication ([facility]) Inhale 2 puffs into the lungs 2 times a day. 10.2 g 3 09/20/19 25 Active albuterol (PROVENTIL) 2.5 mg /3 mL (0.083 %) nebulizer solutionIndication s:Severe persistent asthma without complication ([facility]) Inhale 3 mLs (2.5 mg total) by nebulization every 6 hours as needed for Wheezing. 75 each 3 09/20/19 25 Active famotidine (PEPCID) 40 MG tablet Take 1 tablet (40 mg total) by mouth 2 times a day. Active hydrOXYzine pamoate (VISTARIL) 25 MG capsule Take 1 capsule (25 mg total) by mouth 3 times a day as needed for Itching. Active busPIRone (BUSPAR) 10 MG tablet Take 1 tablet (10 mg total) by mouth 3 times a day. Active cromolyn (NASALCROM) 5.2 mg/spray (4 %) nasal spray Use 1 spray into each nostril 4 times a day. 26 mL 10/11/19 25 Active Active Problems Problem Noted Date Diagnosed Date Environmental and seasonal allergies 08/26/2024 Urticaria Varicella FH: allergy Encounters Date Type Department Care Team Description 10/10/2024 11:40 AM EDT Office Visit [facility] ENT at [facility] [address] [place] [id number] Bret Souza PA Environmental and seasonal allergies (Primary Dx) 10/10/2024 9:00 AM EDT Clinical Support [facility] ENT at [facility] [email or web address] [place], [place] [id number] Bianca Pleitez MD Bauer, Ronda S, LPN Environmental and seasonal allergies (Primary Dx) 10/03/2024 Telephone [facility] ENT at [facility] [address] [place] [address] Iram Bynum RN 09/19/2024 3:00 PM EDT Office Visit [facility] Pulmonology at [facility] [address] [place] [address] Lon Sullivan MD Dyspnea on exertion (Primary Dx); Environmental and seasonal allergies; Severe persistent asthma without complication 09/11/2024 5:27 PM EDT - 09/11/2024 11:59 PM EDT Hospital Encounter [facility] Radiology [address] [place] [address] System, Provider Not In Discharge Disposition: Home or Self Care WITHOUT Home Care Services 09/11/2024 5:27 PM EDT - 09/11/2024 11:59 PM EDT Hospital Encounter [facility] Radiology [address] [place] [address] System, Provider Not In Discharge Disposition: Home or Self Care WITHOUT Home Care Services 09/11/2024 5:27 PM EDT - 09/11/2024 11:59 PM EDT Hospital Encounter [facility] Radiology [address] [place] [address] System, Provider Not In Discharge Disposition: Home or Self Care WITHOUT Home Care Services 09/11/2024 5:27 PM EDT - 09/11/2024 11:59 PM EDT Hospital Encounter [facility] Radiology [address] [place] [address] System, Provider Not In Discharge Disposition: Home or Self Care WITHOUT Home Care Services 09/11/2024 5:27 PM EDT - 09/11/2024 11:59 PM EDT Hospital Encounter [facility] Radiology [address] [place] [address] System, Provider Not In Discharge Disposition: Home or Self Care WITHOUT Home Care Services 09/11/2024 5:27 PM EDT - 09/11/2024 11:59 PM EDT Hospital Encounter [facility] Radiology [address] [place] [address] System, Provider Not In Discharge Disposition: Home or Self Care WITHOUT Home Care Services 09/11/2024 5:27 PM EDT - 09/11/2024 11:59 PM EDT Hospital Encounter [facility] Radiology [address] [place] [address] System, Provider Not In Discharge Disposition: Home or Self Care WITHOUT Home Care Services 09/11/2024 5:27 PM EDT - 09/11/2024 11:59 PM EDT Hospital Encounter [facility] Radiology [address] [place] [address] System, Provider Not In Discharge Disposition: Home or Self Care WITHOUT Home Care Services 09/11/2024 5:27 PM EDT - 09/11/2024 11:59 PM EDT Hospital Encounter [facility] Radiology [address] [place] [address] System, Provider Not In Discharge Disposition: Home or Self Care WITHOUT Home Care Services 09/09/2024 Abstract [facility] Pulmonology at [facility] [address] [facility] [address] [place] [address] Lon Sullivan MD 09/09/2024 Telephone [facility] ENT at [facility] [address] [place] [address] Bret Souza PA 08/26/2024 10:40 AM EDT Office Visit [facility] ENT at [facility] [address] [place] [address] Bret Souza PA Environmental and seasonal allergies (Primary Dx) 08/26/2024 10:00 AM EDT Procedure visit [facility] ENT at [facility] [address] [place] [address] Sivakumar Gross Au.D. Abnormal auditory perception of both ears (Primary Dx) from Last 3 Months Family History Medical [...] 08/26 Assistance needed for: Not on file Comments No Sex and Gender Information Value Date Recorded Sex Assigned at Female 04/29/2020 4:31 AM EDT Legal Sex Female 7:25 PM EST Gender Identity Female 04/29/2020 4:31 AM EDT Sexual Orientation Not on file Last Filed Vital Signs Vital Sign Reading Time Taken Comments Blood Pressure 122/80 10/10/2024 11:31 AM EDT Pulse 84 10/10/2024 11:31 AM EDT Temperature 37.2 C (98.9 F) 03/30/2022 5:54 PM EST Respiratory Rate 16 10/10/2024 11:31 AM EDT Oxygen Saturation 98% 10/10/2024 11:31 AM EDT Inhaled Oxygen Concentration 98% 10/10/2024 1 1:31 AM EDT Weight 73.1 kg (161 lb 1.6 oz) 10/10/2024 11:31 AM EDT Height 165.1 cm (5' 5 ) 10/10/2024 11:31 AM EDT Body Mass Index 26.81 10/10/2024 11:31 AM EDT Plan of Treatment Health Maintenance Due Date Last Done Comments Hepatitis C Screening (MyChart) 1990 Tobacco Cessation Readiness 1990 Immunization: Pneumococcal ( 1 of 2 - PCV) 2009 Cervical Cancer Screening/Pa p Smear (MyChart) 2020 Immunization: COVID-19 (2 - season) 2024 11/04/2021 Immunization: DTaP/Tdap/Td ( 5 - Td or Tdap) 01/02/2025 01/02/2015, 10/26/2009, 01/12/2004, Additional history exists Depression Screening 08/26/2025 08/26/2024 Immunization: Hepatitis B Completed 2002, 10/02/2001, 08/29/2001 Pulmonary Function Testing Completed 04/15/2020 HIV Screening Completed 03/30/2022 Immunization: Influenza (MyChart) Completed 10/07/2024, 12/21/2023, 11/30/2021, Additional history exists Procedures Procedure Name Priority Date/Time Associated Diagnosis Comments ASPERGILLUS ANTIBODIES Routine 4:40 PM EDT Dyspnea on exertion IGE Routine 09/19/2024 4:40 PM EDT Dyspnea on exertion ALLERGEN, WORMWOOD Routine 09/19/2024 4: 40 PM EDT Environmental and seasonal allergies ALLERGEN, RAGWEED GIANT Routine 09/19/2024 4:40 PM EDT Environmental and seasonal allergies ALLERGEN, HICKORY WHITE Routine 09/19/2024 4:40 PM EDT Environmental and seasonal allergies ALLERGEN, SILVER BIRCH Routine 4:40 PM EDT Environmental and seasonal allergies ALLERGEN, LEANDRO, WHITE Routine 09/19/2024 4:40 PM EDT Environmental and seasonal allergies ALLERGEN, AUREOBASIDIUM PULLUL Routine 09/19/2024 4:40 PM EDT Environmental and seasonal allergies ALLERGEN, GOOSE FEATHERS Routine 09/19/2024 4:40 PM EDT Environmental and seasonal allergies ALLERGEN, DUCK FEATHERS Routine 09/19/2024 4:40 PM EDT Environmental and seasonal allergies ALLERGEN, CHICKEN FEATHERS Routine 09/19/2024 4:40 PM EDT Environmental and seasonal allergies ALLERGEN, SHEEP SORREL Routine 4:40 PM EDT Environmental and seasonal allergies ALLERGEN, GRASS, BAHIA Routine 4:40 PM EDT Environmental and seasonal allergies ALLERGEN, COTTONWOOD Routine 09/19/2024 4:40 PM EDT Environmental and seasonal allergies ALLERGEN, GRASS, EUGENE Routine 09/19/2024 4:40 PM EDT Environmental and seasonal allergies ALLERGEN, CEDAR, MOUNTAIN Routine 09/19/2024 4:40 PM EDT Environmental and seasonal allergies ALLERGEN, MAPLE/BOX ELDER Routine 09/19/2024 4:40 PM EDT Environmental and seasonal allergies ALLERGEN, OAK, WHITE Routine 09/19/2024 4:40 PM EDT Environmental and seasonal allergies ALLERGEN, GRASS, BERMUDA Routine 09/19/2024 4:40 PM EDT Environmental and seasonal allergies ALLERGEN, RAGWEED, SHORT Routine 09/19/2024 4:40 PM EDT Environmental and seasonal allergies ALLERGEN, CLADOSPORIUM HERBARUM Routine 09/19/2024 4:40 PM EDT Environmental and seasonal allergies ALLERGEN, ALTERNARIA ALTERNATA Routine 09/19/2024 4:40 PM EDT Environmental and seasonal allergies ALLERGEN, CAT HAIR/DANDER Routine 09/19/2024 4:40 PM EDT Environmental and seasonal allergies ALLERGEN, GRASS, YOANDY Routine 09/19/2024 4:40 PM EDT Environmental and seasonal allergies ALLERGEN, TRICHODERMA VIRIDE Routine 09/19/2024 4:40 PM EDT Environmental and seasonal allergies ALLERGEN, MUCOR RACEMOSUS Routine 09/19/2024 4:40 PM EDT Environmental and seasonal allergies ALLERGEN, SETOMELANOMMA ROSTRAT Routine 09/19/2024 4:40 PM EDT Environmental and seasonal allergies ALLERGEN, FUSARIUM PROLIFERATUM Routine 09/19/2024 4:40 PM EDT Environmental and seasonal allergies ALLERGEN, EPICOCCUM PURPURASCE Routine 09/19/2024 4:40 PM EDT Environmental and seasonal allergies ALLERGEN, RHIZOPUS NIGRICANS Routine 09/19/2024 4:40 PM EDT Environmental and seasonal allergies ALLERGEN, PHOMA BETAE Routine 09/19/2024 4:40 PM EDT Environmental and seasonal allergies ALLERGEN, ADELINA ALBICANS Routine 09/19/2024 4:40 PM EDT Environmental and seasonal allergies ALLERGEN, TURKEY FEATHERS Routine 09/19/2024 4:40 PM EDT Environmental and seasonal allergies ALLERGEN, SIEGEL'S QUARTER Routine 09/19/2024 4:40 PM EDT Environmental and seasonal allergies ALLERGEN,PLANTAIN, TUVALUAN Routine 09/19/2024 4:40 PM EDT Environmental and seasonal allergies ALLERGEN, PECAN, HICKORY Routine 09/19/2024 4:40 PM EDT Environmental and seasonal allergies ALLERGEN, PENICILLIUM CHRYSOGEN Routine 09/19/2024 4:40 PM EDT Environmental and seasonal allergies ALLERGEN, BLUEGRASS, [place] Routine 09/19/2024 4:40 PM EDT Environmental and seasonal allergies ALLERGEN, PIGWEED, ROUGH Routine 09/19/2024 4:40 PM EDT Environmental and seasonal allergies ALLERGEN, COCKROACH,MALTESE Routine 09/19/2024 4:40 PM EDT Environmental and seasonal allergies ALLERGEN, ELM MALTESE Routine 4:40 PM EDT Environmental and seasonal allergies ALLERGEN, DUST MITE, D FARNIEA Routine 09/19/2024 4:40 PM EDT Environmental and seasonal allergies ALLERGEN, ASPERGILLUS FUMIGATUS Routine 09/19/2024 4:40 PM EDT Environmental and seasonal allergies ALLERGEN, D PTERONYSSINUS Routine 09/19/2024 4:40 PM EDT Environmental and seasonal allergies ALLERGEN, DOG HAIR/DANDER Routine 09/19/2024 4:40 PM EDT Environmental and seasonal allergies DIFFERENTIAL Routine 09/19/2024 4:26 PM EDT Dyspnea on exertion CBC Routine 09/19/2024 4:26 PM EDT Dyspnea on exertion XR COMPARISON IMAGES Routine 09/11/2024 5:27 PM EDT XR COMPARISON IMAGES Routine 09/11/2024 5:27 PM EDT XR COMPARISON IMAGES Routine 09/11/2024 5:27 PM EDT XR COMPARISON IMAGES Routine 09/11/2024 5:27 PM EDT XR COMPARISON IMAGES Routine 09/11/2024 5:27 PM EDT XR COMPARISON IMAGES Routine 09/11/2024 5:27 PM EDT XR COMPARISON IMAGES Routine 09/11/2024 5:27 PM EDT XR COMPARISON IMAGES Routine 09/11/2024 5:27 PM EDT XR COMPARISON IMAGES Routine 09/11/2024 5:27 PM EDT ED HIV 1+2 ANTIBODY/ANTIGEN WITH REFLEX STAT 03/30/2022 6:27 PM EST [id number] FUNCTION TEST Routine 04/15/2020 from Last 3 Months or Most Recently Relevant to Health Maintenance Results * Allergen, Aureobasidium pullul (09/19/2024 4:40 PM EDT) Allergen Aureobasidium pullulans <0.10 Class 0 kU/L 09/24/2024 4:48 PM EDT [facility] Serum 09/19/2024 4:40 PM EDT 09/30/2024 11:07 AM EDT Narrative HEALTH LAB - 09/30/2024 11:07 AM EDT PERFORMED AT: [facility] [id number] MOTION PICTURE PROJECTIONIST: Arpit Ortega MD PHONE: [phone] us Lon Sullivan MD LAB BLOOD ORDERABLES Final Resul t [facility] [address] * Allergen, Phoma betae (09/19/2024 4:40 PM EDT) Allergen, Phoma betae <0.10 Class 0 kU/L 09/24/2024 4:48 PM EDT [facility] Serum 09/19/2024 4:40 PM EDT 09/30/2024 11:07 AM EDT Narrative HEALTH LAB - 09/30/2024 11:07 AM EDT PERFORMED AT: [address] [id number] MOTION PICTURE PROJECTIONIST: Arpit Ortega MD PHONE: [phone] Lon Sullivan MD LAB BLOOD ORDERABLES Final Resul t Performing Organization Address [facility] Co de Phone Number [facility] [address] [facility]. [address] * Allergen, Rhizopus nigricans (09/19/2024 4:40 PM EDT) Allergen Rhizopus nigricans <0.10 Class 0 kU/L 09/24/2024 4:48 PM EDT [facility] Serum 09/19/2024 4:40 PM EDT 09/30/2024 11:07 AM EDT [facility] - 09/30/2024 11:07 AM EDT PERFORMED AT: [address] [id number] MOTION PICTURE PROJECTIONIST: Arpit Ortega MD PHONE: [phone] Lon Sullivan MD LAB BLOOD ORDERABLES Final Resul t Performing Organization Address [facility] Co de Phone Number [facility] [address] [facility]. [address] * Allergen, Bahia Grass (09/19/2024 4:40 PM EDT) Allergen Grass, Bahia <0.10 Class 0 kU/L 09/24/2024 4:48 PM EDT [facility] Serum 09/19/2024 4:40 PM EDT 09/30/2024 11:07 AM EDT [facility]ative [facility] LAB - 09/30/2024 11:07 AM EDT PERFORMED AT: [address] [id number] MOTION PICTURE PROJECTIONIST: Arpit Ortega MD PHONE: [phone] Lon Sullivan MD LAB BLOOD ORDERABLES Final Resul t [facility] [address]. [address] * Allergen, B[place] Grass (09/19/2024 4:40 PM EDT) Allergen Grass, [place] <0.10 Class 0 kU/L 09/24/2024 4:48 PM EDT [facility] Serum 09/19/2024 4:40 PM EDT 09/30/2024 11:07 AM EDT [facility] LAB - 09/30/2024 11:07 AM EDT PERFORMED AT: [address] [id number] MOTION PICTURE PROJECTIONIST: Arpit Ortega MD PHONE: [phone] Lon Sullivan MD LAB BLOOD ORDERABLES Final Resul t Performing Organization Address [facility] Co de Phone Number [facility] [address] [facility]. [address] * Allergen, Bluegrass, Chrissucky (09/19/2024 4:40 PM EDT) Allergen Grass, Rosey Blue <0.10 Class 0 kU/L 09/24/2024 4:48 PM EDT [facility] Serum 09/19/2024 4:40 PM EDT 09/30/2024 11:07 AM EDT [facility]ative [facility] LAB - 09/30/2024 11:07 AM EDT PERFORMED AT: [address] [id number] MOTION PICTURE PROJECTIONIST: Arpit Ortega MD PHONE: [phone] Lon Sullivan MD LAB BLOOD ORDERABLES Final Resul t [facility] [address]. [address] * Allergen, Siegel's Quarter (09/19/2024 4:40 PM EDT) Allergen Siegel's Quarters <0.10 Class 0 kU/L 09/24/2024 4:48 PM EDT [facility] Serum 09/19/2024 4:40 PM EDT 09/30/2024 11:07 AM EDT Narrative [facility] - 09/30/2024 11:07 AM EDT PERFORMED AT: [facility] [id number] MOTION PICTURE PROJECTIONIST: Arpit Ortega MD PHONE: [phone] Lon Sullivan MD LAB BLOOD ORDERABLES Final Resul t Performing Organization Address [facility] Co de Phone Number [facility] [address] [facility]. [address] * Allergen, Wormwood (09/19/2024 4:40 PM EDT) Allergen Wormwood <0.10 Class 0 kU/L 09/25/2024 10:34 AM EDT [facility] Serum 09/19/2024 4:40 PM EDT 09/25/2024 11:08 AM EDT [facility] - 09/25/2024 11:08 AM EDT PERFORMED AT: [facility] [id number] MOTION PICTURE PROJECTIONIST: Arpit Ortega MD PHONE: [phone] Lon Sullivan MD LAB BLOOD ORDERABLES Final Resul t Performing Organization Address [facility] Co de Phone Number [facility] [address] [facility]. [address] * Allergen, Cockroach,Indian (09/19/2024 4:40 PM EDT) Allergen Cockroach, Indian <0.10 Class 0 kU/L 09/24/2024 4:48 PM EDT [facility] Serum 09/19/2024 4:40 PM EDT 09/30/2024 11:07 AM EDT [facility]arrative HEALTH LAB - 09/30/2024 11:07 AM EDT PERFORMED AT: [address] [id number] MOTION PICTURE PROJECTIONIST: Arpit Ortega MD PHONE: [phone] Lon Sullivan MD LAB BLOOD ORDERABLES Final Resul t Performing Organization Address [facility] de Phone Number [facility] [address] * Allergen, Adelina albicans (09/19/2024 4:40 PM EDT) Allergen Adelina albicans <0.10 Class 0 kU/L 09/24/2024 4:48 PM EDT [facility] Serum 09/19/2024 4:40 PM EDT 09/30/2024 11:07 AM EDT [facility] - 09/30/2024 11:07 AM EDT PERFORMED AT: [address] [id number] MOTION PICTURE PROJECTIONIST: Arpit Ortega MD PHONE: [phone] Lon Sullivan MD LAB BLOOD ORDERABLES Final Resul t Performing Organization Address [facility] de Phone Number [facility] [address] [facility]. [address] * Allergen, Mucor racemosus (09/19/2024 4:40 PM EDT) Allergen Mucor racemosus <0.10 Class 0 kU/L 09/24/2024 4:48 PM EDT [facility] Serum 09/19/2024 4:40 PM EDT 09/30/2024 11:07 AM EDT Narrative HEALTH LAB - 09/30/2024 11:07 AM EDT PERFORMED AT: [facility] [id number] MOTION PICTURE PROJECTIONIST: Arpit Ortega MD PHONE: [phone] Lon Sullivan MD LAB BLOOD ORDERABLES Final Resul t Performing Organization Address [facility] Co de Phone Number [facility] [address] * Allergen, Epicoccum purpurasce (09/19/2024 4:40 PM EDT) Allergen Epicoccum purpurasce <0.10 Class 0 kU/L 09/24/2024 4:48 PM EDT [facility] Serum 09/19/2024 4:40 PM EDT 09/30/2024 11:07 AM EDT [facility]arrative [facility] LAB - 09/30/2024 11:07 AM EDT PERFORMED AT: [address] [id number] MOTION PICTURE PROJECTIONIST: Arpit Ortega MD PHONE: [phone] Lon Sullivan MD LAB BLOOD ORDERABLES Final Resul t Performing Organization Address [facility] Co de Phone Number [facility] [address] * (ABNORMAL) Allergen, D pteronyssinus (09/19/2024 4:40 PM EDT) Allergen D pteronyssinus 0.14(A) Class 0/I kU/L 09/24/2024 4:48 PM EDT [facility] Serum 09/19/2024 4:40 PM EDT 09/30/2024 11:07 AM EDT Narrative [facility] LAB - 09/30/2024 11:07 AM EDT [facility] [id number] MOTION PICTURE PROJECTIONIST: Arpit Ortega MD PHONE: [phone] us Lon Sullivan MD LAB BLOOD ORDERABLES Final Resul t Performing Organization Address [facility] Co de Phone Number [facility] [address] [facility]. [address] * Allergen, Trichoderma viride (09/19/2024 4:40 PM EDT) Allergen, Trichoderma viridae <0.10 Class 0 kU/L 09/30/2024 10:46 AM EDT [facility] Serum 09/19/2024 4:40 PM EDT 09/30/2024 11:07 AM EDT Narrative [facility] - 09/30/2024 11:07 AM EDT PERFORMED AT: [facility] [id number] MOTION PICTURE PROJECTIONIST: Arpit Ortega MD PHONE: [phone] Lon Sullivan MD LAB BLOOD ORDERABLES Final Resul t Performing Organization Address [facility] Co de Phone Number [facility] [address] [place] [facility]. [address] * Allergen, Alternaria alternata (09/19/2024 4:40 PM EDT) Allergen Alternaria alternata <0.10 Class 0 kU/L 09/24/2024 4:48 PM EDT [facility] Serum 09/19/2024 4:40 PM EDT 09/30/2024 11:07 AM EDT Narrative HEALTH LAB - 09/30/2024 11:07 AM EDT PERFORMED AT: [facility] [id number] MOTION PICTURE PROJECTIONIST: Arpit Ortega MD PHONE: [phone] Lon Sullivan MD LAB BLOOD ORDERABLES Final Resul t Performing Organization Address City/[facility]/ZIP Co de Phone Number [facility] [address] [place] [facility]. [address] * Allergen, Pecan, [place] (09/19/2024 4:40 PM EDT) Allergen Haseeb Ellisry <0.10 Class 0 kU/L 09/24/2024 4:48 PM EDT [facility] Serum 09/19/2024 4:40 PM EDT 09/30/2024 11:07 AM EDT [facility]arrative [facility] LAB - 09/30/2024 11:07 AM EDT [facility] [id number] MOTION PICTURE PROJECTIONIST: Arpit Ortega MD PHONE: [phone] Lon Sullivan MD LAB BLOOD ORDERABLES Final Resul t Performing Organization Address [facility] Co de Phone Number [facility] [address] [facility] * Allergen, Pigweed, Rough (09/19/2024 4:40 PM EDT) Allergen Pigweed, Rough <0.10 Class 0 kU/L 09/24/2024 4:48 PM EDT [facility] Serum 09/19/2024 4:40 PM EDT 09/30/2024 11:07 AM EDT [facility] - 09/30/2024 11:07 AM EDT PERFORMED AT: [address] [id number] MOTION PICTURE PROJECTIONIST: Arpit Ortega MD PHONE: [phone] Lon Sullivan MD LAB BLOOD ORDERABLES Final Resul t Performing Organization Address City/[facility]/ZIP Co de Phone Number [facility] [address] [facility] * Allergen Plantain, Polish (09/19/2024 4:40 PM EDT) Allergen Plantain, Polish <0.10 Class 0 kU/L 09/24/2024 4:48 PM EDT [facility] Serum 09/19/2024 4:40 PM EDT 09/30/2024 11:07 AM EDT Narrative [facility] - 09/30/2024 11:07 AM EDT PERFORMED AT: [address] [id number] MOTION PICTURE PROJECTIONIST: Arpit Ortega MD PHONE: [phone] Lon Sullivan MD LAB BLOOD ORDERABLES Final Resul t Performing Organization Address [facility] de Phone Number [facility] [address] [facility] [facility]. [address] * (ABNORMAL) Allergen, D Farinae Mite (09/19/2024 4:40 PM EDT) Allergen D Fainae Mite 0.13(A) Class 0/I kU/L 09/24/2024 4:48 PM EDT [facility] Serum 09/19/2024 4:40 PM EDT 09/30/2024 11:07 AM EDT [facility] - 09/30/2024 11:07 AM EDT PERFORMED AT: [address] [id number] MOTION PICTURE PROJECTIONIST: Arpit Ortega MD PHONE: [phone] Lon Sullivan MD LAB BLOOD ORDERABLES Final Resul t Performing Organization Address [facility] de Phone Number [facility] [address] [facility]. [address] * Allergen, Silver Birch (09/19/2024 4:40 PM EDT) Allergen Birch, Silver <0.10 Class 0 kU/L 09/24/2024 4:48 PM EDT [facility] Serum 09/19/2024 4:40 PM EDT 09/30/2024 11:07 AM EDT [facility] - 09/30/2024 11:07 AM EDT PERFORMED AT: [address] [id number] MOTION PICTURE PROJECTIONIST: Arpit Ortega MD PHONE: [phone] Lon Sullivan MD LAB BLOOD ORDERABLES Final Resul t Performing Organization Address City/[facility] Co de Phone Number [facility] [address] [facility]. [address] * Allergen, Setomelanomma Rostrat (09/19/2024 4:40 PM EDT) Allergen Setomelanomma rostrat <0.10 Class 0 kU/L 09/24/2024 4:48 PM EDT [facility] Serum 09/19/2024 4:40 PM EDT 09/30/2024 11:07 AM EDT Narrative [facility] - 09/30/2024 11:07 AM EDT PERFORMED AT: [address] [id number] MOTION PICTURE PROJECTIONIST: Arpit Ortega MD PHONE: [phone] Lon Sullivan MD LAB BLOOD ORDERABLES Final Resul t Performing Organization Address [facility] Co de Phone Number [facility] [address] [facility]. [address] * Allergen, Penicillium Chrysogen (09/19/2024 4:40 PM EDT) Allergen Penicillium chrysogen <0.10 Class 0 kU/L 09/24/2024 4:48 PM EDT [facility] Serum 09/19/2024 4:40 PM EDT 09/30/2024 11:07 AM EDT [facility] - 09/30/2024 11:07 AM EDT PERFORMED AT: [address] [id number] MOTION PICTURE PROJECTIONIST: Arpit Ortega MD PHONE: [phone] Lon Sullivan MD LAB BLOOD ORDERABLES Final Resul t [facility] [address] [facility]. [address] * Allergen, Fusarium Proliferatum (09/19/2024 4:40 PM EDT) Allergen Fusarium proliferatum <0.10 Class 0 kU/L 09/24/2024 4:48 PM EDT [facility] Serum 09/19/2024 4:40 PM EDT 09/30/2024 11:07 AM EDT [facility] - 09/30/2024 11:07 AM EDT PERFORMED AT: [facility] [id number] MOTION PICTURE PROJECTIONIST: Arpit Ortega MD PHONE: [phone] Lon Sullivan MD LAB BLOOD ORDERABLES Final Resul t Performing Organization Address [facility] de Phone Number [facility]. [address] * Allergen, Elm Indian (09/19/2024 4:40 PM EDT) Allergen Elm, Indian <0.10 Class 0 kU/L 09/24/2024 4:48 PM EDT [facility] Serum 09/19/2024 4:40 PM EDT 09/30/2024 11:07 AM EDT [facility] LAB - 09/30/2024 11:07 AM EDT PERFORMED AT: [facility] [id number] MOTION PICTURE PROJECTIONIST: Arpit Ortega MD PHONE: [phone] Lon Sullivan MD LAB BLOOD ORDERABLES Final Resul t Performing Organization Address [facility] Co de Phone Number [facility] [address] [facility]. [address] * Allergen, Dog Hair/Dander (09/19/2024 4:40 PM EDT) Allergen Dog Hair/Dander <0.10 Class 0 kU/L 09/24/2024 4:48 PM EDT [facility] Serum 09/19/2024 4:40 PM EDT 09/30/2024 11:07 AM EDT [facility] - 09/30/2024 11:07 AM EDT PERFORMED AT: [address] [id number] MOTION PICTURE PROJECTIONIST: Arpit Ortega MD PHONE: [phone] Lon Sullivan MD LAB BLOOD ORDERABLES Final Resul t Performing Organization Address [facility] de Phone Number [facility] [address] [facility] * Allergen, Onaga Feathers (09/19/2024 4:40 PM EDT) ALLERGEN, TURKEY FEATHERS <0.10 Class 0 kU/L 09/26/2024 6:02 AM EDT [facility] Serum 09/19/2024 4:40 PM EDT 09/30/2024 11:07 AM EDT Narrative [facility] - 09/30/2024 11:07 AM EDT PERFORMED AT: [address] [id number] MOTION PICTURE PROJECTIONIST: Arpit Ortega MD PHONE: [phone] Lon Sullivan MD LAB BLOOD ORDERABLES Final Resul t Performing Organization Address [facility] de Phone Number [facility] [address] [place] [facility]. [address] * Aspergillus antibodies (09/19/2024 4:40 PM EDT) Aspergillus Fumigatus Antibodies Negative Neg:<1:1 09/25/2024 3:16 PM EDT [facility] Aspergillus Flavus Antibodies Negative Neg:<1:1 09/25/2024 3:16 PM EDT [facility] Aspergillus Niger Antibodies Negative Neg:<1:1 09/25/2024 3:16 PM EDT [facility] Serum 09/19/2024 4:40 PM EDT 09/25/2024 4:08 PM EDT [facility] - 09/25/2024 4:08 PM EDT PERFORMED AT: [address] [id number] MOTION PICTURE PROJECTIONIST: Arpit Ortega MD PHONE: [phone] Lon Sullivan MD LAB BLOOD ORDERABLES Final Resul t Performing Organization Address [facility] Co de Phone Number [facility] [address] [place] [address]. [address] * Allergen, Ragweed Giant (09/19/2024 4:40 PM EDT) Allergen Ragweed, Giant <0.10 Class 0 kU/L 09/25/2024 10:34 AM EDT [facility] Serum 09/19/2024 4:40 PM EDT 09/25/2024 11:08 AM EDT [facility] - 09/25/2024 11:08 AM EDT PERFORMED AT: [address] [id number] MOTION PICTURE PROJECTIONIST: Arpit Ortega MD PHONE: [phone] Lon Sullivan MD LAB BLOOD ORDERABLES Final Resul t Performing Organization Address [facility] de Phone Number [facility] [address] [facility] * Allergen, Cladosporium herbarum (09/19/2024 4:40 PM EDT) Allergen Cladosporium herbarum <0.10 Class 0 kU/L 09/24/2024 4:48 PM EDT [facility] Serum 09/19/2024 4:40 PM EDT 09/30/2024 11:07 AM EDT [facility] - 09/30/2024 11:07 AM EDT PERFORMED AT: [address] [id number] MOTION PICTURE PROJECTIONIST: Arpit Ortega MD PHONE: [phone] Lon Sullivan MD LAB BLOOD ORDERABLES Final Resul t Performing Organization Address [facility] Co de Phone Number [facility] [address] [facility] * Allergen, Aspergillus fumigatus (09/19/2024 4:40 PM EDT) Allergen Aspergillus fumigatus <0.10 Class 0 kU/L 09/24/2024 4:48 PM EDT [facility] Serum 09/19/2024 4:40 PM EDT 09/30/2024 11:07 AM EDT [facility] LAB - 09/30/2024 11:07 AM EDT PERFORMED AT: [address] [id number] MOTION PICTURE PROJECTIONIST: Arpit Ortega MD PHONE: [phone] Lon Sullivan MD LAB BLOOD ORDERABLES Final Resul t Performing Organization Address [facility] Co de Phone Number [facility] [address] [facility] * Allergen, Rockdale White (09/19/2024 4:40 PM EDT) Allergen, [place] White <0.10 Class 0 kU/L 09/25/2024 10:34 AM EDT HEALTH LAB Comment: Levels of Specific IgE Class [...] - 09/25/2024 11:08 AM EDT [facility] [id number] MOTION PICTURE PROJECTIONIST: Arpit Ortega MD PHONE: [phone] Lon Sullivan MD LAB BLOOD ORDERABLES Final Resul t Performing Organization Address [facility] de Phone Number [facility] [address] [place] [address] * Allergen, Goose Feathers (09/19/2024 4:40 PM EDT) Allergen, Goose Feathers <0.10 Class 0 kU/L 09/24/2024 4:48 PM EDT [facility] Serum 09/19/2024 4:40 PM EDT 09/30/2024 11:07 AM EDT [facility] - 09/30/2024 11:07 AM EDT PERFORMED AT: [address] [id number] MOTION PICTURE PROJECTIONIST: Arpit Ortega MD PHONE: [phone] Lon Sullivan MD LAB BLOOD ORDERABLES Final Resul t Performing Organization Address [facility] de Phone Number [facility] [address] [facility] * Allergen, Duck Feathers (09/19/2024 4:40 PM EDT) Allergen, Duck Feathers <0.10 Class 0 kU/L 09/24/2024 4:48 PM EDT [facility] Serum 09/19/2024 4:40 PM EDT 09/30/2024 11:07 AM EDT [facility] LAB - 09/30/2024 11:07 AM EDT [facility]MED [facility]: [facility] [id number] MOTION PICTURE PROJECTIONIST: Arpit Ortega MD PHONE: [phone] Lon Sullivan MD LAB BLOOD ORDERABLES Final Resul t Performing Organization Address [facility] Co de Phone Number [facility] [address] * Allergen, Chicken Feathers (09/19/2024 4:40 PM EDT) Allergen Chicken Feathers <0.10 Class 0 kU/L 09/24/2024 4:48 PM EDT [facility] Serum 09/19/2024 4:40 PM EDT 09/30/2024 11:07 AM EDT [facility] LAB - 09/30/2024 11:07 AM EDT PERFORMED AT: [address] [id number] MOTION PICTURE PROJECTIONIST: Arpit Ortega MD PHONE: [phone] Lon Sullivan MD LAB BLOOD ORDERABLES Final Resul t Performing Organization Address [facility] de Phone Number [facility] [address] [facility] * Allergen, Cat Hair/Dander (09/19/2024 4:40 PM EDT) Allergen Cat Dander <0.10 Class 0 kU/L 09/24/2024 4:48 PM EDT [facility] Comment: Levels of Specific IgE Class [...] - 09/30/2024 11:07 AM EDT PERFORMED AT: [address] [id number] MOTION PICTURE PROJECTIONIST: Arpit Ortega MD PHONE: [phone] Lon Sullivan MD LAB BLOOD ORDERABLES Final Resul t Performing Organization Address [facility] de Phone Number [facility] [address] [facility] * Allergen, Sheep Osprey (09/19/2024 4:40 PM EDT) Allergen Sheep Osprey <0.10 Class 0 kU/L 09/24/2024 4:48 PM EDT [facility] Serum 09/19/2024 4:40 PM EDT 09/30/2024 11:07 AM EDT [facility] - 09/30/2024 11:07 AM EDT PERFORMED AT: [address] [id number] MOTION PICTURE PROJECTIONIST: Arpit Ortega MD PHONE: [phone] Lon Sullivan MD LAB BLOOD ORDERABLES Final Resul t Performing Organization Address [facility] de Phone Number [facility] [address] [facility] * Allergen, Ragweed, Short (09/19/2024 4:40 PM EDT) Allergen Ragweed, Common <0.10 Class 0 kU/L 09/24/2024 4:48 PM EDT [facility] Serum 09/19/2024 4:40 PM EDT 09/30/2024 11:07 AM EDT [facility] - 09/30/2024 11:07 AM EDT PERFORMED AT: [address] [id number] MOTION PICTURE PROJECTIONIST: Arpit Ortega MD PHONE: [phone] Lon Sullivan MD LAB BLOOD ORDERABLES Final Resul t Performing Organization Address [facility] Co de Phone Number [facility] [address] * Allergen, Grass, Yoandy (09/19/2024 4:40 PM EDT) Allergen Grass, Yoandy <0.10 Class 0 kU/L 09/24/2024 4:48 PM EDT [facility] Serum 09/19/2024 4:40 PM EDT 09/30/2024 11:07 AM EDT [facility] LAB - 09/30/2024 11:07 AM EDT PERFORMED AT: [address] [id number] MOTION PICTURE PROJECTIONIST: Arpit Ortega MD PHONE: [phone] Lon Sullivan MD LAB BLOOD ORDERABLES Final Resul t Performing Organization Address [facility] de Phone Number [facility] [address] [facility] * Allergen, Eugene Grass (09/19/2024 4:40 PM EDT) Allergen Grass, Eugene <0.10 Class 0 kU/L 09/24/2024 4:48 PM EDT [facility] Serum 09/19/2024 4:40 PM EDT 09/30/2024 11:07 AM EDT [facility] LAB - 09/30/2024 11:07 AM EDT PERFORMED AT: [address] [id number] MOTION PICTURE PROJECTIONIST: Arpit Ortega MD PHONE: [phone] Lon Sullivan MD LAB BLOOD ORDERABLES Final Resul t Performing Organization Address [facility] Co de Phone Number [facility] [address]. [address] * Allergen, Butler, White (09/19/2024 4:40 PM EDT) Allergen Butler, White <0.10 Class 0 kU/L 09/24/2024 4:48 PM EDT [facility] Serum 09/19/2024 4:40 PM EDT 09/30/2024 11:07 AM EDT [facility] LAB - 09/30/2024 11:07 AM EDT PERFORMED AT: [facility] [id number] MOTION PICTURE PROJECTIONIST: Arpit Ortega MD PHONE: [phone] Lon Sullivan MD LAB BLOOD ORDERABLES Final Resul t Performing Organization Address [facility] Co de Phone Number [facility] [address] [facility]. [address] * Allergen, Yoakum (09/19/2024 4:40 PM EDT) Allergen Yoakum <0.10 Class 0 kU/L 09/24/2024 4:48 PM EDT [facility] Serum 09/19/2024 4:40 PM EDT 09/30/2024 11:07 AM EDT [facility] - 09/30/2024 11:07 AM EDT PERFORMED AT: [facility] [id number] MOTION PICTURE PROJECTIONIST: Arpit Ortega MD PHONE: [phone] Lon Sullivan MD LAB BLOOD ORDERABLES Final Resul t Performing Organization Address [facility] Co de Phone Number [facility] [address] [place] [facility]. [address] * Allergen, [place], Mountain (09/19/2024 4:40 PM EDT) Allergen [place], Mountain <0.10 Class 0 kU/L 09/24/2024 4:48 PM EDT [facility] Serum 09/19/2024 4:40 PM EDT 09/30/2024 11:07 AM EDT Narrative [facility] - 09/30/2024 11:07 AM EDT PERFORMED AT: [address] [id number] MOTION PICTURE PROJECTIONIST: Arpit Ortega MD PHONE: [phone] Lon Sullivan MD LAB BLOOD ORDERABLES Final Resul t Performing Organization Address [facility] de Phone Number [facility] [address] [facility] * Allergen, Maple/Waverly (09/19/2024 4:40 PM EDT) Allergen Maple/Waverly <0.10 Class 0 kU/L 09/24/2024 4:48 PM EDT [facility] Serum 09/19/2024 4:40 PM EDT 09/30/2024 11:07 AM EDT Narrative [facility] - 09/30/2024 11:07 AM EDT PERFORMED AT: [address] [id number] MOTION PICTURE PROJECTIONIST: Arpit Ortega MD PHONE: [phone] Lon Sullivan MD LAB BLOOD ORDERABLES Final Resul t Performing Organization Address [facility] Co de Phone Number [facility] [address] [place] [facility]. [address] * Allergen Leandro, White (09/19/2024 4:40 PM EDT) Allergen Leandro, White <0.10 Class 0 kU/L 09/24/2024 4:48 PM EDT [facility] Serum 09/19/2024 4:40 PM EDT 09/30/2024 11:07 AM EDT Narrative [facility] - 09/30/2024 11:07 AM EDT PERFORMED AT: [facility] [id number] MOTION PICTURE PROJECTIONIST: Arpit Ortega MD PHONE: [phone] Lon Sullivan MD LAB BLOOD ORDERABLES Final Resul t Performing Organization Address [facility]/ZIP Co de Phone Number [facility] [address] [place] [facility]. [address] * IgE (09/19/2024 4:40 PM EDT) IgE 355 6 - 495 IU/mL 09/25/2024 8:21 PM EDT [facility] Serum 09/19/2024 4:40 PM EDT 09/25/2024 10:24 PM EDT [facility]arrative [facility] LAB - 09/25/2024 10:24 PM EDT PERFORMED AT: [address] [id number] MOTION PICTURE PROJECTIONIST: Arpit Ortega MD PHONE: [phone] Lon Sullivan MD LAB BLOOD ORDERABLES Final Resul t Performing Organization Address City/[facility]/ZIP Co de Phone Number [facility] [address] [place] [facility]. [address] * Differential (09/19/2024 4:26 PM EDT) Neutrophils Relative 66.9 40.0 - 80.0 % 09/19/2024 8:09 PM EDT [facility] Lymphocytes Relative 27.9 15.0 - 45.0 % 09/19/2024 8:09 PM EDT [facility] Monocytes Relative 3.6 0.0 - 12.0 % 09/19/2024 8:09 PM EDT [facility] Eosinophils Relative 1.2 0.0 - 8.0 % 09/19/2024 8:09 PM EDT [facility] Basophils Relative 0.4 0.0 - 1.0 % 09/19/2024 8:09 PM EDT [facility] nRBC 0 0 - 0 /100 WBC 09/19/2024 8:09 PM EDT [facility] Neutrophils Absolute 7,694 1,520 - 8,640 /uL 09/19/2024 8:09 PM EDT [facility] Lymphocytes Absolute 3,209 570 - 4,860 /uL 09/19/2024 8:09 PM EDT [facility] Monocytes Absolute 414 0 - 1,296 /uL 09/19/2024 8:09 PM EDT [facility] Eosinophils Absolute 138 0 - 864 /uL 09/19/2024 8:09 PM EDT [facility] Basophils Absolute 46 0 - 108 /uL 09/19/2024 8:09 PM EDT [facility] Whole Blood 09/19/2024 4:26 PM EDT 09/19/2024 8:00 PM EDT us Lon Sullivan MD LAB BLOOD ORDERABLES Final Resul t [facility] [address] [place] [address], [facility] [place] * (ABNORMAL) CBC (09/19/2024 4:26 PM EDT) WBC 11.5(H) 3.8 - 10.8 10E3/uL 09/19/2024 8:09 PM EDT [facility] RBC 4.78 3.80 - 5.10 10E6/uL 09/19/2024 8:09 PM EDT [facility] Hemoglobin 14.8 11.7 - 15.5 g/dL 09/19/2024 8:09 PM EDT [facility] Hematocrit 43.8 35.0 - 45.0 % 09/19/2024 8:09 PM EDT [facility] MCV 91.7 80.0 - 100.0 fL 09/19/2024 8:09 PM EDT [facility] MCH 31.0 27.0 - 33.0 pg 09/19/2024 8:09 PM EDT [facility] MCHC 33.8 32.0 - 36.0 g/dL 09/19/2024 8:09 PM EDT [facility] RDW 13.0 11.0 - 15.0 % 09/19/2024 8:09 PM EDT [facility] Platelets 370 140 - 400 10E3/uL 09/19/2024 8:09 PM EDT [facility] MPV 7.8 7.5 - 11.5 fL 09/19/2024 8:09 PM EDT [facility] Whole Blood 09/19/2024 4:26 PM EDT 09/19/2024 8:00 PM EDT Lon Sullivan MD LAB BLOOD ORDERABLES Final Resul t Performing Organization Address City/[facility]/ZIP Co de Phone Number [facility] [address] [place] [facility]. [address] * X-ray Comparison Images (09/11/2024 5:27 PM EDT) Only the most recent of9 resultswithin the time period is included. Narrative EXTERNAL - 09/11/2024 5:27 PM EDT Images associated with this accession number were presented to us for comparison to an examination performed here. us Provider Not In System IMG DIAGNOSTIC IMAGING OR DERABLES Final Result Performing Organization Address [facility] Co de Phone Number EXTERNAL * ED HIV 1+2 Antibody/Antigen with Reflex (03/30/2022 6:27 PM EST) Pathologist [facility] HIV 1+2 AB/AGN Nonreactive Nonreactive 03/30/2022 7:20 PM EST [facility] Serum 03/30/2022 6:27 PM EST 03/30/2022 6:29 PM EST Narrative [facility] - 03/30/2022 7:20 PM EST HIV-1 p24 Antigen and HIV-1/HIV-2 Antibody not detected. us Carissa Ferrari CNP LAB BLOOD ORDERABLES Final Result Performing Organization Address City/[facility]/ZIP Co de Phone Number [facility] [address] [facility] * Pulmonary function test (04/15/2020) FEV1 3.15 liters FEV1% 95 FVC 4.03 liters FVC% 102 FEV1/FVC 78 % FEV1/FVC EXP 85 RESPONSE TO BRONCHODILATOR TLC 5.28 liters TLC% 103 RV 1.26 RV% 86 VC 4.03 VC% 102 DLCO 22.3 ml/mmHg sec DLCO% 96 SNIP PEAK COUGH FLOW SVC SUPINE SVC % DROP 04/15/2020 Impressions Yocasta Buchanan RN - 04/15/2020 Normal pulmonary function. Narrative Yocasta Buchanan RN - 04/15/2020 No obstruction. Normal volumes by plethysmography. Normal diffusion for volumes. us Historical Provider MD PFT ORDERABLES Final Res ult from Last 3 Months or Most Recently Relevant to Health Maintenance Insurance [facility] MEDICAID Care Teams Icing Mixer Relationship Specialty Start Date End Date Maye Rascon APRN [address] [place] [address] PCP - General Police Artist 10/10/24
--- OUTSIDE RECORDS SUMMARY | 2024-11-11 08:49 | XMS_ITS | Encounter Summary ---
Author Organization [place] [address] Care Team Providers Care Curing Oven Attendant Name Role Phone Sugey Moreno MD Primary Care Provi alexa Unavailable Iram Mtz DO Primary Care Provider [phone] Maye Rascon APRN Primary Care Provider [phone] Frankie Huitron MD Unavailable [phone] Encounter Details Date Type Department Care Team (Late st Contact Info) Description 08/14/2021 Treatment [facility] [address] [place] [id number] Kirit Bailey MD [address] [id number] Social History Tobacco Use Types Packs/Day Years Used Date Smoking Tobacco: Every Day Cigarettes 1 17.5 Started: 05/22/2007 Smokeless Tobacco: Never Alcohol Use Standard Drinks/Week Comments No 0 (1 standard drink = 0.6 oz pur e alcohol) Overall Financial Resource Strain (CARDIA) Answe r Date Recorded How hard is it for you to pa y for the very basics like food, housing, medical care, and heating? Not hard at all 01/14/2021 PHQ-2 Answer Date Recorded PHQ-2 Total Score 6 03/11/2020 [facility] - Occupational Stress Questionnaire Answer Date Recorded Do you feel stress - tense, restless, nervous, or anxious, or unable to sleep at night because your mind is troubled all the time - these days? Rather much 01/14/2021 Exercise Vital Sign Answer Date Recorde d On average, how many days pe r week do you engage in moderate to strenuous exercise (like a brisk walk)? 1 day 09/10/2020 On average, how many minutes do you engage in exercise at this level? 60 min 09/10/2020 Hunger Vital Sign Answer Date Recorded Within the past 12 months, y ou worried that your food would run out before you got the money to buy more. Never true 01/15/20 21 Within the past 12 months, t he food you bought just didn't last and you didn't have money to get more. Never true 01/14/2021 PRAPARE - Transportation Answer Date Re corded [...] a senior living (including now)? No 01/14/2021 Sexually Active Control Partners Comments Yes Implant, Condom Male Comments No Sex and Gender Information Value Date Recorded Sex Assigned at Not on file Legal Sex Female 4:40 AM EDT Gender Identity Not on file Sexual Orientation Not on file COVID-19 Exposure Response Date Recorded In the last 10 days, have yo u been in contact with someone who was confirmed or suspected to have Coronavirus/COVID-19? No / Unsure 08/14/2021 12:19 PM EDT documented as of this encounter Functional Status * Is the person deaf or does he/she have serious difficulty hearing? Answer Date of Assessment Author No 03/25/2020 12:42 PM Azul Rainey RN * Is the person blind or does he/she have serious difficulty seeing even when wearing glasses? Answer Date of Assessment Author No 03/25/2020 12:42 PM Azul Rainey RN * Does this person have serious difficulty walking or climbing stairs? Answer Date of Assessment Author No 03/25/2020 12:42 PM Azul Rainey RN * Does this person have difficulty dressing or bathing? Answer Date of Assessment Author No 03/25/2020 12:42 PM Azul Rainey RN * Because of a physical, mental or emotional condition, does this person have difficulty doing errands alone such as visiting a doctor's office or shopping? Answer Date of Assessment Author No 03/25/2020 12:42 PM Azul Rainey RN documented as of this encounter Mental Status * Because of a physical, mental or emotional condition, does this person have serious difficulty concentrating, remembering or making decisions? Answer Entry Date Author No 03/25/2020 12:42 PM Azul Rainey RN documented in this encounter Plan of Treatment Upcoming Encounters Date Type Department Care Team (Late st Contact Info) Description 01/07/2025 11:00 AM EST Telemedicine [facility] [place] [address] [facility] [address] [place] [id number] Kirit Bailey MD [address] [facility] [address] [place] [phone] 02/21/2025 8:30 AM EST Office Visit [facility] [address] [place] [id number] Anyi Juarez, DRY WALL PLASTERER [address] [place] [address] documented as of this encounter Goals Goal Patient Goal Type Associated Problems Recent Progress Patient-Stated? Author Maintain a healthy diet, exercise regularly and maintain an ideal body weight General No Cydney Ralph CCMA Stay Tobacco Free Lifestyle No Ramo, Cydney Shweta, CCMA documented as of this encounter Visit Diagnoses Not on filedocumented in this encounter Additional Health Concerns Infection Onset Date Last Indicated Resolved Time R/O COVID-19 04/22/2023 04/22/2023 04/22/2023 5:06 PM EST Assessment Noted Time PHQ-9 Depression Total Score: 21 021 4:47 PM EST PHQ-2 Depression Total Score: 6 03/11/19 21 4:47 PM EST documented as of this encounter Care Teams Curing Oven Attendant Relationship Specialty Start Date End Date Sugey Moreno MD PCP - General Family Medicine 03/11/20 05/26/23 Iram Mtz DO [address] [place] [address] PCP - General Family Medicine 05/27/23 06/07/23 Maye Rascon APRN [address] [place] [address] PCP - General Nurse Practitioner-Family 06/08/23 Frankie Huitron MD [address] [facility] [address] [place] [address] Otolaryngology 10/02/23 documented as of this encounter
--- OUTSIDE RECORDS SUMMARY | 2024-11-11 08:49 | XMS_ITS | Encounter Summary ---
Author Organization [facility] Address [address] [place] [address] Care Team Providers Care Security Consultant Name Role Phone Sugey Kurtz MD Primary [...] release of HIV test results or diagnoses. [id number] Health Encounter Details Date Type Department Care Team (Late st Contact Info) Description 10/03/2024 Telephone [facility] ENT at [facility] [address] [place] [address] [address] [place] [address] Iram Bynum, RN Social History Tobacco Use Types Packs/Day Years [...] encounter Miscellaneous Notes * Telephone Encounter - Iram Bynum RN - 10/03/2024 1:07 PM EDT Spoke with the patient and confirmed allergy skin test appointment. Instructions given. Patient verbalized understanding and denies being on a beta pedro. documented in this encounter Plan of Treatment Not on file documented as of this encounter Visit Diagnoses Not on filedocumented in this encounter Care Teams Security Consultant Relationship Specialty Start Date End Date Sugey Kurtz MD PCP - General Family Medicine 03/30/22 10/09/24 documented as of this encounter
--- OUTSIDE RECORDS SUMMARY | 2024-11-11 08:49 | XMS_ITS | Clinical Summary ---
Author Organization [facility] Address [address] [place] [address] Phone Care Team Providers Care Superintendent Pier Name Role Phone Maye Rascon APRN Primary Care Provider Frankie Huitron MD Unavailable [phone] Allergies Active Allergy Reactions Criticality Noted Date Comments Sulfamethoxazole-Trimetho prim Anaphylaxis High 01/29/2018 Droperidol Other (See Comments) 05/12/2020 SLEPT IN A DEEP SLEEP FOR 2 DAYS, required oxygen Ketamine Anxiety,Other (See Comments) High 03/22/2023 Hallucinated for 8 hours, never wants to have this medicine again. Nickel Rash 08/04/2021 Sulfamethoxazole Swelling Low 08/04/2021 Trimethoprim Swelling Low 08/04/2021 Vancomycin Hives,Itching,Rash Medications * This document contains information received from the source organization and may not represent a complete record from that organization. Insulin Syringe-Needle U-100 (BD INSULIN SYRINGE) 1 mL 28 gauge x 1/2 Misc SyringeIndication s:B12 deficiency due to diet Use with b12 injections 10 Syringe 2 021 Active Lactobacillus Acidophilus (ACIDOPHILUS) Oral Capsule Take 1 Capsule by mouth daily. Take 1 million tab daily 30 Capsule 023 Active azelastine (ASTELIN) 137 mcg (0.1 %) Nasl [place], Non-AerosolIndica tions:Seasonal allergic rhinitis, unspecified trigger 2 Sprays in each nostril 2 times daily. Use in each nostril as directed 30 mL 5 024 Active montelukast (SINGULAIR) 10 mg Oral TabletIndications :Recurrent sinus infections Take 1 Tablet by mouth nightly. 90 Tablet 3 024 Active cetirizine (ZYRTEC) 10 mg Oral TabletIndications :Hives Take 1 Tablet by mouth daily. 90 Tablet 2 024 Active ENSURE High Protein (ENSURE CLEAR) Oral take 1 bottle (237 ml) 4 times daily with meals and bedtime snack. 120 Each 1 024 Active famotidine (PEPCID) 40 mg Oral Tablet Take 40 mg by mouth 2 times daily. Active cholecalciferol, vitamin D3, 25 mcg (1,000 unit) Oral Tablet Take 1 Tablet by mouth daily. Active pantoprazole (PROTONIX) 40 mg Oral Tablet, Delayed Release (E.C.)Indications :Esophageal dysphagia Take 1 Tablet by mouth 2 times daily. 180 Tablet 2 025 Active cyanocobalamin 1,000 mcg/mL Inj SolutionIndicatio ns:Anemia due to vitamin B12 deficiency, unspecified B12 deficiency type INJECT 1,000 MCG (1ML) DIRECTED EVERY 7 DAYS FOR 30 DAYS. 12 mL 1 025 Active EPINEPHrine (EPIPEN) 0.3 mg/0.3 mL Inj Auto-Injector Inject 0.3 mL as directed as needed for Anaphylaxis. Inject the contents of one pen (0.3 mL) into the muscle in the middle of the outer thigh as directed for anaphylaxis.C all 911 after administering.* * May repeat dose in 5-15 minutes if symptoms persist or worsen. 2 Each 1 025 Active LEVOthyroxine (SYNTHROID) 125 mcg Oral TabletIndications :Post-surgical hypothyroidism Take 1 Tablet by mouth daily. 90 Tablet 3 025 Active acetylcysteine (NAC) 600 mg Oral Capsule Take 1 Capsule by mouth 2 times daily. 60 Capsule 6 025 Active busPIRone (BUSPAR) 10 mg Oral Tablet Take 1 Tablet by mouth 3 times daily as needed. 60 Tablet 1 025 Active hydrOXYzine (VISTARIL) 25 mg Oral Capsule Take 1 Capsule by mouth 3 times daily as needed. 30 Capsule 025 Active albuterol (VENTOLIN HFA) 90 mcg/actuation Inhl HFA Aerosol InhalerIndication s:Hx of wheezing,Chronic cough Inhale 2 Puffs into the lungs every 6 hours as needed for Wheezing. 18 g 025 Active amoxicillin (AMOXIL) 400 mg/5 mL Oral Suspension for ReconstitutionInd ications:Pharyngi tis, unspecified etiology Take 15 mL by mouth 3 times daily for 7 days. 315 mL 025 Active metroNIDAZOLE (METROGEL) 0.75 % (37.5mg/5 gram) Vagl GelIndications:ba cterial vaginosis Place 37.5 mg vaginally daily. Indications: an infection of the vagina called bacterial vaginosis 5 Each 025 Active mupirocin (BACTROBAN) 2 % Top OintmentIndicatio ns:Acute folliculitis Apply topically 3 times daily. 30 g 025 Active fluticasone propionate (FLONASE) 50 mcg/actuation Nasl [place], SuspensionIndicat ions:Seasonal allergic rhinitis, unspecified trigger SPRAY 2 SPRAYS INTO EACH NOSTRIL EVERY DAY 48 mL 1 025 Active mupirocin (BACTROBAN) 2 % Top OintmentIndicatio ns:Acute folliculitis Apply topically 3 times daily. 30 g 024 2024 Discontinued(R eorder) fluticasone propionate (FLONASE) 50 mcg/actuation Nasl [place], SuspensionIndicat ions:Seasonal allergic rhinitis, unspecified trigger SPRAY 2 SPRAYS INTO EACH NOSTRIL EVERY DAY 48 mL 1 025 2024 Discontinued Active Problems Patient Care Coordination No te Formatting of this note migh t be different from the original. NO CONTROLLED MEDICATIONS FROM [facility] PER DR. RODRIGUEZ 01/15/2021 Oriana - as expected 04/21/15 [facility] has no Immunization record on file PHENTERMINE: DATE OF LAST ORIANA: 06/12/17/RDC/gr DATE OF LAST CONTRACT: 06/12/17/RDC/gr DATE OF LAST SOAP: 06/12/17/RDC/gr [facility] - Yoandy Ibrahim MD Controlled Substance Protocol Completed: A. Informed Consent Statement signed (Yearly) ( ) B. Controlled Substance Agreement signed (Yearly) ( ) C. Comprehensive Urine Drug Screen was performed (09/17/2020) D. Oriana report completed (EVERY 3 MONTHS) 11/10/2020 E. Screening tool for addiction (SOAPP) completed (YEARLY) ( ) F. Need for controlled substance is documented (EVERY VISIT) G. Pain Scale and or Functional capacity documented (EVERY VISIT) 08/22 Pharmacy: [id number] [place] [address] - [address] [place] [address] - [phone] [place] [address] [place] [address] [facility] additional info (Transportation, WC, Compound, No Show, PPW) Problem Noted Date Diagnosed Date Nasal obstruction 11/16/2023 Severe protein-calorie malnutrition 11/14/2023 RUQ pain 11/11/2023 Assessment & Plan (11/21/2023 1:09 PM EDT): With cholelithiasis S/p cholecystectomy 11/10 Now has LUQ pain CT abomen pelvis 11/19 review independently, no acute pathology Check CTPA to r/o PE Assessment & Plan (11/13/2023 1:03 PM EDT): With cholelithiasis S/p cholecystectomy 11/10 Assessment & Plan (11/12/2023 11:38 AM EDT): With cholelithiasis S/p cholecystectomy 11/10 Assessment & Plan (11/11/2023 12:59 PM EDT): With cholelithiasis General surgery following Possible cholecystectomy Dysphagia, unspecified type 11/10/2023 Assessment & Plan (11/21/2023 1:09 PM EDT): EGD negative biopsy pending. 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 OP follow up with GI and detm On Empiric steroids, change to po Prednisone. Assessment & Plan (11/13/2023 1:03 PM EDT): GI henrry Has had recent esophageal dilation NPO until barium swallow Assessment & Plan (11/12/2023 11:38 AM EDT): GI henrry Has had recent esophageal dilation Speech eval pending On CLD Assessment & Plan (11/11/2023 12:59 PM EDT): GI evtiffany Has had recent esophageal dilation Will keep NPO for now Speech eval Gastroesophageal reflux dise ase, unspecified whether esophagitis present 11/02/2023 Assessment & Plan (11/21/2023 1:09 PM EDT): PPI Assessment & Plan (11/13/2023 1:03 PM EDT): PPI Assessment & Plan (11/12/2023 11:38 AM EDT): PPI Assessment & Plan (11/11/2023 12:59 PM EDT): PPI Endometriosis 02/19/2021 Cervical dysplasia 02/19/2021 Esophageal dysphagia 10/22/2020 Overview (10/22/2020): Added automatically from request for surgery [id number] Assessment & Plan (08/09/2024 4:09 PM EDT): Following GI Has egd scheduled for next week and barium swallow scheduled for 09/05/24 Orders: BQTAVURUY-FWXPS-5,3-GALACTOSE (ALPHA-GAL) IGE - REF LAB; Future Assessment & Plan (11/28/2023 4:31 PM EDT): Continue on PPI and yola treatment. Continue workup outpatient with GI, ENT and Immunology. Orders: pantoprazole (PROTONIX) 40 mg Oral Tablet, Delayed Release (E.C.); Take 1 Tablet by mouth 2 times daily. Elevated IgE level 07/02/2020 Assessment & Plan (08/09/2024 4:09 PM EDT): To schedule allergy testing OFF antihistamine. Orders: IMMUNOGLOBULIN E -REF LAB; Future Muscle weakness 04/23/2020 Memory changes 04/23/2020 Myoclonus 04/23/2020 Intractable low back pain 03/22/2020 Depression, major, recurrent, moderate Assessment & Plan (11/13/2023 1:03 PM EDT): Continue home meds Assessment & Plan (11/12/2023 11:38 AM EDT): Continue home meds Assessment & Plan (11/11/2023 12:59 PM EDT): Continue home meds Assessment & Plan (03/15/2020 5:23 PM EST): Pt thinks triggered by worsening anxiety and feelings of not being in control. Will do low dose propranolol and see if anxiety improves and therefore depression. If not, will discuss either do trial of new antidepressant or genetic testing. Interstitial lung disease 03/15/2020 Assessment & Plan (03/15/2020 5:15 PM EST): Recent abnormal ct lung scan, has been referred to pulmonary. Recommend smoking cessation but pt is not interested in this time. Bladder dysfunction 03/15/2020 Assessment & Plan (03/15/2020 5:18 PM EST): Recommend she be evaluated by urogyn given her sensation of un-emptying her bladder, frequent urination. 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 States she is working third shift and having difficulty with the shift work and sleep wake cycle. Has been depressed. No HSI. Feels overwhelmed. Symptoms are at work and at home. Has lost at least 25 pounds recently Decreased appetite. Decreased sleep. Denies AVH Has anhedonia Feels overwhelmed Feel helpless and hopeless Hx of depression and anxiety in the past tx with zoloft, buspar. danial Lives with herself and her 5 year old son. Has good family support. 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 Assessment & Plan (11/13/2023 1:03 PM EDT): Resume home meds Assessment & Plan (11/12/2023 11:38 AM EDT): Resume home meds Assessment & Plan (11/11/2023 12:59 PM EDT): Resume home meds Anxiety disorder 04/03/2015 Assessment & Plan (11/21/2023 1:09 PM EDT): stable. Assessment & Plan (11/13/2023 1:03 PM EDT): Resume home meds Assessment & Plan (11/12/2023 11:38 AM EDT): Resume home meds Assessment & Plan (11/11/2023 12:59 PM EDT): Resume home meds Assessment & Plan (09/19/2020 2:32 PM EDT): Discussed risk and benefits of lorazepam especially with pain medication. Pt understands risks and would like to continue medication. Assessment & Plan (03/15/2020 5:21 PM EST): States she has been on numerous SSRIs, buspar, etc. Has done counseling in the past. Has been stable on xanax until just recently with the increase in stress due to breathing issues. Likely also contributed due to being hyperthyroid due to history of thyroid cancer. Has not tolerated beta blockers in past but has never been on propranolol. Will start low dose propranolol and see if anxiety improves. Hx of thyroid cancer 09/09/2014 Overview (04/03/2015): Thyroid Cancer s/p Total thyroidectomy with central compartment neck dissection 09/01/2014 (stage 1/T1N0Mx) Pathology reports shows a single focus of papillary thyroid cancer of 8 mm with negative LNs. As focus is single, subcentimeter she does not need Radioactive iodine treatment. Surgeon: Dr. Trejo Endo: Leo Plasencia 08/201409/01/14 09:25 EDT Diagnosis 1) Thyroid Gland, Total Thyroidectomy: - Papillary Thyroid Carcinoma, LEFT Side, 8.0 mm Size. - Limited to The Thyroid, No Extrathyroidal Extension. - Negative for Metastatic Tumor, 3 Incidental Perithyroidal Lymph Nodes. - 2 Small Intrathyroidal Parathyroid Glands, 1 Right and 1 Left Side. - Chronic Lymphocytic Thyroiditis (Carly's Thyroiditis) With Additional Benign Nodules Right and Left Sides. 2) Left Central Compartment: - Negative for Metastatic Tumor, 6 Lymph Nodes. 3) Right Central Compartment: - Negative for Metastatic Tumor, 5 Lymph Nodes. Post-surgical hypothyroidism 09/09/2014 Overview (04/03/2015): On levothyroxine Cassandra Bailey Assessment & Plan (08/09/2024 4:09 PM EDT): On thyroid replacement Assessment & Plan (03/15/2020 5:13 PM EST): Managed by endocrinology. Prefers her to be hyperthryoid Anemia Depression Hypothyroidism Assessment & Plan (04/11/2024 1:33 PM EST): Orders: TSH REFLEX; Future T4, FREE (THYROXINE); Future Assessment & Plan (11/21/2023 1:09 PM EDT): levothyroxine Assessment & Plan (11/13/2023 1:03 PM EDT): levothyroxine Assessment & Plan (11/12/2023 11:38 AM EDT): levothyroxine Assessment & Plan (11/11/2023 12:59 PM EDT): levothyroxine Cyst of ovary SVT (supraventricular tachycardia) WPW (Netag-Dxwghkecj-Bcvia syndrome) Resolved Problems Problem Noted Date Diagnosed Date Resolved Date Calculus of gallbladder 11/11/202307/15 Assessment & Plan (11/21/2023 1:09 PM EDT): As above [facility] US reviewed S/p cholecystectomy Assessment & Plan (11/13/2023 1:03 PM EDT): As above [facility] US reviewed S/p cholecystectomy Assessment & Plan (11/12/2023 11:38 AM EDT): As above [facility] US reviewed S/p cholecystectomy Assessment & Plan (11/11/2023 12:59 PM EDT): As above [facility] US reviewed Vaginal irritation 02/19/2021 Well female exam with routin e gynecological exam 02/19/2021 06/09/2023 Unexplained weight loss 04/23/202005/15 History of thyroid cancer 03/15/2020 Assessment & Plan (03/15/2020 5:13 PM EST): Managed by endocrinology Thyroid nodule 03/14/2014 09/09/2014 Carly's thyroiditis 08/30/201303/16 Sepsis 01/08/2013 07/09/2014 Pyelonephritis 01/08/2013 07/09/2014 Head ache 01/08/2013 04/03/2015 Dehydration 01/08/2013 07/09/2014 Hypokalemia 01/08/2013 07/09/2014 Kidney infarction 04/03/2015 Goiter 04/03/2015 Encounters Date Type Department Care Team Description 11/07/[address] [place] [address] Maye Rascon APRN Medication Refill 10/06/2024 Results Follow-Up [facility] [place] [address] [place] [address] [place] [phone] Kirit Bailey MD TSH REFLEX TO FT4, T4, FREE (THYROXINE) 10/03/2024 1:20 PM EDT Clinical Support [facility] [place] [phone] Ar Angulo MA Post-surgical hypothyroidism 09/24/[address] [place] [address] Maye Rascon APRN Appointment Needed (TSH REFLEX TO FT4) 09/22/2024 Results Follow-Up [address] [place] [address] Cydney Sorto APRN CHLAMYDIA/GC BY TMA, UPPER RESPIRATORY CULTURE (NO STAIN), VAGINITIS PANEL NAAT 09/18/2024 4:15 PM EDT Office Visit [facility] [place] [address] Cydney Sorto APRN Pharyngitis, unspecified etiology (Primary Dx); Possible exposure to STI 08/26/2024 12:35 PM EDT - 08/26/2024 11:59 PM EDT Hospital Encounter [facility] [address] [place] [phone] Post-surgical hypothyroidism; Weight loss Discharge Disposition: Home or Self Care 08/20/2024 Nurse Triage [facility] [address] [employer] [facility] [place] [phone] Ginger Cardona RN 08/20/2024 Results Follow-Up [facility] [address] [place] [phone] Maye Rascon, BLOW MACHINE T[employer]ER [employer] CBC WITH DIFF, COMPREHENSIVE METABOLIC PANEL, VITAMIN B12/ FOLIC ACID, Additional followed-up results: 14 08/18/2024 2:37 AM EDT - 08/18/2024 3:43 AM EDT Emergency [facility] [address] [place] [address] Dallin Morgan MD Allergic reaction, initial encounter (Primary Dx) Discharge Disposition: Home or Self Care 08/18/2024 Travel 08/13/2024 8:04 AM EDT Anesthesia Event [facility] [place] [address] Yoandy Moctezuma MD Zehnder, Wende, BLOW MACHINE TENDER [employer] 08/13/2024 7:06 AM EDT - 08/13/2024 11:59 PM EDT Hospital Encounter [facility] [place] [address] Nhung Doherty MD Tilden, Amanda Marie, CRNA Dickinson, Timothy D, MD Preop testing (Primary Dx); Esophageal dysphagia Discharge Disposition: Home or Self Care from Last 3 Months Immunizations Immunization Administration Dates Next Due Flucelvax 12/21/2023 HPV Quadrivalent 10/28/2014 Hepatitis B, Ped/Adol 03/05/2002,10/02/2001,08/13 Influenza Vaccine Quadrivalent 10/28/2014 Influenza Vaccine, Unspecified Formulation 11/30 Influenza, Split (Incl. Nallely fied Surface Antigen) 01/07/2020 MMR 07/25/1995 OPV-Trivalent 07/25/1995 Tdap 01/02/2015 Surgical History Surgery Date Site/Laterality Comments TONSILLECTOMY ABDOMEN SURGERY lap for endomet. left cyst and adhesions ADENOIDECTOMY THYROIDECTOMY 09/01/2014 N/A TOTAL THYROIDECTOMY with CENTRAL NECK DISSECTION ; Surgeon: Manuel Trejo MD; Location: [facility]; Service: ENT UPPER GASTROINTESTINAL ENDOSCOPY IR 2 LEVEL BILATERAL MEDIAL BRANCH BLOCK CERV THOR 01/16/2020 IR 2 LEVEL BILATERAL MEDIAL BRANCH BLOCK CERV THOR 01/16/2020 [facility] XRAY IR 2 LEVEL BILATERAL MEDIAL BRANCH BLOCK CERV THOR 02/20/2020 IR 2 LEVEL BILATERAL MEDIAL BRANCH BLOCK CERV THOR 02/20/2020 [facility] IMAGING BACK SURGERY LAPAROSCOPY UPPER GASTROINTESTINAL ENDOSCOPY 10/29/2020 N/A Esophagogastroduodenoscopy with biopsies via forceps and savary dilation; Surgeon: Nhung Doherty MD; Location: [facility]; Service: Endoscopy CHOLECYSTECTOMY 11/11/2023 Abdomen/N/A DAVINCI ROBOTIC CHOLECYSTECTOMY; Surgeon: Naren Lilly MD; Location: [facility]; Service: General Medical History Medical History Date Comments Chickenpox childhood Cyst of ovary right Goiter Hypothyroidism Depression Anxiety Anemia Carly's thyroiditis positive antibodies JENNINGS (dyspnea on exertion) Heartburn Headache(784.0) Cancer (HCC) Thyroid Urinary tract infection Sphincter of Oddi dysfunction 07/2019 Heart abnormality Arthritis Pneumonia Cardiac dysrhythmia Urinary incontinence SVT (supraventricular tachycardia) WPW (Vkqcl-Qouzriqgt-Weyya syndrome) Interstitial lung disease (HCC) Hypertension CHF (congestive heart failure) (HCC) Thyroid cancer (HCC) Lung disease Ulcer GERD (gastroesophageal reflux disease) CAD (coronary artery disease) MRSA (methicillin resistant staph aureus) culture positive Irritable bowel syndrome Pulmonary fibrosis (HCC) Heart murmur Family History Medical History Relation Name Comments Asthma Brother Timmy Liver Disease Brother Timmy No option for MY SON Arthritis Father [place] Hearing Loss Father [place] Heart Attack Father [place] Heart Disease Father [place] Numerous NM's, yet excellent BP and cholesterol and such. Mental Illness Father [place] Diabetes Maternal Aunt 1 Ginger Heart Attack Maternal Aunt 1 Gigner Diabetes Maternal Aunt 2 Diabetes Maternal Aunt 3 Sandra Coronary Art Dis Maternal Grandmother Pauline Diabetes Maternal Grandmother Pauline Heart Attack Maternal Grandmother Pauline High Blood Pressure Maternal Grandmother Pauline Kidney Disease Maternal Grandmother Pauline Diabetes Maternal Uncle 1 Balwinder Diabetes Maternal Uncle 2 Arthritis Mother Cinda Cancer Mother Cinda Lung cancer Colon Polyps Mother Cinda Depression Mother Cinda Diabetes Mother Cinda Elevated Lipids Mother Cinda High Cholesterol Mother Cinda Inflam Bowel Dis Mother Cinda Irritable Bowel Syndrome Mother Cinda Liver Disease Mother Cinda Mental Illness Mother Cinda Diabetes Other Diabetes Paternal Aunt 1 Ginger Thyroid Disease Paternal Aunt 1 Ginger Thyroid Disease Paternal Aunt 2 Guerline Diabetes Paternal Aunt 3 Thyroid Disease Paternal Aunt 3 Diabetes Paternal Grandfather Jr Crohn's Disease Paternal Grandmother Erum Diabetes Paternal Grandmother Erum Thyroid Disease Paternal Grandmother Erum Bipolar Disorder Paternal Uncle 1 Balwinder Diabetes Paternal Uncle 1 Balwinder Diabetes Paternal Uncle 2 Diabetes Sister Ginger Callahan. Thyroid Disease Sister Ginger Callahan. Breast Cancer Neg Hx Colon Cancer Neg Hx Relation Name Status Comments Brother Timmy Alive Father [place] Alive Maternal Aunt 1 Ginger Maternal Aunt 2 Alive Maternal Aunt 3 Sandra Alive Maternal Grandmother Pauline Maternal Uncle 1 Balwinder Maternal Uncle 2 Alive Mother Cinda Alive Other Paternal Aunt 1 Ginger Paternal Aunt 2 Guerline Paternal Aunt 3 Alive Paternal Grandfather Jr Paternal Grandmother Erum Alive Paternal Uncle 1 Balwinder Paternal Uncle 2 Alive Sister Ginger Callahan. Social History Tobacco Use Types Packs/Day Years Used Date Smoking Tobacco: Every Day Cigarettes 1 17.5 Started: 05/22/2007 Smokeless Tobacco: Never Tobacco Cessation:Ready to Q uit: Not Asked; Counseling Given: Not Answered Alcohol Use Standard Drinks/Week Comments Never 0 (1 standard drink = 0.6 oz pur e alcohol) [facility] Utilities Answer Date Recorded In the past 12 months has e electric, gas, oil, or water company threatened to shut off services in your home? No 11/13/2023 Overall Financial Resource Strain (CARDIA) Answe r Date Recorded How hard is it for you to pa y for the very basics like food, housing, medical care, and heating? Not hard at all 11/13/2023 PHQ-2 Answer Date Recorded PHQ-2 Total Score 0 09/18/2024 [facility] - Occupational Stress [...] place to sleep or slept in a long-term (including now)? No 01/14/2021 [facility] IP Transportation Answer D ate Recorded In [...] on file Sexual Orientation Not on file Obstetrics History Para Term AB IAB SAB Ectopic Multiple Livin g Live Births 1 1 1 1 1 Date Outcome GA Total Labor Labor/2nd/3rd Weight Sex Type Anes PTL Tila A1 A5 Name Clin 2009 Term M Vag-S pont Living Last Filed Vital Signs Vital Sign Reading [...] Mass Index 27.19 09/18/2024 4:23 PM EDT Plan of Treatment Upcoming Encounters Date Type Department Care Team (Late st Contact Info) Description 01/07/2025 11:00 AM EST Telemedicine [facility] [place] [address] [place] [address] Kirit Bailey MD [address] [place] [address] 02/21/2025 8:30 AM EST Office Visit [facility] [address] [place] [address] Anyi Juarez, BLOW MACHINE T[employer] [address] [place] [address] Health Maintenance Due Date Last Done Comments Pneumococcal Vaccine 0-49 (1 of 2 - PCV) 2009 HPV/Pap Cotest 2020 Annual Wellness Exam 09/16/2023 09/15/2022, 07/10/19 15 Cervical Cancer Screening 02/20/2024 Pap Smear 02/20/2024 02/19/2021, 07/09/2012 COVID-19 Vaccine ( season) 2024 Influenza Vaccine (#1) 2024 , 11/30/2021, 01/07/2020, Additional history exists DTaP/TDaP/Td (2 - Td or Tdap) 01/02/2025 01/02/2015 Hepatitis B Vaccine Completed 03/05/2002, 10/02/2001, 08/29/2001 Meningococcal B Vaccine Aged Out No l onger eligible based on patient's age to complete this topic Goals Goal Patient Goal Type Associated Problems Recent Progress Patient-Stated? Author Blood Pressure < 140/90 Blood Pressure 115/80(2024 4:23 PM EDT) No Maye Rascon APRN Maintain a healthy diet, exercise regularly and maintain an ideal body weight General No Cydney Ralph CCMA Stay Tobacco Free Lifestyle No Cydney Ralph CCMA Procedures Procedure Name Priority Date/Time Associated Diagnosis Comments T4, FREE (THYROXINE) Routine 10/03/2024 1:35 PM EDT Post-surgical hypothyroidism TSH REFLEX TO FT4 Routine 10/03/2024 1:35 PM EDT Post-surgical hypothyroidism VAGINITIS PANEL NAAT Routine 09/18/2024 4:49 PM EDT Possible exposure to STI UPPER RESPIRATORY CULTURE (N O STAIN) Routine 09/18/2024 4:49 PM EDT Pharyngitis, unspecified etiology CHLAMYDIA/GC BY TMA Routine 09/18/2024 4:38 PM EDT Pharyngitis, unspecified etiology CHLAMYDIA/GC Routine 09/18/2024 4:38 PM EDT Pharyngitis, unspecified etiology T4, FREE (THYROXINE) Routine 08/26/2024 12:47 PM EDT Post-surgical hypothyroidism CORTISOL Routine 08/26/2024 12:47 PM EDT Weight loss TSH REFLEX TO FT4 Routine 08/26/2024 12:47 PM EDT Post-surgical hypothyroidism ESOPHAGOGASTRODUODENOSCOPY (EGD) Routine 08/13/2024 8:26 AM EDT Esophageal dysphagia POCT URINE Routine 08/13/2024 7:25 AM EDT Preop testing 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 TSH Reflex 8.200(H) 0.270 - 4.200 mcIU/mL 10/03/2024 11:20 PM EDT [employer] Blood VENOUS BLOOD / Unknown Venipuncture / Unknown 10/03/2024 1:35 PM EDT 10/03/2024 1:35 PM EDT Narrative [employer] - 10/03/2024 11:20 PM EDT Ingestion of catrina doses of biotin (>5 mg/day) taken within 8 hours of drawing blood sample can interfere with this immunoassay test. Kirit Bailey MD CHEMISTRY ORDERABLES Fin al Result Performing Organization Address City/[facility]/ZIP Co de Phone Number [employer] [address] [facility] , [place] [address] * T4, FREE (THYROXINE) (10/03/2024 1:35 PM EDT) Only the most recent of2 resultswithin the time period is included. Free T4 1.47 0.80 - 1.80 ng/dL 10/04/2024 12:02 AM EDT [employer] Blood VENOUS BLOOD / Unknown Venipuncture / Unknown 10/03/2024 1:35 PM EDT 10/03/2024 1:35 PM EDT Narrative [employer] - 10/04/2024 12:02 AM EDT Ingestion of catrina doses of biotin (>5 mg/day) taken within 8 hours of drawing blood sample can interfere with this immunoassay test. Kirit Bailey MD CHEMISTRY ORDERABLES Fin al Result [employer] [address] , [place] [address] * (ABNORMAL) VAGINITIS PANEL NAAT (09/18/2024 4:49 PM EDT) Bacterial Vaginosis NAAT Detected(A) Not Detected 09/19/2024 10:30 PM EDT [facility] Nakaseomyces (Yola) glabrata NAAT Detected(A) Not Detected 09/19/2024 10:30 PM EDT [facility] Yola Species NAAT Not Detected Not Detected 09/19/2024 10:30 PM EDT [facility] Trichomonas vaginalis NAAT Not Detected Not Detected 09/19/2024 10:30 PM EDT [facility] [employer], [facility] Swab VAGINAL STRUCTURE / Unknown 09/18/2024 4:49 PM EDT 09/18/2024 4:49 PM EDT Cydney Sorto APRN MICROBIOLOGY - GENERAL OR DERABLES Final Result [id number], [address] , [place] [address] * UPPER RESPIRATORY CULTURE (NO STAIN) (09/18/2024 4:49 PM EDT) Pathologist [facility] Culture No growth of beta hemolytic Streptococcus pyogenes, beta hemolytic Streptococcus dysgalactiae (Group C or Group G) or Arcanobacterium haemolyticum. 09/21/2024 11:21 AM EDT [facility] [employer], [facility] Swab STRUCTURE OF ANTERIOR REGION OF NECK / Unknown 09/18/2024 4:49 PM EDT 09/18/2024 4:49 PM EDT Cydney Sorto APRN MICROBIOLOGY - GENERAL OR DERABLES Final Result [id number], [address] [place] [address] [place] [address] * CHLAMYDIA/GC BY TMA (09/18/2024 4:38 PM EDT) Chlamydia trachomatis Not Detected Not Detected 09/19/2024 7:06 PM EDT [facility], [facility] Neisseria gonorrhoeae Not Detected Not Detected 09/19/2024 7:06 PM EDT [facility], [facility] Swab STRUCTURE OF ANTERIOR REGION OF NECK / Unknown 09/18/2024 4:38 PM EDT 09/18/2024 4:38 PM EDT Narrative [id number], [facility] - 09/19/2024 7:06 PM EDT Testing methodology is parking analyst mediated amplification (TMA) using the Aptima Combo 2 assay from [employer] A negative result does not completely rule [...] MICROBIOLOGY - GENERAL OR DERABLES Final Result [id number], [facility] [address] [facility] , [place] [address] * CORTISOL (08/26/2024 12:47 PM EDT) Pathologist [facility] Cortisol 10.20 mcg/dL 08/26/2024 5:5 4 PM EDT [facility], [facility] Blood VENOUS BLOOD / Unknown Venipuncture / Unknown 08/26/2024 12:47 PM EDT 08/26/2024 12:47 PM EDT Narrative [id number], [facility] - 08/26/2024 5:54 PM EDT AM: 4.82 - 19.5 mcg/dL This reference interval was verified on healthy individuals between the hours of 6:00 am -10:00 am. This interval may not be appropriate outside of that time range. PM: 2.47 - 11.9 mcg/dL This reference interval was verified on healthy individuals between the hours of 4:00 pm -8:00 pm. This interval may not be appropriate outside of that time range. Ingestion of catrina doses of biotin (>5 mg/day) taken within 8 hours of drawing blood sample can interfere with this immunoassay test. Kiirt Bailey MD CHEMISTRY ORDERABLES [facility] al Result [facility] [address] [place] [address], [place] [address] * ESOPHAGOGASTRODUODENOSCOPY (EGD) (08/13/2024 8:26 AM EDT) Anatomical Region Laterality Modality Endoscopy Narrative 08/13/2024 9:00 AM EDT Table formatting from the original result was not included. Findings Mild, patchy erythematous mucosa in the body of the stomach, incisura and antrum, suggestive of gastritis ENDOFLIP MEASUREMENTS GEJ 37 cm Balloon Fill 40 Diameter 5.3 Distensibility 1.4 Pressure 15.4 Balloon Fill 50 Diameter 12.4 Distensibility 5.1 Pressure 23.5 Balloon Fill 60 Diameter 9.1 Distensibility 2.2 Pressure 29.8 GEJ Distensibility? NORMAL RAC present? YES RRC present? NO Contractility? YES Some narrowing in upper esophagus seen during ENDOFLIP Recommendation Esophageal motility normal. Recommend modified barium to assess thyroglossal duct cyst. Pre-Procedure Diagnosis / Indication Esophageal dysphagia Post-Procedure Diagnosis None Dysphagia Staff Staff Role KATHI Locke CRNA, lens polisher hand Nurse Bettie Drake, lens polisher hand Nurse Maddison Márquez RN Cement Finisher Apprentice Nhung Doherty MD Performing Provider Yoandy Moctezuma MD Anesthesiologist Medications See Anesthesia Record. Preprocedure A history and physical has been performed, and patient medication allergies have been reviewed. The patient's tolerance of previous anesthesia has been reviewed. The risks and benefits of the procedure and the sedation options and risks were discussed with the patient. All questions were answered and informed consent obtained. ASA 3 - Patient with severe systemic disease Details of the Procedure The patient underwent monitored anesthesia care, which was administered by an anesthesia professional. The patient's blood pressure, heart rate, level of consciousness, oxygen saturation, respirations, ECG and ETCO2 were monitored throughout the procedure. The scope was introduced through the mouth and advanced to the second part of the duodenum. Retroflexion was performed in the cardia. The patient experienced no blood loss. The procedure was not difficult. The patient tolerated the procedure well. There were no apparent adverse events. Patient provided education and educated on specific discharge instructions. Patient educated on medications given during the procedure and new medications for discharge. Patient verbalizes understanding of discharge education. Patient stable and awaiting transport for discharge. Events Procedure Events Event Event Time Specimens No specimens collected Anesthesia Event Time In Patient In - Proc. Room 08:04 AM Patient Out - Proc. Room 08:26 AM Nhung Doherty MD ENDOSCOPY PROCEDURE ORDERAB LES Final Result * POCT URINE (08/13/2024 7:25 AM EDT) Preg Test, Ur NEG [facility] Lot Number [id number] [facility] Expiration Date 01.12.25 [facility] SeriAl # [facility] Control Line Yes YES/NO [facility] 08/13/2024 7:25 AM EDT Mara Alcazar BLOW MACHINE TENDER STARCH SPRAYING POINT OF CARE TEST ORDERABLES Final Result Performing Organization Address City/State/[facility] Co de Phone Number [facility] [address] [place] [address] * OCCUPATIONAL NURSE CYTOLOGY REQUEST (PAP ONLY) (02/19/2021 11:51 AM EST) CASE REPORT Gynecologic Cytology Report Case: [id number] Authorizing Provider: Glenis Barrera DO Collected: 02/19/2021 1151 Ordering Location: [facility] Received: 02/19/2021 1151 First Screen: Home [place] CT Specimen: LIQUID-BASED PAP - CERVICAL/ENDOCERV ICAL, Cervix, Endocervical 02/23/2021 10:51 AM EST [facility] PAP FINAL DIAGNOSIS Negative for intraepithelial lesion or malignancy 02/23/2021 10:51 AM EST [facility] at 1051 EST MICROSCOPIC DESCRIPTION Microscopic examination is performed and the findings corroborate the diagnosis. 02/23/2021 10:51 AM EST [facility] PAP SMEAR ADEQUACY Satisfactory for evaluation 02/23/2021 10:51 AM EST [facility] PAP ORGANISMS NOTED Fungal organisms present consistent with yola. 02/23/2021 10:51 AM EST [facility] ENDOCERVICAL T-ZONE Transformation zone present 02/23/2021 10:51 AM EST [facility] EMBEDDED IMAGES 10:51 AM EST [facility] PAP DISCLAIMER The Pap Smear is a screening test that aids in the detection of cervical cancer and cancer precursors. Both false positive and false negative results can occur. The test should be used at regular intervals, and positive results should be confirmed before definitive therapy. Processed using the ThinPrep [employer] Police Sergeant Automated cytology screening device ([employer]). 02/23/2021 10:51 AM EST [facility] Thin Prep ENDOCERVICAL STRUCTURE / Unknown 02/19/2021 11:51 AM EST 02/19/2021 11:51 AM EST Glenis Barrera DO CYTOLOGY ORDERABLES Keyona panda Result [facility] [address] [place] [address] from Last 3 Months or Most Recently Relevant to Health Maintenance [facility] MDR [facility] [place] MDR Advance Directives For more information, please contact: [phone] * Full Code (Latest Code Status on File) Date Activated Date Inactivated Comments 11/10/2023 10:22 PM 11/21/2023 10:07 PM * Full Code Date Activated Date Inactivated Comments 11/02/2023 9:25 AM 11/03/2023 4:11 PM * Full Code Date Activated Date Inactivated Comments 03/22/2020 6:37 PM 03/25/2020 5:16 PM * Full Code Date Activated Date Inactivated Comments 09/01/2014 12:55 PM 09/02/2014 4:16 PM * Full Code Date Activated Date Inactivated Comments 01/08/2013 1:20 AM 01/09/2013 5:46 PM Care Teams Superintendent Pier Relationship Specialty Start Date End Date Maye Rascon APRN [address] [place] [address] PCP - General Nurse Practitioner-Family 06/08/23 Frankie Huitron MD [address] [facility] [address] [place] [address] Otolaryngology 10/02/23
--- NOTE | 2024-11-11 08:50 | ECG_ITS ---
APPROVED REPORT Exam: Resting ECG HR:73 bpm ECG Measurements Heart Rate [address] 123 P 17 QRSd 114 QRS 79 QT 349 T 71 QTc 375 Conclusion SINUS RHYTHM INCOMPLETE RIGHT BUNDLE BRANCH BLOCK [90+ ms QRS DURATION, TERMINAL R IN V1/V2, 40+ ms S IN I/aVL/V4/V5/V6] BORDERLINE ECG UNCONFIRMED REPORT Electronically signed by : DON JALLOH, 11/11/2024 23:02:17
--- OUTSIDE RECORDS SUMMARY | 2024-11-11 08:51 | XMS_ITS | Clinical Summary ---
Author Organization [facility] Address [address] [place] [id number] Care Team Providers Care Culinary Chef Name Role Phone Manuel Craft MD Primary Care Provider [phone] Social History Tobacco Use Types Packs/Day Years Used Date Smoking Tobacco: Never Assessed Comments Unknown Sex and Gender Information Value Date Recorded Sex Assigned at Not on file Legal Sex Female 3:26 PM EDT Gender Identity Not on file Sexual Orientation Not on file Plan of Treatment Health Maintenance Due Date Last Done Comments Tetanus Vaccination (Every 10 Years) 2008 Lipid Screening 2010 Cervical Cancer Screening 04/28/2011 HPV Vaccine (1 - 3-dose SCDM series) 2017 Depression Screening 02/14/2024 COVID-19 Vaccine ( season) 2024 Influenza Vaccination (#1) 2024 Insurance MEDICAID [place] [employer] Member Subscriber Plan / Payer (Ef fective for All Dates) Name:Tamika Brady Member ID:Not on file Relation to Subscriber:Self Name:Tamika Brady Subscriber ID:Not on file Payer ID:[id number] Group ID:Not on file Type:HMO Address: [place] [id number] Care Teams Culinary Chef Relationship Specialty Start Date End Date Manuel Craft [place] [address] [place] [address] PCP - General Family Medicine 07/14/14
--- OUTSIDE RECORDS SUMMARY | 2024-11-11 08:51 | XMS_ITS | Clinical Summary ---
Author Organization [facility] Address [address] [place] [address] Care Team Providers Care Surgical Instrument Mechanic Name Role Phone Maye Rascon APRN Primary Care Provider Allergies Active Allergy Reactions Criticality Noted Date Comments Sulfa Antibiotics Anaphylaxis High 10/23/2023 Vancomycin Rash Low 10/23/2023 Medications levothyroxine (SYNTHROID, LEVOTHROID) 200 MCG tablet Take 1 tablet by mouth Daily. Active metoprolol succinate XL (TOPROL-XL) 25 MG 24 hr tablet Take 1 tablet by mouth Daily. Active spironolactone (ALDACTONE) 25 MG tablet Take 1 tablet by mouth Daily. Active famotidine (PEPCID) 40 MG tablet Take 1 tablet by mouth Daily. Pt takes for allergies not GI issues Active montelukast (SINGULAIR) 10 MG tablet Take 1 tablet by mouth Every Night. Active cetirizine (zyrTEC) 10 MG tablet Take 1 tablet by mouth Daily. Active albuterol sulfate HFA 108 (90 Base) MCG/ACT inhaler Inhale 2 puffs Every 4 (Four) Hours As Needed for Wheezing. Active fluticasone (FLONASE) 50 MCG/ACT nasal spray 2 sprays into the nostril(s) as directed by provider 2 (Two) Times a Day. Active azelastine (ASTELIN) 0.1 % nasal spray 1 spray into the nostril(s) as directed by provider 2 (Two) Times a Day. Use in each nostril as directed Active buprenorphine-n aloxone (SUBOXONE) 8-2 MG per SL tablet Place 1.5 tablets under the tongue Daily. 12 mg Active methylPREDNISol one (MEDROL) 4 MG dose pack Take as directed on package instructions. 21 tablet Active Active Problems Problem Noted Date Diagnosed Date Oral thrush 10/26/2023 Asthma 10/26/2023 Morbid obesity 10/26/2023 Tobacco dependence 10/26/2023 Uncomplicated opioid dependence 10/26/2023 Esophageal stenosis 10/25/2023 Dysphagia 10/24/2023 History of thyroidectomy 10/24/2023 Gastroesophageal reflux disease 10/24/2023 Regurgitation of food 10/24/2023 Social History Tobacco Use Types Packs/Day Years Used Date Smoking Tobacco: Every Day Cigarettes 1 16.1 Started: 10/23/2008 Passive Smoke Exposure: Current Smokeless Tobacco: Never Tobacco Cessation:Ready to Q uit: No; Counseling Given: No Alcohol Use Standard Drinks/Week Comments Never 0 (1 standard drink = 0.6 oz pur e alcohol) [facility] [employer] Answer Date Recorded In the past 12 months has [employer], gas, oil, or water [employer] threatened to shut off services in your home? No 10/27/2023 AUDIT-C Answer Date Recorded Q1: How often do you have a drink containing alcohol? Never 10/26/2023 Q2: How many drinks containi ng alcohol do you have on a typical day when you are drinking? Patient does not drink Q3: How often do you have si x or more drinks on one occasion? Never 10/26/2023 Overall Financial Resource Strain (CARDIA) Answe r Date Recorded How hard is it for you to pa y for the very basics like food, housing, medical care, and heating? Not very hard 10/27/2023 [facility] of Occupat ional Health - Occupational Stress Questionnaire Answer Date Recorded Do you feel stress - tense, restless, nervous, or anxious, or unable to sleep at night because your mind is troubled all the time - these days? Not at all 10/27/2023 Exercise Vital Sign Answer Date Recorde d On average, how many days pe r week do you engage in moderate to strenuous exercise (like a brisk walk)? 7 days 10/27/2023 On average, how many minutes do you engage in exercise at this level? 60 min 10/27/2023 Hunger Vital Sign Answer Date Recorded Within the past 12 months, y ou worried that your food would run out before you got the money to buy more. Never true 10/27/19 24 Within the past 12 months, t he food you bought just didn't last and you didn't have money to get more. Never true 10/27/2023 PRAPARE - Transportation Answer Date Re corded In the past 12 months, has l ack of transportation kept you from medical appointments or from getting medications? No 10/14 In the past 12 months, has l ack of transportation kept you from meetings, work, or from getting things needed for daily living? No 10/27/2023 Abuse Screen Answer Date Recorded Feels Unsafe at Home or Work/School no 10/26/2023 Feels Threatened by Someone no 10/14 Does Anyone Try to Keep You From Having Contact with Others or Doing Things Outside Your Home? no 10/26/2023 Physical Signs of Abuse Present no 10/26/2023 Housing Stability Answer Date Recorded Current Living Arrangements home;hotel/motel Potentially Unsafe Housing Conditions mold 10/27/2023 Family and Community Support Answer Arsenio e Recorded If for any reason you need h elp with day-to-day activities such as bathing, preparing meals, shopping, managing finances, etc., do you get the help you need? I don't need any help 10/27/2023 How often do you feel lonely or isolated from those around you? Never 10/27/2023 Employment Answer Date Recorded Do you want help finding or keeping work or a job? I do not need or want help 10/27/2023 Disabilities Answer Date Recorded Difficulty Concentrating, Remembering or Making Decisions no 10/26/2023 Difficulty Managing Errands Independently yes 10/26/2023 Education Answer Date Recorded Do you want help with school or training? For example, starting or completing job training or getting a high school diploma, GED or equivalent No 10/27/2023 Preferred Language South Sudanese 10/27/2023 PHQ-2 Answer Date Recorded Retired PHQ-9: Brief Depression Severity Measure Score 2 10/27/2023 Comments No Sex and Gender Information Value Date Recorded Sex Assigned at Not on file Legal Sex Female 10:33 PM EDT Gender Identity Not on file Sexual Orientation Not on file Last Filed Vital Signs Vital Sign Reading Time Taken Comments Blood Pressure 100/53 10/27/2023 3:30 PM EDT Pulse 84 10/27/2023 3:30 PM EDT Temperature 36.6 C (97.9 F) 10/27/2023 3:30 PM EDT Respiratory Rate 18 10/27/2023 3:30 PM EDT Oxygen Saturation 95% 10/27/2023 3:30 PM EDT Inhaled Oxygen Concentration - - Weight 109 kg (240 lb) 10/26/2023 6:15 PM EDT Height 165.1 cm (5' 5 ) 10/26/2023 6:15 PM EDT Body Mass Index 39.94 10/26/2023 6:15 PM EDT Plan of Treatment Health Maintenance Due Date Last Done Comments Annual Gynecologic Pelvic an d Breast Exam 1990 Pneumococcal Vaccine 0-49 (1 of 2 - PCV) 2009 ANNUAL PHYSICAL 10/24/2023 INFLUENZA VACCINE 09/13/2024 11/30/2021, , 10/28/2014 TDAP/TD VACCINES (4 - Td or Tdap) 01/02/2025 01/02/2015, 10/26/2009, 01/12/2004 HEPATITIS C SCREENING Completed 03/20/2023 Insurance [employer] [place]ICAID [place] Advance Directives * CPR (Attempt to Resuscitate) (Latest Code Status on File) Date Activated Date Inactivated Comments 10/26/2023 7:50 PM 10/27/2023 8:40 PM Question Answer Comments Code Status (Patient has no pulse and is not breathing): CPR (Attempt to Resuscitate) Medical Interventions (Patie nt has pulse or is breathing): Full Support Level Of Support Discussed With: Patient * CPR (Attempt to Resuscitate) Date Activated Date Inactivated Comments 10/24/2023 1:43 AM 10/25/2023 3:18 PM Question Answer Comments Code Status (Patient has no pulse and is not breathing): CPR (Attempt to Resuscitate) Medical Interventions (Patie nt has pulse or is breathing): Full Support Care Teams Surgical Instrument Mechanic Relationship Specialty Start Date End Date Maye Rascon APRN [address] [place], [place] [address] PCP - General Nurse Practitioner 10/27/23
--- OUTSIDE RECORDS SUMMARY | 2024-11-11 08:52 | XMS_ITS | Encounter Summary ---
Author Organization [place] [address] Care Team Providers Care Leather Flesher Name Role Phone Maye Rascon APRN Primary Care Provider [phone] Frankie Huitron MD Unavailable [phone] Encounter Details Date Type Department Care Team (Late st Contact Info) Description 10/06/2024 Results Follow-Up SEP Diabetes [address] [phone] Kirit Bailey MD [address] [place] [id number] TSH REFLEX TO FT4, T4, FREE (THYROXINE) Social History Tobacco Use Types Packs/Day Years Used Date Smoking Tobacco: Every Day Cigarettes 1 17.5 Started: 05/22/2007 Smokeless Tobacco: Never Alcohol Use Standard Drinks/Week Comments Never 0 (1 standard drink = 0.6 oz pur e alcohol) [facility] Utilities Answer Date Recorded In the past 12 months has e electric, gas, oil, or water company threatened to shut off services in your home? No 11/13/2023 Overall Financial Resource Strain (CARDIA) Celenae r Date Recorded How hard is it for you to pa y for the very basics like food, housing, medical care, and heating? Not hard at all 11/13/2023 PHQ-2 Answer Date Recorded PHQ-2 Total Score 0 09/18/2024 [facility] of Occupat ional Health - Occupational Stress [...] place to sleep or slept in a nursing home (including now)? No 01/14/2021 [facility] IP Transportation Answer D ate Recorded In [...] of Assessment Author No 11/21/2023 3:48 PM HORACIOT Magdi More RN * Is the person [...] No 11/21/2023 3:48 PM Magdi Rose RN documented as of this encounter Mental Status * Because of a physical, mental or emotional condition, does this person have serious difficulty concentrating, remembering or making decisions? Answer Entry Date Author No 11/21/2023 3:48 PM Magdi Rose RN documented in this encounter Plan of Treatment Upcoming Encounters Date Type Department Care Team (Late st Contact Info) Description 01/07/2025 11:00 AM EST Telemedicine [facility] [address] [facility] [address] [place] [phone] Kirit Bailey MD [address] [facility] [address] [place] [phone] 02/21/2025 8:30 AM EST Office Visit [facility] [address] [facility] [address] [place] [phone] Anyi Juarez, HUMAN ANATOMY TEACHER [address] [place], [place] [id number] Scheduled Orders Name Type Priority Associated Diagnoses Orde r Schedule TSH REFLEX TO FT4 Lab Routine Post-surgical hypothyroidism Expected: 11/06/2024, Expires: 10/06/2025 documented as of this encounter Goals Goal Patient Goal Type Associated Problems Recent Progress Patient-Stated? Author Blood Pressure < 140/90 Blood Pressure 115/80(2024 4:23 PM EDT) No Maye Rascon APRN Maintain a healthy diet, exercise regularly and maintain an ideal body weight General No Cydney Ralph CCMA Stay Tobacco Free Lifestyle No Cydney Ralph CCMA documented as of this encounter Visit Diagnoses Diagnosis Post-surgical hypothyroidism- Primary Postsurgical hypothyroidism documented in this encounter Care Teams Leather Flesher Relationship Specialty Start Date End Date Maye Rascon APRN [address] [place] [id number] PCP - General Nurse Practitioner-Family 06/08/23 Frankie Huitron MD [address] [facility] [address] [place], [place] [id number] Otolaryngology 10/02/23 documented as of this encounter
--- OUTSIDE RECORDS SUMMARY | 2024-11-11 08:52 | XMS_ITS | Clinical Summary ---
Author Organization [facility] Address [address] [place] [address] Care Team Providers Care Plastics Process Hand Name Role Phone Manuel Montilla MD Primary Care Provider + [phone] Allergies Active Allergy Reactions Criticality Noted Date Comments Droperidol Hives Medium 05/12/2020 Drowsy Nickel Itching Medium 08/19/2024 Sulfamethoxazole-Trimethoprim Anaphylaxis High 01/29 Vancomycin Hives,Itching,Rash Medium 12/19/2012 Medications buprenorphine-n aloxone (Suboxone) 8-[address] 1 tablet under the tongue daily. Active famotidine (Pepcid) 40 MG tablet Take 1 tablet by mouth 2 times a day. Active pantoprazole (Protonix) 40 MG EC tablet Take 1 tablet by mouth 2 times a day. Do not crush, chew, or split. Active cetirizine (ZyrTEC) 10 MG tablet Take 1 tablet by mouth daily. Active busPIRone (Buspar) 5 MG tablet Take 1 tablet by mouth 2 times a day. Active fluticasone (Flonase) 50 MCG/ACT nasal spray Administer 2 sprays into each nostril daily. Shake gently. Before first use, prime pump. After use, clean tip and replace cap. Active busPIRone (Buspar) 5 MG tablet Take 1 tablet by mouth 1 time each day. Active levothyroxine (Synthroid, Levoxyl) 125 MCG tablet Take 1 tablet by mouth 1 time each day. Active Active Problems Problem Noted Date Diagnosed Date Psychosis 08/19/2024 Encounters Date Type Department Care Team Description 09/23/2024 Telephone OR Clinic Medicine Specialties [address] [place] [address] None, None 08/19/2024 8:55 AM EDT - 08/19/2024 11:20 PM EDT Hospital Encounter [facility] [address] [place] [address] Charli Don MD Illness anxiety disorder (Primary Dx) Discharge Disposition: Home or Self Care 08/19/2024 Travel from Last 3 Months Social History Tobacco Use Types Packs/Day Years Used Date Smoking Tobacco: Every Day Cigarettes Tobacco Cessation:Ready to Q uit: Not Asked; Counseling Given: Not Answered Alcohol Use Standard Drinks/Week Comments Not Currently 0 (1 standard drink = 0.6 oz pur e alcohol) Comments Unknown Sex and Gender Information Value Date Recorded Sex Assigned at Not on file Legal Sex Female 6:07 PM EDT Gender Identity Not on file Sexual Orientation Not on file Last Filed Vital Signs Vital Sign Reading Time Taken Comments Blood Pressure 98/61 08/19/2024 8:06 PM EDT Pulse 70 08/19/2024 8:06 PM EDT Temperature 36.7 C (98.1 F) 08/19/2024 8:43 AM EDT Respiratory Rate 16 03/20/2023 8:13 AM EST Oxygen Saturation 96% 08/19/2024 8:06 PM EDT Inhaled Oxygen Concentration - - Weight 75.1 kg (165 lb 9.1 oz) 08/19/2024 8:40 A M EDT Height 167.6 cm (5' 6 ) 08/19/2024 8:40 AM EDT Body Mass Index 26.72 08/19/2024 8:40 AM EDT Plan of Treatment Upcoming Encounters Date Type Department Care Team (Late st Contact Info) Description 11/13/2024 3:30 PM EDT Consult [facility] Medicine Specialties [address] [place] [address] Angeles Paul MD [address] [place] [address] Health Maintenance Due Date Last Done Comments [facility]-Depression Screening 1990 [facility]-Infant/Child/Adol SDOH Screenings 1990 [facility]-IPV Vaccines (2 of 3 - 4-dose series) 08/22/1995 07/25/1995 [facility]-Obesity Intervention 1996 [facility]-Varicella Vaccines (1 of 2 - 13+ 2-dose series) 04/28/2003 [facility]- SDOH Screenings 2008 [facility]-Adult SDOH Screenings 2008 [facility]-Pneumococcal Vaccine: Pediatrics (0 to 5 Years) and At-Risk Patients (6 to 49 Years) (1 of 2 - PCV) 2009 HPV Vaccines (2 - 3-dose series) 11/25/2014 10/28/2014 [facility]-HPV/Cotest 2020 [id number] Vaccine (2 - Leslie risk series) 12/02/2021 11/04/2021 [facility]-Cervical Cancer Screening 02/20/2024 [facility]-Pap Smear 02/20/2024 02/19/2021 [facility]-Influenza Vaccine (#1) 10/14/202412/20, 11/30/2021, 11/25/2020, Additional history exists [facility]-DTaP,Tdap,and Td Vaccines (5 - Td or Tdap) 01/02/2025 01/02/2015, 10/26/2009, 01/12/2004, Additional history exists [facility]-Zoster Vaccines (1 of 2) 2040 [facility]-Hepatitis B Vaccines Completed 003, 10/02/2001, 08/29/2001 [facility]-Hepatitis C Screening Completed 03/20/2023 [facility]-HIV Screening Completed 08/19/2024, 03/20/2023 [facility]-HIB Vaccines Aged Out No longer e ligible based on patient's age to complete this topic [facility]-Hepatitis A Vaccines Aged Out No longer eligible based on patient's age to complete this topic [facility]-Rotavirus Vaccines Aged Out No lo nger eligible based on patient's age to complete this topic Procedures Procedure Name Priority Date/Time Associated Diagnosis Comments HIV 1/2 ANTIBODY/ANTIGEN SCREEN WITH REFLEX TO HIV I/II DIFFERENTIATION STAT 08/19/2024 2:08 PM EDT HIV 1/2 ANTIBODY/ANTIGEN SCREEN W/REFLEX TO HIV 1/2 ANTIBODY DIFFERENTIATION STAT 08/19/2024 2:08 PM EDT HEPATITIS C ANTIBODY WITH REFLEX TO HCV QUANT PCR - EMPATH STAT 08/19/2024 2:08 PM EDT HEPATITIS B SURFACE ANTIGEN - EMPATH STAT 08/19/2024 2:08 PM EDT POCT , URINE STAT 08/19/2024 9:27 AM EDT POCT DRUGS OF ABUSE, URINE STAT 08/19/2024 9:27 AM EDT HEPATITIS C ANTIBODY - ED W/REFLEX TO HCV QUANT PCR STAT 03/20/2023 3:04 AM EST from Last 3 Months or Most Recently Relevant to Health Maintenance Results * Hepatitis B Surface Antigen - Empath (08/19/2024 2:08 PM EDT) Hepatitis B Surf Antigen Negative Negative 08/19/2024 5:11 PM EDT [facility] Blood Venous blood specimen / Unknown Venipuncture / Unknown 08/19/2024 2:08 PM EDT 08/19/2024 2:08 PM EDT Shelby Toscano APRN LAB BLOOD ORDERABLES Final Result [facility] [address] [place] [address] * Hepatitis C Antibody with Reflex to HCV Quant PCR - Empath (08/19/2024 2:08 PM EDT) Hepatitis C Antibody Negative Negative 08/19/2024 5:33 PM EDT [facility] Blood Venous blood specimen / Unknown Venipuncture / Unknown 08/19/2024 2:08 PM EDT 08/19/2024 2:08 PM EDT Shelby Toscano LAUNCH MANAGER LAB BLOOD ORDERABLES Final Result [facility] [address] [place] [address] * HIV 1 & 2 Antibody/Antigen Screen (08/19/2024 2:08 PM EDT) Pathologist [facility] HIV 1 & 2 Antibody/Antigen Screen Non Reactive Non Reactive 08/19/2024 5:23 PM EDT [facility] Comment:Screening for HIV 1 & 2 antibodies, and P24 antigen is NONREACTIVE. No confirmatory testing is required. Blood Venous blood specimen / Unknown Venipuncture / Unknown 08/19/2024 2:08 PM EDT 08/19/2024 2:08 PM EDT [facility] Kierra Toscano LAUNCH MANAGER LAB BLOOD ORDERABLES Final Result Performing Organization Address City/[facility]/ZIP Co de Phone Number [facility] [address] [place] [address] * (ABNORMAL) POCT Drugs of Abuse (08/19/2024 9:27 AM EDT) [facility] POC Amphetamine Screen, Urine Negative Negative POC Amphetamine Internal QC OK? Yes Positive results should be sent to laboratory for confirmation . POC Barbiturate Screen, Urine Negative Negative POC Barbiturates Internal QC OK? Yes Positive results should be sent to laboratory for confirmation . POC Buprenorphine Screen, Urine Presumptive Positive(A) Negative POC Buprenorphine Internal QC OK? Yes Positive results should be sent to laboratory for confirmation . POC Benzodiazepines Screen, Urine Negative Negative POC Benzodiazepines Internal QC OK? Yes Positive results should be sent to laboratory for confirmation . POC Cocaine Screen, Urine Negative Negative POC Cocaine Internal QC OK? Yes Positive results should be sent to laboratory for confirmation . POC Methamphetamine Screen, Urine Negative Negative POC Methamphetamine Internal QC OK? Yes Positive results should be sent to laboratory for confirmation . POC Methadone Screen, Urine Negative Negative POC Methadone Internal QC OK? Yes Positive results should be sent to laboratory for confirmation . POC Opiate Screen, Urine Negative Negative POC Opiates Internal QC OK? Yes Positive results should be sent to laboratory for confirmation . POC Oxycodone Screen, Urine Negative Negative POC Oxycodone Internal QC OK? Yes Positive results should be sent to laboratory for confirmation . POC THC Screen, Urine Negative Negative POC THC Internal QC OK? Yes Positive results should be sent to laboratory for confirmation . POC Urine Temperature Normal Normal POC UDS Kit Lot Number [id number] POC UDS Kit Expiration 2026-01-06 POC UDS Collection Observed? Not Observed Urine 08/19/2024 9:27 AM EDT Charli Don MD POINT OF CARE TEST ENTER/EDIT ORDERABLES Final Result * POCT Urine (08/19/2024 9:27 AM EDT) Urine - Point of Care Negative Negative - women after 7 weeks gestation and dilute urine (specific gravity <1.010) may have false negative results. Plasma HCG testing is recommended. Test performed at Point of Care. INTERNAL QC OK, PREG URINE yes KIT LOT NUMBER, PREG URINE [id number] KIT EXPIRATION DATE, PREG URINE 2026-01-20 Urine Urine specimen obtained by clean catch procedure / Unknown 08/19/2024 9:27 AM EDT Charli Don MD POINT OF CARE TEST ENTER/EDIT ORDERABLES Final Result * Hepatitis C Antibody - ED (03/20/2023 3:04 AM EST) Hepatitis C Antibody Negative Negative 03/20/2023 3:58 AM EST [facility] Blood Venous blood specimen / Unknown Venipuncture / Unknown 03/20/2023 3:04 AM EST 03/20/2023 3:20 AM EST Elton Manning MD LAB BLOOD ORDERABLES Final Re sult [facility] [address] [place] [address] from Last 3 Months or Most Recently Relevant to Health Maintenance Insurance [facility] MEDICAID Care Teams Plastics Process Hand Relationship Specialty Start Date End Date Manuel Montilla MD [address] [place] [address] PCP - General 06/26/20
--- OUTSIDE RECORDS SUMMARY | 2024-11-11 08:52 | XMS_ITS | Encounter Summary ---
Author Organization [place] [address] Care Team Providers Care Director Of Research And Development Name Role Phone Maye Rascon APRN Primary Care Provider [phone] Frankie Huitron MD Unavailable [phone] Reason for Visit * Reason Onset Date Comments Appointment Needed 09/24/2024 TSH REFLEX TO FT4 Encounter Details Date Type Department Care Team (Late st Contact Info) Description 09/24/2024 Telephone [facility]P [facility] [address] [place] [address] Maye Rascon APRN [address] [facility] [place] [address] Appointment Needed (TSH REFLEX TO FT4) Social History Tobacco Use Types Packs/Day Years Used Date Smoking Tobacco: Every Day Cigarettes 1 17.5 Started: 05/22/2007 Smokeless Tobacco: Never Alcohol Use Standard Drinks/Week Comments Never 0 (1 standard drink = 0.6 oz pur e alcohol) [facility] Utilities Answer Date Recorded In the past 12 months has [employer] electric, gas, oil, or water company threatened to shut off services in your home? No 11/13/2023 Overall Financial Resource Strain (CARDIA) Celenae r Date Recorded How hard is it for you to pa y for the very basics like food, housing, medical care, and heating? Not hard at all 11/13/2023 PHQ-2 Answer Date Recorded PHQ-2 Total Score 0 09/18/2024 [facility] of Occupat ional Health - Occupational Stress [...] place to sleep or slept in a long term (including now)? No 01/14/2021 [facility] IP Transportation Answer D ate Recorded In [...] Magdi More RN documented in this encounter Miscellaneous Notes * Telephone Encounter - Ar Angulo MA - 09/24/2024 11:28 AM EDT Appt made * Telephone Encounter - Sugey Mcginnis, Clerical Staff - 09/24/2024 11:22 AM EDT Select the most appropriate reason for this telephone message: Appointment Needed Appointment Requested By: Patient Provider Preference: Any Available Type of Appt Needed: Nurse Visit Detailed Reason for Appt: TSH REFLEX TO FT4 ordered by Kirit Bailey Requested Timeframe: next week on the 10/02 or 10/03/24 Reason Scheduling Assistance is Needed: Call Center not permitted to schedule Return Method of Communication: Phone Call Additional Information: Please contact patient to schedule, thank you, documented in this encounter Plan of Treatment Upcoming Encounters Date Type Department Care Team (Late st Contact Info) Description 01/07/2025 11:00 AM EST Telemedicine [facility] [address] [facility] [address] [place] [address] Kirit Bailey MD [address] [facility] [address] [place] [address] 02/21/2025 8:30 AM EST Office Visit [facility] [address] [place] [address] Anyi Juarez APRN [address] [place] [address] documented as of this encounter [...] on filedocumented in this encounter Care Teams Director Of Research And Development Relationship Specialty Start Date End Date aMye Rascon APRN [address] [place] [id number] PCP - General Nurse Practitioner-Family 06/08/23 Frankie Huitron MD [address] [facility] [address] [place] [address] Otolaryngology 10/02/23 documented as of this encounter
--- OUTSIDE RECORDS SUMMARY | 2024-11-11 08:52 | XMS_ITS | Encounter Summary ---
Author Organization [facility] [address] Care Team Providers Care Document Restorer Name Role Phone Maye Rascon APRN Primary Care Provider [phone] Frankie Huitron MD Unavailable [phone] Encounter Details Date Type Department Care Team (Late st Contact Info) Description 09/22/2024 Results Follow-Up SEP [facility] [address] [place] [address] Cydney Sorto APRN [address] [place] [address] CHLAMYDIA/GC BY TMA, UPPER RESPIRATORY CULTURE (NO STAIN), VAGINITIS PANEL NAAT Social History Tobacco Use Types Packs/Day Years Used Date Smoking Tobacco: Every Day Cigarettes 1 17.5 Started: 05/22/2007 Smokeless Tobacco: Never Alcohol Use Standard Drinks/Week Comments Never 0 (1 standard drink = 0.6 oz pur e alcohol) [facility] Utilities Answer Date Recorded In the [...] Date Recorded PHQ-2 Total Score 0 09/18/2024 [facility] [place] [facility] Occupat ional Health - Occupational Stress [...] place to sleep or slept in a fdc (including now)? No 01/14/2021 [facility] IP Transportation Answer D ate Recorded [...] 11/21/2023 3:48 PM HORACIOT Magdi More RN documented as of this encounter Mental Status * Because of a physical, mental or emotional condition, does this person have serious difficulty concentrating, remembering or making decisions? Answer Entry Date Author No 11/21/2023 3:48 PM Magdi Rose RN documented in this encounter Ordered Prescriptions Prescription Sig Dispense Quantity Refills Last Filled Start Date End Date metroNIDAZOLE (METROGEL) 0.75 % (37.5mg/5 gram) Vagl GelIndications:nata terial vaginosis Place 37.5 mg vaginally daily. Indications: an infection of the vagina called bacterial vaginosis 5 Each 09/22/2024 documented in this encounter Plan of Treatment Upcoming Encounters Date Type Department Care Team (Late st Contact Info) Description 01/07/2025 11:00 AM EST Telemedicine [facility] [address] [facility] [address] [place] [address] Kirit Bailey MD [address] [facility] [address] [place] [address] 02/21/2025 8:30 AM EST Office Visit [facility] [address] [facility] [address] [place] [id number] Anyi Juarez APRN [address] [place] [address] documented as of this encounter [...] as of this encounter Visit Diagnoses Diagnosis BV (bacterial vaginosis)- Primary Vaginitis and vulvovaginitis, unspecified documented in this encounter Care Teams Document Restorer Relationship Specialty Start Date End Date Maye Rascon APRN [address] [place] [address] PCP - General Nurse Practitioner-Family 06/08/23 Frankie Huitron MD [address] [facility] [address] [place] [address] Otolaryngology 10/02/23 documented as of this encounter
--- NOTE | 2024-11-11 09:07 | CT_ITS ---
FINAL REPORT TECHNIQUE: The patient was injected with IV contrast. Axial images were obtained through the chest in a PE protocol. 3-D reconstruction images were also performed. Individualized dose reduction techniques using automated exposure control or adjustment of the MA and/or KV according to patient's size were employed. CLINICAL HISTORY: Weight loss, SOA, presyncope COMPARISON: 02/23/2020 FINDINGS: Mediastinal vasculature is adequately opacified. No pulmonary artery filling defects are identified to suggest PE. There is no aortic dissection. There is no axillary adenopathy. There is no hilar or mediastinal adenopathy. The heart size is normal. There is no pericardial or pleural effusion. Limited images of the upper abdomen are unremarkable. No suspicious infiltrate or nodule is identified. IMPRESSION: No pulmonary embolus or dissection. Reviewed, Interpreted and Dictated by Clement Loredo MD Transcribed by Joycelyn Miles Authenticated and [facility]
--- NOTE | 2024-11-11 09:11 | HMH.EDGENADL ---
Discharge Plan Disposition Patient Disposition: Home, Self-Care Condition: Good Prescriptions Prescriptions: New hydroxyzine pamoate [Vistaril] 25 mg capsule 25 mg PO TID PRN (Reason: nausea and vomiting) Qty: 120 0RF benzonatate 100 mg capsule 100 mg PO BID PRN (Reason: cough) Qty: 14 0RF No Action etonogestrel 68 mg implant 68 mg SUBDERMAL ONCE Qty: 1 0RF cetirizine [Zyrtec] 10 mg tablet 10 mg PO DAILY PRN (Reason: .) famotidine 40 mg tablet 40 mg PO BID Patient Comments: TAKE 1 TABLET BY MOUTH TWICE A DAY pantoprazole 40 mg tablet,delayed release (DR/EC) 40 mg PO BID Patient Comments: TAKE 1 TABLET BY MOUTH EVERY DAY levothyroxine 200 mcg tablet 175 mcg PO DAILY Patient Comments: TAKE 1 TABLET BY MOUTH EVERY DAY buprenorphine-naloxone 8-2 mg tablet, sublingual 1 tab sublingual DAILY Patient Comments: PLACE 1 1/4 TABLET UNDER TONGUE ONCE A DAY DIRECTED doxycycline monohydrate 100 mg capsule 100 mg PO BID 7 Days Qty: 14 0RF prednisone 20 mg tablet 20 mg PO BID Qty: 10 0RF Rx Instructions: administer with food or milk buspirone 5 mg tablet 5 mg PO BID Qty: 180 3RF Rx Instructions: Please take 1 tablet p.o. nightly x 5 to 7 days and then 1 tablet p.o. twice daily thereafter nicotine 21 mg/24 hr patch 24 hour 1 patch transdermal DAILY Qty: 28 1RF atorvastatin 40 mg tablet See Rx Instructions .ROUTE .COMPLEX Qty: 90 1RF Dose Instruction: TAKE 1 TABLET BY MOUTH EVERY DAY Rx Instructions: TAKE 1 TABLET BY MOUTH EVERY DAY albuterol sulfate 8.5 GM HFA aerosol inhaler See Rx Instructions .Route .COMPLEX Rx Instructions: TAKE TWO PUFFS THREE TIMES DAILY NEEDED montelukast 10 mg tablet 0 mg PO DAILY prucalopride [Motegrity] 2 mg tablet 2 mg PO DAILY Qty: 30 12RF Rx Instructions: Please take 1 tablet p.o. daily Referrals Follow up/Referrals: Maye Rascon APRN [Primary Care Provider, Medical] - See instructions Activity Restrictions/Add. Instructions Additional Instructions/Restrictions: You have been seen and evaluated in the emergency department. Please follow-up with your primary care doctor. You may continue to take Tessalon Perles along with previously prescribed albuterol for your symptoms. Clinical Impressions Clinical Impression: Subacute cough Instructions Patient Instructions: Cough, DI for Cough -- Adult Print Language Print Language: Kazakh Discharge ED Provider: Tomeka Wu General Adult HPI General Chief complaint: Neuro Symptoms/Deficit Stated complaint: Dizzy, SOA, Chest Con, wheeze X 4 wks, confusion Time Seen by Provider: 11/11/24 08:58 Mode of Arrival: Ambulatory Source of Information: Patient Description of Symptoms (Recalled from ER Triage Doc. by RN): PT REPORTS CHEST CONGESTION, URI SYMPTOMS. PT REPORTS CONFUSION, FEELING FORGETFUL X1 WEEK. REPORTS MUSCLE SPASMS AND HANDS TWITCHING. PT WITH ONGOING ESOPHAGEAL ISSUES History of Present Illness HPI narrative: This is a 34-year-old female with reported past medical history of asthma, daily smoking, esophageal narrowing, chronic dysphagia, pulmonary nodules, HTN who presents emergency department with multiple complaints. She describes a persistent cough for the past 4 weeks after an upper respiratory illness. She feels that the cough is moving down to her chest. She recently completed a course of doxycycline, stopped antibiotics 4 days ago. She was also placed on a 5-day course of oral prednisone at that time. Denies any recent fevers. She states she lives in a home that is infested with multiple different types of mold. She is unsure as to when she can move out of the home. She also reports a history of pulmonary nodules.. She states her last chest CT was approximately 1 year ago. Denies any recent headache, abdominal pain, vomiting, dysuria, or possibility of . Related Data Home Medications ?Medication ?Instructions ?Recorded ?Confirmed albuterol sulfate 90 mcg/actuation See Rx Instructions .Route 04/28/20 10/26/24 aerosol inhaler .COMPLEX Asthma cetirizine 10 mg tablet (Zyrtec) 10 mg PO DAILY PRN . 08/04/21 10/26/24 buprenorphine 8 mg-naloxone 2 mg 1 tab sublingual DAILY 12/11/23 10/26/24 sublingual tablet famotidine 40 mg tablet 40 mg PO BID 12/11/23 10/26/24 levothyroxine 200 mcg tablet 175 mcg PO DAILY 12/11/23 10/26/24 pantoprazole 40 mg tablet,delayed 40 mg PO BID 12/11/23 10/26/24 release montelukast 10 mg tablet 0 mg PO DAILY 03/21/24 10/26/24 Previous Rx's ?Medication ?Instructions ?Recorded prucalopride 2 mg tablet 2 mg PO DAILY #30 tabs 03/21/24 (Motegrity) buspirone 5 mg tablet 5 mg PO BID #180 tabs 04/23/24 nicotine 21 mg/24 hr daily 1 patch transdermal DAILY #28 ea 08/22/24 transdermal patch atorvastatin 40 mg tablet See Rx Instructions .Route 10/10/24 .COMPLEX #90 tabs doxycycline monohydrate 100 mg 100 mg PO BID 7 days #14 caps 10/26/24 capsule prednisone 20 mg tablet 20 mg PO BID #10 tabs 10/26/24 benzonatate 100 mg capsule 100 mg PO BID PRN cough #14 caps 11/11/24 hydroxyzine pamoate 25 mg capsule 25 mg PO TID PRN nausea and 11/11/24 (Vistaril) vomiting #120 caps Allergies Allergy/AdvReac Type Severity Reaction Status Date / Time vancomycin (VANCOMYCIN) Allergy Intermediate I-HIVES Verified 09/17/24 18:46 sulfamethoxazole (From Allergy Mild angioedma Verified 09/17/24 18:46 Bactrim) trimethoprim (From Bactrim) Allergy Mild angioedma Verified 09/17/24 18:46 nickel (NICKEL) Allergy Unknown RASH/BLISTE Verified 09/17/24 18:46 RS droperidol Allergy Other Verified 09/17/24 18:46 PFSH PFSH Disclaimer: The information contained in this section may have been updated after the patient was seen, as this information can be updated by other users. 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 current occupational exposures/hazards: Yes caffeine: Yes Have you lived/traveled outside [place] in past 30 days?: No Contact w/someone who lives/traveled outside [place] past 30 days?: No Exposure to someone with infectious disease in past 14 days?: No Do you have a fever (greater than 100.4 F or 38 C)?: No Have you tested positive for COVID-19?: No Exposed to someone with COVID-19 in past 14 days?: No Do you have a sore throat?: No Do you have a cough?: No Do you have any weakness?: No Do you have any diarrhea?: No Are you experiencing any unusual bleeding?: No Do you have any muscle aches/pain?: No Do you have any abdominal pain?: No Are you experiencing loss of taste or smell?: No Other Medical History Have you received the Flu Vaccine for this season: Yes Have you received the Pneumonia Vaccine: No ROS Obtained: Yes All systems reviewed & no additional complaints except as documented Physical Exam General General appearance: alert and in no apparent distress Head Head exam: atraumatic Eye Eye exam: Present normal appearance, PERRL and EOMI ENT ENT exam: Present mucous membranes moist Neck Neck exam: Present normal inspection and full ROM; Absent tenderness Chest Chest inspection: Present symmetric chest wall rise; Absent tenderness Respiratory Respiratory exam: Absent respiratory distress, wheezes or accessory muscle use Cardiovascular Cardiovascular exam: Present regular rate and normal rhythm Abdominal Exam Abdominal exam: Present soft; Absent tenderness or guarding Extremities Exam Extremities exam: Present full ROM; Absent tenderness Neurological Exam Neurological exam: Present alert and oriented X3 Psychiatric Psychiatric exam: Present normal affect Skin Skin exam: Present warm and dry Medical Decision Making Medical Records Screening: Per USPSTF and CDC recommendations, given the prevalence of disease in our region, it is our hospital?s policy to screen for HIV and viral Hepatitis for all patients aged 18 and over and those with ongoing risk factors. Juan Inquiry Pt receiving controlled substance: No Juan was queried for this patient: No Vital Signs: 11/11/24 08:39 11/11/24 09:30 11/11/24 10:24 Temperature 98.4 F Temperature Source Oral Pulse Rate 77 Pulse Rate [Radial] 86 Respiratory Rate 18 Blood Pressure 141/90 H 119/75 Blood Pressure [Right Arm] 141/90 H Blood Pressure Mean [Right Arm] 107 Blood Pressure Source [Right Arm] Automatic Cuff Blood Pressure Position [Right Arm] Sitting 02 Sat by Pulse Oximetry 99 98 99 Oxygen Delivery Method Room Air 11/11/24 10:30 11/11/24 11:59 Temperature 98.4 F Temperature Source Pulse Rate 76 78 Pulse Rate [Radial] Respiratory Rate 19 Blood Pressure 116/71 117/77 Blood Pressure [Right Arm] Blood Pressure Mean [Right Arm] Blood Pressure Source [Right Arm] Blood Pressure Position [Right Arm] 02 Sat by Pulse Oximetry 99 Oxygen Delivery Method Room Air Lab Data Lab results reviewed: Yes I reviewed the patient's lab results. Lab Results 11/11/24 08:42: SARS-CoV-2 (PCR) Not detected, Influenza A Untype (PCR) Not detected, Influenza Type B (PCR) Not detected 11/11/24 09:00: WBC 8.4, RBC 4.65, Hgb 13.8, Hct 41.2, MCV 88.6, MCH 29.7, MCHC 33.5, RDW 12.4, Plt Count 284, MPV 9.2, Neut % (Auto) 67.0, Lymph % (Auto) 25.6, Door % (Auto) 5.4, Eos % (Auto) 1.5, Baso % (Auto) 0.4, Neut # (Auto) 5.6, Lymph # (Auto) 2.2, Door # (Auto) 0.5, Eos # (Auto) 0.1, Baso # (Auto) 0.0, Sodium 140, Potassium 4.0, Chloride 103, Carbon Dioxide 33 H, Anion Gap 8.0, BUN 13, Creatinine 0.70, Estimated Creat Clear 122, Estimated GFR 96, Est GFR ( Amer) 116, Glucose 100, Calcium 9.5, Magnesium 2.0, Total Bilirubin 0.4, AST 36, ALT 33, Alkaline Phosphatase 72, Troponin I < 0.01, Total Protein 7.2, Albumin 4.6, Globulin 2.6, Albumin/Globulin Ratio 1.8, Serum HCG, Qual Negative 11/11/24 09:30: Urine Color Yellow, Urine Appearance Clear, Urine pH 6.5, Ur Specific [place] <= 1.005, Urine Protein Negative, Urine Glucose (UA) Negative, Urine Ketones Negative, Urine Blood 2+ A, Urine Nitrate Negative, Urine Bilirubin Negative, Urine Urobilinogen 0.2, Ur Leukocyte Esterase Negative, Urine RBC 10-20, Urine WBC None, Ur Squamous Epith Cells Occasional, Urine Bacteria Trace 11/11/24 09:00 11/11/24 09:00 Orders (Tests/Meds): ED MEDICATIONS Discontinued Medications Generic Name Dose Route Start Last Admin Trade Name Freq PRN Reason Stop Dose Admin Acetaminophen 1,000 mg 11/11/24 09:09 11/11/24 09:26 Acetaminophen 500mg Tab PO 11/11/24 09:10 1,000 mg ONCE ONE Administration Albuterol/Ipratropium 3 ml 11/11/24 09:09 11/11/24 09:26 Ipratropium/Albuterol 3 Ml Neb IH 11/11/24 09:10 3 ml ONCE ONE Administration Iopamidol 70 ml 11/11/24 10:15 11/11/24 10:16 Iopamidol-370 (76%);100ml Bottle IV 11/11/24 10:16 70 ml ONCE ONE Administration Ketorolac Tromethamine 15 mg 11/11/24 09:09 11/11/24 09:25 Ketorolac 15mg/Ml Vial IV 11/11/24 09:10 15 mg ONCE ONE Administration Sodium Chloride 50 ml 11/11/24 10:15 11/11/24 10:16 0.9 % Sodium Chloride 50 Ml Vial IV 11/11/24 10:16 50 ml ONCE ONE Administration Sodium Chloride 10 ml 11/11/24 10:15 11/11/24 10:16 Sodium Chloride 0.9% 10ml Syr (Rad Only) IV 12/11/24 10:14 10 ml NEEDED PRN Administration Maintain IV Site ORDERS Category Date Time Status CT angio chest PE protocol Stat Cat Scan 11/11/24 09:07 Completed CBC w/Auto Diff [Complete Blood Count Auto Diff] Stat Lab 11/11/24 09:00 Completed CMP [Comprehensive Metabolic Panel] Stat Lab 11/11/24 09:00 Completed Magnesium Stat Lab 11/11/24 09:00 Completed Rapid PCR Covid and Flu A/B Stat Lab 11/11/24 08:42 Completed Serum [HCG Qualitative, Serum] Stat Lab 11/11/24 09:00 Completed Trop I [Troponin I] Stat Lab 11/11/24 09:00 Completed UA [Urinalysis and Microscopic] Stat Lab 11/11/24 09:30 Completed Medical Decision Narrative: 34-year-old female presenting the emergency department multiple complaints including shortness of breath, chest pain, weight loss and persistent cough. Differential diagnosis includes but is not limited to: Postviral cough, reactive airway disease, COPD, emphysema, environmental exposure, occult malignancy, less likely PE or ACS. EKG shows normal sinus rhythm at a rate of 73. Normal intervals. Rightward axis. Incomplete right bundle branch block. No acute ischemic changes. CBC with no acute findings. CMP shows no severe electrolyte abnormality, MILEY, or abnormal LFTs. Initial troponin is less than 0.01. No indication for repeat considering her chest pain has been present for 1 week. UA shows negative leukocyte esterase, no white blood cells, and trace bacteria. Not consistent with UTI. Negative COVID/flu. CT PE shows no acute findings. There are no large pulmonary emboli, no evidence of pneumonia, and no obvious large pulmonary nodules on my exam. Patient received Toradol, albuterol, and Tylenol with improvement in her symptoms. Ultimately, the patient presents with subacute cough that is most likely postviral in nature. She is appropriate for discharge home with Estela Salomon and was instructed to continue her albuterol inhaler as previously prescribed. I did provide a refill on her hydroxyzine as requested. Critical Care Critical Care Time Critical Care Time: No
[2024-11-11 09:14] LABS: Hematocrit 41.2 % (37.0-47.0); Hemoglobin 13.8 g/dL (12.2-16.2); Immature Granulocytes % 0.1 %; Mean Corpuscular HGB Conc 33.5 g/dL (31.8-35.4); Mean Corpuscular Hemoglobin 29.7 pg (27.0-31.2); Mean Corpuscular Volume 88.6 fl (81-99); Nucleated Red Blood Cells % 0 %; Platelet Count 284 K/mm3 (142-424); Red Blood Count 4.65 M/mm3 (4.20-5.40); Red Cell Distribution Width-SD 40.0 fL; White Blood Count 8.4 K/mm3 (4.8-10.8)
[2024-11-11 09:20] LABS: Albumin Level 4.6 g/dl (3.5-5.0); Chloride 103 mmol/L (98-107); Potassium 4.0 mmoL/L (3.5-5.1); Sodium 140 mmol/L (136-145)
[2024-11-11 09:21] LABS: Magnesium 2.0 mg/dl (1.6-2.3)
[2024-11-11 09:22] LABS: Blood Urea Nitrogen 13 mg/dl (7-17); Creatinine Clearance Estimated 122 mL/min (50-200); Creatinine,Serum 0.70 mg/dl (0.52-1.04); Estimated Glomerular Filt Rate 96 ml/min (>60); GFR (African American) 116 ML/MIN (>60)
[2024-11-11 09:23] LABS: Alanine Aminotransferase 33 U/L (12-78); Albumin/Globulin Ratio 1.8 (1.1-1.8); Alkaline Phosphatase 72 U/L (38-126); Anion Gap 8.0 mEq/L (5-15); Aspartate Amino Transferase 36 U/L (14-36); Bilirubin,Total 0.4 mg/dl (0.2-1.3); Calcium 9.5 mg/dl (8.4-10.2); Carbon Dioxide 33 mmol/L (22.0-30.0); Globulin 2.6 g/dL (1.3-3.2); Glucose 100 mg/dl (74-100); Total Protein,Serum 7.2 g/dl (6.3-8.2)
[2024-11-11] MEDS: KETOROLAC 15MG/ML VIAL 15 MG IV (09:25)
[2024-11-11] MEDS: ACETAMINOPHEN 500MG TAB 1000 MG PO (09:26)
[2024-11-11] MEDS: IPRATROPIUM/ALBUTEROL 3 ML NEB IH (09:26)
[2024-11-11 09:30] VITALS: BP 141/90; PULSE 77; O2SAT 98
[2024-11-11 09:34] LABS: Troponin I < 0.01 ng/ml (0.00-0.034)
[2024-11-11 10:03] LABS: HCG Qualitative, Serum Negative (Negative)
[2024-11-11] MEDS: IOPAMIDOL-370 (76%);100ML BOTTLE 70 ML IV (10:16)
[2024-11-11] MEDS: 0.9 % SODIUM CHLORIDE 50 ML VIAL IV (10:16)
[2024-11-11] MEDS: SODIUM CHLORIDE 0.9% 10ML SYR (RAD ONLY) 10 ML IV (10:16)
[2024-11-11 10:24] VITALS: BP 119/75; O2SAT 99
[2024-11-11 10:30] VITALS: BP 116/71; PULSE 76; O2SAT 99
[2024-11-11 10:51] LABS: Microscopic, Urine URINE MICROSCOPIC (MICROSCOPIC)
[2024-11-11 10:57] LABS: Bilirubin,Urine Negative (Negative); Color,Urine YELLOW (Yellow); Glucose,Urine (UA) Negative (Negative); Ketones,Urine Negative (Negative); Leukocyte Esterase,Urine Negative (Negative); PH,Urine 6.5 (5.0-8.5); Protein,Urine Negative (Negative); Specific Gravity, Urine <= 1.005 (1.005-1.030); Urobilinogen,Urine 0.2 EU/dl (0.2)
[2024-11-11 11:08] LABS: Bacteria,Urine Trace /lpf; Squamous Epithelial Cell,Urine Occasional #/hpf (0-5)
[2024-11-11 11:59] VITALS: BP 117/77; PULSE 78; RESP 19; TEMP 36.9; O2SAT 99
== END 2024-11-11 12:00 | disposition home or self-care (01) ==
PROVIDERS: Emergency Provider Student in an Organized Health Care Education/Training Program; PCP Nurse Practitioner
DX: R05.1 Acute cough (principal); F17.210 Nicotine dependence, cigarettes, uncomplicated
CPT/HCPCS: 71275; 80053; 81001; 83735; 84484; 84703; 85025; 87636; 93005; 96374; 99285; J1885; Q9967